=== PATIENT | male | born 1965 | race Caucasian/White ===

== ENCOUNTER 2023-02-19 08:11 | Outpatient (OUT) | payer BC, SELFPAY ==
[2023-02-19 08:30] LABS: Basophils Absolute Auto 0.1 10^3/uL (0.0-0.1); Basophils Percent Auto 0.9 % (0.2-2.0); Eosinophils Absolute Auto 0.5 10^3/uL (0.0-0.7); Eosinophils Percent Auto 7.3 % (0.9-7.0); Hematocrit 47.2 % (42.0-54.0); Hemoglobin 15.9 g/dL (14.0-18.0); Immature Granulocytes Abs Auto 0.02 10^3/uL (0.00-0.03); Immature Granulocytes Pct Auto 0.3 % (0.0-0.5); Lymphocytes Absolute Auto 2.1 10^3/uL (1.2-3.8); Lymphocytes Percent Auto 31.4 % (20.5-60.0); Mean Corpuscular HGB Conc 33.7 g/dL (29.9-35.2); Mean Corpuscular Hemoglobin 28.9 pg (25.9-34.0); Mean Corpuscular Volume 85.8 fL (80.0-94.0); Mean Platelet Volume 11.1 fL (9.5-13.5); Monocytes Absolute Auto 0.3 10^3/uL (0.3-0.8); Neutrophils Absolute Auto 3.6 10^3/uL (1.4-6.5); Neutrophils Percent Auto 55.1 % (43.0-75.0); Platelet Count 234 10^3/uL (150-450); Red Cell Distribution Width 13.1 % (11.0-15.0); White Blood Count 6.6 10^3/uL (4.0-11.0)
[2023-02-19 08:35] LABS: Microalbumin Urine Random <1.3 mg/dL (<=30.0)
[2023-02-19 09:05] LABS: Alanine Aminotransferase 49 U/L (16-63); Albumin Globulin Ratio 1.2; Albumin Level 3.9 g/dL (3.4-5.0); Alkaline Phosphatase 70 U/L (46-116); Anion Gap 9.1; Aspartate Amino Transferase 22 U/L (15-37); BUN Creatinine Ratio 15.1; Calcium 8.9 mg/dL (8.5-10.1); Carbon Dioxide 28.8 mmol/L (21.0-32.0); Chloride 102 mmol/L (98-107); Chol HDL Ratio 3.6; Cholesterol 132 mg/dL (<=200); Estimated GFR (African America >60 (>=60); Estimated GFR (Non-African Ame >60 (>=60); Globulin 3.2 g/dL; Glucose 158 mg/dL (74-106); HDL Cholesterol 37 mg/dL (40-60); Potassium 3.9 mmol/L (3.5-5.1); Sodium 136 mmol/L (136-145); Total Protein 7.1 g/dL (6.4-8.2); Triglycerides 140 mg/dL (<=150)
[2023-02-19 09:29] LABS: Prostate Specific Antigen Scrn 1.04 ng/mL (<=4.00)
== END 2023-02-19 08:12 | disposition home or self-care (01) ==
PROVIDERS: Family Provider Internal Medicine; PCP Internal Medicine; Visit Provider Internal Medicine
DX: Z00.00 Encounter for general adult medical examination without abnormal findings (principal); Z12.5 Encounter for screening for malignant neoplasm of prostate
CPT/HCPCS: 36415; 80053; 80061; 82043; 85025; G0103

== ENCOUNTER 2023-09-09 10:33 | Outpatient (OUT) | payer BC, SELFPAY ==
--- NOTE | 2023-09-09 10:40 | XR_ITS ---
The [address] [address] Patient Name: MYRNA SANTIAGO MRN: [id number] date: 1965 Sex: M Assigned Patient Location: [place] Current Patient Location: [place] Accession/Order Number: [id number] Exam Date: 09/09/2023 10:40 Report Date: 09/09/2023 10:55 At the request of: URSULA SHER Procedure: XR chest 2V EXAM: XR chest 2V HISTORY: Dyspnea on exertion. COMPARISON: Chest radiograph dated 04/09/2021. TECHNIQUE: PA and lateral views of the chest performed. FINDINGS: The trachea is unremarkable. The heart size is normal and stable. The mediastinal silhouette and hilar shadows are stable and unremarkable. There are low lung volumes, stable. There is no consolidation, infiltrate, pleural effusion or pulmonary vascular congestion. There is no pneumothorax. There is no acute osseous abnormality. Stable mild S-shaped scoliosis of the thoracolumbar spine. XR/XR chest 2V IMPRESSION: There is no acute cardiopulmonary process. Electronically authenticated by: DIONTE SCHULTZ Date: 09/09/2023 10:55
--- NOTE | 2023-09-09 10:45 | NM_ITS ---
Patient Name: MYRNA SANTIAGO MR#: [id number] : 1965 Exam Date: 09/09/2023 Ordering Doctor: DR Bhaskar Reddy D.O. RADIOLOGY REPORT PROCEDURE: NM EVAN PERF SPECT REST STR COMPARISON: None. INDICATIONS: CHEST PAIN, SHORTNESS OF BREATH TECHNIQUE: Exam Description: Stress/Rest one day protocol gated SPECT Rest Imagin.2 mCi Tc-99m Cardiolite IV on 09/09/2023 Stress Imaging 30.8 mCi Tc-99m Cardiolite IV on 09/09/2023 Exercise Protocol: Erwin Heart Rate (bpm): Rest: 61 Max: 139 PMHR: 85 Blood Pressure: Rest: 122/86 Max: 178/88 Exercise Time: Minutes: 8 Seconds: 30 Stage Reached: Stage: 3 Mets 10.1 Symptoms: Rest and peak stress ECG findings were abnormal and the exercise portion of the study was abnormal per attending physician Dr. Tay Reddy due to EKG changes. For more details please see separate cardiac stress test report. FINDINGS: QUALITY OF STUDY: Excellent. PERFUSION DEFECT: None. LOCATION: N/A SIZE: N/A. SEVERITY: N/A. TYPE: N/A. WALL MOTION: Normal. LV SIZE: Normal. 66 mL. TID / TCD: None; 0.6 LVEF: Normal. Calculated EF 71%. SUMMARY: Myocardial perfusion imaging study is NORMAL. CONCLUSION: 1. Normal nuclear medicine myocardial perfusion scan. Dictated by: Gaston Mckee M.D. on 09/09/2023 at 15:41 Approved by: Gaston Mckee M.D. on 09/09/2023 at 15:43
--- NOTE | 2023-09-09 13:09 | PM.STRESS ---
Stress Test Stress Test Allergies Allergy/AdvReac Type Severity Reaction Status Date / Time No Known Allergies AdvReac Unknown Unverified 09/09/23 13:20 Requesting physician: Bhaskar Reddy Procedure: Treadmill exercise test General Information: Reason for Stress Test: [. Evaluate a patient with dyspnea on exertion and known coronary artery disease.] Cardiac History and Risk Factors: [. Mr. Aguilar is a 58-year-old patient with known coronary artery disease, status post PCI/stent placement in the left anterior descending artery. Primary risk factors include essential hypertension and hyperlipidemia.] Resting 12 - Lead Electrocardiogram: . Normal sinus rhythm with a ventricular rate of 61 bpm. The RI interval, QRS interval and QT interval are all within normal limits. There are small, nondiagnostic Q waves in the inferior leads and nonspecific ST-T wave changes. Stress Test: Protocol: [. Erwin protocol] Exercise Capacity: [. Mr. Aguilar demonstrated above average exercise capacity. He exercised for 8 1/2 minutes, achieving a heart rate of 139 bpm, which is equivalent to eighty-five percent maximum predicted heart rate. He exercised into stage III of this protocol, which is equivalent to 3.4 miles per hour, fourteen percent grade and 10.1 METs units.] Blood Pressure Response: [Mr. Aguilar demonstrated normal blood pressure response to exercise. His resting blood pressure was 122/86, increasing to a peak of 178/88 and gradually returning baseline during the recovery phase.] Rhythm: [. During exercise he remained in sinus rhythm with rare PVCs.] ST - Response: [. At peak exercise, there was [address] depression noted in the inferior lateral leads.] Patient Response: [At peak exercise the patient did experience shortness of breath but denied chest pain.] Interpretation: . During exercise, there was objective evidence suspicious for myocardial ischemia. Mr. Aguilar demonstrated normal heart rate and blood pressure response to exercise with an above average exercise capacity. Mr. Aguilar's Clark treadmill score was 3.5, placing him in the moderate risk group. Cardiolite was injected with images and interpretation pending
[2023-09-09] MEDS: NITROGLYCERIN 0.4 MG BOTTLE SL (13:18)
== END 2023-09-09 10:34 | disposition home or self-care (01) ==
LOC: NM 10:35
PROVIDERS: Family Provider Internal Medicine; PCP Internal Medicine; Visit Provider Internal Medicine
DX: R07.2 Precordial pain (principal); R06.09 Other forms of dyspnea; I25.10 Atherosclerotic heart disease of native coronary artery without angina pectoris; Z95.5 Presence of coronary angioplasty implant and graft
CPT/HCPCS: 71046; 78452; 93017; A9500

== ENCOUNTER 2023-10-26 15:48 | Outpatient (OUT) | payer BC, SELFPAY ==
--- NOTE | 2023-10-26 16:08 | US_ITS ---
The [address] [address] Patient Name: MYRNA SANTIAGO MRN: [id number] date: 1965 Sex: M Assigned Patient Location: [place] Current Patient Location: [place] Accession/Order Number: [id number] Exam Date: 10/26/2023 16:15 Report Date: 10/26/2023 21:21 At the request of: URSULA SHER Procedure: US arterial duplex UE RT EXAM: US arterial duplex UE RT HISTORY: Pain of right upper extremity,M79.601 COMPARISON: None. TECHNIQUE: Grayscale, color and spectral Doppler images were performed of the right upper extremity. FINDINGS: Normal triphasic waveforms are seen in the right subclavian, axillary, brachial, radial and ulnar arteries. Peak systolic velocities appear within normal limits with no focal elevation to suggest hemodynamically significant stenosis. US/US arterial duplex UE RT IMPRESSION: Normal right upper extremity duplex ultrasound with no hemodynamically significant arterial stenosis or occlusion. Electronically authenticated by: SEDRICK KEE Date: 10/26/2023 21:21
== END 2023-10-26 15:49 | disposition home or self-care (01) ==
LOC: US 15:55
PROVIDERS: Family Provider Internal Medicine; PCP Internal Medicine; Visit Provider Internal Medicine
DX: M79.601 Pain in right arm (principal); Z98.890 Other specified postprocedural states
CPT/HCPCS: 93931

== ENCOUNTER 2023-11-24 15:26 | Outpatient (RCR) | payer BC, SELFPAY | END 2023-11-25 12:37 | disposition home or self-care (01) | LOC: OT 15:26 | PROVIDERS: Family Provider Internal Medicine; PCP Internal Medicine; Visit Provider Orthopaedic Surgery | DX: M79.642 Pain in left hand (principal); M79.641 Pain in right hand; M19.042 Primary osteoarthritis, left hand; M19.041 Primary osteoarthritis, right hand | CPT/HCPCS: 97018; 97165 ==

== ENCOUNTER 2023-12-10 15:20 | Outpatient (OUT) | payer BC, SELFPAY ==
--- NOTE | 2023-12-10 15:26 | XR_ITS ---
The [address] [address] Patient Name: MYRNA SANTIAGO MRN: [id number] date: 1965 Sex: M Assigned Patient Location: [facility] Current Patient Location: Accession/Order Number: [id number] Exam Date: 12/10/2023 15:28 Report Date: 12/14/2023 08:06 At the request of: URSULA SHER Procedure: XR shoulder RT min 2V PROCEDURE: XR shoulder RT min 2V HISTORY: Right shoulder pain M25.511 , right arm pain COMPARISON: None. FINDINGS: BONES:Narrowing of the acromioclavicular joints without significant periarticular osteophytes. Unremarkable humeral head and glenohumeral joint. SOFT TISSUES:No visible soft tissue swelling. EFFUSION:None visible. OTHER: Negative. XR/XR shoulder RT min 2V IMPRESSION: 1. Mild degenerative changes. 2. No acute bone abnormality. Electronically authenticated by: SEDRICK ZELAYA Date: 12/14/2023 08:06
--- OUTSIDE RECORDS SUMMARY | 2023-12-10 15:43 | XMS_ITS | CCD ---
Author Organization [facility] Care Team Providers Care Tobacco Buyer Name Role Phone CONCEPCIONSHILA GLASGOW Unavailable Unavailable BHASKAR REDDY Unavailable Unavailable Mini Marquez Unavailable BHASKAR REDDY Primary Care Physician Pocos, DO Joselyn Barajas Referring Unavailable Pocos, DO Joselyn Barajas Attending Unavailable Pocos, DO Joselyn Barajas Admitting Unavailable BALL, DR VERGARA Primary Care Unavailable BALL, DR VERGARA Admitting Unavailable BALL, DR VERGARA Attending Unavailable BALL, DR VERGARA Consulting Unavailable BALL, DR VERGARA Primary Care Unavailable POCOS, DR ALVES Admitting Unavailable POCOS, DR ALVES Attending Unavailable BALL, DR VERGARA Consulting Unavailable BALL, DR VERGARA Primary Care Unavailable REQUEST, DR MARIE LISTED Admitting Unavaila ble REQUEST, DR MARIE LISTED Attending Unavaila ble REQUEST, DR MARIE LISTED Consulting Unavaila ble BALL, DR VERGARA Primary Care Unavailable BALL, DR VERGARA Admitting Unavailable BALL, DR VERGARA Attending Unavailable BALL, DR VERGARA Consulting Unavailable BALL, DR VERGARA Primary Care Unavailable POCOS, DR ALVES Attending Unavailable POCOS, DR ALVES Consulting Unavailable POCOS, DR ALVES Admitting Unavailable Bhaskar Reddy Unavailable DO Bhaskar Reddy Primary Care Provider MD Angelina Arrieta Attending Provider Jennifer Mccarthy Unavailable JESSICA WEAVER Attending Unavailable NAPOLEON VAZQUEZ Admitting Unavailable HOLIDAY, NAPOLEON Sinclair Attending Unavailable NAPOLEON VAZQUEZ Referring Unavailable BHASKAR REDDY Primary Care Unavailable DO Bhaskar Reddy Primary Care Provider [phone] MD Judy Coleman Attending Provider Angelina Arrieta Admitting Unavailable Angelina Arrieta Attending Unavailable Bhaskar Reddy Primary Care Unavailable Judy Coleman Admitting Unavailable Judy Coleman Attending Unavailable Bhaskar Reddy Primary Care Unavailable Bhaskar Reddy Primary Care Unavailable Miguel Chen Admitting Unavailable Miguel Chen Attending Unavailable Medications Current Medications Medication Drug Class(es) Dates Sig (Normalized) Sig (Original) aspirin 81 mg delayed release oral tablet (15 sources) Platelet Aggregation Inhibitor, Nonsteroidal Anti-inflammatory Drug Start: 08-17-2017 take 81 mg by mouth once daily Aspirin Active 81 MG PO Daily August 17, 2017 1:00am Baby Aspirin Act ti atorvastatin 40 mg oral tablet (20 sources) HMG-CoA Reductase Inhibitor Start: 02-11-2019 take 40 mg by mouth once daily Atorvastatin Active 40 MG PO Daily February 11, 2019 12:00am Start: 08-18-2017 End: 08-13-2018 take 1 tablet by mouth once daily Atorvastatin (Lipitor) 40 mg tablet Discontinued 40 MG PO Daily August 18, 2017 1:00am August 13, 2018 1:02am take 2 tablets by [facility] once daily in the evening Atorvastatin Calcium 20 MG TAKE 2 TABLETS BY MOUTH EVERY DAY IN THE EVENING for 90 Active celecoxib 50 mg oral capsule (2 sources) Nonsteroidal Anti-inflammatory Drug Start: 11-09-2023 take 1 capsule by mouth twice daily Celecoxib (Celebrex) 50 mg capsule Active 50 MG PO Twice daily 60 November 09, 2023 12:00am dextromethorphan hydrobromide 1.5 mg/ml / pyrilamine maleate 1.5 mg/ml oral solution (3 sources) Uncompetitive U-dsqjjk-C-aspartate Receptor Antagonist, Sigma-1 Agonist Start: 04-27-2023 take 10 mL by mouth every eight hours [place] DM 7.5-7.5 MG/5ML 10 mL Orally every 8 hours for 5 days Apr, Active 0.5 ml dulaglutide 1.5 mg/ml auto-injector (11 sources) GLP-1 Receptor Agonist Start: 12-23-2021 Dulaglutide (Trulicity) 0.75 mg/0.5 mL Pen Injector Active 0.75 MG SUBCUT every week December 23, 2021 12:00am lisinopril 10 mg oral tablet (15 sources) Angiotensin Converting Enzyme Inhibitor Start: 04-19-2020 take 10 mg by mouth once daily Lisinopril Active 10 MG PO Daily April 19, 2020 12:00am Lisinopril Activ e metFORMIN hydrochloride 500 mg oral tablet (10 sources) Biguanide Start: 12-23-2021 take 500 mg by mouth once daily Metformin Active 500 MG PO Daily December 23, 2021 12:00am 24 hr metoprolol succinate 50 mg extended release oral tablet (20 sources) beta-Adrenergic Ghada Start: 12-17-2022 take 50 mg by mouth once daily Metoprolol Succinate Active 50 MG PO Daily December 17, 2022 12:00am Start: 08-17-2017 End: 12-17-2022 take 25 mg by mouth twice daily Metoprolol Tartrate Discontinued 25 MG PO Twice daily August 18, 2017 11:22am December 17, 2022 1:04pm nitroglycerin 0.4 mg sublingual tablet (4 sources) Nitrate Vasodilator Start: 08-17-2017 Nitroglycerin Active 0.4 MG SUBLINGUAL every 5 to 15 minutes August 17, 2017 1:00am predniSONE 20 mg oral tablet (14 sources) Start: 05-27-2022 take 1 tablet by mouth every twelve hours prednisone 20 MG 1 tablet Orally BID for 5 Apr, Active Completed/Discontinued Medications Medication Drug Class(es) Dates Sig (Normalized) Sig (Original) [id number] actuat albuterol 0.09 mg/actuat metered dose inhaler (20 sources) beta2-Adrenergic Agonist Start: 05-27-2022 take 2 puff(s) by inhalation four times daily as needed Albuterol Sulfate HFA 108 (90 Base) MCG/ACT 2 puffs Inhalation 4 times a day prn May, Not-Taking/PRN Start: 05-27-2022 take 2 puff(s) by in halation four times daily as needed Albuterol Sulfate HFA 108 (90 Base) MCG/ACT 2 puffs Inhalation 4 times a day prn May, Not-Taking Start: 05-27-2022 take 2 puff(s) by in halation four times daily as needed Albuterol Sulfate HFA 108 (90 Base) MCG/ACT 2 puffs Inhalation 4 times a day prn May, Not-Taking Start: 05-01-2020 take 2 puff(s) by in halation every four hours as needed Albuterol Sulfate HFA 108 (90 Base) MCG/ACT 2 puffs as needed Inhalation every 4 hrs for 30 days Apr, Not-Taking/PRN Start: 05-01-2020 take 2 puff(s) by in halation every four hours as needed Albuterol Sulfate HFA 108 (90 Base) MCG/ACT 2 puffs as needed Inhalation every 4 hrs for 30 days Apr, Not-Taking Start: 05-01-2020 take 2 puff(s) by in halation every four hours as needed Albuterol Sulfate HFA 108 (90 Base) MCG/ACT 2 puffs as needed Inhalation every 4 hrs for 30 days Apr, Not-Taking ALPRAZolam 0.25 mg oral tablet (4 sources) Benzodiazepine Start: 08-17-2017 End: 12-22-2017 Alprazolam Discontinued 0.25 MG PO 2-3 TIMES PER DAY August 17, 2017 1:00am December 22, 2017 9:38am azithromycin 250 mg oral tablet (20 sources) Macrolide Antimicrobial Start: 10-27-2022 Azithr omycin 250 MG as directed Orally daily for 5 days Oct, Not-Taking/PRN Start: 05-27-2022 Azithromycin 2 50 MG 2 tablet on the first day, then 1 tablet daily for 4 days Orally Once a day for 5 day(s) May, Not-Taking/PRN benzonatate 100 mg oral capsule (11 sources) Non-narcotic Antitussive Start: 05-27-2022 take 1 capsule by mouth three times daily as needed Tessalon Perles 100 MG 1 capsule as needed Orally Three times a day for 10 day(s) prn cough May, Not-Taking/PRN cetirizine hydrochloride 10 mg oral tablet (11 sources) Histamine-1 Receptor Antagonist Start: 05-01-2020 take 1 tablet by mouth every twenty-four hours Cetirizine HCl 10 MG 1 tablet Orally Once a day for 30 day(s) Apr, Not-Taking/PRN codeine phosphate 2 mg/ml / guaiFENesin 20 mg/ml oral solution (10 sources) Opioid Agonist Start: 10-27-2022 take 10 mL by mouth every four hours as needed guaiFENesin-Codein e 100-10 MG/5ML 10 mL as needed Orally every 4 hrs for 5 days Oct, Not-Taking/PRN dextromethorphan hydrobromide 15 mg / guaiFENesin 400 mg / pseudoephedrine hydrochloride 60 mg oral tablet (11 sources) alpha-Adrenergic Agonist, Uncompetitive U-fyyozz-S-aspartat e Receptor Antagonist, Sigma-1 Agonist Start: 05-01-2020 Capmist DM 60-15-400 MG 1/2 to 1 tablet Orally every 6-8 hours as needed for 8 days Apr, Not-Taking/PRN fluticasone propionate 0.05 mg/actuat metered dose nasal spray (11 sources) Corticosteroid Start: 05-01-2020 take 1 spray(s) nasal route once daily as needed Fluticasone Propionate 50 MCG/ACT 1 spray in each nostril Nasally Once a day for 30 day(s) Apr, Not-Taking/PRN Start: 05-01-2020 take 1 spray(s) nasa l route once daily Fluticasone Propionate 50 MCG/ACT 1 spray in each nostril Nasally Once a day for 30 day(s) Apr, Not-Taking hydroCHLOROthiazide 12.5 mg / lisinopril 20 mg oral tablet (5 sources) Thiazide Diuretic, Angiotensin Converting Enzyme Inhibitor Start: 03-30-2017 End: 04-19-2020 take 1 tablet by mouth once daily Lisinopril-Hydrochlorothiazide Discontinued 1 TAB PO Daily August 17, 2017 1:00am April 19, 2020 1:07pm methylPREDNISolone 4 mg oral tablet (11 sources) Corticosteroid Start: 05-01-2020 Medrol 4 MG as directed Oral ly for 6 days Apr, Not-Taking/PRN ticagrelor 90 mg oral tablet (4 sources) Start: 08-18-2017 End: 01-13-2019 take 1 tablet by mouth twice daily Ticagrelor (Brilinta) 90 mg Tablet Discontinued 90 MG PO Twice daily 180 90 August 18, 2017 1:00am January 13, 2019 10:16am Problems Active Problems Problem Classification Problem Date Documented Da te Episodic/Chronic Abdominal hernia (1 source) Umbilical hernia 03-30-2017 Episodic Acute bronchitis (1 source) Acute bronchitis due to other specified organisms Episodic Chronic obstructive pulmonary disease and bronchiectasis (1 source) Bronchitis, not specified as acute or chronic Episodic Conditions associated with dizziness or vertigo (2 sources) Benign paroxysmal positional vertigo; Translations: [Benign paroxysmal vertigo, left ear] Episodic Coronary atherosclerosis and other heart disease (20 sources) Coronary arteriosclerosis; Translations: [Atherosclerotic heart disease of [place] coronary artery without angina pectoris] Onset: 08-12-2017 08-17-2017 Chronic Coronary atherosclerosis and other heart disease (1 source) Presence of coronary angioplasty implant and graft Episodic Diabetes mellitus with complications (14 sources) Type 2 diabetes mellitus with hyperglycemia; Translations: [Type 2 diabetes mellitus] Onset: 2022 Chronic Disorders of lipid metabolism (12 sources) Hypercholesterolemia ; Translations: [Pure hypercholesterolemia , unspecified] Onset: 08-12-2017 Chronic Esophageal disorders (9 sources) Stricture of esophagus; Translations: [Benign esophageal stricture] 03-30-2017 Chronic Essential hypertension (12 sources) Hypertensive disorder; Translations: [Essential (primary) hypertension] Onset: 07-08-2022 03-30-2017 Chronic Miscellaneous mental health disorders (2 sources) Psychosexual dysfunction associated with inhibited sexual excitement; Translations: [Psychosexual dysfunction with inhibited sexual excitement] Onset: 11-20-2014 Chronic Nonspecific chest pain (8 sources) Chest pain, unspecified; Translations: [Chest pain] Onset: 02-16-2018 Resolved: 10-26-2021 Episodic Osteoarthritis (6 sources) Localized, primary osteoarthritis of the pelvic region and thigh; Translations: [Unilateral primary osteoarthritis, left hip] Onset: 08-13-2015 11-09-2023 Chronic Other connective tissue disease (4 sources) Trochanteric bursitis, right hip; Translations: [TROCHANTERIC BURSITIS RIGHT HIP] Onset: 07-27-2022 Episodic Other connective tissue disease (1 source) Other bursitis of hip, left hip; Translations: [OTHER BURSITIS OF HIP LEFT HIP] Onset: 07-08-2022 Episodic Other connective tissue disease (2 sources) Trochanteric bursitis of right hip; Translations: [Trochanteric bursitis, right hip] Episodic Other connective tissue disease (3 sources) Pain in right arm; Translations: [Pain in right arm] 10-26-2023 Episodic Other connective tissue disease (3 sources) Pain in right arm; Translations: [Pain in limb] 10-26-2023 Episodic Other connective tissue disease (2 sources) Hand pain; Translations: [Pain in right hand] 11-05-2023 Episodic Other connective tissue disease (3 sources) Pain in right hand; Translations: [Pain in limb] Onset: 11-09-2023 11-09-2023 Episodic Other connective tissue disease (1 source) Pain in left hand; Translations: [Pain in left hand] Onset: 11-09-2023 Episodic Other gastrointestinal disorders (15 sources) Dysphagia; Translations: [Dysphagia, unspecified] 12-26-2021 Episodic Other lower respiratory disease (1 source) Other forms of dyspnea Episodic Other male genital disorders (2 sources) Impotence of organic origin; 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] Chronic Other nutritional; endocrine; and metabolic disorders (2 sources) Obesity; Translations: [Obesity, unspecified] Chronic Other screening for suspected conditions (not mental disorders or infectious disease) (4 sources) Encounter for screening for malignant neoplasm of prostate; Translations: [Abnormal result of other cardiovascular function study] Onset: 11-05-2021 Episodic Other upper respiratory disease (2 sources) Allergic rhinitis; Translations: [Allergic rhinitis, unspecified] Chronic Pleurisy; pneumothorax; pulmonary collapse (2 sources) Pleurisy; Translations: [Pleurisy] Episodic Residual codes; unclassified (2 sources) Requires influenza virus vaccination; Translations: [Need for prophylactic vaccination and inoculation, Influenza] Episodic Residual codes; unclassified (3 sources) History of cardiac catheterization; Translations: [Other specified postprocedural states] 10-26-2023 Episodic Residual codes; unclassified (3 sources) Other specified postprocedural states; Translations: [Other postprocedural status] 10-26-2023 Episodic Sprains and strains (4 sources) Strain of muscle of left hip; Translations: [Strain of muscle, fascia and tendon of left hip, initial encounter] Onset: 08-13-2015 Episodic Unclassified (2 sources) Chest pain, unspecified / R07.9(ICD-9) Onset: 02-16-2018 Past or Other Problems Problem Classification Problem Date Documented Da te Episodic/Chronic Diseases of mouth; excluding dental (6 sources) Geographic tongue; Translations: [Geographic tongue] Onset: 11-20-2014 Resolved: 09-24-2020 Episodic Other aftercare (1 source) intermediate frame tender (current) use of insulin; Translations: [NURSING HOME CURRENT USE OF INSULIN] Onset: 02-22-2022 Episodic Other connective tissue disease (2 sources) Ganglion of hand; Translations: [Ganglion, right hand] Onset: 11-25-2018 Episodic Other gastrointestinal disorders (1 source) Dysphagia, unspecified; Translations: [Dysphagia, unspecified] Onset: 12-17-2022 Episodic Other non-traumatic joint disorders (2 sources) Arthralgia of the pelvic region and thigh; Translations: [Pain in left hip] Onset: 10-16-2013 Episodic Other nutritional; endocrine; and metabolic disorders (2 sources) Overweight; Translations: [Overweight] Onset: 11-05-2017 Episodic Other nutritional; endocrine; and metabolic disorders (4 sources) Body mass index 25-29 - overweight; Translations: [Body mass index 28.0-28.9, adult] Onset: 11-05-2017 Episodic Other upper respiratory infections (3 sources) Acute upper respiratory infection, unspecified; Translations: [Acute sinusitis] Onset: 05-17-2015 Episodic Spondylosis; intervertebral disc disorders; other back problems (2 sources) Low back pain; Translations: [Lumbago] Onset: 11-20-2014 Episodic Unclassified (1 source) Acute cough R05.1 Results Test Name Value Interpretation Reference Range Facility XR hand BI 3Von 11-09-2023 XR hand BI 3V [facility] [address] [place] [address] XRay Report Signed Patient: Misael Aguilar Jr MR#: [id number] : 1965 Acct:[id number] Age/Sex: 58 / M ADM Date: 11/09/23 Loc: SOXD Room: Type: [facility] Attending Dr: Judy Coleman MD Copies to: Judy Coleman MD Ordering Provider: Judy Coleman MD Date of Service: 11/09/23 XR/XR hand BI 3V: M79.641 - Pain in right hand 4 views both hand plain film COMPARISON: None HISTORY: Bilateral hand pain greater on the right. ACUTE FINDINGS: None DEGENERATIVE CHANGE: Mild bilateral degenerative changes. SOFT TISSUE FINDINGS: Unremarkable JOINT EFFUSION: None POSTOP CHANGES: None BONY MINERALIZATION: Adequate XR/XR hand BI 3V IMPRESSION: Mild bilateral degeneration Impression dictated by: Magnus Salcedo M.D.11/09/2023 5:24 PM Dictation Location: [place] [address] Transcribed By: [facility] 11/09/231723 Dictated By: Magnus Salcedo DO 11/09/231722 Signed By: 11/09/231723 Normal [facility] Basic Metabolic Panelon 09-16 Anion gap [Moles/Vol] 10 mmol/L Normal 9-15 [facility] Comment on above: Performed By: #### B MP #### [facility] [address] [place] [address] Calcium [Mass/Vol] 8.9 mg/dL Normal 8.5-9.9 [facility] Comment on above: Performed By: #### B MP #### [facility] [address] [place] [address] Chloride [Moles/Vol] 102 mmol/L Normal 95-107 [facility] Comment on above: Performed By: #### B MP #### [facility] [address] [place] [address] CO2 [Moles/Vol] 27 mmol/L Normal 20-31 [facility] Comment on above: Performed By: #### B MP #### [facility] [address] [place] [address] Creatinine [Mass/Vol] 0.97 mg/dL Normal 0.70-1.20 [facility] Comment on above: Performed By: #### B MP #### [facility] [address] [place] [address] GFR >60.0 Normal >60 [facility] Comment on above: Result Comment: Edwin atric calculator link https://www.kidney.org/professionals/kdoqi/gfr_calculatorped Effective Apr 20, 2022 These results are not intended for use in patients <18 years of age. eGFR results are calculated without a race factor using the 2020 CKD-EPI equation. Careful clinical correlation is recommended, particularly when comparing to results calculated using previous equations. The CKD-EPI equation is less accurate in patients with extremes of muscle mass, extra-renal metabolism of creatinine, excessive creatinine ingestion, or following therapy that affects renal tubular secretion. Performed By: #### B MP #### [facility] [address] [place] [address] Glucose [Mass/Vol] 149 mg/dL Critically high 70-99 [facility] Comment on above: Performed By: #### B MP #### [facility] [address] [place] [address] Potassium [Moles/Vol] 4.0 mmol/L Normal 3.4-4.9 [facility] Comment on above: Performed By: #### B MP #### [facility] [address] [place] [address] Sodium [Moles/Vol] 139 mmol/L Normal 135-144 [facility] Comment on above: Performed By: #### B MP #### [facility] [address] [place] [address] Urea nitrogen [Mass/Vol] 16 mg/dL Normal 6-20 [facility] Comment on above: Performed By: #### B MP #### [facility] [address] [place] [address] CBC With Platelet No Differe ntialon 10-01-2023 Erythrocyte distribution width (RBC) [Ratio] 12.8 % Normal 11.5-14.5 [facility] Comment on above: Performed By: #### C BCND #### [facility] [address] [place] [address] Hematocrit (Bld) [Volume fraction] 46.1 % Normal 42.0-52.0 [facility] Comment on above: Performed By: #### C BCND #### [facility] [address] [place] [address] Hemoglobin (Bld) [Mass/Vol] 15.3 g/dL Normal 14.0-18.0 [facility] Comment on above: Performed By: #### C BCND #### [facility] [address] [place] [address] MCH (RBC) [Entitic mass] 28.9 pg Normal 27.0-31.3 [facility] Comment on above: Performed By: #### C BCND #### [facility] [address] [place] [address] MCHC 33.2 % Normal 33.0-37.0 [facility] Comment on above: Performed By: #### C BCND #### [facility] [address] [place] [address] MCV (RBC) [Entitic vol] 87.1 fL Normal 79.0-92.2 [facility] Comment on above: Performed By: #### C BCND #### [facility] [address] [place] [address] Platelets (Bld) [#/Vol] 239 10*3/uL Normal 130-400 [facility] Comment on above: Performed By: #### C BCND #### [facility] [address] [place] [address] RBC (Bld) [#/Vol] 5.29 10*6/uL Normal 4.70-6.10 [facility] Comment on above: Performed By: #### C BCND #### [facility] [address] [place] [address] WBC (Bld) [#/Vol] 6.3 10*3/uL Normal 4.8-10.8 [facility] Comment on above: Performed By: #### C BCND #### [facility] [address] [place] [address] Prothrombin Timeon 4 INR Coag (PPP) [Relative time] 1.0 {INR} Normal [facility] Comment on above: Performed By: #### P T #### [facility] [address] [place] [address] PT Coag (PPP) [Time] 13.1 s Normal 12.3-14.9 [facility] Comment on above: Performed By: #### P T #### [facility] [address] [place] [address] Office Visiton 07-16-2023 Follow-up visit [id number] Misael Aguilar Jr. 1965 M Date Provider Department Center 07/16/2023 3848-JESSICA WEAVER CARD [facility] Family History Problem Relation Age of Onset No Known Problems Mother No Known Problems Father Family Status - Relation Status Age at Mother Alive Father Alive Level of Service:32447 MO OFFICE/OUTPATIENT ESTABLISHED MOD MDM 30 MIN Normal [facility] Glucose Glucometer (BldC) [M ass/Vol]Ordered By: Angelina Arrieta on 12-17-2022 Glucose [Mass/Vol] 101 mg/dL [facility] Comment on above: Random Glucose Refer ence Range is dependent on time and content of last meal. Glucose of more than 200 mg/dL in a nonstressed, ambulatory subject supports the diagnosis of Diabetes Mellitus. Glucose Poct Glucometerson 0 12-17-2022 Glucose [Mass/Vol] 101 mg/dL Normal [facility] Comment on above: Result Comment: [place] Glucose Reference Range is dependent on time and content of last meal. Glucose of more than 200 mg/dL in a nonstressed, ambulatory subject supports the diagnosis of Diabetes Mellitus. PERFORMED BY: [facility] [address] [place] [address] PATHOLOGIST COMBER OPERATOR LAMONT HORN M.D. Performed By: #### G TOBY #### Point of Care testing , Dwain 12-17-2022 L Specimen: [id number] Received: 12/17/22 Status: KENNEDY Conti Num: [id number] Spec Type: Surgical Subm Dr: Angelina Arrieta MD Tissues: A Gastric Biopsy (GASTRIC) Procedures: HE/2, Gross/Micro L4 Age/ Patient Sex Location Account Attending Physician Misael Aguilar Jr/[facility] [id number] Angelina Arrieta MD SPEC NUM: [id number] RECD: 12/17/22 STATUS: KENNEDY CONTI NUM: [id number] TOM: 12/17/22- [facility] DR: Angelina Arrieta MD ENTERED: 12/17/[address] [facility] [address]: SPEC TYPE: Surgical DEPT: S ORDERED: HE/2, Gross/Micro L4 ORDERED: HE/2, Gross/Micro L4 Pathological Diagnosis Stomach, gastric, biopsy: - Chronic gastritis, mild to moderate, nonspecific. - Negative for Helicobacter pylori on H E stain. Clinical Information Dysphagia, rule out H pylori Gross Description Received in formalin labeled with the patient's name, number and gastric are three fragments of soft [place] tissue ranging from 0.2 cm to 0.3 x 0.2 x 0.2 cm. Entirely submitted in one cassette labeled A1. Microscopic Description Two H E slides reviewed. The microscopic examination confirms the diagnosis. CPT Codes 38171 Specimen: [id number] Received: 12/17/22 Status: KENNEDY Conti Num: [id number] Spec Type: Surgical Subm Dr: Angelina Arrieta MD Tissues: A Gastric Biopsy (GASTRIC) Procedures: HE/Lazaro, Gross/Micro L4 Patient: Misael Aguilar Jr [id number] (Continued) Signed (signatur e on file) Julieta Escobar MD 12/18/22 1150 Normal [facility] CBC AUTO DIFFon 07-03-2022 BASO # 0.1 103/ul Normal 0.0-0.1 [facility] Comment on above: Performed By: #### C BC #### [facility] [address] [place] [address] Dr. Sergey Zamorano Basophils/100 WBC (Bld) 0.9 % Normal 0.2-2.0 [facility] Comment on above: Performed By: #### C BC #### [facility] [address] [place] [address] Dr. Sergey Zamorano EO # 0.5 103/ul Normal 0.0-0.7 [facility] Comment on above: Performed By: #### C BC #### [facility] [address] [place], [place] [address] Dr. Sergey Zamorano Eosinophils/100 WBC (Bld) 7.1 % Critically high 0.9-7.0 [facility] Comment on above: Performed By: #### C BC #### [facility] [address] [place] [address] Dr. Sergey Zamorano Erythrocyte distribution width (RBC) [Ratio] 13.4 % Normal 11.0-15.0 [facility] Comment on above: Performed By: #### C BC #### [facility] [address] [place] [address] Dr. Sergey Zamorano Hematocrit (Bld) [Volume fraction] 46.5 % Normal 42.0-54.0 [facility] Comment on above: Performed By: #### C BC #### [facility] [address] [place] [address] Dr. Sergey Zamorano Hemoglobin (Bld) [Mass/Vol] 15.3 g/dL Normal 14.0-18.0 [facility] Comment on above: Performed By: #### C BC #### [facility] [address] [place] [address] Dr. Sergey Zamorano IG # 0.03 10e3/ul Normal 0.00-0.03 [facility] Comment on above: Performed By: #### C BC #### [facility] [address] [place] [address] Dr. Sergey Zamorano IG % 0.4 % Normal 0.0-0.5 [facility] Comment on above: Performed By: #### C BC #### [facility] [address] [place] [address] Dr. Sergey Zamorano LYMPH # 2.6 103/ul Normal 1.2-3.8 [facility] Comment on above: Performed By: #### C BC #### [facility] [address] [place] [address] Dr. Sergey Zamorano Lymphocytes/100 WBC (Bld) 33.6 % Normal 20.5-60.0 [facility] Comment on above: Performed By: #### C BC #### [facility] [address] [place] [address] Dr. Sergey Zamorano MANUAL DIFF REQ NO Normal [facility] Comment on above: Performed By: #### C BC #### [facility] [address] [place] [address] Dr. Sergey Zamorano MCH (RBC) [Entitic mass] 28.3 pg Normal 25.9-34.0 [facility] Comment on above: Performed By: #### C BC #### [facility] [address] [place] [address] Dr. Sergey Zamorano MCHC (RBC) [Mass/Vol] 32.9 g/dL Normal 29.9-35.2 [facility] Comment on above: Performed By: #### C BC #### [facility] [address] [place] [address] Dr. Sergey Zamorano MCV (RBC) [Entitic vol] 86.0 fL Normal 80.0-94.0 [facility] Comment on above: Performed By: #### C BC #### [facility] [address] [place] [address] Dr. Sergey Zamorano MONO # 0.6 103/ul Normal 0.3-0.8 [facility] Comment on above: Performed By: #### C BC #### [facility] [address] [place] [address] Dr. Sergey Zamorano Monocytes/100 WBC (Bld) 7.5 % Normal 1.7-12.0 [facility] Comment on above: Performed By: #### C BC #### [facility] [address] [place] [address] Dr. Sergey Zamorano NEUT # 3.9 103/ul Normal 1.4-6.5 [facility] Comment on above: Performed By: #### C BC #### [facility] [address] [place] [address] Dr. Sergey Zamorano Neutrophils/100 WBC (Bld) 50.5 % Normal 43.0-75.0 [facility] Comment on above: Performed By: #### C BC #### [facility] [address] [place] [address] Dr. Sergey Zamorano Platelet mean volume (Bld) [Entitic vol] 10.8 fL Normal 9.5-13.5 [facility] Comment on above: Performed By: #### C BC #### [facility] [address] [place] [address] Dr. Sergey Zamorano PLT 278 103/ul Normal 150-450 [facility] Comment on above: Performed By: #### C BC #### [facility] [address] [place] [address] Dr. Sergey Zamorano RBC 5.41 106/ul Normal 4.70-6.10 [facility] Comment on above: Performed By: #### C BC #### [facility] [address] [place] [address] Dr. Sergey Zamorano WBC 7.6 103/ul Normal 4.0-11.0 [facility] Comment on above: Performed By: #### C BC #### [facility] [address] [place] [address] Dr. Sergey Zamorano GLYCOHEMOGLOBIN A1Con 2021 ADA RECOMMENDATION SEE BELOW Normal [facility] Comment on above: Result Comment: ADA RECOMMENDED LIMIT 4.0 - 6.0 ADA THERAPEUTIC TARGET < 7.0 ACTION SUGGESTED > 7.0 Performed By: #### D ATA1C #### [facility] [address] [place] [address] Dr. Sergey Zamorano Glucose [Mass/Vol] 137 mg/dL Normal [facility] Comment on above: Performed By: #### D ATA1C #### [facility] [address] [place] [address] Dr. Sergey Zamorano HbA1c (Bld) [Mass fraction] 6.4 % Critically high 4.5-6.2 [facility] Comment on above: Performed By: #### D ATA1C #### [facility] [address] [place] [address] Dr. Sergey Zamorano PROF CHEM 8 (BAS METB)on Anion gap [Moles/Vol] 10.6 mmol/L Normal [facility] Comment on above: Performed By: #### B MP #### [facility] [address] [place] [address] Dr. Sergey Zamorano Calcium [Mass/Vol] 8.6 mg/dL Normal 8.5-10.1 [facility] Comment on above: Performed By: #### B MP #### [facility] [address] [place] [address] Dr. Sergey Zamorano Chloride [Moles/Vol] 104 mmol/L Normal 98-107 [facility] Comment on above: Performed By: #### B MP #### [facility] [address] [place] [address] Dr. Sergey Zamorano CO2 [Moles/Vol] 30.5 mmol/L Normal 21.0-32.0 [facility] Comment on above: Performed By: #### B MP #### [facility] [address] [place] [address] Dr. Sergey Zamorano Creatinine [Mass/Vol] 0.94 mg/dL Normal 0.70-1.30 [facility] Comment on above: Performed By: #### B MP #### [facility] [address] [place] [address] Dr. Sergey Zamorano EGFR-AF NIGERIEN >60 Normal >=60 [facility] Comment on above: Performed By: #### B MP #### [facility] [address] [address] [address] Sergey Zamorano EGFR-NON AF NIGERIEN >60 Normal >=60 [facility] Comment on above: Performed By: #### B MP #### [facility] [address] [address] [address] Sergey Zamorano Glucose [Mass/Vol] 111 mg/dL Critically high 74-106 [facility] Comment on above: Performed By: #### B MP #### [facility] [address] [address] [address] Sergey Zamorano Potassium [Moles/Vol] 4.1 mmol/L Normal 3.5-5.1 [facility] Comment on above: Performed By: #### B MP #### [facility] [address] [address] [address] Sergey Zamorano Sodium [Moles/Vol] 141 mmol/L Normal 136-145 [facility] Comment on above: Performed By: #### B MP #### [facility] [address] [address] [address] Sergey Zamorano Urea nitrogen [Mass/Vol] 12.0 mg/dL Normal 7.0-18.0 [facility] Comment on above: Performed By: #### B MP #### [facility] [address] [address] [address] Sergey Zamorano Urea nitrogen/Creatinine [Mass ratio] 12.8 mg/mg Normal [facility] Comment on above: Performed By: #### B MP #### [facility] [address] [address] [address] Sergey Zamorano Coding Summary.on 06-08-2022 Coding Summary. CD:[id number] HMe1wSm+PGhlYWQ+PE1 BHOAiD98otIRpuD9KT3 gMBS7WRMVBLTWLXH3CQ E2lfSO0DFyaV5QekjGz ZgnndQDfJO49YMn9QAG 4xUnpOQnroN4pnVPiH3 c4RgAtHP71rG39ADgyN FLoKdD7KwVyzmnfcOZk R4qvVaRmqSGeBom+PHR hYmxlIHdpZHRoPScxMD DmOyTeuDicWD7lTx2xM GVyLWNvbGxhcHNlOiBj j1mxDPSmQOpkNM4rpRk tX0OytPF4OUCkx4u5Vi 48dHI+IMDmZUH3sKyiV Bqlx571UqSga1kzPXU9 gABbUSsrDYF3D43fb9W 7JBTdEVGxMSS9aRY3qM 3huLohpczcD6PoxZKoQ gT8DQV9sJCluK9rnUzg pskfgP2zYas+I62RFD2 NAXPLGY0JMen9D6IvHs wvdHI+XL69HCVsBN24c TTqbRTie2qztEc6EmDg SSMhOJU8hIpeEBnsd0S nVSHqF77wzELoi8L5ZW YzqCamoDPmRrRnxTO9u Y8sFIdgdtkbs0zvrtlm Syesg1akjt87pS30O03 xVOgpRRGmYFO4FPYqDF OcoTyjec7zqU1yJd1+I Xcrj9kaj4hxiMy3XhAf MKGncjMvdOclYQW5d3M pJu22H4ThjDvtp1NgIl w6hc08dCNjo3Q8dRR3F IjlXNEapB6hDYumYuW2 IYOsHtXamX73fMDqIJc yDh2lfEqezSsdAU6iOX TucgrsHINwuF4bBQDbf UXaxQzoEX8tKRTvmqkr e784PfGvBIW1EDIgyEX mD1UbeV4yUwSgTAXoFL PiB2XcgMIfRMljD083G MssRqB2BQZqlqNpQ9Ra EMGpcVahBdZ1j1R5Zo1 Nw3RnkwwsRLM8WOmoBH UnSoQjGrBfZvT5G1YjI at9YGSowBncKJ6yL2Wn GCRybeisazwbzWY4LWB iPHGyjZ17sTIwNZinEr 3xw4L0x283LFZiFKRql T42Jr8xnShuNMZuhWDH lL9mmlhno8fqkzdkOsU hSLOzODc5OYx0EXHuiL ycHlEzQVE5KuP7JSI7l RHteO3jkCxbpkfhcI1x Oyc+U02knV5nMMP7ZUQ 8wrptEZLxtpAbZK61LY 00J5ZaVfhgpOKyzZA+P QNgedGogXbvUC3pUeWk a5zqm9LsXAfsX5UwOCD zETwjDeu3EJMcQPW9bB Y4tC5iBTVkESdqh4N5l HU9J1PxcoIpaz0mf1de ADSzYMopS94umWWda1U 6MMWgiQV5VMVmgKsnZh FutA48Ebd+PGNvbGdyb 5GgWzitz7flm7ezjKm5 IjMwJSIgdmFsaWduPSJ 9r6JfSa42N06iPHudDK RoPSIxNSUiIHZhbGlnb w4kzY9uDw2+PGNvbCB3 jBD1iZ3tINIeGeV6FPq jM993WiGzvYGsSwpdp9 ctt0enxYp9AgUvPLXnt vPzaRndVEW4y0PvYt82 Q78qVWhtULYdDTLnNLL rRUXneHcjax4vqT5lVk 8+LE9ue7rpwb86nM86a HI+JSSfDGS6cDcqOLza SWHweX4kVQljTqX6UQQ qYzWbkS72aEBnXHbyMd 8qrPbgvHvmEF4oCHRap wuak269DdOda6ouRSEk yWEjLSiuODT0N52qf2R 1IJEmGPMyJTL8pTS8cU 1hbGlnbjogbGVmdDsgd xIlePjhVPmqPEtoB808 IHRvcDsnPlBhdGllbnQ wDeKkCOl3Q3KwHnc3EX WilQoeGR7tyFZqLXeoO w5bmLtozQtnHH4hEEDs bsbqr921UgFft9diPTZ xiADeVGciKKJ5V38qn7 J2GRTmGQJzLEH5rVJ0k T1xySjyiidevUEtjVay kbHdqKcdKCzyJAcdA96 6IHRvcDsnPkJpcnRoIE QruCF7ZC20MH20fDDoy 5T1cVZ4Z0YvAOPbwois awrofKD4WXToWEJwgV4 3He9rlVtfJo6aXUFrFD G1IZTmjHMiN2VkvA1fZ zOsDMYxDDNmU6NowSCn EMwbU605PLuyFsF5WEK rmfUxG6FyYBHupWytWv H2r7N3Xl5QP1M5FY20Z H22jJLnn2H6dCW7O8Dt FVUactvgidrkwUV7NIY vXBAwbU49Kk3ztXtiFw 2wQKOlBJI2DEZauOFoP 2HhoG9jRdRsTYLhWEEy O9DgqNIuTEpnY609AAz dVmJ2LKEjxfZfL9LdPO QuqBplJtK3h3R5Gb2GU Ny5RT62EO23sDXcr5A2 xQQ2O3MiEPMxekyafmb yqKH4FAFhKHKcnC64Ql 5ieNpoSn2fBKFiFOU8N MQxuXLbA8CewM7uZsVt FRVqXXZsY7KvuRWyIKx tV137XWzhFyL7DQFfan PdU3XrJDCluDkfVyH4q 5V5Ge7BDPLsZX98IEE6 jZB1PB67SG29W3BuUat vdGFibGU+PHRhYmxlIH dpZHRoPScxMDAlJyBzd EhgDO7qGo9wJHTkPYXo pMopjXUeEiEau1yjDQJ gGVngZO4uzKspA2MerD Q0NPAtx1o0Wu10S71eL 3JvdXA+MMQagOB5pAU4 rP6oErDvBrW9DQwpV78 2HmMeyWNbWshja1yky1 iozHt7AdZ9ZFXgcrEsk SbnFBA3z0NaQu31N85x IHdpZHRoPSIxNSUiIHZ rxEbuqw2evA2xUt5+PG YzgRR5pPJ0aH1mIfPyR aM2DLaqP549EiWziAHn Ookxp4xbv7xuaAd5YjM bPLBkfqZenSahRXE5v9 FhYh15H5BpsUghz2WpK ap1gp48vBRrd9H9qZY9 A4UkXOCqyoxncGJunDa kSH9eDRGdgveaHEOqkG 1zQINtA0c8JjXzEiI3H QslQ1OhxgM4BEFsnRRk AKgxRCD8P85ff0U0OGP hXJByACA2rGW4nZ9rdJ lnbjogbGVmdDsgdmVyd JiqTTieCZyuJ886BZXw wMicPTQvgA8yEKAfsOH ccJrnKH0gCUNgupzgYh MDN5ITHYZnTZTXHV25U 7MmIyp2FPCevXxkTB5h iWRfGDxrGd6kzAorfNm zSB0pSNDiptrpBTAwpJ 8lOYKaaFCfnYuwWD1rV RJejjvmv253DfXeMNK8 HDLnrHRtT5FaeQ9pNpB nDHLtPZWiX5HtcZNuLL mdE244UHgwFqV0OEErm xLzM0HhZYDrgEovGyD2 b8S3Yd9vSV8hJO2fYGT 3DF18KH58kSNzq4U0rB E3J4MeFKCjwycwhhdcf ZZ9HXElPQWcoP91rNSc QZpnEo4nv4W5o970OAP pKRJfzR33Og4spSxnQF GxmZEVuX7uvnfmb1ebg thqPkLpYPJzUPj0PNf3 ENVoeDooJbUoJAN2XgO 5LUP2wRWkvY5yuYtwzs wjyN4dUmg+NTUgWWVhc aW6C6ObJzm3ZOZwuCom HN6rvAOsJBvtUd4wcMy twSemFT4hVXVmoxxqZQ KikY6hQXEhrKJydQazI Y1xYGLygqgwb257IbMk WWK7PDSwqWJgJ0JgwR0 zHtZvQBNsXNQsJ6FovK RuPUhiE635NCtwRoU1F BWzgjPaW8WnAFUbxQuj XbI2w4B7Kq3RZGwoYV5 9NP75bAIfu2W1cFO6W9 BwLJAohgyrswubdZF1D HGgBGNfuV27vZBlXCzv Cv7ci0I9z704YRWkFHE abM24Aq9ukLirMGXjlW XIuQ1yaomxu0lcezngS pVfSKWsXUy2HEy2YSZz nSbdCyCvKVS7YuU9KJK 1qMLkcV0xpLigaqvhxU 9wOyc+M2J9jXX8jIRzi DwvdGQ+LL08xh77C2Uq MkncUwm0WBRfUTA7eFI 4iO8jPYArNLyxq9U7lK U0Y4PdccGzye6ls3uvB AEdPJdeZ87lyWQsg3F1 BEQaoVN5ACXzgKyvYqJ uuD84Xjo+PGNvbGdyb3 YyNmpah0gge3lgzHr5M jMwJSIgdmFsaWduPSJ0 z2TwAk48I53uHKohQHP oPSIzMCUiIHZhbGlnbj 9oiY8rVx3+LQLayPF7n SI3vY4dWrDcSrD3LSfk W337UeJytSKgGbuls8h tk2mrrBb2DcBtNIIowp QwpPzoZKO7u4UeRq40O 8NsyDapr0FnFbc4rn13 dMCjc6X4uEC2A8WdHWR nrlctbLWbvJdnCP7jIZ MszfynOUAaeD8nUKNbZ 7d7UsYeOfO4UQqoG4Sd iaW9UIQvyJHjMHOjqMW EgQ2vxlkyp9pxdhnqAt OmAAMkOHw3TUy2KDUzj UdqBpQjCYI4ZiY4RSK5 tBXwdI6szJldbitllK8 wOyc+WGr6s4jbdFIqKL 8nqCU7EU78LT82iGGnz 9E1pKY5P0RlOMXanjvi uxyudKR6PHCuKDSkeY9 2Gf8qtAvgUw6zPFAyPG C4JNIpjKWqW1CmgH4rH rRkZBWhRUVgP4PcbXVz AKxiU470AQmpNnO6ATQ ddkGnG5EfVSLgoJhrTn Y8m6B0Tq2DCZ34ZA31H J81iDEsb7Q2xMF1A4Qc JADifdycduiykSN3URO uKWLdzP88Nr4bcAtmQo 3eMFBeZJJ8IZAanLSyE 6YxoY3pNwAvSFBwUASv O0RzjUVaAMzmN328EUs tSmR9CIIbezDnX5VvWB GhtUyqEgZ1l4R5Iu1DN l67QB05KJ92sERlc4V2 aIR9B8OoUYIdgystrsf lyMR9GNVaGAIgsN60Eu 7nuBaiMs8xEGFkXRA2L GNpySKgN2KefG5uAmVh LAFjKSBxG0FowNPfYBl pM983WJmgMxS9ZCHmlr VnE0KoYDLsbScwUbD2m 0V7Vl5JZOxldut6P9Mk PjwvdHI+MW97ADOtSF5 9wEKudBXxu8qfuQl7Dg SrYZXtWJJ3nXtcZCwru 9VoTAEaP29eyJBra1T5 IGNv (more content not included)... Normal [facility] Operative Reporton Operative Report SURGERY DATE: 06/03/2022 PREOPERATIVE DIAGNOSIS: Right hip osteoarthritis; trochanteric bursitis POSTOPERATIVE DIAGNOSIS: Right hip osteoarthritis; trochanteric bursitis OPERATION: Right hip arthrography for corticosteroid injection ANESTHESIA: 1% lidocaine plain INJECTED SOLUTION: 1 cc, 40 mg, Kenalog with 2 cc 1% lidocaine plain SPECIMEN: None COMPLICATIONS: None DRAINS: None HISTORY/OPERATIVE INDICATIONS: The patient is a 57-year-old white male who presents complaining of pain, difficulty about the right hip and groin area. The patient is found to have osteoarthritis that is clinically significant. We did discuss all options conservative and surgical and the patient does opt for the above procedure. The procedure is undertaken this day. PROCEDURE: The patient is met in the [facility]. The patient is placed supine on the fluoroscopic table. Approximate site of injection is identified and localized with the fluoroscopic unit. This area is sterilely prepped and draped in the usual surgical fashion at which time the area is anesthetized with 1% lidocaine plain. At this point, the arthrography is performed. A 22 gauge spinal needle is then taken directly down onto the anterior femoral neck in a subcapital position. A palpable release of the capsule is realized. A small amount of Isovue-300 radiologic dye is then injected intracapsular to verify this position. At this point, the hip is injected with the above solution. The needle is withdrawn. No bleeding or hematoma formation. The patient will be discharged from the [facility] here today. Celia Potter Dictated: 06/03/2022 [id number] Transcribed: 06/03/2022 cc:Bhaskar Reddy D.O. [facility] Comment on above: Result Comment: Elec tronically Signed By: Joselyn Gilman DO\.br\Date and Time Signed: 06/05/22 13:01 EST RAD - Consent to Procedureon 06-03-2022 RAD - Consent to Procedure [id number]:127 [facility] Physician Orderon 05-25-2022 Physician Order [id number]#[id number]:127 Normal Fil[facility] MRI Hip w/o Righton 05-13-20 MRI Hip w/o Right History:??Hip pain. Trochanteric bursitis. Comparison: Hip radiographs 10/20/2021 Technique:??Multipl lianet multisequence MRI of the right hip??was performed without contrast. Findings: No acute or aggressive osseous abnormality of the pelvis or visualized portion of either femur.??No femoral head avascular necrosis. The left common??hamstring tendon is intact.??The left iliopsoas and left rectus femoris tendons are intact. Low-grade partial stripping of gluteus minimus tendon at the greater trochanter with minimal adjacent soft tissue edema. Mild left gluteus medius and left gluteus minimus tendinosis.??No trochanteric bursal fluid.??The left external rotators are intact. ??Adductor musculature appear intact.??The left sided sciatic??nerve appears within normal limits. No labral tear identified. Partial-thickness cartilage loss of the posterior superior acetabulum without well defined cartilage defect. Colonic diverticuli are identified. Impression: Mild degenerative changes of the right hip. Low-grade partial stripping of gluteus minimus tendon at the greater trochanter with minimal adjacent soft tissue edema. Mild left gluteus medius and left gluteus minimus tendinosis. Report reported and signed by Michael Martino on 05/14/2022 1017 Normal [facility] GLYCOHEMOGLOBIN A1Con 2021 ADA RECOMMENDATION SEE BELOW Normal [facility] Comment on above: Result Comment: ADA RECOMMENDED LIMIT 4.0 - 6.0 ADA THERAPEUTIC TARGET < 7.0 ACTION SUGGESTED > 7.0 Performed By: #### A 1C #### [facility] [address], [place] [address] Dr. Sergey Zamorano Glucose [Mass/Vol] 126 mg/dL Normal [facility] Comment on above: Performed By: #### A 1C #### [facility] [address], [place] [address] Dr. Sergey Zamorano HbA1c (Bld) [Mass fraction] 6.0 % Normal 4.5-6.2 [facility] Comment on above: Performed By: #### A 1C #### [facility] [address] [address] [address] Sergey Zamorano CBC AUTO DIFFon 10-31-2021 BASO # 0.1 103/ul Normal 0.0-0.1 [facility] Comment on above: Performed By: #### C BC #### [facility] [address] [place] [address] Dr. Sergey Zamorano Basophils/100 WBC (Bld) 0.9 % Normal 0.2-2.0 [facility] Comment on above: Performed By: #### C BC #### [facility] [address] [place] [address] Dr. Sergey Zamorano EO # 0.4 103/ul Normal 0.0-0.7 [facility] Comment on above: Performed By: #### C BC #### [facility] [address] [place] [address] Dr. Sergey Zamorano Eosinophils/100 WBC (Bld) 5.5 % Normal 0.9-7.0 [facility] Comment on above: Performed By: #### C BC #### [facility] [address] [place] [address] Dr. Sergey Zamorano Erythrocyte distribution width (RBC) [Ratio] 12.8 % Normal 11.0-15.0 [facility] Comment on above: Performed By: #### C BC #### [facility] [address] [place] [address] Dr. Sergey Zamorano Hematocrit (Bld) [Volume fraction] 47.9 % Normal 42.0-54.0 [facility] Comment on above: Performed By: #### C BC #### [facility] [address] [place] [address] Dr. Sergey Zamorano Hemoglobin (Bld) [Mass/Vol] 16.0 g/dL Normal 14.0-18.0 [facility] Comment on above: Performed By: #### C BC #### [facility] [address] [place] [address] Dr. Sergey Zamorano IG # 0.02 10e3/ul Normal 0.00-0.03 [facility] Comment on above: Performed By: #### C BC #### [facility] [address] [place] [address] Dr. Sergey Zamorano IG % 0.3 % Normal 0.0-0.5 [facility] Comment on above: Performed By: #### C BC #### [facility] [address] [place] [address] Dr. Sergey Zamorano LYMPH # 2.4 103/ul Normal 1.2-3.8 [facility] Comment on above: Performed By: #### C BC #### [facility] [address] [place] [address] Dr. Sergey Zamorano Lymphocytes/100 WBC (Bld) 36.5 % Normal 20.5-60.0 [facility] Comment on above: Performed By: #### C BC #### [facility] [address] [place] [address] Dr. Sergey Zamorano MANUAL DIFF REQ NO Normal [facility] Comment on above: Performed By: #### C BC #### [facility] [address] [place] [address] Dr. Sergey Zamorano MCH (RBC) [Entitic mass] 29.3 pg Normal 25.9-34.0 [facility] Comment on above: Performed By: #### C BC #### [facility] [address] [place] [address] Dr. Sergey Zamorano MCHC (RBC) [Mass/Vol] 33.4 g/dL Normal 29.9-35.2 [facility] Comment on above: Performed By: #### C BC #### [facility] [address] [place] [address] Dr. Sergey Zamorano MCV (RBC) [Entitic vol] 87.6 fL Normal 80.0-94.0 [facility] Comment on above: Performed By: #### C BC #### [facility] [address] [place] [address] Dr. Sergey Zamorano MONO # 0.5 103/ul Normal 0.3-0.8 [facility] Comment on above: Performed By: #### C BC #### [facility] [address] [address] [address] Sergey Zamorano Monocytes/100 WBC (Bld) 7.0 % Normal 1.7-12.0 [facility] Comment on above: Performed By: #### C BC #### [facility] [address] [place] [address] Dr. Sergey Zamorano NEUT # 3.3 103/ul Normal 1.4-6.5 [facility] Comment on above: Performed By: #### C BC #### [facility] [address] [place] [address] Dr. Sergey Zamorano Neutrophils/100 WBC (Bld) 49.8 % Normal 43.0-75.0 [facility] Comment on above: Performed By: #### C BC #### [facility] [address] [place] [address] Dr. Sergey Zamorano Platelet mean volume (Bld) [Entitic vol] 11.7 fL Normal 9.5-13.5 [facility] Comment on above: Performed By: #### C BC #### [facility] [address] [place] [address] Dr. Sergey Zamorano PLT 237 103/ul Normal 150-450 [facility] Comment on above: Performed By: #### C BC #### [facility] [address] [place] [address] Dr. Sergey Zamorano RBC 5.47 106/ul Normal 4.70-6.10 [facility] Comment on above: Performed By: #### C BC #### [facility] [address] [place] [address] Dr. Sergey Zamorano WBC 6.7 103/ul Normal 4.0-11.0 [facility] Comment on above: Performed By: #### C BC #### [facility] [address] [place] [address] Dr. Sergey Zamorano GLYCOHEMOGLOBIN A1Con 2021 ADA RECOMMENDATION ADA THERAPEUTIC TARGET 6.0 - 7.0 ACTION SUGGESTED > 7.0 Normal [facility] Comment on above: Performed By: #### A 1C #### [facility] [address] [address] [address] Sergey Zamorano Glucose [Mass/Vol] 255 mg/dL Normal [facility] Comment on above: Performed By: #### A 1C #### [facility] [address] [address] [address] Sergey Zamorano HbA1c (Bld) [Mass fraction] 10.5 % Critically high <=6.0 [facility] Comment on above: Performed By: #### A 1C #### [facility] [address] [address] [address] Sergey Zamorano LIPID PROFILEon 10-31-2021 CHOL-HDL RATIO NORM SEE BELOW Normal [facility] Comment on above: Result Comment: 3.3 - 4.4 LOW RISK 4.4 - 7.1 AVERAGE RISK 7.1 - 11.0 MODERATE RISK >11.0 HIGH RISK Performed By: #### L IPID, CMP #### [facility] [address] [place] [address] Dr. Sregey Zamorano Cholesterol [Mass/Vol] 107 mg/dL Normal <=200 [facility] Comment on above: Performed By: #### L IPID, CMP #### [facility] [address] [place] [address] Dr. Sergey Zamorano Cholesterol in HDL [Mass/Vol] 33 mg/dL Critically low 40-60 [facility] Comment on above: Performed By: #### L IPID, CMP #### [facility] [address] [address] [address] Sergey Zamorano Cholesterol in LDL [Mass/Vol] 51.2 mg/dL Normal [facility] Comment on above: Performed By: #### L IPID, CMP #### [facility] [address] [address] [address] Sergey Zamorano Cholesterol.total/Cho lesterol in HDL [Mass ratio] 3.2 {ratio} Normal [facility] Comment on above: Performed By: #### L IPID, CMP #### [facility] [address] [address] [address] Sergey Zamorano HDL NORMAL > or = 60 mg/dl - LOW CARDIOVASCULAR RISK <40 mg/dl - HIGH CARDIOVASCULAR RISK Normal [facility] Comment on above: Performed By: #### L IPID, CMP #### [facility] [address] [address] [address] Sergey Zamorano LDL CALC NORMAL SEE BELOW Normal [facility] Comment on above: Result Comment: <100 mg/dl OPTIMAL 100 - 129 mg/dl NEAR OR ABOVE OPTIMAL 130 - 159 mg/dl BORDERLINE HIGH 160 - 189 mg/dl HIGH >190 mg/dl VERY HIGH Performed By: #### L IPID, CMP #### [facility] [address] [address] [address] Sergey Zamorano Triglyceride [Mass/Vol] 114 mg/dL Normal <=150 [facility] Comment on above: Performed By: #### L IPID, CMP #### [facility] [address] [address] [address] Sergey Zamorano VLDL CALC 22.8 mg/dL Normal [facility] Comment on above: Performed By: #### L IPID, CMP #### [facility] [address] [address] [address] Sergey Zamorano PROF 14(COMP METB)on 022 Albumin [Mass/Vol] 3.7 g/dL Normal 3.4-5.0 [facility] Comment on above: Performed By: #### L IPID, CMP #### [facility] [address] [address] [address] Sergey Zamorano Albumin/Globulin [Mass ratio] 1.3 {ratio} Normal [facility] Comment on above: Performed By: #### L IPID, CMP #### [facility] [address] [address] [address] Sergey Zamorano ALP [Catalytic activity/Vol] 85 U/L Normal 46-116 [facility] Comment on above: Performed By: #### L IPID, CMP #### [facility] [address] [address] [address] Sergey Zamorano ALT [Catalytic activity/Vol] 84 U/L Critically high 16-63 [facility] Comment on above: Performed By: #### L IPID, CMP #### [facility] [address] [address] [address] Sergey Zamorano Anion gap [Moles/Vol] 10.3 mmol/L Normal [facility] Comment on above: Performed By: #### L IPID, CMP #### [facility] [address] [address] [address] Sergey Zamorano AST [Catalytic activity/Vol] 30 U/L Normal 15-37 [facility] Comment on above: Performed By: #### L IPID, CMP #### [facility] [address] [address] [address] Sergey Zamorano Bilirubin [Mass/Vol] 0.8 mg/dL Normal 0.2-1.3 [facility] Comment on above: Performed By: #### L IPID, CMP #### [facility] [address] [address] [address] Sergey Zamorano Calcium [Mass/Vol] 8.4 mg/dL Critically low 8.5-10.1 [facility] Comment on above: Performed By: #### L IPID, CMP #### [facility] [address] [address] [address] Sergey Zamorano Chloride [Moles/Vol] 103 mmol/L Normal 98-107 [facility] Comment on above: Performed By: #### L IPID, CMP #### [facility] [address] [address] [address] Sergey Zamorano CO2 [Moles/Vol] 29.7 mmol/L Normal 22.0-30.0 [facility] Comment on above: Performed By: #### L IPID, CMP #### [facility] [address] [address] [address] Sergey Zamorano Creatinine [Mass/Vol] 0.95 mg/dL Normal 0.66-1.25 [facility] Comment on above: Performed By: #### L IPID, CMP #### [facility] [address] [address] [address] Sergey Zamorano EGFR-AF NIGERIEN >60 Normal >=60 [facility] Comment on above: Performed By: #### L IPID, CMP #### [facility] [address] [address] [address] Sergey Zamorano EGFR-NON AF NIGERIEN >60 Normal >=60 [facility] Comment on above: Performed By: #### L IPID, CMP #### [facility] [address] [address] [address] Sergey Zamorano Globulin (S) [Mass/Vol] 2.9 g/dL Normal [facility] Comment on above: Performed By: #### L IPID, CMP #### [facility] [address] [address] [address] Sergey Zamorano Glucose [Mass/Vol] 178 mg/dL Critically high 74-106 [facility] Comment on above: Performed By: #### L IPID, CMP #### [facility] [address] [address] [address] Sergey Zamorano Potassium [Moles/Vol] 4.0 mmol/L Normal 3.4-5.0 [facility] Comment on above: Performed By: #### L IPID, CMP #### [facility] [address] [address] [address] Sergey Zamorano Protein [Mass/Vol] 6.6 g/dL Normal 6.1-8.2 [facility] Comment on above: Performed By: #### L IPID, CMP #### [facility] [address] [address] [address] Sergey Zamorano Sodium [Moles/Vol] 139 mmol/L Normal 137-145 [facility] Comment on above: Performed By: #### L IPID, CMP #### [facility] [address] [address] [address] Sergey Zamorano Urea nitrogen [Mass/Vol] 14.0 mg/dL Normal 7.0-18.0 [facility] Comment on above: Performed By: #### L IPID, CMP #### [facility] [address] [address] [address] Sergey Zamorano Urea nitrogen/Creatinine [Mass ratio] 14.7 mg/mg Normal [facility] Comment on above: Performed By: #### L IPID, CMP #### [facility] [address] [place] [address] Dr. Sergey Zamorano Vital Signs Date Time Vital Sign Value Performing Clinician Facility 10-26-2023 14:00-0400 Body height 172.72 cm [facility] 10-26-2023 14:00-0400 Body mass index (BMI) [Ratio] 32.2 kg/m2 [facility] 10-26-2023 14:00-0400 Body weight 96.16 kg [facility] 10-26-2023 14:00-0400 Diastolic blood pressure 90 mm[Hg] [facility] 10-26-2023 14:00-0400 Heart rate 77 /min [facility] 10-26-2023 14:00-0400 Respiratory rate 12 /min [facility] 10-26-2023 14:00-0400 Systolic blood pressure 152 mm[Hg] [facility] 08-30-2023 15:00-0500 Body height 172.72 cm Bhaskar Ball Other [facility] [employer] Other 08-30-2023 15:00-0500 Body mass index (BMI) [Ratio] 32.69 kg/m2 Bhaskar Ball Other [facility] [employer] Other 08-30-2023 15:00-0500 Body weight 97.52 kg Bhaskar Ball Other [facility] [employer] Other 08-30-2023 15:00-0500 Diastolic blood pressure 85 mm[Hg] Bhaskar Ball Other [facility] [employer] Other 08-30-2023 15:00-0500 Respiratory rate 16 /min Bhaskar Ball Other [facility] [employer] Other 08-30-2023 15:00-0500 Systolic blood pressure 135 mm[Hg] Bhaskar Ball Other [facility] Other 04-27-2023 18:20-0400 Body height 172.72 cm Jennifer Mccarthy Other [facility] Other 04-27-2023 18:20-0400 Body mass index (BMI) [Ratio] 31.14 kg/m2 Jennifer Mccarthy Other [facility] Other 04-27-2023 18:20-0400 Body temperature 98.2 [degF] Jennifer Mccarthy Other [facility] Other 04-27-2023 18:20-0400 Body weight 92.9 kg Jennifer Mccarthy Other [facility] Other 04-27-2023 18:20-0400 Diastolic blood pressure 86 mm[Hg] Jennifer Mccarthy Other [facility] Other 04-27-2023 18:20-0400 Respiratory rate 18 /min Jennifer Mccarthy Other [facility] Other 04-27-2023 18:20-0400 SaO2% (BldA) [Mass fraction] 99 % Jennifer Mccarthy Other [facility] Other 04-27-2023 18:20-0400 Systolic blood pressure 127 mm[Hg] Jennifer Mccarthy Other [facility] Other 01-22-2023 14:00-0400 Body height 172.72 cm Bhaskar Ball Other [facility] Other 01-22-2023 14:00-0400 Body mass index (BMI) [Ratio] 30.16 kg/m2 Bhaskar Ball Other [facility] Other 01-22-2023 14:00-0400 Body weight 89.99 kg Bhaskar Ball Other [employer] Other 01-22-2023 14:00-0400 Diastolic blood pressure 82 mm[Hg] Bhaskar Ball Other [facility] [employer] Other 01-22-2023 14:00-0400 Respiratory rate 12 /min Bhaskar Ball Other [facility] [employer] Other 01-22-2023 14:00-0400 Systolic blood pressure 133 mm[Hg] Bhaskar Ball Other [facility] [employer] Other 12-17-2022 14:36-0400 Diastolic blood pressure 68 mm[Hg] DO Bhaskar Ball Work Phone: [facility] 12-17-2022 14:36-0400 Heart rate 88 /min DO Bhaskar Ball Work Phone: [facility] 12-17-2022 14:36-0400 Respiratory rate 16 /min DO Bhaskar Ball Work Phone: [facility] 12-17-2022 14:36-0400 SaO2% (BldA) [Mass fraction] 95 % DO Bhaskar Ball Work Phone: [facility] 12-17-2022 14:36-0400 Systolic blood pressure 101 mm[Hg] DO Bhaskar Ball Work Phone: [facility] 12-17-2022 12:47-0400 Body height 172.72 cm DO Bhaskar Ball Work Phone: [facility] 12-17-2022 12:47-0400 Body temperature 98.8 [degF] DO Bhaskar Ball Work Phone: [facility] 12-17-2022 12:47-0400 Body weight 88.45 kg DO Bhaskar Ball Work Phone: [facility] 05-27-2022 17:25-0500 Body height 172.72 cm Mini Marquez Other [employer] Other 05-27-2022 17:25-0500 Body mass index (BMI) [Ratio] 29.65 kg/m2 Mini Marquez Other [facility] Other 05-27-2022 17:25-0500 Body temperature 97.7 [degF] Mini Marquez Other [facility] Other 05-27-2022 17:25-0500 Body weight 88.45 kg Mini Marquez Other [facility] Other 05-27-2022 17:25-0500 Diastolic blood pressure 84 mm[Hg] Mini Monroymond Other [facility] Other 05-27-2022 17:25-0500 Respiratory rate 18 /min Mini Marquez Other [facility] Other 05-27-2022 17:25-0500 SaO2% (BldA) [Mass fraction] 99 % Mini Marquez Other [facility] Other 05-27-2022 17:25-0500 Systolic blood pressure 118 mm[Hg] Mini Monroymond Other [facility] Other Encounters Encounter Date Encounter Type Care Provider Facility Start: 11-09-2023 End: 11-09-2023 ambulatory Judy Coleman Facility:[facility] Start: 11-09-2023 End: 11-09-2023 ambulatory DO Bhaskar Reddy Work Phone: [facility] Work Phone: Start: 11-09-2023 End: 11-09-2023 Patient encounter procedure DO Bhaskar Reddy Work Phone: [facility] Work Phone: Start: 10-26-2023 End: 10-26-2023 ambulatory [facility] Work Phone: Start: 10-26-2023 End: 10-26-2023 Patient encounter procedure [facility] Work Phone: Start: 10-11-2023 End: 10-11-2023 ambulatory NAPOLEON Yahir [facility] Start: 09-09-2023 Non-patient / Non-visit [facility] Work Phone: Start: 08-30-2023 End: 08-30-2023 ambulatory Bhaskar Reddy Other [facility] Other Start: 08-30-2023 Office outpatient vi sit 25 minutes Bhaskar Reddy [facility] Start: 08-30-2023 Telephone encounter Bhaskar MAYNARD [facility] Start: 07-16-2023 End: 07-16-2023 ambulatory [facility] Start: 07-07-2023 End: 07-07-2023 Emergency department patient visit Bhaskar [place] Facility:[facility] Start: 04-27-2023 End: 04-27-2023 ambulatory Jennifer Mccarthy Other [facility] Other Start: 04-27-2023 Office outpatient vi sit 25 minutes Jennifer Mccarthy [facility] Start: 03-31-2023 End: 03-31-2023 ambulatory Bhaskar Reddy Other [facility] Other Start: 03-31-2023 Telephone encounter Bhaskar [facility]NARD [facility] Start: 02-22-2023 End: 02-22-2023 ambulatory Bhaskar Reddy Other [facility] Other Start: 02-22-2023 Telephone encounter Bhaskar MAYNARD [facility] Start: 01-22-2023 End: 01-22-2023 ambulatory Bhaskar Reddy Other [facility] Other Start: 01-22-2023 Encounter for genera l adult medical examination without abnormal findings Bhaskar Reddy [facility] Start: 01-22-2023 Periodic preventive med est patient 40-64yrs Bhaskar Reddy [facility] Start: 01-05-2023 End: 01-05-2023 ambulatory Bhaskar Reddy Other [facility] Other Start: 01-05-2023 Telephone encounter Bhaskar Reddy [facility] Start: 12-17-2022 End: 12-17-2022 ambulatory Imad Asaad Facility:[facility] Start: 12-17-2022 Telephone encounter Mini Alma MAYNARD [facility] Start: 12-17-2022 End: 12-17-2022 Admission to same day surgery center DO Bhaskar Reddy Work Phone: [facility] Work Phone: Start: 12-17-2022 End: 12-17-2022 ambulatory DO Bhaskar Rdedy Work Phone: [facility] Work Phone: Start: 10-27-2022 End: 10-27-2022 ambulatory Bhaskar Barry Other [facility] Other Start: 10-27-2022 Office outpatient vi sit 15 minutes Bhaskar Reddy [facility] Start: 10-27-2022 Telephone encounter Bhaskar MAYNARD [facility] Start: 07-27-2022 End: 08-22-[address] BHASKAR REDDY Facility:[facility] Start: 07-08-2022 Encounter for other preprocedural examination DR JOSELYN GILMAN [facility] Start: 07-03-2022 End: 07-04-[address] BHASKAR REDDY Facility:[facility] Start: 07-03-2022 End: 07-04-2022 Encounter for other preprocedural examination DR BHASKAR REDDY Facility:[facility] Start: 06-03-2022 End: 06-04-2022 ambulatory DO Joselyn Gilman [facility] Start: 06-03-2022 End: 06-03-2022 Patient encounter procedure Joselyn Gilman [facility] Start: 05-27-2022 End: 05-27-2022 ambulatory Mini Marquez Other [facility] Other Start: 05-27-2022 Office outpatient vi sit 15 minutes Mini Marquez [facility] Start: 2022 End: 02-20-[address] BHASKAR REDDY Facility:[facility] Start: 11-05-2021 Encounter for genera l adult medical examination without abnormal findings DR BHASKAR REDDY [facility] Start: 10-31-2021 End: 11-01-[address] BHASKAR REDDY Facility:[facility] Start: 10-31-2021 End: 11-01-2021 Encounter for general adult medical examination without abnormal findings DR BHASKAR REDDY Facility:[facility] Start: 10-27-2021 Adult health examination Kalyan Reddy Other [facility] Other Start: 02-16-2018 Patient encounter SHILA PAULYARPITLitzy Facility:[id number] Start: 02-16-2018 Patient encounter Facil [id number] Procedures Date Procedure Procedure Detail Performing Clinician Start: 11-09-2023 Plain X-ray of bilateral hands DO [employer] [facility] Work Phone: Start: 12-17-2022 Esophagogastroduodenoscopy DO Bhaskar little Work Phone: Start: 10-31-[address] BHASKAR REDDY Comment on above: Performed By: #### PSASC #### [facility] [address] [place] [address] Dr. Sergey Zamorano Start: 09-26-2018 General examination of patient Bhaskar Reddy Other Start: 09-26-2018 Screening for malignant neoplasm of prostate Bhaskar Reddy Other Start: 04-05-2017 Umbilical hernia (disorder) Joselyn Gilman Appendectomy Joselyn Gilman Depression screening Grady Reddy Other Dilation of esophagus Joselyn Gilman Esophagogastroduodenoscopy D ming Gilman History of placement of stent in anterior descending branch of left coronary artery Bhaskar Reddy Other Screening for malign ant neoplasm of prostate Bhaskar Reddy Other Plan of Treatment Date Care Activity Detail Author Start: 11-09-2023 Plain X-ray of bilateral hands XR hand BI 3V [facility] Start: 11-09-2023 XR Hand - bilateral 3 Views [facility] Start: 12-17-2022 [facility] Patient Education Esophageal str icture Esophageal Dilation Hiatal Hernia (DC) [facility] Work Phone: [place] Upper extremity artery - right [facility] Immunizations Immunization Date Immunization Notes Care Provider Jan puga 04-13-2014 tetanus and diphther ia toxoids, adsorbed, preservative free, for adult use (5 Lf of tetanus toxoid and 2 Lf of diphtheria toxoid) Bhaskar Reddy Other [facility] 04-13-2013 tetanus and diphther ia toxoids, adsorbed, preservative free, for adult use (5 Lf of tetanus toxoid and 2 Lf of diphtheria toxoid) Bhaskar Reddy Other [facility] Payers Date Payer Category Payer Unknown [id number] 2.16.8 [id number] 1965 Unknown [id number] 2.16.84 [id number] 1965 Unknown [id number] 2.16.84 [id number] 1967 Unknown [id number] 2.16.84 [id number] 1967 Unknown [id number] 2.16.84 [id number] 1967 Unknown [id number] 2.16.8 [id number] [facility] [id number] 1957 Self-pay Private Health Insurance [id number] Unknown [id number] 2.16.84 [id number] Unknown [id number] 2.16.8 [id number] Unknown [id number] 2.16.8 [id number] Unknown [id number] 2.16.8 [id number] Social History Date Type Detail Facility Unknown if ever smoked [facility] Other Sex Assigned At [facility] Tobacco smoking status No Smokin g Status Entered [facility] Start: 12-26-2021 [facility] Start: 1965 Sex Assigned At Male F [facility] Medical Equipment Procedure Code Equipment Code Equipment Origin al Text Equipment Identifier Dates CL CLOSURE DEVIC E EXOSEAL 6F FDA Start: 08-17-2017 CL STENT XIENCE ALP 2.75 X 33 FDA Start: 08-17-2017 CL STENT XIENCE ALP 3.5 X 18 FDA Start: 08-17-2017 CL CLOSURE DEVIC E EXOSEAL 6F FDA Start: 08-17-2017 CL STENT XIENCE ALP 2.75 X 33 FDA Start: 08-17-2017 CL STENT XIENCE ALP 3.5 X 18 FDA Start: 08-17-2017 CL CLOSURE DEVIC E EXOSEAL 6F FDA Start: 08-17-2017 CL STENT XIENCE ALP 2.75 X 33 FDA Start: 08-17-2017 CL STENT XIENCE ALP 3.5 X 18 FDA Start: 08-17-2017 CL CLOSURE DEVIC E EXOSEAL 6F FDA Start: 08-17-2017 CL STENT XIENCE ALP 2.75 X 33 FDA Start: 08-17-2017 CL STENT XIENCE ALP 3.5 X 18 FDA Start: 08-17-2017 Goals Date Patient Goal Desired Activity /State Clinical Notes 05-27-2022 to 08-30-2023 Note Date & Type Note Facility 08-30-2023 Evaluation note Encounter Date Diagnosis Assessment Notes Aug, Precordial pain (ICD-10 - R07.2) Consider atypical symptoms for coronary ischemia. He has a hx of CAD w/ risk factors but w/o classic symptoms of angina prior to his PCI/stent placement. I recommend to continue secondary prevention measures and schedule stress testing w/ nuclear imaging. He is instructed to go to ER for sustained symptoms Aug, Dyspnea on exertion (ICD-10 - R06.09) May be angina equivalent or dyspnea secondary to myocardial ischemia. Atypical symptoms due to diabetes? Recommend CXR and stress testing. Aug, ASHD (arteriosclerot ic heart disease) (ICD-10 - I25.10) This patient is having suspicious symptoms of CP and dyspnea. They are instructed to continue AHA diet plan. Continue secondary prevention measures. Aug, Type 2 diabetes mellitus with hyperglycemia, without long-term current use of insulin (ICD-10 - E11.65) This patient is following a comprehensive diabetic treatment plan. They are checking their feet daily for calluses and nonhealing ulcers. They are being seen for yearly dilated eye examinations. Goals: SBP less than 130, LDL less than 100, FBS less than 140, A1C less than 7%. They are checking their BS daily, will which are reviewed at the office visit. Continue regular routine monitoring of A1C, Microalbumin, Dilated eye exam and Foot exam Aug, Primary hypertension (ICD-10 - I10) This patient is instructed to consume a healthy, low-fat, low-salt diet. They are also encouraged to continue exercise to achieve/maintain a normal BMI. Aug, Elevated cholesterol (ICD-10 - E78.00) Instructed on diet and exercise with continued statin therapy.Discussed the beneficial effects of lowering cholesterol in reducing the risk for cerebrovascular and cardiovascular disease. Aug, History of placement of stent in LAD coronary artery (ICD-10 - Z95.5) s/p PCI/stent LAD Continue secondary prevention measures [facility] Other 12-29-2023 NoteUTP CARDIOLOGY PROGRESS NOTE [facility] HPI: Misael Aguilar Jr. is a 58 y.o. male here for follow up. HPI 58 yo male with a past medical history including single-vessel disease on heart cath and stent to LAD, hypertension, hyperlipidemia. He presents today for follow up. Patient adamantly denies any cardiac complaints or concerns. Patient denies any chest pain or shortness of breath. Patient denies any lower extremity edema, orthopnea, or proximal nocturnal dyspnea. No near-syncope or syncope. No dizziness or lightheadedness. REVIEW OF SYSTEMS: Neuro: No dizziness or lightheadedness with position change or standing. No focal neuro deficits. No recent falls, syncope or pre-syncope. Cardio: No palpitations. No chest pressure or pain with any activities. Pulm: No significant GALICIA. No PND or orthopnea. Abd: No increased abdominal girth. No significant epigastric distress or dyspepsia. No significant weight gain or loss. No hematochezia nor melena. Extr: No claudication symptoms. No lower extremity edema. Visit Vitals BP 144/88 (BP Location: Left arm, Patient Position: Sitting) Pulse 71 Ht 1.727 m (5' 8 ) Wt 95.3 kg (210 lb) SpO2 96% BMI 31.93 kg/m??? Smoking Status Never BSA 2.14 m??? No Known Allergies Medications: Current Outpatient Medications on File Prior to Visit Medication Sig Dispense Refill aspirin 81 mg EC tablet Take 81 mg by mouth in the morning. lisinopril 10 mg tablet Take 10 mg by mouth in the morning. metFORMIN (Glucophage) 500 mg tablet TAKE 1 TABLET BY MOUTH EVERYDAY WITH FOOD metoprolol succinate XL (Toprol-XL) 50 mg 24 hr tablet Take 1 tablet (50 mg) by mouth in the morning. If this makes you tired, can take in evening. Do not crush or chew. 90 tablet 3 sildenafil (Viagra) 100 mg tablet Take 100 mg by mouth if needed each day for erectile dysfunction. Unsure of dose. Has not used yet. Trulicity 0.75 mg/0.5 mL pen injector INJECT ONE PEN UNDER THE SKIN EVERY WEEK No current facility-administered medications on file prior to visit. No results found for: PTWEIGHT Physical Exam: BP 144/88 (BP Location: Left arm, Patient Position: Sitting) Pulse 71 Ht 1.727 m (5' 8 ) Wt 95.3 kg (210 lb) SpO2 96% BMI 31.93 kg/m??? Physical exam: General: Awake, alert, good spirits. NAD Eyes: anicteric sclera. Non-injected conjunctiva. No xanthelasmas Neck: No elevated JVP. No carotid bruit Pulm: Breath sounds clear to ascultation bilaterally with no wheeze, crackles or rhonchi Cards: HRRR , NL S1, S2. No S3 or S4 gallop. Murmur: none Abd: Soft, Nontender, physiologic bowel sounds are present Extr: Lower extremity edema: none. DP pulses present bilaterally Skin: warm, dry, well perfused Neuro: A&Ox3, No gross deficits Labs: Chemistry No results found for: NA , K , CL , CO2 , BUN , CREATININE , GLU No results found for: CALCIUM , ALKPHOS , AST , ALT , BILITOT Labs in October: LDL 51 Labs earlier today: Nl renal function and electrolytes. Unremarkable CBC Last lab values have been reviewed- CV Testin08/17/2017 angiogram and PCI ([facility]) Drug-eluting stent to proximal LAD ( xience 3.5 x 18 mm) Drug-eluting stent to mid LAD (Xience 2.75x 35 mm) Left Main normal caliber vessel without evidence of disease LAD proximal LAD with 95% stenosis prior to diagonal vessel. Remainder of the mid LAD has mild disease 20-30%. First diagonal: Mild ostial stenosis in the first diagonal noted RCA: Anatomically dominant without evidence of significant obstructive disease. Posterior descending artery without significant disease. Circumflex: Normal caliber with large circumflex marginal branch without significant disease in circumflex or its branches. Ventriculogram with normal wall motion and normal EF 60%. No mitral valve disease. 02/16/2019 nuclear MPS: Normal nuclear medicine myocardial perfusion scan Abnormal EKG and exercise portion of the study due to the EKG changes (no further notes) Assessment/Plan: Misael Aguilar Jr. is a 58 y.o. male 1. CAD No angina or anginal equivalents Medical treatment: ASA, High intensity statin, Metoprolol succinate, and Lisinopril. Continue at current doses Re-ordered his SL NTG with instructions not to use within 24 hours of Sildenafil. In that case chew up 324mg ASA and call 911 Aggressive risk factor modification 3. HTN Patient states that blood pressure better controlled at home He will maintain daily blood pressure log and will contact cardiology if Bps are above discussed target range Cotinue Toprol and Lisinopril 4. HLD Continue Atorvastatin 40mg nightly -Optimize medical management -Aggressive risk factor modification -Plan of care discussed with patient. All questions were answered. Patient voices understanding and is agreeable with current plan. -Patient was educated on red flag symptoms. Strict return precautions were provided. Patien (more content not included)...[facility]12-29-2023 NotePatient here for 1 year follow up CAD, hypertension, and hyperlipidemia. Had routine labs in Feb 2023. Denies chest pain, SOB, and palpitations. Review of Systems Musculoskeletal: Positive for arthritis, back pain and joint pain. All other systems reviewed and are negative.[facility] 04-27-2023 Evaluation note* Encounter Date Diagnosis Assessment Notes Treatment Notes Treatment Clinical Notes Apr, Viral URI with cough (ICD-10 - J06.9) Patient declines/refuses COVID/influenza testing today in office. Advised patient that will treat as viral URI. Supportive care as directed, increase fluids and rest, Tylenol as directed, Rx of [place] and prednisone as directed, cool mist humidifier, throat lozenges. Discussed infection control practices such as good hand washing and mask wearing. Patient to follow up with PCP if symptoms persist or worsen despite treatment. Immediate eval for SOB, difficulty breathing, chest pain, fevers that do not break with antipyretic or any other concerning symptoms as reviewed on patient education handout. Patient verbalizes understanding and is agreeable to treatment plan. Patient left in stable condition [facility] Other 07-07-2023 Evaluation note* Encounter Date Diagnosis Assessment Notes Treatment Notes Treatment Clinical Notes Jan, Wellness examination (ICD-10 - Z00.00) Healthy diet and exercise. Reviewed age-appropriate preventive testing recommended. Jan, ASHD (arteriosclerotic heart disease) (ICD-10 - I25.10) This patient is stable without activity related CP, dyspnea or lightheadedness. They are instructed to continue exercise and AHA diet plan. Jan, Primary hypertension (ICD-10 - I10) This patient is instructed to consume a healthy, low-fat, low-salt diet. They are also encouraged to continue exercise to achieve/maintain a normal BMI. Jan, Elevated cholesterol (ICD-10 - E78.00) Instructed on diet and exercise with continued statin therapy.Discussed the beneficial effects of lowering cholesterol in reducing the risk for cerebrovascular and cardiovascular disease. Jan, Type 2 diabetes mellitus with hyperglycemia, without long-term current use of insulin (ICD-10 - E11.65) This patient is following a comprehensive diabetic treatment plan. They are checking their feet daily for calluses and nonhealing ulcers. They are being seen for yearly dilated eye examinations. Goals: SBP less than 130, LDL less than 100, FBS less than 140, AC and A1C less than 7%. They are checking their BS daily, will which are reviewed at the office visit. Continue regular routine monitoring of A1C,] Microalbumin, Dilated eye exam and Foot exam Jan, Screening PSA (prostate specific antigen) (ICD-10 - Z12.5) Yearly DELL and PSA [facility] general Narrative - Reported* Type Description Date Medical History hypertension Medical History scoliosis Medical History 2 stents Surgical History appendectomy 2008 Surgical History cardiac stent Surgical History EGD w/ dilatation 12/2022 Hospitalization History see above surgical histo [facility] Other 06-01-2023 History general Narrative - Reported* Type Description Date Medical History hypertension Medical History scoliosis Medical History 2 stents Surgical History appendectomy 2008 Surgical History PCI/stent LAD 2017 Surgical History EGD w/ dilatation 12/2022 Hospitalization History see above surgical histo [facility] Other 04-11-2023 Evaluation note* Encounter Date Diagnosis Assessment Notes Treatment Notes Treatment Clinical Notes Oct, Acute bronchitis due to other specified organisms (ICD-10 - J20.8) Instructed to use Robitussin or Mucinex for cough, saline or Flonase NS for congestion, Tylenol for pain and fever. Oct, Acute cough (ICD-10 - R05.1) [facility] Other 11-09-2022 Evaluation note* Encounter Date Diagnosis Assessment Notes Treatment Notes Treatment Clinical Notes May, Bronchitis (ICD-10 - J40) Acute bronchitis material was printed Drink plenty fluids, get plenty of rest. Take Tylenol or Motrin as needed for aches pains or fevers. Take the azithromycin and prednisone as prescribed until gone. Use the albuterol inhaler as prescribed as needed for cough or shortness of breath. Use the Tessalon Perles as prescribed as needed for cough. Follow-up with your family physician if no improvement in 2 to 3 days [facility] Other Evaluation + Plan note No data available for this section [facility] noteNo InformationN[facility] Other Evaluation noteNo assessment information available [facility] Work Phone: Evaluation note* Diagnosis Onset Date Resolution Status H/O cardiac catheterization acute Right arm pain acute [facility] Work Phone: Evaluation note* Diagnosis Onset Date Resolution Status H/O cardiac catheterization acute Right arm pain acute Arthritis of both hands acut e Bilateral hand pain acute [facility] Work Phone: History and physical note Author Angelina Arrieta [facility] December 17, 2022 1:41pm Note Date/Time December 17, 2022 1:41p m [facility] [address] [place] [address] Gastroenterology H&P Signed Patient: Misael Aguilar Jr MR#: [id number] : 1965 Acct:[id number] Age/Sex: 57 / M Adm Date: 3 Loc: Room: Type: [facility] Attending Dr: Angelina Arrieta MD Copies to: DO Angelina Mueller MD~ Date of Service: 12/17/2022 HISTORY & PHYSICAL: Patient's history with special attention to the cardiovascular, pulmonary systems and the current problem was reviewed with the patient immediately prior to the procedure. Present medications and doses reviewed in the EMR. Allergies and pertinent laboratory tests were also reviewedat this time in the EMR. The physical examination, as below, was then performed. Indication, assessment and HPI: 57-year-old man here for EGD for evaluation of dysphagia Family history of GI malignancy? No PHYSICAL EXAMINATION Mouth and Pharynx : Moist mucus membranes, normal dentition Cardiac: Regular rate, regular rhythm Pulmonary: Clear to auscultation bilaterally, no wheezing Neurological: Alert and oriented x3, no focal deficits noted Abdomen: Abdomen soft, non-tender REVIEW OF SYSTEMS Constitutional: Denies malaise, fevers Cardiovascular: Denies chest pain, palpitations Respiratory: Denies shortness of breath, wheezing Gastrointestinal: Per HPI Genitourinary: Denies dysuria, polyuria Musculoskeletal: Denies joint swelling, joint stiffness Neurological: Denies numbness, tingling Integumentary: Denies rashes, skin lesions Endocrine: Denies fatigue, weight loss Written informed consent obtained from the patient. Risks (including but not limited to perforation, infection, bloating, bleeding, need for emergent surgeryand loss of life), benefits and alternatives explained and questions answered. The patient verbalized understanding. Based on history patient is an appropriate candidate for the procedure. Angelina Arrieta M.D. Documented By: Angelina Arrieta MD 12/17/22 1340 Signed By: <Electronically signed by Angelina Arrieta MD> 12/17/22 1341 [facility] Work Phone: History general Narrative - Reported* Type Description Date Medical History hypertension Medical History scoliosis Medical History 2 stents Surgical History appendectomy 2009 Surgical History cardiac stent Hospitalization History see above surgical histo ry [facility] Other Hospital Discharge instructions No data available for this section [facility] Additional Instructions DISCHARGE INSTRUCTIONS FOR UPPER ENDOSCOPY WHAT TO EXPECT: - You may feel full, gassy or cramping after your procedure. In some cases, this may be from a few hours to a day. Walking may help relieve the discomfort. - Your throat may feel sore today from the scope that the doctor passed through your throat to visualize your stomach. Take a throat lozenge or suck on ice to ease the discomfort. - You may notice some streaks of blood in your sputum if the doctor has taken a biopsy. - You should begin to recover from anesthesia within 1 hour of the procedure, however may feel groggy for the next 24 hours. DO's AND DON'Ts: - Call your doctor right away if you have a hard abdomen, severe pain, vomiting or if you cough up large amounts of blood. - Call your doctor if you develop any rashes, hives or difficulty breathing. - If you take 81 mg aspirin for your heart it is safe to resume this medication. - If you take other blood thinner medications your doctor will instruct you when these can safely be resumed. - Do NOT drive for 24 hours. - Do NOT operate machinery such as power tools, [employer] mowers, snow blowers, sewing machines, etc. for 24 hours. - Avoid alcoholic beverages and drugs for allergies, nerves, or sleep. - Do NOT stay alone. Do NOT leave your child unattended. - Do NOT make important personal or business decisions or sign any legal documents. - Eat solid foods and drink liquids in smaller amounts than usual until normal appetite returns. If you should experience an upset stomach, liquids high in sugar content (soda, Adalberto-Aid, non-acid juices) are recommended. - Do NOT smoke. - Do take it easy today. You need not stay in bed, but avoid strenuous activities such as jogging or working out. FOLLOW UP & RECOMMENDATIONS: -Follow up pathology -Soft diet for next 48 hours -Notify the doctor if you have any problems. -Follow up with PCP. -Office number [phone]. [facility] Work Phone: Progress note No data available for this section [facility] Summary Purpose Family History No Family History Records Found Relationship Condition Age at Onset Recorded Date/T kajal Not Specified No pertinent family history Unknown Advance Directives No Advanced Directives Records Found Advance Directive Response Recorded Date/ Time Advance Directives No August 13, 2017 1:49pm Chief Complaint and Reason for Visit Chief Complaint Dysphagia Chief Complaint right arm pain Reason for Visit H/O cardiac catheter ization Right arm pain Chief Complaint right arm pain New Bilat Hand Pain NX M79.641 - Pain in right hand Reason for Visit H/O cardiac catheter ization Right arm pain Arthritis of both hands Bilateral hand pain Additional Source Comments (unrecognized sect ion and content) No Status Records FoundNo Status Records FoundNo Status Records FoundNo Status Records FoundNo Status Records FoundNo Status Records FoundNo Status Records FoundNo Status Records FoundNo Status Records Found INFORMATION SOURCE (unrecogn ized section and content) DATE CREATED AUTHOR 02/17/2018 [facility] DATE CREATED AUTHOR AUTHOR'S ORGANIZ ATION 02/17/2018 [facility] ical Center DATE CREATED AUTHOR AUTHOR'S ORGANIZ ATION 05/15/2022 [facility] Special[facility] DATE CREATED AUTHOR AUTHOR'S ORGANIZ ATION 06/08/2022 [place] Reinaldo [facility] DATE CREATED AUTHOR AUTHOR'S ORGANIZ ATION 09/18/2022 [facility] DATE CREATED AUTHOR AUTHOR'S ORGANIZ ATION 08/23/2023 [facility] DATE CREATED AUTHOR AUTHOR'S ORGANIZ ATION 10/03/2023 [facility] edical Center DATE CREATED AUTHOR AUTHOR'S ORGANIZ ATION 10/11/2023 [facility] edical Center DATE CREATED AUTHOR AUTHOR'S ORGANIZ ATION 11/14/2023 [facility] ys[facility] REASON FOR VISIT (unrecogniz ed section and content) COUCH CONGESTIONDRY COUGH, C OLD FOR 3 WEEKS, FEVERFeverNo InformationRefillwellnessLab ResultsReferralCOLD, SORE THROAT, DRAINAGE, ITCHY EYESSOBConcerns Patient Care team informatio n (unrecognized section and content) Team Status: Active Member Role Status Dates Bhaskar Reddy DO Primary Care Provider Active Team Status: Active Member Role Status Dates Bhaskar Reddy DO Primary Care Provide r, Attending Provider Active Start: September 09, 2023 Team Status: Inactive Member Role Status Dates Bhaskar Reddy DO Primary Care Provide r, Attending Provider Active Start: October 26, 2023 End: October 26, 2023 Team Status: Inactive Member Role Status Dates Bhaskar Reddy DO Primary Care Provider Active Angelina Arrieta MD Attending Provider Active Team Status: Inactive Member Role Status Dates Bhaskar Reddy DO Primary Care Provider Active Start: November 09, 2023 End: November 09, 2023 Judy Coleman MD Attending Provider Active Start: November 09, 2023 End: November 09, 2023 Team Status: Active Member Role Status Dates Bhaskar Reddy DO Primary Care Provider Active Start: November 09, 2023 Judy Coleman MD Attending Provider Active Start: November 09, 2023 Goals (unrecognized section and content) Goals may be documented in a n alternate section FOR RECORDS PERTAINING TO PATIENTS WHO ARE OR HAVE BEEN ENROLLED IN A CHEMICAL DEPENDENCY/SUBSTANCEABUSE PROGRAM, SOME INFORMATION MAY BE OMITTED. This clinical summary was aggregated from multiple sources. Caution should be exercised in using it in the provision of clinical care. This summary normalizes information from multiple sources, and as a consequence, information in this document may materially change the coding, format and clinical context of patient data. In addition, data may be omitted in some cases. CLINICAL DECISIONS SHOULD BE BASED ON THE PRIMARY CLINICAL RECORDS. [facility]. provides no warranty or guarantee of the accuracy or completeness of information in this document.
== END 2023-12-10 15:21 | disposition home or self-care (01) ==
LOC: RAD 15:21
PROVIDERS: Family Provider Internal Medicine; PCP Internal Medicine; Visit Provider Internal Medicine
DX: M25.511 Pain in right shoulder (principal)
CPT/HCPCS: 73030

== ENCOUNTER 2023-12-21 06:28 | Outpatient (OUT) | payer BC, SELFPAY ==
--- NOTE | 2023-12-21 06:31 | MR_ITS ---
[address] [address] Patient Name: MYRNA SANTIAGO MRN: [id number] date: 1965 Sex: M Assigned Patient Location: MRI Current Patient Location: MRI Accession/Order Number: [id number] Exam Date: 12/21/2023 06:45 Report Date: 12/21/2023 13:44 At the request of: URSULA SHER Procedure: MR shoulder RT wo con EXAMINATION: MR shoulder RT wo con HISTORY: internal derangement of right shoulder, right shoulder pain COMPARISON: XR shoulder right 12/10/2023 TECHNIQUE: A variety of imaging planes and parameters were utilized for visualization of suspected pathology. Imaging was performed without or with contrast as indicated by examination type. FINDINGS: ROTATOR CUFF REGION CUFF TENDONS: Minimal increased signal intensity in the supraspinatus tendon indicates tendon degeneration and/or tendinitis. No avtar tear is seen. CUFF MUSCLES: Normal appearing muscles. DELTOID: Normal. No significant atrophy or tear. LONG BICEPS TENDON: Normal. No abnormal signal, attrition, or tear. LABRUM/BICEPS ANCHOR SUPERIOR: Normal. No visible labral tear or biceps anchor pathology. ANTERIOR/INFERIOR: Normal. No visible tear or attrition. POSTERIOR: Normal. No posterior labrum abnormality. CAPSULE Normal. No visible capsular laxity or thickening. AC JOINT REGION AC JOINT: Mild osteoarthropathy with no significant narrowing of the underlying coracoacromial arch. AC LIGAMENTS: Normal acromioclavicular ligament. CC LIGAMENTS: Normal coracoclavicular ligaments. ACROMION: Mild lateral downsloping. SUBACROMIAL BURSA: Normal. No significant effusion. HYALINE CARTILAGE: Normal. No visible cartilage narrowing or focal defect. OTHER BONES: Normal proximal humerus, glenoid, and coracoid. OTHER OBSERVATIONS: Negative. No other significant findings or glenohumeral effusion. MR/MR shoulder RT wo con IMPRESSION: 1. Mild strain of the supraspinous tendon. 2. Lateral downsloping of the acromion process slightly narrowing the acromial humeral interval which would predispose to rotator cuff injury. 3. Mild degenerative changes of the acromioclavicular joint. Electronically authenticated by: SEDRICK ZELAYA Date: 12/21/2023 13:44
--- OUTSIDE RECORDS SUMMARY | 2023-12-21 06:31 | XMS_ITS ---
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 Name Role Phone CONCEPCIONPRAVEEN GLASGOWNathanael Unavailable Unavailable BHASKAR REDDY Unavailable Unavailable AlmaMini rockwell Unavailable BHASKAR REDDY Primary Care Physician [place], [...] Unavailable DO Bhaskar Reddy Primary Care Provider [phone] MD Judy Coleman Attending Provider Angelina Arrieta Admitting Unavailable Angelina Arrieta Attending Unavailable Bhaskar Reddy Primary Care Unavailable Judy Coleman Admitting Unavailable Judy Coleman Attending Unavailable Bhaskar Reddy Primary Care Unavailable Bhaskar Reddy Primary Care Unavailable Miguel Chen Admitting Unavailable Miguel Chen Attending Unavailable Encounters Encounter Date Encounter Type Care Provider Facility Start: 12-10-2023 End: 12-10-2023 ambulatory DO Bhaskar Reddy Work Phone: [facility] Work Phone: Start: 12-10-2023 End: 12-10-2023 Patient encounter procedure DO Bhaskar Reddy Work Phone: [facility] Work Phone: Start: 12-08-2023 End: 12-08-2023 ambulatory DO Bhaskar Reddy Work Phone: [facility] Work Phone: Start: 12-08-2023 End: 12-08-2023 Patient encounter procedure DO Bhaskar Reddy Work Phone: [facility] Work Phone: Start: 11-09-2023 End: 11-09-2023 ambulatory Judy Coleman Facility:[facility] Start: 11-09-2023 End: 11-09-2023 ambulatory DO Bhaskar Reddy Work Phone: [facility] Work Phone: Start: 11-09-2023 End: 11-09-2023 Patient encounter procedure DO Bhaskar Reddy Work Phone: [facility] Work Phone: Start: 10-26-2023 End: 10-26-2023 ambulatory [facility] Work Phone: Start: 10-26-2023 End: 10-26-2023 Patient encounter procedure [facility] Work Phone: Start: 10-11-2023 End: 10-11-2023 ambulatory [facility] Start: 09-09-2023 Non-patient / Non-visit [facility] Work Phone: Start: 08-30-2023 End: 08-30-2023 ambulatory Bhaskar Reddy Other [place] Other Start: 08-30-2023 Office outpatient vi sit 25 minutes Bhaskar Reddy [facility] Start: 08-30-2023 Telephone encounter Bhaskar Reddy [facility] Start: 07-16-2023 End: 07-16-2023 ambulatory [facility] Start: 07-07-2023 End: 07-07-2023 Emergency department patient visit Bhaskar Reddy Facility:[facility] Start: 04-27-2023 End: 04-27-2023 ambulatory Jennifer Mccarthy Other [place] Other Start: 04-27-2023 Office outpatient vi sit 25 minutes Jennifer Mccarthy [facility] Start: 03-31-2023 End: 03-31-2023 ambulatory Bhaskar Reddy Other [place] Other Start: 03-31-2023 Telephone encounter Bhaskar Reddy [facility] Start: 02-22-2023 End: 02-22-2023 ambulatory Bhaskar Reddy Other [place] Other Start: 02-22-2023 Telephone encounter Bhaskar Reddy [facility] Start: 01-22-2023 End: 01-22-2023 ambulatory Bhaskar Reddy Other [place] Other Start: 01-22-2023 Encounter for genera l adult medical examination without abnormal findings Bhaskar Reddy [facility] Start: 01-22-2023 Periodic preventive med est patient 40-64yrs Bhaskar Reddy [facility] Start: 01-05-2023 End: 01-05-2023 ambulatory Bhaskar Reddy Other [place] Other Start: 01-05-2023 Telephone encounter Bhaskar Reddy [facility] Start: 12-17-2022 End: 12-17-2022 ambulatory Imad Asaad Facility:[facility] Start: 12-17-2022 Telephone encounter Mini MAYNARD [facility] Start: 12-17-2022 End: 12-17-2022 Admission to same day surgery center DO Bhaskar Reddy Work Phone: [facility] Work Phone: Start: 12-17-2022 End: 12-17-2022 ambulatory DO Bhaskar Barry Work Phone: [facility] Work Phone: Start: 10-27-2022 End: 10-27-2022 ambulatory Bhaskar Reddy Other [place] Other Start: 10-27-2022 Office outpatient vi sit 15 minutes Bhaskar Reddy [facility] Start: 10-27-2022 Telephone encounter Bhaskar MAYNARD Barry [facility] Start: 07-27-2022 End: 08-22-[address] BHASKAR REDDY Facility:[facility] Start: 07-08-2022 Encounter for other preprocedural examination DR JOSELYN GILMAN [facility] Start: 07-03-2022 End: 07-04-[address] BHASKAR REDDY Facility:[facility] Start: 07-03-2022 End: 07-04-2022 Encounter for other preprocedural examination DR BHASKAR REDDY Facility:[facility] Start: 06-03-2022 End: 06-04-2022 ambulatory DO Joselyn Gilman Facility:[facility] Start: 06-03-2022 End: 06-03-2022 Patient encounter procedure Joselyn Gilman [facility] Start: 05-27-2022 End: 05-27-2022 ambulatory Mini Marquez Other [place] Other Start: 05-27-2022 Office outpatient vi sit 15 minutes Mini Marquez [facility] Start: 2022 End: 02-20-[address] BHASKAR REDDY Facility:[facility] Start: 11-05-2021 Encounter for genera l adult medical examination without abnormal findings DR BHASKAR REDDY [facility] Start: 10-31-2021 End: 11-01-[address] BHASKAR REDDY Facility:[facility] Start: 10-31-2021 End: 11-01-2021 Encounter for general adult medical examination without abnormal findings DR BHASKAR REDDY Facility:[facility] Start: 10-27-2021 Adult health examination Kalyan Reddy Other [place] Other Start: 02-16-2018 Patient encounter SHILA CARRANZA Facility:[id number] Start: 02-16-2018 Patient encounter Facil [id number] Medical Equipment Procedure Code Equipment Code Equipment [...] Goals Date Patient Goal Desired Activity /State Immunizations Immunization Date Immunization Notes Care Provider Fa vivien 04-13-2014 tetanus and diphther ia toxoids, adsorbed, preservative free, for adult use (5 Lf of tetanus toxoid and 2 Lf of diphtheria toxoid) Bhaskar Reddy Other [facility] 04-13-2013 tetanus and diphther ia toxoids, adsorbed, preservative free, for adult use (5 Lf of tetanus toxoid and 2 Lf of diphtheria toxoid) Bhaskar Reddy Other [facility] Medications Current Medications Medication Drug Class(es) Dates Sig (Normalized) Sig (Original) aspirin 81 mg delayed release oral tablet (17 sources) Platelet Aggregation Inhibitor, Nonsteroidal Anti-inflammatory Drug [...] 13, 2018 1:02am take 2 tablets by [facility] once daily in the evening Atorvastatin Calcium 20 MG TAKE 2 TABLETS BY MOUTH EVERY DAY IN THE EVENING for 90 Active celecoxib 50 mg oral capsule (6 sources) Nonsteroidal Anti-inflammatory Drug Start: 11-09-2023 End: 12-08-2023 take 1 capsule by mouth twice daily Celecoxib (Celebrex) 50 mg capsule Active 50 MG PO Twice daily December 08, 2023 3:39pm dextromethorphan hydrobromide 1.5 mg/ml / pyrilamine maleate 1.5 mg/ml oral solution (3 sources) Uncompetitive H-jtwbhy-W-aspartate Receptor Antagonist, Sigma-1 Agonist Start: 04-27-2023 take 10 mL by mouth every eight hours Bowlegs DM 7.5-7.5 MG/5ML 10 mL Orally every 8 hours for 5 days Apr, Active 0.5 ml dulaglutide 1.5 mg/ml auto-injector (13 sources) GLP-1 Receptor Agonist Start: 12-23-2021 Dulaglutide (Trulicity) 0.75 mg/0.5 mL Pen Injector Active 0.75 MG SUBCUT every week December 23, 2021 12:00am lisinopril 10 mg oral tablet (17 sources) Angiotensin Converting Enzyme Inhibitor Start: 04-19-2020 take 10 mg by mouth once daily Lisinopril Active 10 MG PO Daily April 19, 2020 12:00am Lisinopril Activ e metFORMIN hydrochloride 500 mg oral tablet (14 sources) Biguanide Start: 12-07-2023 take 1 tablet by mouth once daily at mealtime Metformin Active 0 .ROUTE .COMPLEX December 07, 2023 12:59pm TAKE 1 TABLET BY MOUTH EVERY DAY WITH A MEAL FOR 90 DAYS Start: 12-23-2021 End: 12-07-2023 take 500 mg by mouth once daily Metformin Discontinued 500 MG PO Daily December 23, 2021 12:00am December 07, 2023 1:01pm 24 hr metoprolol succinate 50 mg extended [...] 2022 1:04pm nitroglycerin 0.4 mg sublingual tablet (6 sources) Nitrate Vasodilator Start: 08-17-2017 Nitroglycerin Active 0.4 MG SUBLINGUAL every 5 to 15 minutes August 17, 2017 1:00am predniSONE 20 mg oral tablet (14 sources) Start: 05-27-2022 take 1 tablet by mouth every twelve hours prednisone 20 MG 1 tablet Orally BID for 5 Apr, Active Completed/Discontinued Medications Medication Drug Class(es) Dates Sig (Normalized) Sig (Original) [id number] actuat albuterol 0.09 mg/actuat metered dose [...] Apr, Not-Taking ALPRAZolam 0.25 mg oral tablet (6 sources) Benzodiazepine Start: 08-17-2017 End: 12-22-2017 Alprazolam [...] oral tablet (11 sources) alpha-Adrenergic Agonist, Uncompetitive P-myrhmm-B-aspartat e Receptor Antagonist, Sigma-1 Agonist Start: 05-01-2020 [...] mg / lisinopril 20 mg oral tablet (7 sources) Thiazide Diuretic, Angiotensin Converting Enzyme Inhibitor Start: 03-30-2017 End: 04-19-2020 take 1 tablet by mouth once daily Lisinopril-Hydrochlorothiazide Discontinued 1 TAB PO Daily August 17, 2017 1:00am April 19, 2020 1:07pm methylPREDNISolone 4 mg oral tablet (11 sources) Corticosteroid Start: 05-01-2020 Medrol 4 MG as directed Oral ly for 6 days Apr, Not-Taking/PRN ticagrelor 90 mg oral tablet (6 sources) Start: 08-18-2017 End: 01-13-2019 take 1 tablet by mouth twice daily Ticagrelor (Brilinta) 90 mg Tablet Discontinued 90 MG PO Twice daily 180 90 August 18, 2017 1:00am January 13, 2019 10:16am Payers Date Payer Category Payer Unknown [id number] 2.16.8 [id number] 1965 Unknown [id number] 2.16.84 [id number] 1965 Unknown [id number] 2.16.84 [id number] 1965 Unknown [id number] 2.16.84 [id number] 1965 Unknown [id number] 2.16.84 [id number] 1965 Unknown [id number] 2.16.8 [id number] 1957 [facility] [id number] 1957 Self-pay Private Health Insurance [id number] Unknown [id number] 2.16.84 [id number] Unknown [id number] 2.16.8 [id number] Unknown [id number] 2.16.8 [id number] Unknown [id number] 2.16.8 [id number] Plan of Treatment Date Care Activity Detail Author Start: 11-09-2023 Plain X-ray of bilat eral hands XR hand BI 3V [facility] Start: 11-09-2023 XR Hand - bilateral 3 Views [facility] Start: 12-17-2022 [facility] Comprehensive metabo lic 2000 panel - Serum or Plasma [facility] Patient Education Esophageal str icture Esophageal Dilation Hiatal Hernia (DC) [facility] Work Phone: [place] Upper extremity a rtery - right [facility] XR Shoulder - right [facility] Problems Active Problems Problem Classification Problem Date [...] Coronary arteriosclerosis; Translations: [Atherosclerotic heart disease of [place] coronary artery without angina pectoris] Onset: 08-12-2017 08-17-2017 Chronic Coronary atherosclerosis and other heart disease (1 source) Presence of coronary angioplasty implant and graft Episodic Diabetes mellitus with complications (14 sources) Type 2 diabetes mellitus with hyperglycemia; Translations: [Type 2 diabetes mellitus] Onset: 2022 Chronic Disorders of lipid metabolism (12 sources) Hypercholesterolemia ; Translations: [Pure hypercholesterolemia , unspecified] Onset: 08-12-2017 Chronic Esophageal disorders (11 sources) Stricture of esophagus; Translations: [Benign esophageal [...] pain] Onset: 02-16-2018 Resolved: 10-26-2021 Episodic Osteoarthritis (12 sources) Localized, primary osteoarthritis of the pelvic [...] right hip] Episodic Other connective tissue disease (5 sources) Pain in right arm; Translations: [Pain in right arm] 10-26-2023 Episodic Other connective tissue disease (5 sources) Pain in right arm; Translations: [Pain in limb] 10-26-2023 Episodic Other connective tissue disease (4 sources) Hand pain; Translations: [Pain in right hand] 11-05-2023 Episodic Other connective tissue disease (7 sources) Pain in right hand; Translations: [Pain in limb] Onset: 11-09-2023 11-09-2023 Episodic Other connective tissue disease (1 source) Pain in left hand; Translations: [Pain in left hand] Onset: 11-09-2023 Episodic Other gastrointestinal disorders (17 sources) Dysphagia; Translations: [Dysphagia, unspecified] 12-26-2021 Episodic Other lower respiratory disease (1 source) Other forms of dyspnea Episodic Other male genital disorders (2 sources) Impotence of organic origin; 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] Chronic Other non-traumatic joint disorders (1 source) Derangement of right shoulder joint; Translations: [Other specific joint derangements of right shoulder, not elsewhere classified] 12-10-2023 Chronic Other non-traumatic joint disorders (1 source) Other specific joint derangements of right shoulder, not elsewhere classified; Translations: [Other specified disorders of joint, shoulder region] 12-10-2023 Chronic Other non-traumatic joint disorders (2 sources) Pain in right shoulder; Translations: [Right shoulder pain] 12-10-2023 Episodic Other nutritional; endocrine; and metabolic disorders [...] and inoculation, Influenza] Episodic Residual codes; unclassified (5 sources) History of cardiac catheterization; Translations: [Other specified postprocedural states] 10-26-2023 Episodic Residual codes; unclassified (6 sources) Other specified postprocedural states; Translations: [Other [...] Resolved: 09-24-2020 Episodic Other aftercare (1 source) residential (current) use of insulin; 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 Sergey Zamorano Start: 09-26-2018 General examination of patient Bhaskar Reddy Other Start: 09-26-2018 Screening for malignant neoplasm of prostate Bhaskar Reddy Other Start: 04-05-2017 Umbilical hernia (disorder) Joselyn Pocos Appendectomy Joselyn Pocos Depression screening Grady Reddy Other Dilation of esophagus Joselyn Pocos Esophagogastroduodenoscopy D avid Pocos History of placement of stent in anterior descending branch of left coronary artery Bhaskar Reddy Other Screening for malign ant neoplasm of prostate Bhaskar Reddy Other Results Test Name Value Interpretation Reference Range Facility XR hand BI 3Von 11-09-2023 XR hand BI 3V [facility] [address] [place] [address] XRay Report Signed Patient: iMsael Aguilar Jr MR#: [id number] : 1965 Acct:[id number] Age/Sex: 58 / M ADM Date: 11/09/23 [facility]: [facility] Room: Type: [facility] Attending Dr: Judy Coleman MD Copies to: [...] Magnus Salcedo M.D.11/09/2023 5:24 PM Dictation Location: [place] [address] Transcribed By: [facility] 11/09/23 172 Dictated By: Magnus Salcedo DO 11/09/23 172 Signed By: 11/09/23 172 Normal [facility] Basic Metabolic Panelon 09-16 Anion gap [Moles/Vol] 10 mmol/L Normal 9-15 [facility] Comment on above: Performed By: #### B MP #### [facility] [address] [place] [address] Calcium [Mass/Vol] 8.9 mg/dL Normal 8.5-9.9 [facility] Comment on above: Performed By: #### B MP #### [facility] [address] [place] [address] Chloride [Moles/Vol] 102 mmol/L Normal 95-107 [facility] Comment on above: Performed By: #### B MP #### [facility] [address] [place] [address] CO2 [Moles/Vol] 27 mmol/L Normal 20-31 [facility] Comment on above: Performed By: #### B MP #### [facility] [address] [place] [address] Creatinine [Mass/Vol] 0.97 mg/dL Normal 0.70-1.20 [facility] Comment on above: Performed By: #### B MP #### [facility] [address] [place] [address] GFR >60.0 Normal >60 [facility] Comment on above: Result Comment: Pedi atric calculator link https://www.kidney.org/professionals/kdoqi/gfr_calculatorped Effective Apr 20, [...] secretion. Performed By: #### B MP #### [facility] [address] [place] [address] Glucose [Mass/Vol] 149 mg/dL Critically high 70-[address] [facility] Comment on above: Performed By: #### B MP #### [facility] [address] [place] [address] Potassium [Moles/Vol] 4.0 mmol/L Normal 3.4-4.9 [facility] Comment on above: Performed By: #### B MP #### [facility] [address] [place] [address] Sodium [Moles/Vol] 139 mmol/L Normal 135-144 [facility] Comment on above: Performed By: #### B MP #### [facility] [address] [place] [address] Urea nitrogen [Mass/Vol] 16 mg/dL Normal 6-20 [facility] Comment on above: Performed By: #### B MP #### [facility] [address] [place] [address] CBC With Platelet No Differe ntialon 10-01-2023 Erythrocyte distribution width (RBC) [Ratio] 12.8 % Normal 11.5-14.5 [facility] Comment on above: Performed By: #### C BCND #### [facility] [address] [place] [address] Hematocrit (Bld) [Volume fraction] 46.1 % Normal 42.0-52.0 [facility] Comment on above: Performed By: #### C BCND #### [facility] [address] [place] [address] Hemoglobin (Bld) [Mass/Vol] 15.3 g/dL Normal 14.0-18.0 [facility] Comment on above: Performed By: #### C BCND #### [facility] [address] [place] [address] MCH (RBC) [Entitic mass] 28.9 pg Normal 27.0-31.3 [facility] Comment on above: Performed By: #### C BCND #### [facility] [address] [place] [address] MCHC 33.2 % Normal 33.0-37.0 [facility] Comment on above: Performed By: #### C BCND #### [facility] [address] [place] [address] MCV (RBC) [Entitic vol] 87.1 fL Normal 79.0-92.2 [facility] Comment on above: Performed By: #### C BCND #### [facility] [address] [place] [address] Platelets (Bld) [#/Vol] 239 10*3/uL Normal 130-400 [facility] Comment on above: Performed By: #### C BCND #### [facility] [address] [place] [address] RBC (Bld) [#/Vol] 5.29 10*6/uL Normal 4.70-6.10 [facility] Comment on above: Performed By: #### C BCND #### [facility] [address] [place] [address] WBC (Bld) [#/Vol] 6.3 10*3/uL Normal 4.8-10.8 [facility] Comment on above: Performed By: #### C BCND #### [facility] [address] [place] [address] Prothrombin Timeon 4 INR Coag (PPP) [Relative time] 1.0 {INR} Normal [facility] Comment on above: Performed By: #### P T #### [facility] [address] [place] [address] PT Coag (PPP) [Time] 13.1 s Normal 12.3-14.9 [facility] Comment on above: Performed By: #### P T #### [facility] [address] [place] [address] Office Visiton 07-16-2023 Follow-up visit [id number] Misael Aguilar Jr. 1965 M Date Provider Department Center 07/16/2023 3848-JESSICA WEAVER [facility] Family History Problem Relation Age of Onset No Known Problems Mother No Known Problems Father Family Status - Relation Status Age at Mother Alive Father Alive Level of Service:46937 [place] OFFICE/OUTPATIENT ESTABLISHED MOD MDM 30 MIN Normal [facility] Glucose Glucometer (BldC) [M ass/Vol]Ordered By: Angelina Arrieta on 12-17-2022 Glucose [Mass/Vol] 101 mg/dL [facility] Comment on above: Random Glucose Refer ence Range is dependent on time and content of last meal. Glucose of more than 200 mg/dL in a nonstressed, ambulatory subject supports the diagnosis of Diabetes Mellitus. Glucose Poct Glucometerson 0 12-17-2022 Glucose [Mass/Vol] 101 mg/dL Normal [facility] Comment on above: Result Comment: [facility] Glucose Reference Range is dependent on time and content of last meal. Glucose of more than 200 mg/dL in a nonstressed, ambulatory subject supports the diagnosis of Diabetes Mellitus. PERFORMED BY: [facility] [address] [place] [address] PATHOLOGIST PHLEBOTOMY DIRECTOR LAMONT HORN M.D. Performed By: #### G TOBY #### Point of Care testing , Dwain 12-17-2022 L Specimen: [id number] Received: 12/17/22 Status: MANUELMihir Conti Num: [id number] Spec Type: Surgical Subm Dr: Angelina Arrieta MD Tissues: A Gastric Biopsy (GASTRIC) Procedures: HE/2, Gross/Micro L4 Age/ Patient Sex Location Account Attending Physician Misael Aguilar Jr/Maritza [id number] Angelina Arrieta MD SPEC NUM: [id number] RECD: 12/17/22 STATUS: KENNEDY CONTI NUM: [id number] TOM: 12/17/22- SUBM DR: Angelina Arrieta MD ENTERED: 12/17/[address]: MARGOT TYPE: Surgical DEPT: S ORDERED: HE/2, Gross/Micro [...] microscopic examination confirms the diagnosis. CPT Codes 83794 Specimen: [id number] Received: 12/17/22 Status: KENNEDY Frankelsteven Num: [id number] Spec Type: Surgical Subm Dr: Angelina Arrieta MD Tissues: A Gastric Biopsy (GASTRIC) Procedures: KAITLYNN Gross/Micro L4 Patient: Misael Aguilar Jr [id number] (Continued) Signed (signatur e on file) Julieta Escobar MD 12/18/22 1150 Normal [facility] CBC AUTO DIFFon 07-03-2022 BASO # 0.1 103/ul Normal 0.0-0.1 [facility] Comment on above: Performed By: #### C BC #### [facility] [address] [place] [address] Dr. Sergey Zamorano Basophils/100 WBC (Bld) 0.9 % Normal 0.2-2.0 [facility] Comment on above: Performed By: #### C BC #### [facility] [address] [place] [address] Dr. Sergey Zamorano EO # 0.5 103/ul Normal 0.0-0.7 [facility] Comment on above: Performed By: #### C BC #### [facility] [address] [place] [address] Dr. Sergey Zamorano Eosinophils/100 WBC (Bld) 7.1 % Critically high 0.9-7.0 [facility] Comment on above: Performed By: #### C BC #### [facility] [address] [place] [address] Dr. Sergey Zamorano Erythrocyte distribution width (RBC) [Ratio] 13.4 % Normal 11.0-15.0 [facility] Comment on above: Performed By: #### C BC #### [facility] [address] [place] [address] Dr. Sergey Zamorano Hematocrit (Bld) [Volume fraction] 46.5 % Normal 42.0-54.0 [facility] Comment on above: Performed By: #### C BC #### [facility] [address] [place] [address] Dr. Sergey Zamorano Hemoglobin (Bld) [Mass/Vol] 15.3 g/dL Normal 14.0-18.0 [facility] Comment on above: Performed By: #### C BC #### [facility] [address] [place] [address] Dr. Sergey Zamorano IG # 0.03 10e3/ul Normal 0.00-0.03 [facility] Comment on above: Performed By: #### C BC #### [facility] [address] [place] [address] Dr. Sergey Zamorano IG % 0.4 % Normal 0.0-0.5 [facility] [facility] Comment on above: Performed By: #### C BC #### [facility] [address] [place] [address] Dr. Sergey Zamorano LYMPH # 2.6 103/ul Normal 1.2-3.8 [facility] Comment on above: Performed By: #### C BC #### [facility] [address] [place] [address] Dr. Sergey Zamorano Lymphocytes/100 WBC (Bld) 33.6 % Normal 20.5-60.0 [facility] Comment on above: Performed By: #### C BC #### [facility] [address] [place] [address] Dr. Sergey Zamorano MANUAL DIFF REQ NO Normal [facility] Comment on above: Performed By: #### C BC #### [facility] [address] [place] [address] Dr. Sergey Zamorano MCH (RBC) [Entitic mass] 28.3 pg Normal 25.9-34.0 [facility] Comment on above: Performed By: #### C BC #### [facility] [address] [place] [address] Dr. Sergey Zamorano MCHC (RBC) [Mass/Vol] 32.9 g/dL Normal 29.9-35.2 [facility] Comment on above: Performed By: #### C BC #### [facility] [address] [place] [address] Dr. Sergey Zamorano MCV (RBC) [Entitic vol] 86.0 fL Normal 80.0-94.0 [facility] Comment on above: Performed By: #### C BC #### [facility] [address] [place] [address] Dr. Sergey Zamorano MONO # 0.6 103/ul Normal 0.3-0.8 [facility] Comment on above: Performed By: #### C BC #### [facility] [address] [place] [address] Dr. Sergey Zamorano Monocytes/100 WBC (Bld) 7.5 % Normal 1.7-12.0 [facility] Comment on above: Performed By: #### C BC #### [facility] [address] [place] [address] Dr. Sergey Zamorano NEUT # 3.9 103/ul Normal 1.4-6.5 [facility] Comment on above: Performed By: #### C BC #### [facility] [address] [place] [address] Dr. Sergey Zamorano Neutrophils/100 WBC (Bld) 50.5 % Normal 43.0-75.0 [facility] Comment on above: Performed By: #### C BC #### [facility] [address] [place] [address] Dr. Sergey Zamorano Platelet mean volume (Bld) [Entitic vol] 10.8 fL Normal 9.5-13.5 [facility] Comment on above: Performed By: #### C BC #### [facility] [address] [place] [address] Dr. Sergey Zamorano PLT 278 103/ul Normal 150-450 [facility] Comment on above: Performed By: #### C BC #### [facility] [address] [place] [address] Dr. Sergey Zamorano RBC 5.41 106/ul Normal 4.70-6.10 [facility] Comment on above: Performed By: #### C BC #### [facility] [address] [place] [address] Dr. Sergey Zamorano WBC 7.6 103/ul Normal 4.0-11.0 [facility] Comment on above: Performed By: #### C BC #### [facility] [address] [address] [address] Sergey Zamorano GLYCOHEMOGLOBIN A1Con 2021 ADA RECOMMENDATION SEE BELOW Normal [facility] Comment on above: Result Comment: ADA RECOMMENDED LIMIT 4.0 - 6.0 ADA THERAPEUTIC TARGET < 7.0 ACTION SUGGESTED > 7.0 Performed By: #### D ATA1C #### [facility] [address] [address] [address] Sergey Zamorano Glucose [Mass/Vol] 137 mg/dL Normal [facility] Comment on above: Performed By: #### D ATA1C #### [facility] [address] [address] [address] Sergey Zamorano HbA1c (Bld) [Mass fraction] 6.4 % Critically high 4.5-6.2 [facility] Comment on above: Performed By: #### D ATA1C #### [facility] [address] [place] [address] Dr. Sergey Zamorano PROF CHEM 8 (BAS METB)on Anion gap [Moles/Vol] 10.6 mmol/L [facility] Comment on above: Performed By: #### B MP #### [facility] [address] [address] [address] Sergey Zamorano Calcium [Mass/Vol] 8.6 mg/dL Normal 8.5-10.1 [facility] Comment on above: Performed By: #### B MP #### [facility] [address] [address] [address] Sergey Zamorano Chloride [Moles/Vol] 104 mmol/L Normal 98-107 [facility] Comment on above: Performed By: #### B MP #### [facility] [address] [place] [address] Dr. Sergey Zamorano CO2 [Moles/Vol] 30.5 mmol/L Normal 21.0-32.0 [facility] Comment on above: Performed By: #### B MP #### [facility] [address] [address] [address] Sergey Zamorano Creatinine [Mass/Vol] 0.94 mg/dL Normal 0.70-1.30 [facility] Comment on above: Performed By: #### B MP #### [facility] [address] [address] [address] Sergey Zamorano EGFR-AF RWANDAN >60 Normal >=60 [facility] Comment on above: Performed By: #### B MP #### [facility] [id number] Sergey Zamorano EGFR-NON AF RWANDAN >60 Normal >=60 [facility] Comment on above: Performed By: #### B MP #### [facility] [address] [address] [address] Sergey Zamorano Glucose [Mass/Vol] 111 mg/dL Critically high 74-106 T [facility] Comment on above: Performed By: #### B MP #### [facility] [address] [address] [address] Sergey Zamorano Potassium [Moles/Vol] 4.1 mmol/L Normal 3.5-5.1 [facility] Comment on above: Performed By: #### B MP #### [facility] [address] [address] [address] Sergey Zamorano Sodium [Moles/Vol] 141 mmol/L Normal 136-145 [facility] Comment on above: Performed By: #### B MP #### [facility] [address] [address] [address] Sergey Zamornao Urea nitrogen [Mass/Vol] 12.0 mg/dL Normal 7.0-18.0 [facility] Comment on above: Performed By: #### B MP #### [facility] [address] [address] [address] Sergey Zamorano Urea nitrogen/Creatinine [Mass ratio] 12.8 mg/mg Normal [facility] Comment on above: Performed By: #### B MP #### [facility] [address] [address] [address] Sergey Zamorano Coding Summary.on 06-08-2022 Coding Summary. CD:[id number] JGd0xXy+PGhlYWQ+PE1 TYXUvE18laXYvpN4II5 bBFA8ISYMIUSBRXL0UC O9trNU5BSpbU1OjnbBr LpknkHNdSI80ZSb9WOF 1yCcaFKzzgT0fqAMhW3 c6MeNyGK94rZ88OQlvM FQmAsT3LfDzsevqqQPu C9jfRfDogAAdDnn+PHR hYmxlIHdpZHRoPScxMD FwLjJnnRzxOB4zIw9hY GVyLWNvbGxhcHNlOiBj o8fmPHFvJOedIF0hpVz yL5GnsLX7DVArk2w4Kc 48dHI+RVSxTCS8wJnbG Oivj652LkMzh3muXOP9 fGTeUGiyNDA8R86zb4Q 5MFNqEIAnRBM3vMQ0yC 3lqSqkhjneK4IwlCJkK hN6MOC4wSDwtT4rlOfq ojaiyI7nJjw+Q97LRL0 JJWPEXT3LQxq5I6YuZq wvdHI+SH68XZKbPA27i RVboISfz0fmjWh0LfDs OGNkFQN0tElgPZhbg3R xJCLzU49peXAof0C7OB TicEvmtIUsNrPvdHV3g N3xQJmnowqtq4pvtxsz Rkbyp2mfax47sE32U29 uMWonEWMlNJS2VYSfJX ZjdAfgur3lkK0tFg1+I Lebv5ngw5utdGk1XhIr KLOqkrKvkIrcAWR0p0L lXl74S5QhlTebq8XaZz e6se40nIUrb0K8mQS5I QltXDQytQ9qITkeNsW4 OEFrWoWglM08rVVwCNw gSh9rwRuyhFuxPK1wNF NfphjtBBQrkN1mGYMel WAzwHobNV4pMVZgrdzc i623KiPoYZZ0FQUtnEX dO9UmoE8iKdIkFOIvPJ TuY1HsqHRvZHbkG156V KmiAwV5IHVqcgAkH9Hr PJXufTivNyI3c1L6Bt8 Go4HbkselOSQ5BCvzNJ TuBuErZuVoSyE9O8MoU gj3ZQOfjZcnFH1rA4Vx OWBtfbuygzdgkAQ6UFI lPNHujY13zLSiAPhbNz 9ed9I9g449KWDhLPEqg T69Yi6ozOteUEKgjKJJ qK2rrfzus7zwhrhhPjJ fRTWtPGf3PPa2YZAnpU dzEzYpKMA6MhA9YXY3p VWsjJ0eiIiozmsvcW1a Oyc+D71wkD3oNQS6WHD 7cxwlUKSqesNkLK42QW 55Z7FcCnmguBLegOF+P RApjgJbiIqnYG8dPdFs c2ald5MnMPzhR9EaMKK vVReiCvk1YRDcBNL0cE Z5zI9aCHYrRZrfq7M9k OB7M6EnyePwkc4yo4qm TILtKOxmB40glCByr6N 7WGGykYD7ZTMeqAmyGb UysO11Zlh+PGNvbGdyb 5CtDpksb6lcy1dmxBw5 IjMwJSIgdmFsaWduPSJ 7s1FdIp31F37mQOiqZD RoPSIxNSUiIHZhbGlnb n7goO2nKq8+PGNvbCB3 wLV2mY5rOTMfDgK5OAc fB485YpEbhEDcGkody5 pfg3qirQl3HyArORKzm uVtrAtjUTR9t4GmKa74 P11pYMpvXRJcLKAuUPV gXIMvyLbudq4xqP3hCt 8+CE0lo0twht48wR60o HI+ABZqSEI8dNjtLQlq AMPugG5aXYoxUwL2ZYS qEiXyfG95yZBeMCxjZk 5utBapcGstKG6sIDEtr cjcb134XdTrg2qsAJTm jIZpYManWEB8R04rx3N 1JGGlJZEaAMJ1lDQ8gR 1hbGlnbjogbGVmdDsgd qGoqSzrWHjlXDiyJ945 IHRvcDsnPlBhdGllbnQ nWkMtIAt1W0WwXzv6MD YffUdnTY7geAPbBSbfA l3kxTkeaOsjZS6aDRAg xpdtr849DqQow5pwOQH hwYBqCIueTGF3G75ys0 H2SRJsGFEfTMR0eEL0l F3nnSrhoqgxzLVnaQnc yqUvpHdlHFjyAPwdM01 6IHRvcDsnPkJpcnRoIE JeqBV1RA71MG76aRQtd 2N9lLT7T5VlMKNvitwi bmuoqWF8NQSlCNMgrR8 8Lq6xfPfnLx6wJVVhFK G5TNNimFBxE2NjxT5mL yIeZZZsEPByQ9EcyHMt YNryP327JAwkIeU8EZL ufqRkO2RoMPXtoOjuGo E8d7C4Jo8VP0V0QP12G F07sRNvr8W8rZP5F7Ej YSYgfpgiuacrpEC0DSL tVBJnaC46Qz1vpUaiAd 4wDDJuKUU2OLTfnVFeD 9UsrT5zMwJwQPMrOGBg W2XkdUKbVNwoP968JVu mVuH6EJJxzpWiD0PrQY NweWgkBiI8v5A5Lv5FS Hn2CZ55VG53lLXbb1X0 iUJ1O4TcDGKdpzigzik ygCK5VOPgKIJzkZ91Ok 1flKjmHm6uKYYfMGJ1K GOduJLdX1AkcQ7hWxVb ZJYsXMDwZ3BxeIFqCGa sP108VBwxSlB0NCRyai NtC9JgEPXzyBvdBnM2b 1P6Je4DWDEuBP15SQQ9 wQS6AY74LE65W1KgHaf vdGFibGU+PHRhYmxlIH dpZHRoPScxMDAlJyBzd AbtTE1jPx9nOIAuTWIe zSbvqIKvGlLas7zjJYP mIGgkWT3bnCvnG4LcwK C6QBLnm6j4Te92U61oE 3JvdXA+FXUnwNT3tUH9 eZ0iSxBaSyZ3CTvlT87 1NsOljLJhXlyel8djt8 cxxNc6UeO5BSOgebQht IxqXZW5g9JgCm47Q29f IHdpZHRoPSIxNSUiIHZ mgWblxf6vnE2xSw4+PG CsnBA5bEA5bD2iQkYrE vW8RNkcV005SmFtaEMn Lzfkc6fnn9xjsBe7JwM sYLEpyaVwvEhyJKP4z8 NqQm60M6FlkQahy2AmV cq0yi41yJOwm8U7kGM2 I0RyUAWvhdfyuGDquJn qED0mUXRidntuAHUvuS 9mTSNtZ8g0FjUwPxJ6X XufY8ZexsM9XJCslJTr JJivHVB7R34qr4A9RNT qDOWoYAG4fLI0aZ0wdS lnbjogbGVmdDsgdmVyd DtwZTmyAKteJ565FFJe pKstEBVtxC2tUUGfyJF azCxvCJ5vRJYkfgfeCj ICS4RZWIKaMQNJPZ56Q 6PwNtw5VHXucHebEK2s rGYrPVwfWj5xrRuqxOu aRZ1gDJTtdpsjTAKrjZ 0cWBLfhOEytSitNF1wR NFvxbkqa541JsIuVXE2 YQIlmZAxP1VlmD3pOnI oOQKvGONcR0TzzCEmTD xtM487LBhxTkU8HNFel pRyW8KcRHXxqRjiLzB0 p5G3Yh4vMZ8jSN9vPIX 4QG33PU91xVBjj0P5iB Q4U3NxHRNjsxlkfuswn SD5NGKoRTZwuB52oMVd BSkbOq8vv5M7v371ACD eWVRgcA13Xr7kjHpuPC GksHMWaF0hjjjwd8wyz fbqNqWpWKLkJGv5JGq3 XPUzbYrcWoLwAXF7JcU 8CSI2hFRgmT1lrCebfu gdxQ4uMrj+NTUgWWVhc cY0P8YyAgd3LLDrzKww BN8boULsFOmcKw5pmQs rpOfkIS9jJHUunqtvST YtfA6bCLEqiMJuiGtqA M0dBHHwqqspd451QsJo GHO9CELsnPHbF0RotC1 fPwWePULpNVTrA6XoaR EqWHaiF153BCyhIxM8S PRcjaEyS4IeTKQosMux JoZ4s3Q5En4RBCesVR7 4BI86gZVxa0Z4fKC4R2 YmSVVgapakvxussFU0D EQwVJCyyW59cRJvMFgb Yo6qf7M1s734UZWrMTC xmY13Qn4fuXjmOFFbnN DScV3laeivo9hqsavsL hCnSLOsEEe7KWy6QAJo nQqfIdHiYDM8DeJ8EUW 2qRYdbH1bsGrtcfouxI 9wOyc+K2J5fAP8uQFmt DwvdGQ+GB49wg37W9Vx SedaBlg5NZNkPVF8uNP 4bU9eUAKjKYjhg3D4tR Y4A5PoxmLhkp9pr2usB NXfGHzhY30caHVkw4T8 ZJKmvFY6TKBvrErxJdH hmO79Xsa+PGNvbGdyb3 SxXffpl6myh9bqcTy6H jMwJSIgdmFsaWduPSJ0 g2JeZg45X44fZVyfJYW oPSIzMCUiIHZhbGlnbj 1ubA2tEh1+KHCooZQ6p NO8nX7tCtJbXfV4CWci F536AfDjqNEbBdpxk4w bw9qcoKa1HtMgNOJqjz UcdMaeWGY9c1NjWu41S 3JuhHvnm4VgVqn7pz49 kCVzy7Q3gCR9F7JpYIK hassqsBTxdVzkCD3rTE KatznjHTMvfS9cBJAmI 1m2PsVqHmF8HRlrW2Zg vlO4RLZnbVAeBQGlvCD KmF9wxrciy9hfunpeYa QwSUHxNIj9LYq6MFHjl NclNbOtOLP7GrK7BVJ1 hXVcoC9ijRmuhwcibU7 wOyc+XPi6f8zknCTrRG 3ufWP1VN09AB42yORsr 1W2wRF9J2VnKPZasvsa knisdBG3ZCLgJDCirF4 8Ne1zsZsmPv9hRXUhJA D8IKGosZUaS4UudS3zJ dKaFODjFYAcM4GljGUl OPuuX321PVucDtB2FEF hvcKiR4IxAIEwrWunSe R2f7H3Bc0SJT47RB57R N10gKFdq3E0vCW2N8Tc PVDmmiizotvguJE4SLZ xJFMuuU98Id8jvDfsZl 2gTYYvZSB8YHDieLPxI 2LljG1mTdFlEQEaZMMm M5FvgFAdOFnmX397YXi uViE9RUVeyeNtP3EdLZ JtqSbnVeF7d6T1Re4YN k70UP16RO94yTWtb6I0 bWO8M8MiVFVhryurlaw zsDV2JWLaZBQmiM50Qo 9ifWlfYg5mIPOsZTE9C BQlkXTdO9JeqB6yCeIz YGLqRRCtT3UwbIAwGTo xF065MGhrXuF4IWXkvs IpP9VaGHJpmTgzDzQ8t 2Y5Iq1MZUalloq2C1Qb PjwvdHI+FL36MRFeJM2 0rQGyiOTdg7kqhDi1Oc TfQYPxVMQ4pDzbOKoxd 2EaTBZyF94kzNJvc3X3 IGNv (more content not included)... Normal [facility] Operative Reporton Operative Report SURGERY DATE: 06/03/2022 [...] patient is met in the [facility] Radiology. The patient is placed supine [...] Suite here today. Celia Potter Dictated: 06/03/2022 [id number] Transcribed: 06/03/2022 cc:Bhaskar Reddy D.O. [facility] Comment on above: Result Comment: Elec tronically Signed By: Joselyn Gilman DO\jackie\Date and Time Signed: 06/05/22 13:01 EST RAD - Consent to Procedureon 06-03-2022 RAD - Consent to Procedure [id number]:127 Normal [facility] Physician Orderon 05-25-2022 Physician Order [id number]:127 Normal [facility] MRI Hip w/o Righton 05-13-20 MRI Hip [...] by Michael Martino on 05/14/2022 1017 Normal [facility] GLYCOHEMOGLOBIN A1Con 2021 ADA RECOMMENDATION SEE BELOW Normal [facility] Comment on above: Result Comment: ADA RECOMMENDED LIMIT 4.0 - 6.0 ADA THERAPEUTIC TARGET < 7.0 ACTION SUGGESTED > 7.0 Performed By: #### A 1C #### [facility] [address] [place] [address] Dr. Sergey Zamorano Glucose [Mass/Vol] 126 mg/dL Normal [facility] Comment on above: Performed By: #### A 1C #### [facility] [address] [place] [address] Dr. Sergey Zamorano HbA1c (Bld) [Mass fraction] 6.0 % Normal 4.5-6.2 [facility] Comment on above: Performed By: #### A 1C #### [facility] [address] [place] [address] Dr. Sergey Zamorano CBC AUTO DIFFon 10-31-2021 BASO # 0.1 103/ul Normal 0.0-0.1 [facility] Comment on above: Performed By: #### C BC #### [facility] [address] [place] [address] Dr. Sergey Zamorano Basophils/100 WBC (Bld) 0.9 % Normal 0.2-2.0 [facility] Comment on above: Performed By: #### C BC #### [facility] [address] [place] [address] Dr. Sergey Zamorano EO # 0.4 103/ul Normal 0.0-0.7 [facility] Comment on above: Performed By: #### C BC #### [facility] [address] [place] [address] Dr. Sergey Zamorano Eosinophils/100 WBC (Bld) 5.5 % Normal 0.9-7.0 [facility] Comment on above: Performed By: #### C BC #### [facility] [address] [place] [address] Dr. Sergey Zamorano Erythrocyte distribution width (RBC) [Ratio] 12.8 % Normal 11.0-15.0 [facility] Comment on above: Performed By: #### C BC #### [facility] [address] [place] [address] Dr. Sergey Zamorano Hematocrit (Bld) [Volume fraction] 47.9 % Normal 42.0-54.0 [facility] Comment on above: Performed By: #### C BC #### [facility] [address] [place] [address] Dr. Sergey Zamorano Hemoglobin (Bld) [Mass/Vol] 16.0 g/dL Normal 14.0-18.0 [facility] Comment on above: Performed By: #### C BC #### [facility] [address] [place] [address] Dr. Sergey Zamorano IG # 0.02 10e3/ul Normal 0.00-0.03 [facility] Comment on above: Performed By: #### C BC #### [facility] [address] [place] [address] Dr. Sergey Zamorano IG % 0.3 % Normal 0.0-0.5 [facility] Comment on above: Performed By: #### C BC #### [facility] [address] [place] [address] Dr. Sergey Zamorano LYMPH # 2.4 103/ul Normal 1.2-3.8 [facility] Comment on above: Performed By: #### C BC #### [facility] [address] [place] [address] Dr. Sergey Zamorano Lymphocytes/100 WBC (Bld) 36.5 % Normal 20.5-60.0 [facility] Comment on above: Performed By: #### C BC #### [facility] [address] [place] [address] Dr. Sergey Zamorano MANUAL DIFF REQ NO Normal [facility] Comment on above: Performed By: #### C BC #### [facility] [address] [place] [address] Dr. Sergey Zamorano MCH (RBC) [Entitic mass] 29.3 pg Normal 25.9-34.0 [facility] Comment on above: Performed By: #### C BC #### [facility] [address] [place] [address] Dr. Sergey Zamorano MCHC (RBC) [Mass/Vol] 33.4 g/dL Normal 29.9-35.2 [facility] Comment on above: Performed By: #### C BC #### [facility] [address] [place] [address] Dr. Sergey Zamorano MCV (RBC) [Entitic vol] 87.6 fL Normal 80.0-94.0 [facility] Comment on above: Performed By: #### C BC #### [facility] [address] [place] [address] Dr. Sergey Zamorano MONO # 0.5 103/ul Normal 0.3-0.8 [facility] Comment on above: Performed By: #### C BC #### [facility] [address] [place] [address] Dr. Sergey Zamorano Monocytes/100 WBC (Bld) 7.0 % Normal 1.7-12.0 [facility] Comment on above: Performed By: #### C BC #### [facility] [address] [place] [address] Dr. Sergey Zamorano NEUT # 3.3 103/ul Normal 1.4-6.5 [facility] Comment on above: Performed By: #### C BC #### [facility] [address] [place] [address] Dr. Sergey Zamorano Neutrophils/100 WBC (Bld) 49.8 % Normal 43.0-75.0 [facility] Comment on above: Performed By: #### C BC #### [facility] [address] [place] [address] Dr. Sergey Zamorano Platelet mean volume (Bld) [Entitic vol] 11.7 fL Normal 9.5-13.5 [facility] Comment on above: Performed By: #### C BC #### [facility] [address] [place] [address] Dr. Sergey Zamorano PLT 237 103/ul Normal 150-450 [facility] Comment on above: Performed By: #### C BC #### [facility] [address] [place] [address] Dr. Sergey Zamorano RBC 5.47 106/ul Normal 4.70-6.10 [facility] Comment on above: Performed By: #### C BC #### [facility] [address] [place] [address] Dr. Sergey Zamorano WBC 6.7 103/ul Normal 4.0-11.0 [facility] Comment on above: Performed By: #### C BC #### [facility] [address] [place] [address] Dr. Sergey Zamorano GLYCOHEMOGLOBIN A1Con 2021 ADA RECOMMENDATION ADA THERAPEUTIC TARGET 6.0 - 7.0 ACTION SUGGESTED > 7.0 Normal [facility] Comment on above: Performed By: #### A 1C #### [facility] [address] [address] [address] Sergey Zamorano Glucose [Mass/Vol] 255 mg/dL Normal [facility] Comment on above: Performed By: #### A 1C #### [facility] [address] [address] [address] Sergey Zamorano HbA1c (Bld) [Mass fraction] 10.5 % Critically high <=6.0 [facility] Comment on above: Performed By: #### A 1C #### [facility] [address] [address] [address] Sergey Zamorano LIPID PROFILEon 10-31-2021 CHOL-HDL RATIO NORM SEE BELOW Normal [facility] Comment on above: Result Comment: 3.3 - 4.4 LOW RISK 4.4 - 7.1 AVERAGE RISK 7.1 - 11.0 MODERATE RISK >11.0 HIGH RISK Performed By: #### L IPID, CMP #### [facility] [address] [address] [address] Sergey Zamorano Cholesterol [Mass/Vol] 107 mg/dL Normal <=200 [facility] Comment on above: Performed By: #### L IPID, CMP #### [facility] [address] [address] [address] Sergey Zamorano Cholesterol in HDL [Mass/Vol] 33 mg/dL Critically low 40-60 [facility] Comment on above: Performed By: #### L IPID, CMP #### [facility] [address] [address] [address] Sergey Zamorano Cholesterol in LDL [Mass/Vol] 51.2 mg/dL Normal [facility] Comment on above: Performed By: #### L IPID, CMP #### [facility] [address] [address] [address] Sergey Zamorano Cholesterol.total/Cho lesterol in HDL [Mass ratio] 3.2 {ratio} Normal [facility] Comment on above: Performed By: #### L IPID, CMP #### [facility] [address] [address] [address] Sergey Zamorano HDL NORMAL > or = 60 mg/dl - LOW CARDIOVASCULAR RISK <40 mg/dl - HIGH CARDIOVASCULAR RISK Normal [facility] Comment on above: Performed By: #### L IPID, CMP #### [facility] [address] [address] [address] Sergey Zamorano LDL CALC NORMAL SEE BELOW Normal [facility] Comment on above: Result Comment: <100 mg/dl OPTIMAL 100 - 129 mg/dl NEAR OR ABOVE OPTIMAL 130 - 159 mg/dl BORDERLINE HIGH 160 - 189 mg/dl HIGH >190 mg/dl VERY HIGH Performed By: #### L IPID, CMP #### [facility] [address] [place] [address] Dr. Sergey Zamorano Triglyceride [Mass/Vol] 114 mg/dL Normal <=150 [facility] Comment on above: Performed By: #### L IPID, CMP #### [facility] [address] [address] [address] Sergey Zamorano VLDL CALC 22.8 mg/dL Normal [facility] Comment on above: Performed By: #### L IPID, CMP #### [facility] [address] [place] [address] Dr. Sergey Zamorano PROF 14(COMP METB)on 022 Albumin [Mass/Vol] 3.7 g/dL Normal 3.4-5.0 [facility] Comment on above: Performed By: #### L IPID, CMP #### [facility] [address] [place] [address] Dr. Sergey Zamorano Albumin/Globulin [Mass ratio] 1.3 {ratio} Normal [facility] Comment on above: Performed By: #### L IPID, CMP #### [facility] [address] [place] [address] Dr. Sergey Zamorano ALP [Catalytic activity/Vol] 85 U/L Normal 46-116 [facility] Comment on above: Performed By: #### L IPID, CMP #### [facility] [address] [address] [address] Sergey Zamorano ALT [Catalytic activity/Vol] 84 U/L Critically high 16-63 [facility] Comment on above: Performed By: #### L IPID, CMP #### [facility] [address] [address] [address] Sergey Zamorano Anion gap [Moles/Vol] 10.3 mmol/L Normal [facility] Comment on above: Performed By: #### L IPID, CMP #### [facility] [address] [address] [address] Sergey Zamorano AST [Catalytic activity/Vol] 30 U/L Normal 15-37 [facility] Comment on above: Performed By: #### L IPID, CMP #### [facility] [address] [place] [address] Dr. Sergey Zamorano Bilirubin [Mass/Vol] 0.8 mg/dL Normal 0.2-1.3 [facility] Comment on above: Performed By: #### L IPID, CMP #### [facility] [address] [address] [address] Sergey Zamorano Calcium [Mass/Vol] 8.4 mg/dL Critically low 8.5-10.1 [facility] Comment on above: Performed By: #### L IPID, CMP #### [facility] [address] [address] [address] Sergey Zamorano Chloride [Moles/Vol] 103 mmol/L Normal 98-107 [facility] Comment on above: Performed By: #### L IPID, CMP #### [facility] [address] [address] [address] Sergey Zamorano CO2 [Moles/Vol] 29.7 mmol/L Normal 22.0-30.0 [facility] Comment on above: Performed By: #### L IPID, CMP #### [facility] [address] [address] [address] Sergey Zamorano Creatinine [Mass/Vol] 0.95 mg/dL Normal 0.66-1.25 [facility] Comment on above: Performed By: #### L IPID, CMP #### [facility] [address] [address] [address] Sergey Zamorano EGFR-AF RWANDAN >60 Normal >=60 [facility] Comment on above: Performed By: #### L IPID, CMP #### [facility] [address] [address] [address] Sergey Zamorano EGFR-NON AF RWANDAN >60 Normal >=60 [facility] Comment on above: Performed By: #### L IPID, CMP #### [facility] [address] [address] [address] Sergey Zamorano Globulin (S) [Mass/Vol] 2.9 g/dL Normal [facility] Comment on above: Performed By: #### L IPID, CMP #### [facility] [address] [address] [address] Sergey Zamorano Glucose [Mass/Vol] 178 mg/dL Critically high 74-106 [facility] Comment on above: Performed By: #### L IPID, CMP #### [facility] [address] [address] [address] Sergey Zamorano Potassium [Moles/Vol] 4.0 mmol/L Normal 3.4-5.0 [facility] Comment on above: Performed By: #### L IPID, CMP #### [facility] [address] [address] [address] Sergey Zamorano Protein [Mass/Vol] 6.6 g/dL Normal 6.1-8.2 [facility] Comment on above: Performed By: #### L IPID, CMP #### [facility] [address] [address] [address] Sergey Zamorano Sodium [Moles/Vol] 139 mmol/L Normal 137-145 [facility] Comment on above: Performed By: #### L IPID, CMP #### [facility] [address] [address] [address] Sergey Zamorano Urea nitrogen [Mass/Vol] 14.0 mg/dL Normal 7.0-18.0 [facility] Comment on above: Performed By: #### L IPID, CMP #### [facility] [address] [place], [place] [address] Dr. Sergey Zamorano Urea nitrogen/Creatinine [Mass ratio] 14.7 mg/mg Normal [facility] Comment on above: Performed By: #### L IPID, CMP #### [facility] [address] [place], [place] [address] Dr. Sergey Zamorano Social History Date Type Detail Facility Start: 12-26-2021 Tobacco smoking stat us [facility] Never smoked tobacco (finding) [facility] Start: 1965 Sex Assigned At Male F [facility] Unknown if ever smoked [place] Other Sex Assigned At [facility] Tobacco smoking status No Smokin g Status Entered [facility] Vital Signs Date Time Vital Sign Value Performing Clinician Facility 12-10-2023 09:02-0400 Body height 172.72 cm DO Bhaskar Ball Work Phone: [facility] 12-10-2023 09:02-0400 Body mass index (BMI) [Ratio] 30.7 kg/m2 DO Bhaskar Ball Work Phone: [facility] 12-10-2023 09:02-0400 Body weight 91.62 kg DO Bhaskar Ball Work Phone: [facility] 12-10-2023 09:02-0400 Diastolic blood pressure 89 mm[Hg] DO Bhaskar Ball Work Phone: [facility] 12-10-2023 09:02-0400 Heart rate 63 /min DO Bhaskar Ball Work Phone: [facility] 12-10-2023 09:02-0400 Respiratory rate 12 /min DO Bhaskar Ball Work Phone: [facility] 12-10-2023 09:02-0400 Systolic blood pressure 144 mm[Hg] DO Bhaskar Ball Work Phone: [facility] 10-26-2023 14:00-0400 Body height 172.72 cm [facility] 10-26-2023 14:00-0400 Body mass index (BMI) [Ratio] 32.2 kg/m2 [facility] 10-26-2023 14:00-0400 Body weight 96.16 kg [facility] 10-26-2023 14:00-0400 Diastolic blood pressure 90 mm[Hg] [facility] 10-26-2023 14:00-0400 Heart rate 77 /min [facility] 10-26-2023 14:00-0400 Respiratory rate 12 /min [facility] 10-26-2023 14:00-0400 Systolic blood pressure 152 mm[Hg] [facility] 08-30-2023 15:00-0500 Body height 172.72 cm Bhaskar Ball Other [facility] [employer] Other 08-30-2023 15:00-0500 Body mass index (BMI) [Ratio] 32.69 kg/m2 Bhaskar Ball Other [facility] [employer] Other 08-30-2023 15:00-0500 Body weight 97.52 kg Bhaskar Ball Other [facility] [employer] Other 08-30-2023 15:00-0500 Diastolic blood pressure 85 mm[Hg] Bhaskar Ball Other [facility] [employer] Other 08-30-2023 15:00-0500 Respiratory rate 16 /min Bhaskar Ball Other [facility] [employer] Other 08-30-2023 15:00-0500 Systolic blood pressure 135 mm[Hg] Bhaskar Ball Other [facility] [employer] Other 04-27-2023 18:20-0400 Body height 172.72 cm Jennifer Mccarthy Other [facility] [employer] Other 04-27-2023 18:20-0400 Body mass index (BMI) [Ratio] 31.14 kg/m2 Jennifer Fabio Other [place] Other 04-27-2023 18:20-0400 Body temperature 98.2 [degF] Jennifer Fabio Other [place] Other 04-27-2023 18:20-0400 Body weight 92.9 kg Jennifer Fabio Other [place] Other 04-27-2023 18:20-0400 Diastolic blood pressure 86 mm[Hg] Jennifer Fabio Other [place] Other 04-27-2023 18:20-0400 Respiratory rate 18 /min Jennifer Mccarthy Other [place] Other 04-27-2023 18:20-0400 SaO2% (BldA) [Mass fraction] 99 % Jennifer Mccarthy Other [place] Other 04-27-2023 18:20-0400 Systolic blood pressure 127 mm[Hg] Jennifer Mccarthy Other [place] Other 01-22-2023 14:00-0400 Body height 172.72 cm Bhaskar Ball Other [place] Other 01-22-2023 14:00-0400 Body mass index (BMI) [Ratio] 30.16 kg/m2 Bhaskar Ball Other [place] Other 01-22-2023 14:00-0400 Body weight 89.99 kg Bhaskar Ball Other [place] Other 01-22-2023 14:00-0400 Diastolic blood pressure 82 mm[Hg] Bhaskar Ball Other [employer] Other 01-22-2023 14:00-0400 Respiratory rate 12 /min Bhaskar Ball Other [facility] [employer] Other 01-22-2023 14:00-0400 Systolic blood pressure 133 mm[Hg] Bhaskar Ball Other [facility] [employer] Other 12-17-2022 14:36-0400 Diastolic blood pressure 68 mm[Hg] DO Bhaskar Ball Work Phone: [facility] 12-17-2022 14:36-0400 Heart rate 88 /min DO Bhaskar Ball Work Phone: [facility] 12-17-2022 14:36-0400 Respiratory rate 16 /min DO Bhaskar Ball Work Phone: [facility] 12-17-2022 14:36-0400 SaO2% (BldA) [Mass fraction] 95 % DO Bhaskar Ball Work Phone: [facility] 12-17-2022 14:36-0400 Systolic blood pressure 101 mm[Hg] DO Bhaskar Ball Work Phone: [facility] 12-17-2022 12:47-0400 Body height 172.72 cm DO Bhaskar Ball Work Phone: [facility] 12-17-2022 12:47-0400 Body temperature 98.8 [degF] DO Bhaskar Ball Work Phone: [facility] 12-17-2022 12:47-0400 Body weight 88.45 kg DO Bhaskar Ball Work Phone: [facility] 05-27-2022 17:25-0500 Body height 172.72 cm Mini Marquez Other [facility] [employer] Other 05-27-2022 17:25-0500 Body mass index (BMI) [Ratio] 29.65 kg/m2 Mini Marquez Other [place] Other 05-27-2022 17:25-0500 Body temperature 97.7 [degF] Mini Marquez Other [place] Other 05-27-2022 17:25-0500 Body weight 88.45 kg Mini Marquez Other [place] Other 05-27-2022 17:25-0500 Diastolic blood pressure 84 mm[Hg] Mini Marquez Other [place] Other 05-27-2022 17:25-0500 Respiratory rate 18 /min Mini Marquez Other [place] Other 05-27-2022 17:25-0500 SaO2% (BldA) [Mass fraction] 99 % Mini Marquez Other [place] Other 05-27-2022 17:25-0500 Systolic blood pressure 118 mm[Hg] Mini Marquez Other [place] Other Clinical Notes 05-27-2022 to 08-30-2023 Note Date [...] s/p PCI/stent LAD Continue secondary prevention measures [place] Other [id number] NoteUTP CARDIOLOGY PROGRESS NOTE [facility] HPI: Misael Aguilar Jr. is a [...] been reviewed- CV Testin08/17/2017 angiogram and PCI ([facility]) Drug-eluting stent to proximal LAD ( xience [...] changes (no further notes) Assessment/Plan: Misael Aguilar is a 58 y.o. male 1. CAD [...] and rest, Tylenol as directed, Rx of Bowlegs and prednisone as directed, cool mist humidifier, [...] treatment plan. Patient left in stable condition [place] Other 07-07-2023 Evaluation note* Encounter Date Diagnosis [...] (ICD-10 - Z12.5) Yearly DELL and PSA [facility] [employer] Other 06-01-2023 [facility] History general Narrative - Reported* Type Description Date Medical History hypertension Medical History scoliosis Medical History 2 stents Surgical History appendectomy 2008 Surgical History cardiac stent Surgical History EGD w/ dilatation 12/2022 Hospitalization History see above surgical histo ry [place] Other 06-01-2023 History general Narrative - Reported* Type Description Date Medical History hypertension Medical History scoliosis Medical History 2 stents Surgical History appendectomy 2008 Surgical History PCI/stent LAD 2018 Surgical History EGD w/ dilatation 12/2022 Hospitalization History see above surgical rusto ry [place] Other 04-11-2023 Evaluation note* Encounter Date Diagnosis Assessment Notes Treatment Notes Treatment Clinical Notes Oct, Acute bronchitis due to other specified organisms (ICD-10 - J20.8) Instructed to use Robitussin or Mucinex for cough, saline or Flonase NS for congestion, Tylenol for pain and fever. Oct, Acute cough (ICD-10 - R05.1) [place] Other [id number] Evaluation note* Encounter Date Diagnosis Assessment Notes [...] no improvement in 2 to 3 days [place] Other Evaluation + Plan note No data available for this section [facility] Other Evaluation noteNo assessment information available [facility] Work Phone: Evaluation note* Diagnosis Onset Date Resolution Status H/O cardiac catheterization acute Right arm pain acute [facility] Work Phone: Evaluation note* Diagnosis Onset Date Resolution Status H/O cardiac catheterization acute Right arm pain acute Arthritis of both hands acut e Bilateral hand pain acute [facility] Work Phone: Evaluation note* Diagnosis Onset Date Resolution Status H/O cardiac catheterization acute Right arm pain acute Arthritis of both hands acut e Bilateral hand pain acute Arthritis of both hands acut e Bilateral hand pain acute [facility] Work Phone: Evaluation note* Diagnosis Onset Date Resolution Status H/O cardiac catheterization acute Right arm pain acute Arthritis of both hands acut e Bilateral hand pain acute Arthritis of both hands acut e Bilateral hand pain acute H/O cardiac catheterization acute Internal derangement of right shoulder acute Right shoulder pain acute [facility] Work Phone: History and physical note Author Angelina Arrieta [facility] December 17, 2022 1:41pm Note Date/Time December 17, 2022 1:41p m [facility] [address] [place] [address] Gastroenterology H&P Signed Patient: Misael Aguilar Jr MR#: [id number] : 1965 Acct:[id number] Age/Sex: 57 / M Adm Date: 3 Loc: Room: Type: [facility] Attending Dr: Angelina Arrieta MD Copies to: [...] signed by Angelina Arrieta MD> 12/17/22 1341 [facility] Work Phone: History general Narrative - Reported* Type Description Date Medical History hypertension Medical History scoliosis Medical History 2 stents Surgical History appendectomy 2009 Surgical History cardiac stent Hospitalization History see above surgical histo ry [facility] Other Hospital Discharge instructions No data available for this section [facility] Additional Instructions DISCHARGE INSTRUCTIONS FOR [...] NOT operate machinery such as power tools, lawn mowers, snow blowers, sewing machines, etc. for [...] problems. -Follow up with PCP. -Office number [phone]. [facility] Work Phone: Progress note No data available for this section [facility] Summary Purpose Family History Relationship Condition Age at Onset Recorded Date/T kajal Not Specified No pertinent family history Unknown Advance Directives Advance Directive Response Recorded Date/ Time Advance [...] Arthritis of both hands Bilateral hand pain Chief Complaint right arm pain New Bilat Hand Pain NX M79.641 - Pain in right hand 4 WEEK RECHECK Reason for Visit H/O cardiac catheter ization Right arm pain Arthritis of both hands Bilateral hand pain Arthritis of both hands Bilateral hand pain Chief Complaint right arm pain New Bilat Hand Pain NX M79.641 - Pain in right hand 4 WEEK RECHECK arm pain Reason for Visit H/O cardiac catheter ization Right arm pain Arthritis of both hands Bilateral hand pain Arthritis of both hands Bilateral hand pain H/O cardiac catheterization Internal derangement of right shoulder Right shoulder pain Additional Source Comments (unrecognized sect ion and content) No Status Records FoundNo Status Records FoundNo Status Records FoundNo Status Records FoundNo Status Records FoundNo Status Records FoundNo Status Records FoundNo Status Records FoundNo Status Records Found INFORMATION SOURCE (unrecogn ized section and content) DATE CREATED AUTHOR 02/17/2018 [facility] DATE CREATED AUTHOR AUTHOR'S ORGANIZ ATION 02/17/2018 [facility] DATE CREATED AUTHOR AUTHOR'S ORGANIZ ATION 05/15/2022 [facility] dical Specialist DATE CREATED AUTHOR AUTHOR'S ORGANIZ ATION 06/08/2022 [facility] DATE CREATED AUTHOR AUTHOR'S ORGANIZ ATION 09/18/2022 [facility] DATE CREATED AUTHOR AUTHOR'S ORGANIZ ATION 08/23/2023 [facility] DATE CREATED AUTHOR AUTHOR'S ORGANIZ ATION 10/03/2023 [facility] DATE CREATED AUTHOR AUTHOR'S ORGANIZ ATION 10/11/2023 [facility] DATE CREATED AUTHOR AUTHOR'S ORGANIZ ATION 11/14/2023 [facility] ysician Group REASON FOR VISIT (unrecogniz ed section and content) COUCH CONGESTIONDRY COUGH, C OLD FOR 3 WEEKS, FEVERFeverNo InformationRefillwellnessLab ResultsReferralCOLD, SORE THROAT, DRAINAGE, ITCHY EYESSOBConcerns Patient Care team informatio n (unrecognized section and content) Team Status: Active Member Role Status Dates Bhaskar Reddy DO Primary Care Provider Active Team Status: Inactive Member Role [...] 2023 End: November 09, 2023 Team Status: Inactive Member Role Status Dates Bhaskar Reddy DO Primary Care Provider Active Start: December 08, 2023 End: December 08, 2023 Judy Coleman MD Attending Provider Active Start: December 08, 2023 End: December 08, 2023 Team Status: Active Member Role Status Dates Bhaskar Reddy , Primary Care Provide r, Attending Provider Active Start: September 09, 2023 Team Status: Inactive Member Role Status Dates Bhaskar Reddy , Primary Care Provider Active Angelina Arrieta MD Attending Provider Active Team Status: Active Member Role Status Dates Bhaskar Reddy , DO Primary Care Provider Active Start: November 09, 2023 Judy Coleman MD Attending Provider Active Start: November 09, 2023 Team Status: Inactive Member Role Status Dates Bhaskar Reddy , Primary Care Provide r, Attending Provider Active Start: December 10, 2023 End: December 10, 2023 Goals (unrecognized section and content) Goals [...] BE BASED ON THE PRIMARY CLINICAL RECORDS. [facility] [email or web address] [facility]. provides no warranty or guarantee of the accuracy or completeness of information in this document.
== END 2023-12-21 06:29 | disposition home or self-care (01) ==
LOC: MRI 06:28
PROVIDERS: Family Provider Internal Medicine; PCP Internal Medicine; Visit Provider Internal Medicine
DX: M24.811 Other specific joint derangements of right shoulder, not elsewhere classified (principal); M25.511 Pain in right shoulder
CPT/HCPCS: 73221

== ENCOUNTER 2024-02-05 08:17 | Outpatient (OUT) | payer BC, SELFPAY ==
--- OUTSIDE RECORDS SUMMARY | 2024-02-05 08:21 | XMS_ITS | CCD ---
Author Organization [facility] Care Team Providers Care Tube Trailer Filler Name Role Phone CONCEPCIONSHILA GLASGOW Unavailable Unavailable [...] Unavailable DO Bhaskar Reddy Primary Care Provider [phone] MD Judy Coleman Attending Provider [phone] Angelina Arrieta Admitting Unavailable Angelina Arrieta Attending Unavailable Bhaskar Reddy Primary Care Unavailable Judy Coleman Admitting Unavailable Judy Coleman Attending Unavailable Bhaskar Reddy Primary Care Unavailable Bhaskar Reddy Primary Care Unavailable Tupa, Miguel M Admitting Unavailable Miguel Chen Attending Unavailable Medications [...] 13, 2018 1:02am take 2 tablets by mo ut once daily in the evening Atorvastatin Calcium 20 MG TAKE 2 TABLETS BY MOUTH EVERY DAY IN THE EVENING for 90 Active celecoxib 50 mg oral capsule (6 sources) Nonsteroidal Anti-inflammatory Drug Start: 11-09-2023 End: 12-08-2023 take 1 capsule by mouth twice daily Celecoxib (Celebrex) 50 mg capsule Active 50 MG PO Twice daily 90 December 08, 2023 3:39pm dextromethorphan hydrobromide 1.5 mg/ml / pyrilamine maleate 1.5 mg/ml oral solution (3 sources) Uncompetitive V-qiikuu-R-aspartate Receptor Antagonist, Sigma-1 Agonist Start: 04-27-2023 take 10 mL by mouth every eight hours Candor DM 7.5-7.5 MG/5ML 10 mL Orally every [...] Tartrate Discontinued 25 MG PO Twice daily 60 30 August 18, 2017 11:22am December 17, 2022 [...] Drug Class(es) Dates Sig (Normalized) Sig (Original) [id number] actuat albuterol 0.09 mg/actuat metered dose [...] oral tablet (11 sources) alpha-Adrenergic Agonist, Uncompetitive R-euemco-J-aspartat e Receptor Antagonist, Sigma-1 Agonist Start: 05-01-2020 [...] Coronary arteriosclerosis; Translations: [Atherosclerotic heart disease of [place] coronary artery without angina pectoris] Onset: 08-12-2017 [...] Resolved: 09-24-2020 Episodic Other aftercare (1 source) retirement (current) use of insulin; 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] Onset: 02-22-2022 Episodic [...] BI 3Von 11-09-2023 XR hand BI 3V [facility] [address] [place] [address] XRay Report Signed Patient: JeffMisaeldanuta Major Jr MR#: [id number] : 1965 Acct:[id number] Age/Sex: 58 / M ADM Date: 11/09/23 Loc: SOXD Room: Type: [facility] Attending Dr: Judy Coleman MD Copies to: [...] Magnus Salcedo M.D.11/09/2023 5:24 PM Dictation Location: [place] [address] Transcribed By: [facility] 11/09/231723 Dictated By: Magnus Salcedo DO 11/09/231722 Signed By: 11/09/23 172 Normal [facility] Basic Metabolic Panelon 03 Anion gap [Moles/Vol] 10 mmol/L Normal 9-15 [facility] Comment on above: Performed By: #### B MP #### [facility] [address] [place] [address] Calcium [Mass/Vol] 8.9 mg/dL Normal 8.5-9.9 [facility] Comment on above: Performed By: #### B MP #### [facility] [address] [place] [address] Chloride [Moles/Vol] 102 mmol/L Normal 95-107 [facility] Comment on above: Performed By: #### B MP #### [facility] [address] [place] [address] CO2 [Moles/Vol] 27 mmol/L Normal 20-31 [facility] Comment on above: Performed By: #### B MP #### [facility] [address] [place] [address] Creatinine [Mass/Vol] 0.97 mg/dL Normal 0.70-1.20 [facility] Comment on above: Performed By: #### B MP #### [facility] [address] [place] [address] GFR >60.0 Normal >60 [facility] Comment on above: Result Comment: Edwin atric [...] secretion. Performed By: #### B MP #### [facility] [address] [place] [address] Glucose [Mass/Vol] 149 mg/dL Critically high 70-99 [facility] Comment on above: Performed By: #### B MP #### [facility] [address] [place] [address] Potassium [Moles/Vol] 4.0 mmol/L Normal 3.4-4.9 [facility] Comment on above: Performed By: #### B MP #### [facility] [address] [place] [address] Sodium [Moles/Vol] 139 mmol/L Normal 135-144 [facility] Comment on above: Performed By: #### B MP #### [facility] [address] [place] [address] Urea nitrogen [Mass/Vol] 16 mg/dL Normal 6-20 [facility] Comment on above: Performed By: #### B MP #### [facility] [address] [place] [address] CBC With Platelet No Differe ntialon 10-01-2023 Erythrocyte distribution width (RBC) [Ratio] 12.8 % Normal 11.5-14.5 [facility] Comment on above: Performed By: #### C BCND #### [facility] [address] [place] [address] Hematocrit (Bld) [Volume fraction] 46.1 % Normal 42.0-52.0 [facility] Comment on above: Performed By: #### C BCND #### [facility] [address] [place] [address] Hemoglobin (Bld) [Mass/Vol] 15.3 g/dL Normal 14.0-18.0 [facility] Comment on above: Performed By: #### C BCND #### [facility] [address] [place] [address] MCH (RBC) [Entitic mass] 28.9 pg Normal 27.0-31.3 [facility] Comment on above: Performed By: #### C BCND #### [facility] [address] [place] [address] MCHC 33.2 % Normal 33.0-37.0 [facility] Comment on above: Performed By: #### C BCND #### [facility] [address] [place] [address] MCV (RBC) [Entitic vol] 87.1 fL Normal 79.0-92.2 [facility] Comment on above: Performed By: #### C BCND #### [facility] [address] [place] [address] Platelets (Bld) [#/Vol] 239 10*3/uL Normal 130-400 [facility] Comment on above: Performed By: #### C BCND #### [facility] [address] [place] [address] RBC (Bld) [#/Vol] 5.29 10*6/uL Normal 4.70-6.10 [facility] Comment on above: Performed By: #### C BCND #### [facility] [address] [place] [address] WBC (Bld) [#/Vol] 6.3 10*3/uL Normal 4.8-10.8 [facility] Comment on above: Performed By: #### C BCND #### [facility] [address] [place] [address] Prothrombin Timeon 4 INR Coag (PPP) [Relative time] 1.0 {INR} Normal [facility] Comment on above: Performed By: #### P T #### [facility] [address] [place] [address] PT Coag (PPP) [Time] 13.1 s Normal 12.3-14.9 [facility] Comment on above: Performed By: #### P T #### [facility] [address] [place] [address] Office Visiton 07-16-2023 Follow-up visit [id number] Misael Aguilar Jr. 1965 Date Provider Department Center 07/16/2023 Tisha8-JESSICA WEAVER [facility] Family History Problem Relation Age of Onset No Known Problems Mother No Known Problems Father Family Status - Relation Status Age at Mother Alive Father Alive Level of Service:39142 [place] OFFICE/OUTPATIENT ESTABLISHED MOD MDM 30 MIN Normal [facility] Glucose Glucometer (BldC) [M ass/Vol]Ordered By: Angelina Arrieta on 12-17-2022 Glucose [Mass/Vol] 101 mg/dL [facility] Comment on above: Random Glucose Refer ence Range is dependent on time and content of last meal. Glucose of more than 200 mg/dL in a nonstressed, ambulatory subject supports the diagnosis of Diabetes Mellitus. Glucose Poct Glucometerson 0 12-17-2022 Glucose [Mass/Vol] 101 mg/dL Normal [facility] Comment on above: Result Comment: [place] Glucose Reference Range is dependent on time and content of last meal. Glucose of more than 200 mg/dL in a nonstressed, ambulatory subject supports the diagnosis of Diabetes Mellitus. PERFORMED BY: [facility] [address] [place] [address] PATHOLOGIST DIRECTOR CHEMISTRY LAMONT HORN M.D. Performed By: #### G TOBY #### Point of Care testing , Dwain 12-17-2022 L Specimen: [id number] Received: 12/17/22 Status: KENNEDY Conti Num: [id number] Spec Type: Surgical Subm Dr: Angelina Arrieta MD Tissues: A Gastric Biopsy (GASTRIC) Procedures: Emely CALDERÓN/Carmen L4 Age/ Patient Sex Location Account Attending Physician Misael Aguilar Jr/Maritza [id number] Angelina Arrieta MD SPEC NUM: [id number] RECD: 12/17/22 STATUS: KENNEDY CONTI NUM: [id number] TOM: 12/17/22- [facility] DR: Angelina Arrieta MD ENTERED: 12/17/[address] [facility] [address]: SPEC TYPE: Surgical DEPT: S ORDERED: [...] microscopic examination confirms the diagnosis. CPT Codes 96452 Specimen: [id number] Received: 12/17/22 Status: KENNEDY Frankelsteven Num: [id number] Spec Type: Surgical Subm Dr: Angelina Arrieta MD Tissues: A Gastric Biopsy (GASTRIC) Procedures: HE/2, Gross/Micro L4 Patient: Misael Aguilar Jr [id number] (Continued) Signed (signatur e on file) Julieta Escobar MD 12/18/22 1150 Normal [facility] CBC AUTO DIFFon 07-03-2022 BASO # 0.1 103/ul Normal 0.0-0.1 [facility] Comment on above: Performed By: #### C BC #### [facility] [address] [place] [address] Dr. Sergey Zamorano Basophils/100 WBC (Bld) 0.9 % Normal 0.2-2.0 [facility] Comment on above: Performed By: #### C BC #### [facility] [address] [place] [address] Dr. Sergey Zamorano EO # 0.5 103/ul Normal 0.0-0.7 [facility] Comment on above: Performed By: #### C BC #### [facility] [address] [place] [address] [address] Sergey Zamorano Eosinophils/100 WBC (Bld) 7.1 % Critically high 0.9-7.0 [facility] Comment on above: Performed By: #### C BC #### [facility] [address] [place] [address] Dr. Sergey Zamorano Erythrocyte distribution width (RBC) [Ratio] 13.4 % Normal 11.0-15.0 [facility] Comment on above: Performed By: #### C BC #### [facility] [address] [place] [address] [address] Sergey Zamorano Hematocrit (Bld) [Volume fraction] 46.5 % Normal 42.0-54.0 [facility] Comment on above: Performed By: #### C BC #### [facility] [address] [place] [address] Dr. Sergey Zamorano Hemoglobin (Bld) [Mass/Vol] 15.3 g/dL Normal 14.0-18.0 [facility] Comment on above: Performed By: #### C BC #### [facility] [address] [place] [address] Dr. Sergey Zamorano IG # 0.03 10e3/ul Normal 0.00-0.03 [facility] Comment on above: Performed By: #### C BC #### [facility] [address] [place] [address] Dr. Sergey Zamorano IG % 0.4 % Normal 0.0-0.5 [facility] Comment on above: Performed By: #### C BC #### [facility] [address] [place] [address] Dr. Sergey Zamorano LYMPH # 2.6 103/ul Normal 1.2-3.8 [facility] Comment on above: Performed By: #### C BC #### [facility] [address] [place] [address] Dr. Sergey Zamorano Lymphocytes/100 WBC (Bld) 33.6 % Normal 20.5-60.0 [facility] Comment on above: Performed By: #### C BC #### [facility] [address] [place] [address] Dr. Sergey Zamorano MANUAL DIFF REQ NO Normal [facility] Comment on above: Performed By: #### C BC #### [facility] [address] [place] [address] Dr. Sergey Zamorano MCH (RBC) [Entitic mass] 28.3 pg Normal 25.9-34.0 [facility] Comment on above: Performed By: #### C BC #### [facility] [address] [id number] Sergey Zamorano MCHC (RBC) [Mass/Vol] 32.9 g/dL Normal 29.9-35.2 [facility] Comment on above: Performed By: #### C BC #### [facility] [address] [id number] Sergey Zamorano MCV (RBC) [Entitic vol] 86.0 fL Normal 80.0-94.0 [facility] Comment on above: Performed By: #### C BC #### [facility] [address] [place] [address] Dr. Sergey Zamorano MONO # 0.6 103/ul Normal 0.3-0.8 [facility] Comment on above: Performed By: #### C BC #### [facility] [address] [place] [address] Dr. Sergey Zamorano Monocytes/100 WBC (Bld) 7.5 % Normal 1.7-12.0 [facility] Comment on above: Performed By: #### C BC #### [facility] [address] [place] [address] Dr. Sergey Zamorano NEUT # 3.9 103/ul Normal 1.4-6.5 [facility] Comment on above: Performed By: #### C BC #### [facility] [address] [place] [address] Dr. Sergey Zamorano Neutrophils/100 WBC (Bld) 50.5 % Normal 43.0-75.0 [facility] Comment on above: Performed By: #### C BC #### [facility] [address] [place], [place] [id number] Dr. Sergey Zamorano Platelet mean volume (Bld) [Entitic vol] 10.8 fL Normal 9.5-13.5 [facility] Comment on above: Performed By: #### C BC #### [facility] [address] [place] [address] Dr. Sergey Zamorano PLT 278 103/ul Normal 150-450 [facility] Comment on above: Performed By: #### C BC #### [facility] [address] [place] [address] [address] Sergey Zamorano RBC 5.41 106/ul Normal 4.70-6.10 [facility] Comment on above: Performed By: #### C BC #### [facility] [address] [place] [address] Dr. Sergey Zamorano WBC 7.6 103/ul Normal 4.0-11.0 [facility] Comment on above: Performed By: #### C BC #### [facility] [address] [place] [address] Dr. Sergey Zamorano GLYCOHEMOGLOBIN A1Con 2021 ADA RECOMMENDATION SEE BELOW Normal [facility] Comment on above: Result Comment: ADA RECOMMENDED LIMIT 4.0 - 6.0 ADA THERAPEUTIC TARGET < 7.0 ACTION SUGGESTED > 7.0 Performed By: #### D ATA1C #### [facility] [address] [place] [address] Dr. Sergey Zamorano Glucose [Mass/Vol] 137 mg/dL Normal [facility] Comment on above: Performed By: #### D ATA1C #### [facility] [address] [place] [address] Dr. Sergey Zamorano HbA1c (Bld) [Mass fraction] 6.4 % Critically high 4.5-6.2 [facility] Comment on above: Performed By: #### D ATA1C #### [facility] [address] [place] [address] Dr. Sergey Zamorano PROF CHEM 8 (BAS METB)on Anion gap [Moles/Vol] 10.6 mmol/L Normal [facility] Comment on above: Performed By: #### B MP #### [facility] [address] [place] [address] Dr. Sergey Zamorano Calcium [Mass/Vol] 8.6 mg/dL Normal 8.5-10.1 [facility] Comment on above: Performed By: #### B MP #### [facility] [address] [place] [address] Dr. Sergey Zamorano Chloride [Moles/Vol] 104 mmol/L Normal 98-107 [facility] Comment on above: Performed By: #### B MP #### [facility] [address] [place] [address] [address] Sergey Zamorano CO2 [Moles/Vol] 30.5 mmol/L Normal 21.0-32.0 [facility] Comment on above: Performed By: #### B MP #### [facility] [address] [place] [address] [address] Sergey Zamorano Creatinine [Mass/Vol] 0.94 mg/dL Normal 0.70-1.30 [facility] Comment on above: Performed By: #### B MP #### [facility] [address] [place] [address] [address] Sergey Zamorano EGFR-AF KAZAKH >60 Normal >=60 [facility] Comment on above: Performed By: #### B MP #### [facility] [address] [place] [address] [address] Sergey Zamorano EGFR-NON AF KAZAKH >60 Normal >=60 [facility] Comment on above: Performed By: #### B MP #### [facility] [address] [place] [address] [address] Sergey Zamorano Glucose [Mass/Vol] 111 mg/dL Critically high 74-106 [facility] Comment on above: Performed By: #### B MP #### [facility] [address] [address] [address] Sergey Zamorano Potassium [Moles/Vol] 4.1 mmol/L Normal 3.5-5.1 [facility] Comment on above: Performed By: #### B MP #### [facility] [address] [address] [address] Sergey Zamorano Sodium [Moles/Vol] 141 mmol/L Normal 136-145 [facility] Comment on above: Performed By: #### B MP #### [facility] [address] [address] [address] Sergey Zamorano Urea nitrogen [Mass/Vol] 12.0 mg/dL Normal 7.0-18.0 [facility] Comment on above: Performed By: #### B MP #### [facility] [address] [place] [address] Dr. Sergey Zamorano Urea nitrogen/Creatinine [Mass ratio] 12.8 mg/mg Normal [facility] Comment on above: Performed By: #### B #### [facility] [address] [place] [address] Dr. Sergey Zamorano Coding Summary.on 06-08-2022 Coding Summary. CD:[id number] QLa1zXb+PGhlYWQ+PE1 KEWTvF65mwVAchA7YZ4 aVSY1WPFMRDTXQPX6IX Z3kqDN8NDftZ3JtldIn LevfsPNaTD07RAd5TXH 2kPimJTpvvS2qpCCxE4 a7JzAzDH62oX04ESczE YWuNlS0PtDougqwlSGn P8pgKvDdvICxTcp+PHR hYmxlIHdpZHRoPScxMD FoBuNddFkgBB6rFs0zG GVyLWNvbGxhcHNlOiBj a7yaXZOjEWbeSK9xkYh qA2YpkHW7CWEdo9r5Ph 48dHI+PZNzOIU8aKokR Dlgo388GpXty3kfIKM4 wRGjXSxhKSY3D11nq1S 3BQYsYOGoCFC2gOC6gI 7prCkdxmukA0EtmYOlP rC8YZM2hOVpjU7fuJgy fxtgaS9zRpu+Y08PXF5 SCBOIZR4LJwi4E0GbRv wvdHI+PA73MXBfOB63m BNemMMdb2qacQb1CwVy YJCgEZG1gJvlSNuex6H nFLJrM20acGUrq2N9EX XlrHhuwFZnDsJxtAB1u S4tIUxpmxbec4ebefmb Zbhtq1tlnu76hL90C42 kBGwnRIZxJVM7ZUNjDS KlcNjgft2yxN8hZb8+I Qwts0oyh5nyzMg5GlWx BPCoxsRpwHjoEJL1w6C aTj86B3KmnMbnw0ZxNq g7zk37fSFco0M2tJJ3V FotDNZvsD4yGKonPeC6 CQCrAaHfpI01mXEkKEt aNq9idAylrXozUE7aEN UfleqrQDUsbJ3yIGVbm PNhbEexCJ0zPZVdthdy d964EfXyLEW5NKUjqES yU6BupT8sZqEpKGMyRY HsE9NrfMUjVBbhB430M UmvQlK5XWLjfzGeI1Eq MLKdmUrjGnY6h5L6Tv1 Qy6UvdjysRGB1VVxiYK ZyCsAiBqOoRtH5A0XeZ ts8SGUieEruCI2nE5Fb WLIvlsqsqxhpjQC4MCT sIVVscP44jAGtQAhhYf 6kr3K4d097EYCrUSGsd N16Cy4suMgmOLQpwVZM yQ5bppzwr2myeverNvM sCBMpLDg8ZJp9TDRcoK wqRcYkVEO0RyG2TXS8b RAbfK9giZiwlbwghH3c Oyc+S58rsR2jFHA1YBZ 6gykoOXUtblMqBK15BY 34X4UpPggmuXFezKU+P IGktzMiaMapMK6vQiId w3gxs1PhUTukV5XuJYS cDKycUrs1CZXzYIT5bO I7tN3qNPBfZJhbx4E6n QQ0R2GtryDfsd0qa5uz MOHuCQzoE55dqQCpl9P 8TOJyoZU8QFZrnKlwMu JfbD52Wih+PGNvbGdyb 5PkSmumc2sha2zyxJc1 IjMwJSIgdmFsaWduPSJ 9e8KfEs23L68nBTtuOL RoPSIxNSUiIHZhbGlnb y7joW6hWg3+PGNvbCB3 zMD9yX2mNOTlJhG1GHu kQ185VrXdeZKpJgost6 jbp8eegMk7HfPzHXUnd pWkhNieJKU7u0JxYx47 T22nOCxkXKJqDEIgHJG cWLCvtOxdeq6ceN1pDv 8+YV1kq5shfy15dV73f HI+GHYiYVG7jSjlGAgu MROunU3xWPurGfS4HSB jNeGfaP55nCAfCVbxVv 0loTaneArxEW8nNJEkb qdmw660AcQhq0cfYAIf xVDqOIrwQEG1T93ph7N 2HCLpTUThOHS5nKJ1dI 1hbGlnbjogbGVmdDsgd lZduUztTOjuNFpmZ766 IHRvcDsnPlBhdGllbnQ dKdPgXHx8N9OzEzo8IK HneLdbHR0dgGLdDAjgC h7zaDihyQhkLZ1wUOMr jcpdq344MdMos3txYBX ncKWsBSmyYAP4O67xk0 A3ACMeOEGcHHR9fEA2r S2ivSuzhshakOJvdBkf jcFohFfjAPieFGnbQ93 6IHRvcDsnPkJpcnRoIE JccCB8XZ83VH83hDGjn 3X8sOS0H6AlNSXkmhin czmpgQO5AJHqJDScfQ3 3Br6sdBmiOt3uVHUsDC G5TSPdpYGhF1TvjY2xZ nNsWUYuYSDaY6BowBHm OXxgV358OYldUlH5TPA ayoAlK6DfPMAqcIecRk L7f1A2Fb5UA7F5JZ59H L73iMXhu2G9nWO1P8Bu UHImupwveelznCX5FMR yOWOqqI03Vv8cvCnmNn 7xCURfBOB9EQTggCAdP 5ZnoP6gWbQmNOXrSXRm U6RoyELjLIzeV869FXv uIsO1IBAuyoSjP9NyDK JvlHsaCpR2l0V8Rs9XO Yx8WU21MG33pZBwa4A4 xVA7X3UeIVFytaqussr ucZS6YVFmSRGevV50Vn 0etYxwAy7sMBLuGZB8A IKmuWQrM1OerJ2rMlNf RQJsVVVuR0QpnNXgLWr wD777IWalToF3PYJegg JgN1JbWJAwgCrqAxS4c 1V2Tu9TWIYaWC84MIK4 rFE2XH21TM24G8OnNpf vdGFibGU+PHRhYmxlIH dpZHRoPScxMDAlJyBzd VygBO3yHl1mSCUkLTKd zDkjrMLaWpGcp6hcBTB oNYnpDD4kcUtjY3ZaaT Q3YGSuq8o9Fu71J69wL 3JvdXA+ZJKiiGQ9kDJ3 fU0hAfBaAaC6ZLxlX28 6ZrZncRTsGvvrj3pvc3 gmoDy7SvZ3CCXatlVgf AhcZTP1p3EcIr56W24v IHdpZHRoPSIxNSUiIHZ odQczrj4ycF1yUj5+PG GfrLD9iCA4mR4aBqToL sD6ATasH410MpZbfQXe Uqvta0ihr6hrzBc4DqX wBXCfhmVgzAghGZR5e1 TgIu87R7KmpYtrq0KhK fe9hi05lRKhc3M6gUW2 I8NjCWRojylseWDzcZf mYO9tMDInayxwPJUlbG 9jGFJsM3d1QmDeOlN5G HksT4IdawK4ZEOjyXQo BZepAFV0I04tz3J4TUE zBGMaMLX5vHX1iL1owU lnbjogbGVmdDsgdmVyd MatCZrvINrvC492QJNm zPzyQEOwlW1jUTFxzCI arIqeXE7eSFCstkfhSl KUR0WBAPDfCHXCSC47J 6UePmo3DIGawRfiTA7q wOSqBVqhHu6vuUdqaLg uUL0eMMPnysobUCEwxR 3eEAOxdLJgxAdaDT0oJ QMdzsxjq169ExCpZIQ4 CLNyzHNcN6KuoA4hDgL wEHLiPXPaQ4KhoURwCU yeQ879JXtsVhA2KXEpa hRaP8TcLJPhqXgaUgG3 o7H8Wh3aZJ7jMO7iHIX 7XT37IN83jKWwb5R2sV J2Z3NtJPYvjagznammi CH3IBBgUEYgxF58jVEq PFzmZi6gw6Y8m375VDT rHHNsoM13Zx5qcWjgCB KtkBHBdQ5jntkfc5fzt jjuXkGwTVIhYXl3WWo9 NXHrpTczUkQoBEW5QaS 7BVB5bSMakQ3obGyuvj gglC7jShw+NTUgWWVhc nT5U7NzKul0OJWvyGlg GU4nyZMtWVmsPi4yqWk psHnrNM6rLTPidcrxHL UtnP2cXRTjoHFklAakA V4dGVBazxfeu500KlTj TSJ9VIZkdTUtN6LclT5 eYlTdFCDsBNShY1EkyF FfIHexO901IAfeEoS1Z IMcibVyW3UoYGHbsFzp KtU5m5B6Rp6TFZmqXV2 9QC63lEKaj4S9aFW3M3 KpFOKihmgvwmymaPJ8H HTlYWCrhS72nHJjUNxz Tz7qq6J1v125YXTuLZC anN92Mv0vgMtqOVOojZ KMvA6utsaqq6kqlnfrS iIzFNRlAEs1VVm3REEv dSjwWmYvUYZ7QxF9ESM 1eBQzwP7klQrfejweoT 9wOyc+U8K8vUD5pJXix DwvdGQ+WT67gh24U4Ly DylwOvx9YQTwFSE0uMO 4aA8mVYCmAIchb4T9rM S8C1MqeiYnqj1sa9ykI CHvHPwtE35ugRDqb5O3 AAObhQS6COHyyIukSiG uaJ60Dyh+PGNvbGdyb3 BvEsdwc5vqm9jfaTw7A jMwJSIgdmFsaWduPSJ0 y6UkXc17G27zBKxrBYG oPSIzMCUiIHZhbGlnbj 3ogU3zXp6+MBKdsTS8u DR2pT3qQiXfRyQ5AKtm G490ZdAbaWKnBgatp9z cb0ktbGr0ZkEjWJLbak PobQtaDWP0k2RbOv54P 4KxiHrul4TxIcv7xy46 eAMpd9F4fFY8O4YdIBN nxsedqJIlyXsrNQ8uIW SjwbvuGIRdhA1nDPWkR 4e8FtOjLhU9GZyvD2Dk ixD7FGQwbMNoAGAjpMO JxK5jclykh0hdcqdtJx FyKZJmTFc4FNe1GLApl UefNjXsCYS2JhR1SUO4 kQRfhL1amYakkvigsD6 wOyc+TSs6s1ximHNzUU 6heWB3YC76UH21kKUga 6P4wNM9F6IxYZIpfzpi dwnetXO9RSKvJMPysY4 7Bc0lcPjuQs1sQHRjCY Z0CJSlvQPxN1AtpH3tC oNaKBKgAARhG3DwsQFb HZbyR071UIhiCeD6POZ susNfI5NdZWSpqGmnUb G2a8Q9Jx4ETT94YH56R C47pFDej5Z3pIJ7L7Nn GQVvdnfuxvqabLF6RCX bYTMbwO06Ze7ljRlkRf 9hYDXaXKH2URXflPAkD 7GakJ6kDeOkXUUwVIEa H0CxtGBpWEfwU302YHw kVgP1ZIDwuzWvO5GgKJ JrsToyUjR6e1D3Kb7TU y69OO71PI13wWKpx4I0 aXS9W5DcVHNsqijmqve tpYB1XLApFQAajL33Yg 1kaPyxXd4eBEDyROR8G TLawAOvC7AdiP2fSvIe HZWhVGPuV1UesQHhSMo dV768YCzcZkR8IADsbr UaO8GnDGVnkTnqVbI5d 7P3Ln2TWQpxmoo7Y7Yp PjwvdHI+TT83TXXmLM3 1hWPumEDut9efvSx7Is AiBNOcFVQ6qSqvYKstf 8BkTLIyG71jeXJxk0A4 IGNv (more content not included)... Normal [facility] Operative Reporton Operative Report SURGERY DATE: 06/03/2022 [...] patient is met in the [facility]. The patient is placed supine [...] discharged from the [facility] here today. Joselyn Gilman D.O. lr Dictated: 06/03/2022 [id number] Transcribed: 06/03/2022 cc:Bhaskar Reddy D.O. Normal [facility] Comment on above: Result Comment: Elec tronically Signed By: Joselyn Gilman DO\.br\Date and Time Signed: 06/05/22 13:01 EST RAD - Consent to Procedureon 06-03-2022 RAD - Consent to Procedure [id number]:127 Normal [facility] Physician Orderon 05-25-2022 Physician Order [id number]:127 Normal [facility] MRI Hip w/o Righton 05-13-20 MRI Hip [...] by Michael Martino on 05/14/2022 1017 Normal [facility] GLYCOHEMOGLOBIN A1Con 2021 ADA RECOMMENDATION SEE BELOW Normal [facility] Comment on above: Result Comment: ADA RECOMMENDED LIMIT 4.0 - 6.0 ADA THERAPEUTIC TARGET < 7.0 ACTION SUGGESTED > 7.0 Performed By: #### A 1C #### [facility] [address] [place] [address] Dr. Sergey Zamorano Glucose [Mass/Vol] 126 mg/dL Normal [facility] Comment on above: Performed By: #### A 1C #### [facility] [address] [place] [address] Dr. Sergey Zamorano HbA1c (Bld) [Mass fraction] 6.0 % Normal 4.5-6.2 [facility] Comment on above: Performed By: #### A 1C #### [facility] [address] [place] [address] Dr. Sergey Zamorano CBC AUTO DIFFon 10-31-2021 BASO # 0.1 103/ul Normal 0.0-0.1 [facility] Comment on above: Performed By: #### C BC #### [facility] [address] [place] [address] Dr. Sergey Zamorano Basophils/100 WBC (Bld) 0.9 % Normal 0.2-2.0 [facility] Comment on above: Performed By: #### C BC #### [facility] [address] [place] [address] Dr. Sergey Zamorano EO # 0.4 103/ul Normal 0.0-0.7 [facility] Comment on above: Performed By: #### C BC #### [facility] [address] [place] [address] Dr. Sergey Zamorano Eosinophils/100 WBC (Bld) 5.5 % Normal 0.9-7.0 [facility] Comment on above: Performed By: #### C BC #### [facility] [address] [place] [address] Dr. Sergey Zamorano Erythrocyte distribution width (RBC) [Ratio] 12.8 % Normal 11.0-15.0 [facility] Comment on above: Performed By: #### C BC #### [facility] [address] [place] [address] Dr. Sergey Zamorano Hematocrit (Bld) [Volume fraction] 47.9 % Normal 42.0-54.0 [facility] Comment on above: Performed By: #### C BC #### [facility] [address] [place] [address] Dr. Sergey Zamorano Hemoglobin (Bld) [Mass/Vol] 16.0 g/dL Normal 14.0-18.0 [facility] Comment on above: Performed By: #### C BC #### [facility] [address] [place] [address] Dr. Sergey Zamorano IG # 0.02 10e3/ul Normal 0.00-0.03 [facility] Comment on above: Performed By: #### C BC #### [facility] [address] [place] [address] Dr. Sergey Zamorano IG % 0.3 % Normal 0.0-0.5 [facility] Comment on above: Performed By: #### C BC #### [facility] [address] [place] [address] Dr. Sergey Zamorano LYMPH # 2.4 103/ul Normal 1.2-3.8 [facility] Comment on above: Performed By: #### C BC #### [facility] [address] [place] [address] Dr. Sergey Zamorano Lymphocytes/100 WBC (Bld) 36.5 % Normal 20.5-60.0 [facility] Comment on above: Performed By: #### C BC #### [facility] [address] [place] [address] Dr. Sergey Zamorano MANUAL DIFF REQ NO Normal [facility] Comment on above: Performed By: #### C BC #### [facility] [address] [place] [address] Dr. Sergey Zamorano MCH (RBC) [Entitic mass] 29.3 pg Normal 25.9-34.0 [facility] Comment on above: Performed By: #### C BC #### [facility] [address] [place] [address] Dr. Sergey Zamorano MCHC (RBC) [Mass/Vol] 33.4 g/dL Normal 29.9-35.2 [facility] Comment on above: Performed By: #### C BC #### [facility] [address] [place] [address] Dr. Sergey Zamorano MCV (RBC) [Entitic vol] 87.6 fL Normal 80.0-94.0 [facility] Comment on above: Performed By: #### C BC #### [facility] [address] [place] [address] Dr. Sergey Zamorano MONO # 0.5 103/ul Normal 0.3-0.8 [facility] Comment on above: Performed By: #### C BC #### [facility] [address] [place] [address] Dr. Sergey Zamorano Monocytes/100 WBC (Bld) 7.0 % Normal 1.7-12.0 [facility] Comment on above: Performed By: #### C BC #### [facility] [address] [place] [address] Dr. Sergey Zamorano NEUT # 3.3 103/ul Normal 1.4-6.5 [facility] Comment on above: Performed By: #### C BC #### [facility] [address] [place] [address] Dr. Sergey Zamorano Neutrophils/100 WBC (Bld) 49.8 % Normal 43.0-75.0 [facility] Comment on above: Performed By: #### C BC #### [facility] [address] [place] [address] Dr. Sergey Zamorano Platelet mean volume (Bld) [Entitic vol] 11.7 fL Normal 9.5-13.5 [facility] Comment on above: Performed By: #### C BC #### [facility] [address] [place] [address] Dr. Sergey Zamorano PLT 237 103/ul Normal 150-450 [facility] Comment on above: Performed By: #### C BC #### [facility] [address] [place] [address] Dr. Sergey Zamorano RBC 5.47 106/ul Normal 4.70-6.10 [facility] Comment on above: Performed By: #### C BC #### [facility] [address] [place] [address] Dr. Sergey Zamorano WBC 6.7 103/ul Normal 4.0-11.0 [facility] Comment on above: Performed By: #### C BC #### [facility] [address] [place] [address] Dr. Sergey Zamorano GLYCOHEMOGLOBIN A1Con 2021 ADA RECOMMENDATION ADA THERAPEUTIC TARGET 6.0 - 7.0 ACTION SUGGESTED > 7.0 Normal [facility] Comment on above: Performed By: #### A 1C #### [facility] [address] [place] [address] Dr. Sergey Zamorano Glucose [Mass/Vol] 255 mg/dL Normal [facility] Comment on above: Performed By: #### A 1C #### [facility] [address] [place] [address] Dr. Sergey Zamorano HbA1c (Bld) [Mass fraction] 10.5 % Critically high <=6.0 [facility] Comment on above: Performed By: #### A 1C #### [facility] [address] [place] [address] Dr. Sergey Zamorano LIPID PROFILEon 10-31-2021 CHOL-HDL RATIO NORM SEE BELOW Normal [facility] Comment on above: Result Comment: 3.3 - 4.4 LOW RISK 4.4 - 7.1 AVERAGE RISK 7.1 - 11.0 MODERATE RISK >11.0 HIGH RISK Performed By: #### L IPID, CMP #### [facility] [address] [place] [address] Dr. Sergey Zamorano Cholesterol [Mass/Vol] 107 mg/dL Normal <=200 [facility] Comment on above: Performed By: #### L IPID, CMP #### [facility] [address] [place] [address] Dr. Sergey Zamorano Cholesterol in HDL [Mass/Vol] 33 mg/dL Critically low 40-60 [facility] Comment on above: Performed By: #### L IPID, CMP #### [facility] [address] [address] [address] Sergey Zamorano Cholesterol in LDL [Mass/Vol] 51.2 mg/dL Normal [facility] Comment on above: Performed By: #### L IPID, CMP #### [facility] [address] [address] [address] Sergey Zamorano Cholesterol.total/Cho lesterol in HDL [Mass ratio] 3.2 {ratio} Normal [facility] Comment on above: Performed By: #### L IPID, CMP #### [facility] [address] [address] [address] Sergey Zamorano HDL NORMAL > or = 60 mg/dl - LOW CARDIOVASCULAR RISK <40 mg/dl - HIGH CARDIOVASCULAR RISK Normal [facility] Comment on above: Performed By: #### L IPID, CMP #### [facility] [address] [place] [address] Dr. Sergey Zamorano LDL CALC NORMAL SEE BELOW Normal [facility] Comment on above: Result Comment: <100 mg/dl OPTIMAL 100 - 129 mg/dl NEAR OR ABOVE OPTIMAL 130 - 159 mg/dl BORDERLINE HIGH 160 - 189 mg/dl HIGH >190 mg/dl VERY HIGH Performed By: #### L IPID, CMP #### [facility] [address] [place] [address] Dr. Sergey Zamorano Triglyceride [Mass/Vol] 114 mg/dL Normal <=150 [facility] Comment on above: Performed By: #### L IPID, CMP #### [facility] [address] [address] [address] Sergey Zamorano VLDL CALC 22.8 mg/dL Normal [facility] Comment on above: Performed By: #### L IPID, CMP #### [facility] [address] [place] [address] Dr. Sergey Zamorano PROF 14(COMP METB)on 022 Albumin [Mass/Vol] 3.7 g/dL Normal 3.4-5.0 [facility] Comment on above: Performed By: #### L IPID, CMP #### [facility] [address] [address] [address] Sergey Zamorano Albumin/Globulin [Mass ratio] 1.3 {ratio} Normal [facility] Comment on above: Performed By: #### L IPID, CMP #### [facility] [address] [address] [address] Sergey Zamorano ALP [Catalytic activity/Vol] 85 U/L Normal 46-116 [facility] Comment on above: Performed By: #### L IPID, CMP #### [facility] [address] [address] [address] Sergey Zamorano ALT [Catalytic activity/Vol] 84 U/L Critically high 16-63 [facility] Comment on above: Performed By: #### L IPID, CMP #### [facility] [address] [place] [address] Dr. Sergey Zamorano Anion gap [Moles/Vol] 10.3 mmol/L Normal [facility] Comment on above: Performed By: #### L IPID, CMP #### [facility] [address] [place] [address] Dr. Sergey Zamorano AST [Catalytic activity/Vol] 30 U/L Normal 15-37 [facility] Comment on above: Performed By: #### L IPID, CMP #### [facility] [address] [place] [address] Dr. Sergey Zamorano Bilirubin [Mass/Vol] 0.8 mg/dL Normal 0.2-1.3 [facility] Comment on above: Performed By: #### L IPID, CMP #### [facility] [address] [place] [address] Dr. Sergey Zamorano Calcium [Mass/Vol] 8.4 mg/dL Critically low 8.5-10.1 [facility] Comment on above: Performed By: #### L IPID, CMP #### [facility] [address] [place] [address] Dr. Sergey Zamorano Chloride [Moles/Vol] 103 mmol/L Normal 98-107 [facility] Comment on above: Performed By: #### L IPID, CMP #### [facility] [address] [address] [address] Sergey Zamorano CO2 [Moles/Vol] 29.7 mmol/L Normal 22.0-30.0 [facility] Comment on above: Performed By: #### L IPID, CMP #### [facility] [address] [address] [address] Sergey Zamorano Creatinine [Mass/Vol] 0.95 mg/dL Normal 0.66-1.25 [facility] Comment on above: Performed By: #### L IPID, CMP #### [facility] [address] [address] [address] Sergey Zamorano EGFR-AF KAZAKH >60 Normal >=60 [facility] Comment on above: Performed By: #### L IPID, CMP #### [facility] [address] [address] [address] Sergey Zamorano EGFR-NON AF KAZAKH >60 Normal >=60 [facility] Comment on above: Performed By: #### L IPID, CMP #### [facility] [address] [address] [address] Sergey Zamorano Globulin (S) [Mass/Vol] 2.9 g/dL Normal [facility] Comment on above: Performed By: #### L IPID, CMP #### [facility] [address] [address] [address] Sergey Zamorano Glucose [Mass/Vol] 178 mg/dL Critically high 74-106 [facility] Comment on above: Performed By: #### L IPID, CMP #### [facility] [address] [address] [address] Sergey Zamorano Potassium [Moles/Vol] 4.0 mmol/L Normal 3.4-5.0 [facility] Comment on above: Performed By: #### L IPID, CMP #### [facility] [address] [address] [address] Sergey Zamorano Protein [Mass/Vol] 6.6 g/dL Normal 6.1-8.2 [facility] Comment on above: Performed By: #### L IPID, CMP #### [facility] [address] [address] [address] Sergey Zamorano Sodium [Moles/Vol] 139 mmol/L Normal 137-145 [facility] Comment on above: Performed By: #### L IPID, CMP #### [facility] [address] [address] [address] Sergey Zamorano Urea nitrogen [Mass/Vol] 14.0 mg/dL Normal 7.0-18.0 [facility] Comment on above: Performed By: #### L IPID, CMP #### [facility] [address] [address] [address] Sergey Zamorano Urea nitrogen/Creatinine [Mass ratio] 14.7 mg/mg Normal [facility] Comment on above: Performed By: #### L IPID, CMP #### [facility] [address] [address] [address] Sergey Zamorano Vital Signs Date Time Vital Sign Value Performing Clinician Facility 12-10-2023 09:02-0400 Body height 172.72 cm DO Bhaskar Ball Work Phone: [facility] 12-10-2023 09:02-0400 Body mass index (BMI) [Ratio] 30.7 kg/m2 DO Bhaskar Ball Work Phone: [facility] 12-10-2023 09:02-0400 Body weight 91.62 kg DO Bhaskar Ball Work Phone: [facility] 12-10-2023 09:02-0400 Diastolic blood pressure 89 mm[Hg] DO Bhaskar Ball Work Phone: [facility] 12-10-2023 09:02-0400 Heart rate 63 /min DO Bhaskar Ball Work Phone: [facility] 12-10-2023 09:02-0400 Respiratory rate 12 /min DO Bhaskar Ball Work Phone: [facility] 12-10-2023 09:02-0400 Systolic blood pressure 144 mm[Hg] DO Bhaskar Ball Work Phone: [facility] 10-26-2023 14:00-0400 Body height 172.72 cm [facility] 10-26-2023 14:00-0400 Body mass index (BMI) [Ratio] 32.2 kg/m2 [facility] 10-26-2023 14:00-0400 Body weight 96.16 kg [facility] 10-26-2023 14:00-0400 Diastolic blood pressure 90 mm[Hg] [facility] 10-26-2023 14:00-0400 Heart rate 77 /min [facility] 10-26-2023 14:00-0400 Respiratory rate 12 /min [facility] 10-26-2023 14:00-0400 Systolic blood pressure 152 mm[Hg] [facility] 08-30-2023 15:00-0500 Body height 172.72 cm Bhaskar Ball Other [facility] [employer] Other 08-30-2023 15:00-0500 Body mass index (BMI) [Ratio] 32.69 kg/m2 Bhaskar Ball Other [facility] [employer] Other 08-30-2023 15:00-0500 Body weight 97.52 kg Bhaskar Ball Other [facility] [employer] Other 08-30-2023 15:00-0500 Diastolic blood pressure 85 mm[Hg] Bhaskar Ball Other [facility] [employer] Other 08-30-2023 15:00-0500 Respiratory rate 16 /min Bhaskar Ball Other [facility] [employer] Other 08-30-2023 15:00-0500 Systolic blood pressure 135 mm[Hg] Bhaskar Ball Other [facility] [employer] Other 04-27-2023 18:20-0400 Body height 172.72 cm Jennifer Mccarthy Other [facility] [employer] Other 04-27-2023 18:20-0400 Body mass index (BMI) [Ratio] 31.14 kg/m2 Jennifer Fabio Other [facility] Other 04-27-2023 18:20-0400 Body temperature 98.2 [degF] Jennifer Fabio Other [facility] Other 04-27-2023 18:20-0400 Body weight 92.9 kg Jennifer Fabio Other [facility] Other 04-27-2023 18:20-0400 Diastolic blood pressure 86 mm[Hg] Jennifer Fabio Other [facility] Other 04-27-2023 18:20-0400 Respiratory rate 18 /min Jennifer Mccarthy Other [facility] Other 04-27-2023 18:20-0400 SaO2% (BldA) [Mass fraction] 99 % Jennifer Mccarthy Other [facility] Other 04-27-2023 18:20-0400 Systolic blood pressure 127 mm[Hg] Jennifer Fabio Other [facility] Other 01-22-2023 14:00-0400 Body height 172.72 cm Bhaskar Ball Other [facility] Other 01-22-2023 14:00-0400 Body mass index (BMI) [Ratio] 30.16 kg/m2 Bhaskar Ball Other [facility] Other 01-22-2023 14:00-0400 Body weight 89.99 kg Bhaskar Ball Other [facility] Other 01-22-2023 14:00-0400 Diastolic blood pressure 82 mm[Hg] Bhaskar Ball Other [facility] [employer] Other 01-22-2023 14:00-0400 Respiratory rate 12 /min Bhaskar Ball Other [facility] [employer] Other 01-22-2023 14:00-0400 Systolic blood pressure 133 mm[Hg] Bhaskar Ball Other [facility] [employer] Other 12-17-2022 14:36-0400 Diastolic blood pressure 68 mm[Hg] DO Bhaskar Ball Work Phone: [facility] 12-17-2022 14:36-0400 Heart rate 88 /min DO Bhaskar Ball Work Phone: [facility] 12-17-2022 14:36-0400 Respiratory rate 16 /min DO Bhaskar Ball Work Phone: [facility] 12-17-2022 14:36-0400 SaO2% (BldA) [Mass fraction] 95 % DO Bhaskar Ball Work Phone: [facility] 12-17-2022 14:36-0400 Systolic blood pressure 101 mm[Hg] DO Bhaskar Ball Work Phone: [facility] 12-17-2022 12:47-0400 Body height 172.72 cm DO Bhaskar Ball Work Phone: [facility] 12-17-2022 12:47-0400 Body temperature 98.8 [degF] DO Bhaskar Ball Work Phone: [facility] 12-17-2022 12:47-0400 Body weight 88.45 kg DO Bhaskar Ball Work Phone: [facility] 05-27-2022 17:25-0500 Body height 172.72 cm Mini Marquez Other [facility] [employer] Other 05-27-2022 17:25-0500 Body mass index (BMI) [Ratio] 29.65 kg/m2 Mini Marquez Other [facility] Other 05-27-2022 17:25-0500 Body temperature 97.7 [degF] Mini Marquez Other [facility] Other 05-27-2022 17:25-0500 Body weight 88.45 kg Mini Marquez Other [facility] Other 05-27-2022 17:25-0500 Diastolic blood pressure 84 mm[Hg] Mini Marquez Other [facility] Other 05-27-2022 17:25-0500 Respiratory rate 18 /min Mini Marquez Other [facility] Other 05-27-2022 17:25-0500 SaO2% (BldA) [Mass fraction] 99 % Mini Marquez Other [facility] Other 05-27-2022 17:25-0500 Systolic blood pressure 118 mm[Hg] Mini Marquez Other [facility] Other Encounters Encounter Date Encounter Type Care Provider Facility Start: 12-10-2023 End: 12-10-2023 ambulatory DO Bhaskar Barry Work Phone: [facility] Work Phone: Start: 12-10-2023 End: 12-10-2023 Patient encounter procedure DO Bhaskar Barry Work Phone: [facility] Work Phone: Start: 12-08-2023 End: 12-08-2023 ambulatory DO Bhaskar Barry Work Phone: [facility] Work Phone: Start: 12-08-2023 End: 12-08-2023 Patient encounter procedure DO Bhaskar Ball Work Phone: [facility] Work Phone: Start: 11-09-2023 End: 11-09-2023 ambulatory Judy Barkermagdalena Facility:[facility] Start: 11-09-2023 End: 11-09-2023 ambulatory DO Bhaskar Reddy Work Phone: [facility] Work Phone: Start: 11-09-2023 End: 11-09-2023 Patient encounter procedure DO Bhaskar Ball Work Phone: [facility] Work Phone: Start: 10-26-2023 End: 10-26-2023 ambulatory [facility] Work Phone: Start: 10-26-2023 End: 10-26-2023 Patient encounter procedure [facility] Work Phone: Start: 10-11-2023 End: 10-11-[address] [facility] Start: 09-09-2023 Non-patient / Non-visit [facility] Work Phone: Start: 08-30-2023 End: 08-30-2023 ambulatory Bhaskar Reddy Other [facility] Other Start: 08-30-2023 Office outpatient vi sit 25 minutes Bhaskar Reddy [facility] Start: 08-30-2023 Telephone encounter Bhaskar Reddy [facility] Start: 07-16-2023 End: 07-16-2023 ambulatory [facility] Start: 07-07-2023 End: 07-07-2023 Emergency department patient visit Bhaskar Reddy Facility:[facility] Start: 04-27-2023 End: 04-27-2023 ambulatory Jennifer Mccarthy Other [facility] [employer] Other Start: 04-27-2023 Office outpatient vi sit 25 minutes Jennifer Mccarthy [facility] Start: 03-31-2023 End: 03-31-2023 ambulatory Bhaskar Reddy Other [facility] Other Start: 03-31-2023 Telephone encounter Bhaskar Reddy [facility] Start: 02-22-2023 End: 02-22-2023 ambulatory Bhaskar Reddy Other [facility] Other Start: 02-22-2023 Telephone encounter Bhaskar Reddy [facility] Start: 01-22-2023 End: 01-22-2023 ambulatory Bhaskar Reddy Other [facility] Other Start: 01-22-2023 Encounter for genera l adult medical examination without abnormal findings Bhaskar Reddy [facility] Start: 01-22-2023 Periodic preventive med est patient 40-64yrs Bhaskar Reddy [facility] Start: 01-05-2023 End: 01-05-2023 ambulatory Bhaskar Reddy Other [facility] Other Start: 01-05-2023 Telephone encounter Bhaskar Reddy [facility] Start: 12-17-2022 End: 12-17-2022 ambulatory Imad Asaad Facility:[facility] Start: 12-17-2022 Telephone encounter Mini Alma [facility] Start: 12-17-2022 End: 12-17-2022 Admission to same day surgery center DO Bhaskar Reddy Work Phone: [facility] Work Phone: Start: 12-17-2022 End: 12-17-2022 ambulatory DO Bhaskar Reddy Work Phone: [facility] Work Phone: Start: 10-27-2022 End: 10-27-2022 ambulatory Bhaskar Reddy Other [facility] Other Start: 10-27-2022 Office outpatient vi sit 15 minutes Bhaskar Reddy [facility] Start: 10-27-2022 Telephone encounter Bhaskar Reddy [facility] Start: 07-27-2022 End: 08-22-[address] BHASKAR REDDY Facility:[facility] Start: 07-08-2022 Encounter for other preprocedural examination DR JOSELYN GIMLAN [facility] Start: 07-03-2022 End: 07-04-[address] BHASKAR REDDY Facility:[facility] Start: 07-03-2022 End: 07-04-2022 Encounter for other preprocedural examination DR BHASKAR REDDY Facility:[facility] Start: 06-03-2022 End: 06-04-2022 ambulatory DO Joselyn Gilman Facility:[facility] Start: 06-03-2022 End: 06-03-2022 Patient encounter procedure Joselyn Gilman [facility] Start: 05-27-2022 End: 05-27-2022 ambulatory Mini Marquez Other [facility] Other Start: 05-27-2022 Office outpatient vi sit [address] [facility] Start: 2022 End: 02-20-[address] BHASKAR REDDY Facility:[facility] Start: 11-05-2021 Encounter for genera l adult medical examination without abnormal findings DR BHASKAR REDDY [facility] Start: 10-31-2021 End: 11-01-[address] BHASKAR REDDY Facility:[facility] Start: 10-31-2021 End: 11-01-2021 Encounter for general adult medical examination without abnormal findings DR BHASKAR REDDY Facility:[facility] Start: 10-27-2021 Adult health examination Kalyan Reddy Other [facility] Other Start: 02-16-2018 Patient encounter SHILA CARRANZA Facility:[id number] Start: 02-16-2018 Patient encounter Facil [id number] Procedures Date Procedure Procedure Detail Performing Clinician Start: 11-09-2023 Plain X-ray of bilateral hands DO Power Reddy Work Phone: Start: 12-17-2022 Esophagogastroduodenoscopy DO Bhaskar Sharp all Work Phone: Start: 10-31-[address] BHASKAR REDDY Comment on above: Performed By: #### PSASC #### [facility] [address] [address] [address] Sergey Zamorano Start: 09-26-2018 General examination [...] bilat eral hands XR hand BI 3V [facility] Start: 11-09-2023 XR Hand - bilateral 3 Views [facility] Start: 12-17-2022 [facility] Comprehensive metabo lic 2000 panel - Serum or Plasma [facility] Patient Education Esophageal str icture Esophageal Dilation Hiatal Hernia (DC) [facility] Work Phone: US Upper extremity a rtery - right [facility] XR Shoulder - right Views [facility] Immunizations Immunization Date Immunization Notes Care Provider Fa vivien 04-13-2014 tetanus and diphther ia toxoids, adsorbed, preservative free, for adult use (5 Lf of tetanus toxoid and 2 Lf of diphtheria toxoid) Bhaskar Reddy Other [facility] 04-13-2013 tetanus and diphther ia toxoids, adsorbed, preservative free, for adult use (5 Lf of tetanus toxoid and 2 Lf of diphtheria toxoid) Bhaskar Reddy Other [facility] Payers Date Payer Category Payer Unknown [id number] [id number] 1967 Unknown [id number] 2.16.84 [id number] 1967 Unknown [id number] 2.16.84 [id number] 1967 Unknown [id number] 2.16.84 [id number] 1967 Unknown [id number] 2.16.84 [id number] 1967 Unknown [id number] 2.16.8 [id number] 1957 [facility] [id number] 1957 Self-pay Private Health Insurance [id number] Unknown [id number] 2.16.84 [id number] Unknown [id number] 2.16.8 [id number] Unknown [id number] 2.16.8 [id number] Unknown [id number] 2.16.8 [id number] Social History Date Type Detail Facility Unknown if ever smoked [facility] Other Sex Assigned At [facility] Tobacco smoking status No Smokin g Status Entered [facility] Start: 12-26-2021 Tobacco smoking stat us PAIS Never smoked tobacco (finding) [facility] Start: 1965 Sex Assigned At Male [facility] Medical Equipment Procedure Code Equipment Code [...] s/p PCI/stent LAD Continue secondary prevention measures [employer] Other [id number] NoteUTP CARDIOLOGY PROGRESS NOTE [facility] HPI: Misael Aguilar Jr. is a [...] been reviewed- CV Testin08/17/2017 angiogram and PCI ([facility]) Drug-eluting stent to proximal LAD ( [...] precautions were provided. Patien (more content not included)...[facility]12-29-2023 NotePatient here for 1 year follow up CAD, hypertension, and hyperlipidemia. Had routine labs in Feb 2023. Denies chest pain, SOB, and palpitations. Review of Systems Musculoskeletal: Positive for arthritis, back pain and joint pain. All other systems reviewed and are negative.[facility] 04-27-2023 Evaluation note* Encounter Date Diagnosis Assessment Notes Treatment Notes Treatment Clinical Notes Apr, Viral URI with cough (ICD-10 - J06.9) Patient declines/refuses COVID/influenza testing today in office. Advised patient that will treat as viral URI. Supportive care as directed, increase fluids and rest, Tylenol as directed, Rx of Candor and prednisone as directed, cool mist humidifier, [...] treatment plan. Patient left in stable condition [facility] Other 07-07-2023 Evaluation note* Encounter Date Diagnosis [...] (ICD-10 - Z12.5) Yearly DELL and PSA [facility] Other 06-01[facility]2023 [facility] History general Narrative - Reported* Type Description Date Medical History hypertension Medical History scoliosis Medical History 2 stents Surgical History appendectomy 2008 Surgical History cardiac stent Surgical History EGD w/ dilatation 12/2022 Hospitalization History see above surgical histo ry [employer] Other 06-01-2023 History general Narrative - Reported* Type Description Date Medical History hypertension Medical History scoliosis Medical History 2 stents Surgical History appendectomy 2008 Surgical History PCI/stent LAD 2018 Surgical History EGD w/ dilatation 12/2022 Hospitalization History see above surgical histo ry [facility] Other 04-11-2023 Evaluation note* Encounter Date Diagnosis Assessment Notes Treatment Notes Treatment Clinical Notes Oct, Acute bronchitis due to other specified organisms (ICD-10 - J20.8) Instructed to use Robitussin or Mucinex for cough, saline or Flonase NS for congestion, Tylenol for pain and fever. Oct, Acute cough (ICD-10 - R05.1) [facility] Other 11-09-2022 Evaluation note* Encounter Date Diagnosis [...] no improvement in 2 to 3 days [facility] Other Evaluation + Plan note No data available for this section [facility] note[facility] InformationNort [employer] Other Evaluation noteNo assessment information available [facility] Work Phone: Evaluation note* Diagnosis Onset Date Resolution Status H/O cardiac catheterization acute Right arm pain acute [facility] Work Phone: Evaluation note* Diagnosis Onset Date Resolution Status H/O cardiac catheterization acute Right arm pain acute Arthritis of both hands acut e Bilateral hand pain acute [facility] Work Phone: Evaluation note* Diagnosis Onset Date Resolution Status H/O cardiac catheterization acute Right arm pain acute Arthritis of both hands acut e Bilateral hand pain acute Arthritis of both hands acut e Bilateral hand pain acute [facility] Work Phone: Evaluation note* Diagnosis Onset Date Resolution Status H/O cardiac catheterization acute Right arm pain acute Arthritis of both hands acut e Bilateral hand pain acute Arthritis of both hands acut e Bilateral hand pain acute H/O cardiac catheterization acute Internal derangement of right shoulder acute Right shoulder pain acute [facility] Work Phone: History and physical note Author Angelina Arrieta [facility] December 17, 2022 1:41pm Note Date/Time December 17, 2022 1:41p m [facility] [address] [place] [address] Gastroenterology H&P Signed Patient: Misael Aguilar Jr MR#: [id number] : 1965 Acct:[id number] Age/Sex: 57 / M Adm Date: 3 Loc: Room: Type: [facility] Attending Dr: Angelina Arrieta MD Copies to: [...] signed by Angelina Arrieta MD> 12/17/22 1341 [facility] Work Phone: History general Narrative - Reported* Type Description Date Medical History hypertension Medical History scoliosis Medical History 2 stents Surgical History appendectomy 2009 Surgical History cardiac stent Hospitalization History see above surgical histo ry [facility] [employer] Other Hospital Discharge instructions No data available for this section [facility] Additional Instructions DISCHARGE INSTRUCTIONS [...] problems. -Follow up with PCP. -Office number [phone]. [facility] Work Phone: Progress note No data available for this section [facility] Summary Purpose Family History Relationship Condition [...] section and content) DATE CREATED AUTHOR 02/17/2018 [facility] DATE CREATED AUTHOR AUTHOR'S ORGANIZ ATION 02/17/2018 [facility] DATE CREATED AUTHOR AUTHOR'S ORGANIZ ATION 05/15/2022 [facility] dical Specialist DATE CREATED AUTHOR AUTHOR'S ORGANIZ ATION 06/08/2022 [facility] DATE CREATED AUTHOR AUTHOR'S ORGANIZ ATION 09/18/2022 [facility] DATE CREATED AUTHOR AUTHOR'S ORGANIZ ATION 08/23/2023 [facility] DATE CREATED AUTHOR AUTHOR'S ORGANIZ ATION 10/03/2023 [facility] DATE CREATED AUTHOR AUTHOR'S ORGANIZ ATION 10/11/2023 [facility] DATE CREATED AUTHOR AUTHOR'S ORGANIZ ATION 11/14/2023 [facility] REASON FOR VISIT (unrecogniz ed [...] Status: Active Member Role Status Dates Bhaskar Ball , DO Primary Care Provide r, Attending Provider Active Start: September 09, 2023 Team Status: Inactive Member Role Status Dates Bhaskar Reddy , DO Primary Care Provider Active Angelina Arrieta MD Attending Provider Active Team Status: Active Member Role Status Dates Bhaskar Reddy Primary Care Provider Active Start: November 09, [...] BE BASED ON THE PRIMARY CLINICAL RECORDS. [employer] [facility]. provides no warranty or guarantee of the accuracy or completeness of information in this document.
[2024-02-05 08:58] LABS: Basophils Absolute Auto 0.1 10^3/uL (0.0-0.1); Eosinophils Absolute Auto 0.8 10^3/uL (0.0-0.7); Eosinophils Percent Auto 13.7 % (0.9-7.0); Hematocrit 46.8 % (42.0-54.0); Hemoglobin 15.2 g/dL (14.0-18.0); Immature Granulocytes Abs Auto 0.01 10^3/uL (0.00-0.03); Immature Granulocytes Pct Auto 0.2 % (0.0-0.5); Lymphocytes Percent Auto 34.6 % (20.5-60.0); Mean Corpuscular HGB Conc 32.5 g/dL (29.9-35.2); Mean Corpuscular Hemoglobin 29.3 pg (25.9-34.0); Mean Corpuscular Volume 90.2 fL (80.0-94.0); Mean Platelet Volume 11.9 fL (9.5-13.5); Monocytes Absolute Auto 0.4 10^3/uL (0.3-0.8); Monocytes Percent Auto 6.8 % (1.7-12.0); Neutrophils Absolute Auto 2.6 10^3/uL (1.4-6.5); Neutrophils Percent Auto 43.7 % (43.0-75.0); Platelet Count 201 10^3/uL (150-450); Red Blood Count 5.19 10^6/uL (4.70-6.10); Red Cell Distribution Width 13.2 % (11.0-15.0); White Blood Count 5.9 10^3/uL (4.0-11.0)
[2024-02-05 09:28] LABS: Alanine Aminotransferase 65 U/L (16-63); Albumin Globulin Ratio 1.2; Albumin Level 3.6 g/dL (3.4-5.0); Alkaline Phosphatase 80 U/L (46-116); Anion Gap 8.2; Aspartate Amino Transferase 32 U/L (15-37); BUN Creatinine Ratio 16.3; Calcium 8.5 mg/dL (8.5-10.1); Carbon Dioxide 30.7 mmol/L (21.0-32.0); Chloride 106 mmol/L (98-107); Chol HDL Ratio 4.1; Cholesterol 145 mg/dL (<=200); Estimated GFR (African America >60 (>=60); Estimated GFR (Non-African Ame >60 (>=60); Glucose 115 mg/dL (74-106); HDL Cholesterol 35 mg/dL (40-60); Potassium 3.9 mmol/L (3.5-5.1); Sodium 141 mmol/L (136-145); Total Protein 6.6 g/dL (6.4-8.2); Triglycerides 145 mg/dL (<=150)
[2024-02-05 09:42] LABS: Prostate Specific Antigen Scrn 0.69 ng/mL (<=4.00)
== END 2024-02-05 08:18 | disposition home or self-care (01) ==
LOC: LAB 08:18
PROVIDERS: Family Provider Internal Medicine; PCP Internal Medicine; Visit Provider Internal Medicine
DX: Z00.00 Encounter for general adult medical examination without abnormal findings (principal)
CPT/HCPCS: 36415; 80053; 80061; 85025; G0103

== ENCOUNTER 2024-09-02 09:11 | Outpatient (OUT) | payer BC, SELFPAY ==
--- OUTSIDE RECORDS SUMMARY | 2024-09-02 09:16 | XMS_ITS | CCD ---
Author Organization [facility]iniSymo Care Team Providers Care Vice President Sales And Marketing Name Role Phone PAULYPRAVEEN SULLIVANNathanael Unavailable Unavailable BHASKAR REDDY Unavailable Unavailable Mini [...] Unavailable DO Bhaskar Reddy Primary Care Provider [phone] MD Angelina Arrieta Attending Provider Jennifer Mccarthy Unavailable JESSICA WEAVER Attending Unavailable NAPOLEON VAZQUEZ Admitting Unavailable HOLIDAY, NAPOLEON Sinclair Attending Unavailable NAPOLEON VAZQUEZ Referring Unavailable BHASKAR REDDY Primary Care Unavailable DO Bhaskar Reddy Primary Care Provider [phone] MD Judy Coleman Attending Provider DO Bhaskar Reddy Primary Care Provider MD Angelina Arrieta Attending Provider Angelina Arrieta Admitting Unavailable SkylerAngelina fair Attending Unavailable Bhaskar Reddy Primary Care Unavailable Bhaskar Reddy Primary Care Unavailable Judy Coleman Admitting Unavailable Judy Coleman Attending Unavailable Miguel Chen Attending Unavailable Bhaskar Reddy Primary Care Unavailable Miguel Chen Admitting Unavailable Bhaskar Reddy MD Primary Care Provider Bhaskar Reddy DO Primary Care Provider [phone] Angelina Arrieta MD Attending Provider BABATUNDE MALCOLM Attending Unavailable BABATUNDE MALCOLM Attending Unavailable BABATUNDE MALCOLM Attending Unavailable SILVANA FULTON Attending Unavailable SILVANA FULTON Referring Unavailable BABATUNDE MALCOLM Attending Unavailable BABATUNDE MALCOLM Attending Unavailable BABATUNDE MALCOLM Attending Unavailable Medications Current Medications Medication Drug Class(es) Dates Sig (Normalized) Sig (Original) aspirin 81 mg delayed release oral tablet (20 sources) Platelet Aggregation Inhibitor, Nonsteroidal Anti-inflammatory Drug Start: 08-17-2017 take 1 tablet by mouth once daily Aspirin 81 mg Tablet,Delayed Release (Dr/Ec) Active 81 MG PO Daily August 17, 2017 12:00am Baby Aspirin Act ti atorvastatin 20 mg oral tablet (20 sources) HMG-CoA Reductase Inhibitor Start: 08-16-2024 take 2 tablets by mouth once daily Atorvastatin 20 mg tablet Active 40 MG PO Daily 180 90 August 16, 2024 3:52pm Start: 02-11-2019 End: 08-16-2024 take 1 tablet by mouth once daily Atorvastatin 40 mg tablet Discontinued 40 MG PO Daily February 10, 2019 11:00pm August 16, 2024 3:53pm Start: 08-18-2017 End: 08-13-2018 take 1 tablet by mouth once daily Atorvastatin (Lipitor) 40 mg tablet Discontinued 40 MG PO Daily 30 August 18, 2017 12:00am August 12, 2018 12:00am August 13, 2018 12:02am take 2 tablets [address] [facility] once daily in the evening Atorvastatin Calcium 20 MG TAKE 2 TABLETS BY MOUTH EVERY DAY IN THE EVENING for 90 Active azithromycin 250 mg oral tablet (20 sources) Macrolide Antimicrobial Start: 05-18-2024 End: 05-22-2024 take 2 tablets by mouth once daily, then take 1 tablet by mouth once daily azithromycin (Zithromax) 250 MG tablet Indications: Acute bronchitis, unspecified organism Take 2 tablets (500 mg) by mouth Daily for 1 day, THEN 1 tablet (250 mg) Daily for 4 days. 6 tablet 05/18/2024 05/22/2024 Active Start: 10-27-2022 Azithromycin 2 50 MG as directed Orally daily for 5 days Oct, Not-Taking/PRN Start: 05-27-2022 Azithromycin 2 50 MG 2 tablet on the first day, then 1 tablet daily for 4 days Orally Once a day for 5 day(s) May, Not-Taking/PRN celecoxib 50 mg oral capsule (20 sources) Nonsteroidal Anti-inflammatory Drug Start: 05-26-2024 take 1 capsule by mouth twice daily Celecoxib 50 mg capsule Active 0 .ROUTE .COMPLEX 60 May 26, 2024 9:33am TAKE 1 CAPSULE BY MOUTH TWICE A DAY Start: 11-09-2023 End: 05-26-2024 take 1 capsule by mouth twice daily Celecoxib (Celebrex) 50 mg capsule Discontinued 50 MG PO Twice daily December 08, 2023 2:39pm May 26, 2024 9:34am dextromethorphan hydrobromide 1.5 mg/ml / pyrilamine maleate 1.5 mg/ml oral solution (3 sources) Uncompetitive W-txlvyg-X-aspartate Receptor Antagonist, Sigma-1 Agonist Start: 04-27-2023 take 10 mL by mouth every eight hours Maurepas DM 7.5-7.5 MG/5ML 10 mL Orally every 8 hours for 5 days Apr, Active doxycycline hyclate 100 mg oral capsule (2 sources) Tetracycline-class Drug Start: 08-11-2024 take 1 capsule by mouth twice daily Doxycycline Hyclate 100 mg capsule Active 100 MG PO Twice daily 20 August 11, 2024 12:00am 0.5 ml dulaglutide 3 mg/ml auto-injector (20 sources) GLP-1 Receptor Agonist Start: 08-16-2024 Dulaglutide 1.5 mg/0.5 mL pen injector Active 1.5 MG SUBCUT every week 2 August 16, 2024 3:55pm Start: 12-23-2021 End: 08-16-2024 Dulaglutide (Trulicity) 0.75 mg/0.5 mL pen injector Discontinued 0.75 MG SUBCUT every week 6.5 February 14, 2024 8:57am August 16, 2024 3:56pm lisinopril 10 mg oral tablet (20 sources) Angiotensin Converting Enzyme Inhibitor Start: 04-19-2020 End: 01-18-2024 take 1 tablet by mouth once daily Lisinopril 10 mg tablet Active 10 MG PO Daily 90 January 18, 2024 7:40am Lisinopril Activ e metFORMIN hydrochloride 500 mg oral tablet (20 sources) Biguanide Start: 12-07-2023 take 1 tablet by mouth once daily at mealtime Metformin 500 mg tablet Active 0 .ROUTE .COMPLEX December 07, 2023 11:59am TAKE 1 TABLET BY MOUTH EVERY DAY WITH A MEAL FOR 90 DAYS Start: 12-23-2021 End: 12-07-2023 take 1 tablet by mouth once daily Metformin 500 mg Tablet Discontinued 500 MG PO Daily December 22, 2021 11:00pm December 07, 2023 12:01pm 24 hr metoprolol succinate 50 mg extended release oral tablet (20 sources) beta-Adrenergic Ghada Start: 03-03-2024 take 1 tablet by mouth once daily Metoprolol Succinate 50 mg tablet extended release 24 hr Active 0 .ROUTE .COMPLEX March 03, 2024 1:15pm TAKE 1 TABLET BY MOUTH EVERY DAY FOR 90 DAYS Start: 03-03-2024 End: 03-03-2024 take 1 tablet by mouth once daily Metoprolol Succinate 50 mg tablet extended release 24 hr Discontinued 0 .ROUTE .COMPLEX March 03, 2024 1:15pm March 03, 2024 1:15pm TAKE 1 TABLET BY MOUTH EVERY DAY FOR 90 DAYS Start: 03-03-2024 End: 03-03-2024 take 1 tablet by mouth once daily Metoprolol Succinate Discontinued 0 .ROUTE .COMPLEX March 03, 2024 2:15pm March 03, 2024 2:15pm TAKE 1 TABLET BY MOUTH EVERY DAY FOR 90 DAYS Start: 12-17-2022 End: 03-03-2024 take 1 tablet by mouth once daily Metoprolol Succinate 50 mg Tablet Extended Release 24 Hr Discontinued 50 MG PO Daily December 16, 2022 11:00pm March 03, 2024 1:15pm Start: 08-17-2017 End: 12-17-2022 take 1 tablet by mouth twice daily Metoprolol Tartrate 25 mg Tablet Discontinued 25 MG PO Twice daily 60 August 18, 2017 10:22am December 17, 2022 12:04pm nitroglycerin 0.4 mg sublingual tablet (11 sources) Nitrate Vasodilator Start: 08-17-2017 Nitroglycerin 0.4 mg Tablet, Sublingual Active 0.4 MG SUBLINGUAL every 5 to 15 minutes as needed for Chest Pain August 17, 2017 12:00am pantoprazole 40 mg delayed release oral tablet (4 sources) Proton Pump Inhibitor Start: 04-14-2024 take 1 tablet by mouth once daily Pantoprazole 40 mg tablet,delayed release (DR/EC) Active 40 MG PO Daily April 13, 2024 11:00pm predniSONE 10 mg oral tablet (17 sources) Start: 05-18-2024 End: 05-23-2024 take 1 tablet by mouth in the morning predniSONE (Deltasone) 10 MG tablet Indications: Acute bronchitis, unspecified organism Take 1 tablet (10 mg) by mouth in the morning and 1 tablet (10 mg) at noon. Do all this for 5 days. Take with breakfast and with lunch. 10 tablet 05/18/2024 05/23/2024 Active Start: 05-27-2022 take 1 tablet by augusto th every twelve hours prednisone 20 MG 1 tablet Orally BID for 5 Apr, Active sildenafil 100 mg oral tablet (15 sources) Phosphodiesterase 5 Inhibitor take 1 tablet by mouth every twenty-four hours as needed sildenafil (Viagra) 100 MG tablet Take 100 mg by mouth Daily as needed Active Completed/Discontinued Medications Medication Drug Class(es) Dates Sig (Normalized) Sig (Original) [id number] actuat albuterol 0.09 mg/actuat metered dose [...] Apr, Not-Taking ALPRAZolam 0.25 mg oral tablet (11 sources) Benzodiazepine Start: 08-17-2017 End: 12-22-2017 Alprazolam 0.25 mg Tablet Discontinued 0.25 MG PO 2-3 TIMES PER DAY as needed for Anxiety August 17, 2017 12:00am December 22, 2017 8:38am benzonatate 100 mg oral capsule (11 sources) Non-narcotic Antitussive Start: 05-27-2022 take 1 capsule by mouth three times daily as needed Tessalon Perles 100 MG 1 capsule as needed Orally Three times a day for 10 day(s) prn cough May, Not-Taking/PRN cefdinir 50 mg/ml oral suspension (2 sources) Cephalosporin Antibacterial Start: 06-02-2024 End: 08-11-2024 take 300 mg by mouth every twelve hours Cefdinir 250 mg/5 mL suspension for reconstitution Discontinued 300 MG PO Every 12 hours 60 5 June 02, 2024 12:00am August 11, 2024 3:41pm cetirizine hydrochloride 10 mg oral tablet (11 [...] oral tablet (11 sources) alpha-Adrenergic Agonist, Uncompetitive Q-hhofqh-V-aspartat e Receptor Antagonist, Sigma-1 Agonist Start: 05-01-2020 [...] mg / lisinopril 20 mg oral tablet (12 sources) Thiazide Diuretic, Angiotensin Converting Enzyme Inhibitor Start: 03-30-2017 End: 04-19-2020 take 1 tablet by mouth once daily Lisinopril-Hydrochlorothiazide 20-12.5 mg Tablet Discontinued 1 TAB PO Daily August 17, 2017 12:00am April 19, 2020 12:07pm methylPREDNISolone 4 mg oral tablet (11 sources) Corticosteroid Start: 05-01-2020 Medrol 4 MG as directed Oral ly for 6 days Apr, Not-Taking/PRN ticagrelor 90 mg oral tablet (11 sources) Start: 08-18-2017 End: 01-13-2019 take 1 tablet by mouth twice daily Ticagrelor (Brilinta) 90 mg Tablet Discontinued 90 MG PO Twice daily 180 90 August 18, 2017 12:00am January 13, 2019 9:16am Problems Active Problems Problem Classification Problem Date Documented Da te Episodic/Chronic Abdominal hernia (1 source) Umbilical hernia 03-30-2017 Episodic Acute bronchitis (7 sources) Acute bronchitis due to other specified organisms; Translations: [Acute bronchitis] Episodic Chronic obstructive pulmonary disease and bronchiectasis (1 source) Bronchitis, not specified as acute or chronic Episodic Conditions associated with dizziness or vertigo (2 sources) Benign paroxysmal positional vertigo; Translations: [Benign paroxysmal vertigo, left ear] Episodic Coronary atherosclerosis and other heart disease (20 sources) Coronary arteriosclerosis; Translations: [Atherosclerotic heart disease of tejon coronary artery without angina pectoris] Onset: 08-12-2017 08-17-2017 Chronic Coronary atherosclerosis and other heart disease (1 source) Presence of coronary angioplasty implant and graft Episodic Diabetes mellitus with complications (20 sources) Type 2 diabetes mellitus with hyperglycemia; Translations: [Type 2 diabetes mellitus] Onset: 2022 Chronic Diabetes mellitus without complication (6 sources) Type 2 diabetes mellitus without complication; Translations: [Type 2 diabetes mellitus without complications] 06-07-2024 Chronic Disorders of lipid metabolism (20 sources) Hypercholesterolemia ; Translations: [Pure hypercholesterolemia , unspecified] Onset: 08-12-2017 Chronic Esophageal disorders (20 sources) Stricture of esophagus; Translations: [Benign esophageal stricture] Onset: 04-14-2024 03-30-2017 Chronic Comment on above: EGD: 03/2024, Essential hypertension (20 sources) Hypertensive disorder; Translations: [Essential (primary) hypertension] Onset: 04-25-2013 03-30-2017 Chronic Miscellaneous mental health disorders (2 sources) Psychosexual dysfunction associated with inhibited sexual excitement; Translations: [Psychosexual dysfunction with inhibited sexual excitement] Onset: 11-20-2014 Chronic Nonspecific chest pain (8 sources) Chest pain, unspecified; Translations: [Chest pain] Onset: 02-16-2018 Resolved: 10-26-2021 Episodic Osteoarthritis (20 sources) Localized, primary osteoarthritis of the pelvic region and thigh; Translations: [Unilateral primary osteoarthritis, left hip] Onset: 08-13-2015 11-09-2023 Chronic Other acquired deformities (4 sources) Deformity of metatarsal; Translations: [Unspecified acquired deformity of right lower leg] 06-07-2024 Episodic Other connective tissue disease (4 sources) Trochanteric bursitis, right hip; Translations: [TROCHANTERIC BURSITIS RIGHT HIP] Onset: 07-27-2022 Episodic Other connective tissue disease (1 source) Other bursitis of hip, left hip; Translations: [OTHER BURSITIS OF HIP LEFT HIP] Onset: 07-08-2022 Episodic Other connective tissue disease (2 sources) Trochanteric bursitis of right hip; Translations: [Trochanteric bursitis, right hip] Episodic Other connective tissue disease (10 sources) Pain in right arm; Translations: [Pain in right arm] 10-26-2023 Episodic Other connective tissue disease (5 sources) Pain in right arm; Translations: [Pain in limb] 10-26-2023 Episodic Other connective tissue disease (4 sources) Hand pain; Translations: [Pain in right hand] 11-05-2023 Episodic Other connective tissue disease (8 sources) Pain in right foot; Translations: [Pain in right foot] 06-07-2024 Episodic Other connective tissue disease (6 sources) Pain in left foot; Translations: [Pain in left foot] 06-08-2024 Episodic Other gastrointestinal disorders (17 sources) Dysphagia; Translations: [Dysphagia, unspecified] 12-26-2021 Episodic Other lower respiratory disease (1 source) Other forms of dyspnea Episodic Other lower respiratory disease (2 sources) Cough; Translations: [Acute cough] 05-18-2024 Episodic Other male genital disorders (2 sources) [...] conditions (not mental disorders or infectious disease) (6 sources) Encounter for screening for malignant neoplasm of prostate; Translations: [Abnormal result of other cardiovascular function study] Onset: 11-05-2021 Episodic Other upper respiratory disease (2 sources) Allergic rhinitis; Translations: [Allergic rhinitis, unspecified] Chronic Other upper respiratory infections (7 sources) Acute upper respiratory infection, unspecified; Translations: [Acute sinusitis] Onset: 05-17-2015 Episodic Pleurisy; pneumothorax; pulmonary collapse (2 sources) Pleurisy; Translations: [Pleurisy] Episodic Residual codes; unclassified (2 sources) Requires influenza virus vaccination; Translations: [Need for prophylactic vaccination and inoculation, Influenza] Episodic Residual codes; unclassified (5 sources) History of cardiac catheterization; Translations: [Other specified postprocedural states] 10-26-2023 Episodic Residual codes; unclassified (6 sources) Other specified postprocedural states; Translations: [Other postprocedural status] 10-26-2023 Episodic Spondylosis; intervertebral disc disorders; other back problems (20 sources) Degeneration of lumbar intervertebral disc; Translations: [Degeneration of lumbar intervertebral disc] Onset: 05-18-2024 05-18-2024 Chronic Sprains and strains (4 sources) Strain of muscle of left hip; Translations: [Strain of muscle, fascia and tendon of left hip, initial encounter] Onset: 08-13-2015 Episodic Unclassified (2 sources) Chest pain, unspecified / R07.9(ICD-9) Onset: 02-16-2018 Viral infection (8 sources) Verruca plantaris; Translations: [Plantar wart] 06-07-2024 Episodic Past or Other Problems Problem Classification Problem Date Documented Da te Episodic/Chronic Diseases of mouth; excluding dental (6 sources) Geographic tongue; Translations: [Geographic tongue] Onset: 11-20-2014 Resolved: 09-24-2020 Episodic Other aftercare (1 source) 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; Translations: [LONG-TERM CURRENT USE OF INSULIN] Onset: 02-22-2022 Episodic Other connective tissue disease (2 sources) Ganglion of hand; Translations: [Ganglion, right hand] Onset: 11-25-2018 Episodic Other connective tissue disease (7 sources) Pain in right hand; Translations: [Pain in limb] Onset: 11-09-2023 11-09-2023 Episodic Other connective tissue disease (1 source) Pain in left hand; Translations: [Pain in left hand] Onset: 11-09-2023 Episodic Other non-traumatic joint disorders (2 sources) Arthralgia of the pelvic region and thigh; Translations: [Pain in left hip] Onset: 10-16-2013 Episodic Other nutritional; endocrine; and metabolic disorders (2 sources) Overweight; Translations: [Overweight] Onset: 11-05-2017 Episodic Other nutritional; endocrine; and metabolic disorders (4 sources) Body mass index 25-29 - overweight; Translations: [Body mass index 28.0-28.9, adult] Onset: 11-05-2017 Episodic Spondylosis; intervertebral disc disorders; other back problems (2 sources) Low back pain; Translations: [Lumbago] Onset: 11-20-2014 Episodic Unclassified (1 source) Acute cough R05.1 Results Test Name Value Interpretation Reference Range Facility No Panel InformationOrdered By: Uyen Anderson on 08-11-2024 Quick Strep (POC) [facility] XR CHEST 2 VIEWSon XR CHEST 2 VIEWS Exam: XR - CHEST 2 VIEWS Reason for study: Cough, congeestion, sore throat Comparison: None FINDINGS: The heart size is normal. Coarse perihilar bronchial markings are visible. No pleural effusion.. Subtly increased opacities in the right upper lobe are noted. Dextroconvex curvature of the thoracic spine is noted. IMPRESSION: Patchy right upper lobe opacities, possibly developing interstitial pneumonia. Dictated on: 05/18/2024 3:10 PM This report has been electronically signed and approved by the interpreting Radiologist. Electronically Signed Nikolay Aguiar D.O. 2024-05-18 15:12:06 Normal Not Available Capillary blood glucose brenda urement by glucometer (mass/volume)Ordered By: Angelina Arrieta on 04-14-2024 Glucose [Mass/Vol] 120 mg/dL Normal [facility] Comment on above: Random Glucose Refer ence Range is dependent on time and content of last meal. Glucose of more than 200 mg/dL in a nonstressed, ambulatory subject supports the diagnosis of Diabetes Mellitus. Result Comment: [place] om Glucose Reference Range is dependent on time and content of last meal. Glucose of more than 200 mg/dL in a nonstressed, ambulatory subject supports the diagnosis of Diabetes Mellitus. Performed By: #### G LULS #### Point of Care testing , Glucose Glucometer (BldC) [M ass/Vol]Ordered By: Angelina Arrieta on 04-14-2024 Glucose [Mass/Vol] Capillary blood glucose measurement by glucometer (mass/volume) [facility] Comment on above: Random Glucose Refer ence Range is dependent on time and content of last meal. Glucose of more than 200 mg/dL in a nonstressed, ambulatory subject supports the diagnosis of Diabetes Mellitus. Glucose Poct Glucometerson 0 04-14-2024 Commemt1 Glu2: Cleaned Meter Normal [facility] Comment on above: Result Comment: PERF ORMED BY: [place] [address] PATHOLOGIST MILIEU COORDINATOR LAMONT HORN M.D. Performed By: #### G LULS #### Point of Care testing , No Panel InformationOrdered By: Angelina Arrieta on 04-14-2024 Miscellaneous Pathology Test See comment [facility] Comment on above: See report. Scanned copy available in EMR. Bedside Glucose Comment Glu2: cleaned meter [facility] Pathology Request for Lab Co rpon 04-14-2024 Pathology Request for Lab Yana Normal [facility] Comment on above: Order Comment: PATHO LOGY GI SPECIMEN Result Comment: See report. Scanned copy available in EMR. PERFORMED BY: [place] [address] PATHOLOGIST MILIEU COORDINATOR LAMONT HORN M.D. Performed By: #### P ATH TO [facility] #### [address] Basophils Auto (Bld) [#/Vol] on 02-05-2024 Basophils (Bld) [#/Vol] 0.1 10 3/uL 0.0-0.1 [facility] Basophils/100 WBC Auto (Bld) on 02-05-2024 Basophils/100 WBC (Bld) 1.0 % 0.2-2.0 [facility] Cholesterol in LDL Calc [Mas s/Vol]on 02-05-2024 Cholesterol in LDL [Mass/Vol] 81.0 mg/dL [facility] Comment on above: <100 mg/dl [id number] 0-129 mg/dl NEAR OR ABOVE [id number] mg/dl BORDERLINE [id number] mg/dl HIGH>190 mg/dl VERY HIGH Cholesterol in VLDL Calc [Ma ss/Vol]on 02-05-2024 Cholesterol in VLDL [Mass/Vol] 29.0 mg/dL [facility] Eosinophils/100 WBC Auto (Bl d)on 02-05-2024 Eosinophils/100 WBC (Bld) 13.7 % High 0.9-7.0 [facility] Erythrocyte distribution wid th Auto (RBC) [Ratio]on 02-05-2024 Erythrocyte distribution width (RBC) [Ratio] 13.2 % 11.0-15.0 [facility] Estimated glomerular filtrat ion rate (GFR) non- Americanon 02-05-2024 GFR/1.73 sq M.predicted among non-blacks MDRD (S/P/Bld) [Vol rate/Area] mL/min/{1.73_m2} >=60 [facility] Globulin Calc (S) [Mass/Vol] on 02-05-2024 Globulin (S) [Mass/Vol] 3.0 g/dL [facility] Hematocrit Auto (Bld) [Volum e fraction]on 02-05-2024 Hematocrit (Bld) [Volume fraction] 46.8 % 42.0-54.0 [facility] Hemoglobin [Mass/volume] in Bloodon 02-05-2024 Hemoglobin (Bld) [Mass/Vol] 15.2 g/dL 14.0-18.0 [facility] Laboratory - Chemistry and C hemistry - challengeon 02-05-2024 Albumin [Mass/Vol] 3.6 g/dL 3.4-5.0 [facility] ALP [Catalytic activity/Vol] 80 U/L 46-116 [facility] ALT [Catalytic activity/Vol] 65 U/L High 16-63 [facility] AST [Catalytic activity/Vol] 32 U/L 15-37 [facility] Bilirubin [Mass/Vol] 1.0 mg/dL 0.2-1.0 [facility] Calcium [Mass/Vol] 8.5 mg/dL 8.5-10.1 [facility] Chloride [Moles/Vol] 106 mmol/L 98-107 [facility] Cholesterol [Mass/Vol] 145 mg/dL <=200 Fi [facility] Cholesterol in HDL [Mass/Vol] 35 mg/dL Low 40-60 [facility] Comment on above: > or =60 mg/dl - LOW CARDIOVASCULAR RISK<40 mg/dl - HIGH CARDIOVASCULAR RISK CO2 [Moles/Vol] 30.7 mmol/L 21.0-32.0 [facility] Creatinine [Mass/Vol] 0.98 mg/dL 0.70-1.30 [facility] GFR/1.73 sq M.predicted MDRD (S/P/Bld) [Vol rate/Area] mL/min/{1.73_m2} >=60 [facility] Glucose [Mass/Vol] 115 mg/dL High 74-106 [facility] Potassium [Moles/Vol] 3.9 mmol/L 3.5-5.1 [facility] Protein [Mass/Vol] 6.6 g/dL 6.4-8.2 [facility] Sodium [Moles/Vol] 141 mmol/L 136-145 [facility] Triglyceride [Mass/Vol] 145 mg/dL <=150 [facility] Urea nitrogen [Mass/Vol] 16.0 mg/dL 7.0-18.0 [facility] Urea nitrogen/Creatinine [Mass ratio] 16.3 mg/mg [facility] Laboratory - Hematology and Cell countson 02-05-2024 Immature granulocytes/100 WBC (Bld) 0.2 % 0.0-0.5 [facility] Leukocytes [#/volume] correc kitty for nucleated erythrocytes in Blood by Automated counon 02-05-2024 WBC corrected for nucl RBC Auto (Bld) [#/Vol] 5.9 10 3/uL 4.0-11.0 [facility] Lymphocytes Auto (Bld) [#/Vo l]on 02-05-2024 Lymphocytes (Bld) [#/Vol] 2.0 10 3/uL 1.2-3.8 [facility] Lymphocytes/100 WBC Auto (Bl d)on 02-05-2024 Lymphocytes/100 WBC (Bld) 34.6 % 20.5-60.0 [facility] MCH Auto (RBC) [Entitic mass ]on 02-05-2024 MCH (RBC) [Entitic mass] 29.3 pg 25.9-34.0 [facility] MCHC Auto (RBC) [Mass/Vol]on 02-05-2024 MCHC (RBC) [Mass/Vol] 32.5 g/dL 29.9-35.2 [facility] MCV Auto (RBC) [Entitic vol] on 02-05-2024 MCV (RBC) [Entitic vol] 90.2 fL 80.0-94.0 [facility] Monocytes Auto (Bld) [#/Vol] on 02-05-2024 Monocytes (Bld) [#/Vol] 0.4 10 3/uL 0.3-0.8 [facility] Monocytes/100 WBC Auto (Bld) on 02-05-2024 Monocytes/100 WBC (Bld) 6.8 % 1.7-12.0 [facility] Neutrophils Auto (Bld) [#/Vo l]on 02-05-2024 Neutrophils (Bld) [#/Vol] 2.6 10 3/uL 1.4-6.5 [facility] Neutrophils/100 WBC Auto (Bl d)on 02-05-2024 Neutrophils/100 WBC (Bld) 43.7 % 43.0-75.0 [facility] No Panel Informationon 02-04 Eosinophils # (Auto) 0.8 10 3/uL High 0.0-0.7 [facility] Immature Granulocyte # (Auto) 0.01 10 3/uL 0.00-0.03 [facility] Prostate Specific Antigen Screen 0.69 ng/mL <=4.00 [facility] Platelet mean volume Auto (B ld) [Entitic vol]on 02-05-2024 Platelet mean volume (Bld) [Entitic vol] 11.9 fL 9.5-13.5 [facility] Platelets Auto (Bld) [#/Vol] on 02-05-2024 Platelets (Bld) [#/Vol] 201 10 3/uL 150-450 [facility] RBC Auto (Bld) [#/Vol]on RBC (Bld) [#/Vol] 5.19 10 6/uL 4.70-6.10 [facility] Serum or plasma albumin/glob ulin mass ratioon 02-05-2024 Albumin/Globulin [Mass ratio] 1.2 {ratio} [facility] Serum or plasma anion gap de terminationon 02-05-2024 Anion gap [Moles/Vol] 8.2 mmol/L [facility] Serum or plasma total choles terol/high density lipoprotein (HDL) cholesterol mass amita 02-05-2024 Cholesterol.total/Iona sterol in HDL [Mass ratio] 4.1 {ratio} [facility] Comment on above: 3.3 - 4.4 LOW RISK4. 4 - 7.1 AVERAGE RISK7.1 - 11.0 MODERATE RISK>11.0 HIGH RISK XR hand BI 3Von 11-09-2023 XR hand BI 3V [facility] [address] [place] [address] XRay Report Signed Patient: Misael Aguilar Jr MR#: [id number] : 1965 Acct:[id number] Age/Sex: 58 / M ADM Date: 11/09/23 Loc: [facility] Room: Type: [facility] Attending Dr: Judy Coleman MD Copies [...] Magnus Salcedo M.D.11/09/2023 5:24 PM Dictation Location: [facility] Transcribed By: [facility] 11/09/23 4553 Dictated By: Magnus Salcedo DO 11/09/23 1723 Signed By: 11/09/23 1724 Normal [facility] Basic Metabolic Panelon 03- Anion gap [Moles/Vol] 10 mmol/L Normal 9-15 [facility] Comment on above: Performed By: #### B MP #### [facility] [address] [place] [address] Calcium [Mass/Vol] 8.9 mg/dL Normal 8.5-9.9 [facility] Comment on above: Performed By: #### B MP #### [facility] [address] [place] [address] Chloride [Moles/Vol] 102 mmol/L Normal 95-107 [facility] Comment on above: Performed By: #### B MP #### [facility] [address] [place] [address] CO2 [Moles/Vol] 27 mmol/L Normal 20-31 [facility] Comment on above: Performed By: #### B MP #### [facility] [address] [place] [address] Creatinine [Mass/Vol] 0.97 mg/dL Normal 0.70-1.20 [facility] Comment on above: Performed By: #### B MP #### [facility] [address] [place] [address] GFR >60.0 Normal >60 [facility] Comment on above: Result Comment: Edwin atric [...] secretion. Performed By: #### B MP #### [facility] [address] [place] [address] Glucose [Mass/Vol] 149 mg/dL Critically high 70-99 [facility] Comment on above: Performed By: #### B MP #### [facility] [address] [place] [address] Potassium [Moles/Vol] 4.0 mmol/L Normal 3.4-4.9 [facility] Comment on above: Performed By: #### B MP #### [facility] [address] [place] [address] Sodium [Moles/Vol] 139 mmol/L Normal 135-144 [facility] Comment on above: Performed By: #### B MP #### [facility] [address] [place] [address] Urea nitrogen [Mass/Vol] 16 mg/dL Normal 6-20 [facility] Comment on above: Performed By: #### B MP #### [facility] [address] [place] [address] CBC With Platelet No Differe ntialon 10-01-2023 Erythrocyte distribution width (RBC) [Ratio] 12.8 % Normal 11.5-14.5 [facility] Comment on above: Performed By: #### C BCND #### [facility] [address] [place] [address] Hematocrit (Bld) [Volume fraction] 46.1 % Normal 42.0-52.0 [facility] Comment on above: Performed By: #### C BCND #### [facility] [address] [place] [address] Hemoglobin (Bld) [Mass/Vol] 15.3 g/dL Normal 14.0-18.0 [facility] Comment on above: Performed By: #### C BCND #### [facility] [address] [place] [address] MCH (RBC) [Entitic mass] 28.9 pg Normal 27.0-31.3 [facility] Comment on above: Performed By: #### C BCND #### [facility] [address] [place] [address] MCHC 33.2 % Normal 33.0-37.0 [facility] Comment on above: Performed By: #### C BCND #### [facility] [address] [place] [address] MCV (RBC) [Entitic vol] 87.1 fL Normal 79.0-92.2 [facility] Comment on above: Performed By: #### C BCND #### [facility] [address] [place] [address] Platelets (Bld) [#/Vol] 239 10*3/uL Normal 130-400 [facility] Comment on above: Performed By: #### C BCND #### [facility] [address] [place] [address] RBC (Bld) [#/Vol] 5.29 10*6/uL Normal 4.70-6.10 [facility] Comment on above: Performed By: #### C BCND #### [facility] [address] [place] [address] WBC (Bld) [#/Vol] 6.3 10*3/uL Normal 4.8-10.8 [facility] Comment on above: Performed By: #### C BCND #### [facility] [address] [place] [address] Prothrombin Timeon 4 INR Coag (PPP) [Relative time] 1.0 {INR} Normal [facility] Comment on above: Performed By: #### P T #### [facility] [address] [place] [address] PT Coag (PPP) [Time] 13.1 s Normal 12.3-14.9 [facility] Comment on above: Performed By: #### P T #### [facility] [address] [place] [address] Office Visiton 07-16-2023 Follow-up visit [id number] [place],Misaeldanuta Major Jr. 1965 M Date Provider Department Center 07/16/2023 3848-JESSICA WEAVER [facility] Family History Problem Relation Age of Onset No Known Problems Mother No Known Problems Father Family Status - Relation Status Age at Mother Alive Father Alive Level of Service:[address] CT OFFICE/OUTPATIENT ESTABLISHED MOD MDM 30 MIN Normal [facility] Glucose Glucometer (BldC) [M ass/Vol]Ordered By: Angelina Arrieta on 12-17-2022 Glucose [Mass/Vol] 101 mg/dL [facility] Comment on above: Random Glucose Refer ence Range is dependent on time and content of last meal. Glucose of more than 200 mg/dL in a nonstressed, ambulatory subject supports the diagnosis of Diabetes Mellitus. CBC AUTO DIFFon 07-03-2022 BASO # 0.1 103/ul Normal 0.0-0.1 [facility] Comment on above: Performed By: #### C BC #### [facility] [address] [place] [address] Dr. Sergey Zamorano Basophils/100 WBC (Bld) 0.9 % Normal 0.2-2.0 [facility] Comment on above: Performed By: #### C BC #### [facility] [address] [place] [address] Dr. Sergey Zamorano EO # 0.5 103/ul Normal 0.0-0.7 [facility] Comment on above: Performed By: #### C BC #### [facility] [address] [place] [address] Dr. Sergey Zamorano Eosinophils/100 WBC (Bld) 7.1 % Critically high 0.9-7.0 [facility] Comment on above: Performed By: #### C BC #### [facility] [address] [place] [address] Dr. Sergey Zamorano Erythrocyte distribution width (RBC) [Ratio] 13.4 % Normal 11.0-15.0 [facility] Comment on above: Performed By: #### C BC #### [facility] [address] [place] [address] Dr. Sergey Zamorano Hematocrit (Bld) [Volume fraction] 46.5 % Normal 42.0-54.0 [facility] Comment on above: Performed By: #### C BC #### [facility] [address] [place] [address] Dr. Sergey Zamorano Hemoglobin (Bld) [Mass/Vol] 15.3 g/dL Normal 14.0-18.0 [facility] Comment on above: Performed By: #### C BC #### [facility] [address] [place] [address] Dr. Sergey Zamorano IG # 0.03 10e3/ul Normal 0.00-0.03 [facility] Comment on above: Performed By: #### C BC #### [facility] [address] [place] [address] Dr. Sergey Zamorano IG % 0.4 % Normal 0.0-0.5 [facility] Comment on above: Performed By: #### C BC #### [facility] [address] [place] [address] Dr. Sergey Zamorano LYMPH # 2.6 103/ul Normal 1.2-3.8 [facility] Comment on above: Performed By: #### C BC #### [facility] [address] [place] [address] Dr. Sergey Zamorano Lymphocytes/100 WBC (Bld) 33.6 % Normal 20.5-60.0 [facility] Comment on above: Performed By: #### C BC #### [facility] [address] [place] [address] Dr. Sergey Zamorano MANUAL DIFF REQ NO Normal [facility] Comment on above: Performed By: #### C BC #### [facility] [address] [place] [address] Dr. Sergey Zamorano MCH (RBC) [Entitic mass] 28.3 pg Normal 25.9-34.0 [facility] Comment on above: Performed By: #### C BC #### [facility] [address] [place] [address] Dr. Sergey Zamorano MCHC (RBC) [Mass/Vol] 32.9 g/dL Normal 29.9-35.2 [facility] Comment on above: Performed By: #### C BC #### [facility] [address] [place] [address] Dr. Sergey Zamorano MCV (RBC) [Entitic vol] 86.0 fL Normal 80.0-94.0 [facility] Comment on above: Performed By: #### C BC #### [facility] [address] [place] [address] Dr. Sergey Zamorano MONO # 0.6 103/ul Normal 0.3-0.8 [facility] Comment on above: Performed By: #### C BC #### [facility] [address] [place] [address] Dr. Sergey Zamorano Monocytes/100 WBC (Bld) 7.5 % Normal 1.7-12.0 [facility] Comment on above: Performed By: #### C BC #### [facility] [address] [place] [address] Dr. Sergey Zamorano NEUT # 3.9 103/ul Normal 1.4-6.5 [facility] Comment on above: Performed By: #### C BC #### [facility] [address] [place] [address] Dr. Sergey Zamorano Neutrophils/100 WBC (Bld) 50.5 % Normal 43.0-75.0 [facility] Comment on above: Performed By: #### C BC #### [facility] [address] [place] [address] Dr. Sergey Zamorano Platelet mean volume (Bld) [Entitic vol] 10.8 fL Normal 9.5-13.5 [facility] Comment on above: Performed By: #### C BC #### [facility] [address] [place] [address] Dr. Sergey Zamorano PLT 278 103/ul Normal 150-450 [facility] Comment on above: Performed By: #### C BC #### [facility] [address] [place] [address] Dr. Sergey Zamorano RBC 5.41 106/ul Normal 4.70-6.10 [facility] Comment on above: Performed By: #### C BC #### [facility] [address] [address] [address] Sergey Zamorano WBC 7.6 103/ul Normal 4.0-11.0 [facility] Comment on above: Performed By: #### C BC #### [facility] [address] [address] [address] Sergey Zamorano GLYCOHEMOGLOBIN A1Con 2021 ADA RECOMMENDATION SEE BELOW Normal [facility] Comment on above: Result Comment: ADA RECOMMENDED LIMIT 4.0 - 6.0 ADA THERAPEUTIC TARGET < 7.0 ACTION SUGGESTED > 7.0 Performed By: #### D ATA1C #### [facility] [address] [place] [address] Dr. Sergey Zamorano Glucose [Mass/Vol] 137 mg/dL Normal [facility] Comment on above: Performed By: #### D ATA1C #### [facility] [address] [place] [address] Dr. Sergey Zamorano HbA1c (Bld) [Mass fraction] 6.4 % Critically high 4.5-6.2 [facility] Comment on above: Performed By: #### D ATA1C #### [facility] [address] [place] [address] Dr. Sergey Zamorano PROF CHEM 8 (BAS METB)on Anion gap [Moles/Vol] 10.6 mmol/L Normal [facility] Comment on above: Performed By: #### B MP #### [facility] [address] [place] [address] Dr. Sergey Zamorano Calcium [Mass/Vol] 8.6 mg/dL Normal 8.5-10.1 [facility] Comment on above: Performed By: #### B MP #### [facility] [address] [place] [address] Dr. Sergey Zamorano Chloride [Moles/Vol] 104 mmol/L Normal 98-107 [facility] Comment on above: Performed By: #### B MP #### [facility] [address] [place] [address] Dr. Sergey Zamorano CO2 [Moles/Vol] 30.5 mmol/L Normal 21.0-32.0 [facility] Comment on above: Performed By: #### B MP #### [facility] [address] [address] [address] Sergey Zamorano Creatinine [Mass/Vol] 0.94 mg/dL Normal 0.70-1.30 [facility] Comment on above: Performed By: #### B MP #### [facility] [address] [address] [address] Sergey Zamorano EGFR-AF JORDANIAN >60 Normal >=60 [facility] Comment on above: Performed By: #### B MP #### [facility] [address] [address] [address] Sergey Zamorano EGFR-NON AF JORDANIAN >60 Normal >=60 [facility] Comment on above: Performed By: #### B MP #### [facility] [address] [address] [address] Sergey Zamorano Glucose [Mass/Vol] 111 mg/dL Critically high 74-106 [facility] Comment on above: Performed By: #### B MP #### [facility] [address] [address] [address] Sergey Zamorano Potassium [Moles/Vol] 4.1 mmol/L Normal 3.5-5.1 [facility] Comment on above: Performed By: #### B MP #### [facility] [address] [address] [address] Sergey Zamorano Sodium [Moles/Vol] 141 mmol/L Normal 136-145 [facility] Comment on above: Performed By: #### B MP #### [facility] [address] [address] [address] Sergey Zamorano Urea nitrogen [Mass/Vol] 12.0 mg/dL Normal 7.0-18.0 [facility] Comment on above: Performed By: #### B MP #### [facility] [address] [address] [address] Sergey Zamorano Urea nitrogen/Creatinine [Mass ratio] 12.8 mg/mg Normal [facility] Comment on above: Performed By: #### B #### [facility] [address] [place] [address] Dr. Sergey Zamorano Coding Summary.on 06-08-2022 Coding Summary. CD:[id number] QVm1yDc+PGhlYWQ+PE1 GYSApC91dvSIeyE9EF1 nTAO3VGJPOQLAQJQ9LU L1oaAL8QOsrZ0AljeQj PgqzkJVvIG03QZi2EDL 9eVpsXZdlbY1mfEUmM8 l2AfDvPX92vR36NZwqE EDrMqQ0UeKudskchOGq T7xeAuPqyZDgVrz+PHR hYmxlIHdpZHRoPScxMD CiEkNubIwgVD2zRu2dC GVyLWNvbGxhcHNlOiBj m1onNAEzCLfyFI8okQa uA1KoiJQ7WDKxx8o9Ts 48dHI+YYCwMJS6pCntG Zprh802YwUzh4buDGZ8 vXDgKJrvDHD6Z64vt1A 4IGWkAAEzVEA7rNK0rR 6qgHrrcftpA4HmmGNhM fL9XQW4cNEueZ3kwYyy nqccfX3wLnx+I36INV4 YMWMXRX3UXok6Z2AjJo wvdHI+EH58UUJjIS65r FGcmOQux0wkqBr2MfHb KTAxGLJ2aLxhYEote2F mGGEyV07plUOua1S4GI TutFkccLHsYkGuwQN5u H6uEOgpgqdrn5epanwa Mwtuk5rixl59mH82J51 rSSsoGOSiCLW9HFUoEN VbqSdtiw2pcL4qFr0+I Twwp4pqg0eiyPn2SePg MVDgomSumDwaXTA4q1X tCp68D0BwgYzyh5KgOz n1km41iMJpm6E9gUR7N WolSCFsfA4aNSgiStH0 OQLhCsJklT11wROzRVm tSf6kmUdjhCmhAT3hZK RlpbbgAFIdoS3gLILov DJwvAmgYZ0gBJFjvnsj i123BoGbKSR3UOSuyQK mA4GblS9tHdJyXDAtLM WqH7NmjOQkKTcwB395C KwqUpZ5XLMnykLcN9Ah DGFysEquFbM9t5T4Ha9 Gn4KkpstmANJ9LRsfZR GgQbUiDpRqGjW1A3FoO hq6VYLgqIkgZY6tD9Ws UVWetszljrhpqEX2FVW eZFNyiX73bOEeOFvtIy 5fs4B5u319BSHzVNOar G80Vi3xbJldHIBohCJI lT4dvulsu5dbzgqiKhW rJDGsNTs8FJe1FVWomC esRgAeVUT7ZbA6EIG4y NMjnO7yiIilempdkF0t Oyc+K58foZ3eIHI7PRV 7japrEFIjmfCjBP23EL 89F7EvScjhjAWohDW+P GUmxiUfpUrgIE5kRjKz i0oql6PyVGexR3UgNBU nCRghNxt2ZPItVHQ5oX E4dQ1xHFBtVYmgr1E0a HQ5Q4RatkVxei5ww6nw KPQqVImjM56jaSTys3E 6SWNzfYT9AUApqXaxWh VcrO73Xyw+PGNvbGdyb 7BdVpvms5tqt5mjzIi9 IjMwJSIgdmFsaWduPSJ 3e2EdGm12N49rNQdeAV RoPSIxNSUiIHZhbGlnb c7auK7eNm2+PGNvbCB3 cOZ0eY4yTLRmAyZ4UKt nE259LhQmkMQiDvuml4 eml7zfnKw2KaDjMSYsu vTqeUlbCUU4q2PhSl32 I60rMHkqICPxFEKqEYT sJASvjWzpge8koR4qYw 8+XQ2nb5jiyj79vX35x HI+DKYrCAW8tWcnQJei JIZdgT1qDGjvJhX1ZAH zDbUoiH18vQWnZNtcZf 7qkSkokRjrVF8lUMZof sqbf578PsBky3cxGLDe iJYkQEofDHZ5V97xx2G 0AOBrGUIuPDY5oCJ4mP 1hbGlnbjogbGVmdDsgd cXydZffEFwdTRygB578 IHRvcDsnPlBhdGllbnQ zLdMcBBj0I5RyLqi7KA YqsRfbFU7maRWuHVuzK m3ipAfkuGtpPS6iAXXs awyzy582KnTdk1grKQI cdBNqWWkzMNH8H29ei7 M1DLTtSJXaDEO7xAM3l L9ssDmfogemmCRhePha gcSsfMusMPkqYLjlG74 6IHRvcDsnPkJpcnRoIE MwtGT9GG14SG13kWGmt 7H7wCB4T6PwQFOtlnab totkePL6VDInZZDbxV7 6Gb1ndCumKq3hDNHmCA J1QZVqdWMcL3MqdZ0qL bJuDORjVKDnJ5FfiCAv PDnuH138IKvfIfL0QMF ujqNgU1RwNGQlmMyoAx Q0z0D4Wp5YV7S4LI60G O88pVWoe2K5bXI8X3Gt KGEauwdvicudmAD9WRJ pMPOzmJ09Sa1xxUoxSp 9fHHRkKSL7ZUIajRLdF 7YtmY6lVgGxGNKdCCXz Z2WwfVLnYVhsF702DQu zJkM4MQDwhvBcI9ZrZI XzoYbxIcU8u6V5Up3ZY Xf6TG08IM56qQUtc0N6 dCC0H3YeNOKyszrnhag ssQO3WGSqOBWluA22Lw 9woTizPz8bTYMwDTB7I QJrgYDhA1JteU6aKwOy BWRwDQEkY8RuuJPjZWj nP153VMqiRnL5VIMrsc PhH1FrIZQcgHbxKsT8t 3Q0Da9FGLIyIE03TFY4 wEY8ZK38DU16D0NcVhq vdGFibGU+PHRhYmxlIH dpZHRoPScxMDAlJyBzd TckCV5jSu2lXXKvSRMa eXboqLGuXrQec8fzUBL vJYceYR1taUolR3WtwV F2FJQhb8r6Un22N99iP 3JvdXA+RUXbzZC4hSQ4 mA8hNfRkVhM1LHjwL14 3GoSpxPBoZdipd3zuy8 ceeAj4ZmL0KIQcgaWmi FqaIHW9a7FoMu45Z01l IHdpZHRoPSIxNSUiIHZ jxAdksv4ofU6qXj1+PG NstTF6qCE5hG9kQiDqL yJ4BRqfJ673MhRwpKPd Typcc6pqz1shfQz3JrX fMWBjpeCmuRybAIE3g7 NjJh63W8LssJggx6XfN hg3yn68iBRta9C8fPI7 K1WpEBLtmuqxiGWvqMr zKM1iOVHuuwjgUPZpbN 4kUQHsN8f8KyIjDmQ1T CvzY9SbjrF8UYLaqRZz DCtoCFU1D18ma7A8PPP xSVVqPYS3tBH9hO5rpJ lnbjogbGVmdDsgdmVyd QrfKCjxTIyjM026EKQc pGtqCZRpjY9oTZOmdOZ tpZpxIP1fVNOfrezrHy KUK1RKYSLoGGFNNY01J 4UqIze1IMTcbOwpII4l jNWoBYefOb5zaCpyzHc rHM0vTSHvphjeNBCssZ 6wNXOlbHHowXuoCH9mP QBcthilw533AdKkMSK4 ELYimUNrM6ZduP7jRdT gVUYvTBZtP9EdnHTrZH veI263UNhsHiO3ZEZvm eAaY0FkHXPwoEyhIfF2 b4A1Hy4gBI9wKC3wHFL 1RN66LT92sVQwb1P3qH F7P9FvJEMedydbhxugs JZ4JUAiZNImzI15wNEy IMylZw7nx1B8k567FTA bXPJzzD84Mr2uaTenUS WymSCQmM2umyyls8yxv lcoItDuOVTpBOv7RWh0 QWRrbFgcPqJsPAT5WsW 9KLZ3fUOccB9esPhctu udkF4nHdy+NTUgWWVhc qQ7T1TiNzy4YAAbyFhk QG8jfCNqYJdeSl6erVf nxWnrQN0oGLDxlyqnDP NvbC3vQHNqiZLcbNpnS F4kMLKqdxgqh518AdXh OSO9BZGweFRlH0DglT5 yNcQvXQGmLVTbP9ChzT PgMNqnH534QVtvAcY1N GAxoqPwQ0DtRPGqwVks RbK1r6G7Px9ONVgqAD4 2DD82kNBwo1M6kLB4F2 MuKXRpwjbcjlohkLK5I PTgRPNkwG21xJSlBLck Wx5sl9D8t236AYLbRHZ vnI53Jn4tyVdhAKBskO SVfA3suedde6gpobppE gPyWRDaUEj6CMc7GFLd mJguPwNoZGN0FcJ1JJS 2aEDvgY6gsLkpbojkmN 9wOyc+I5L1oVG0vPSpq DwvdGQ+WV33yc39S7Dx GmxhOuy3QFAmPTX6pOO 1nV8rZOBaFEtig6T8mV H8K0MgstKlgv8jv6ijT BFvDUkeY99lyAOkp0P6 TULehWA3MPBziXjtOnF sfH44Spt+PGNvbGdyb3 QaLtdug7hng5pmkDd9O jMwJSIgdmFsaWduPSJ0 q4DsKv14Q19vGDslBRE oPSIzMCUiIHZhbGlnbj 6mvX7aCb7+CSBhjVA2w ZJ4nX4pQqEdWhL8VCrv X586PsMyhUMrKvsot3y sj4zulUn8JzFkVTBjtm LxtEzaVSB0r6LaOc05N 9DcjZwxv4DnXns3nc37 uTVua3A8bLS3P6ItHYL lvltyuMZekPmiHC9jDM DnuapnAVHevE0rBOSsL 2n3KtKwBxZ3MOzeR3Iv caO2HAIdvSAnYATiwSZ JaB1ruykhp2rwjfglUl GcKMHfLQk9BKd7JIPlb JhoRcXwHRN1VmF2SVV8 cMIimF5nyCzfkhnarZ2 wOyc+KIs0w5tfmALvXQ 5rnGG1CC60XN37bZGfw 6H4kQO9E0GcBSMnnbar wutrwKX8DFEpCCNleC5 7Zb1eeWcmNz0iXKLjJM R2OUOhjLHcR7RjkD7mW jErDFXaDQKcL7GspNBz AOpjT098VPzxHoX6DZK zhiJkF8VhRZFdeGwdTs D6t3O6Nj7JHN38MK36B H59oIZfi9U2rMP5L6Vu OVElyzxxesphhNH2SPK jEUWagJ89Xp8bzPkmCy 2mXMHfYBM7JMNzmFPdH 2KhgO1dTlVqFIAbDPRl V8UzgDCcJArbE236YMw uFbJ1HTMbkmIzS6IdJY HuyPdaSpV6g0A6Rz7SF i46CS83FR86hIUmx6E3 jMZ4V0LiOAHgdlzbjok ypRR8SGTpIPVwfV99Xo 9jcKoyVd5cJPXkGIC3I ZCmrNWeR9NhiY6oGrLd ECTlPZNcO8DiuCFcXLr oP455OFjqBtP7DVLamw VsE5RfHUEcvGxrNkL2w 3G6Lp9OGYbzyvw9S4Ad PjwvdHI+FY14KJNwSN2 4wLBmeTWbk0lwyFz9Fg OzTAQuSTG7xEbhJDean 9DuFTTyE88dpVDre9E6 IGNv (more content not included)... Normal [facility] Operative Reporton Operative Report SURGERY DATE: [...] patient is met in the [facility]. The patient is placed supine on the [...] Suite here today. Celia Potter Dictated: 06/03/2022 [id number] Transcribed: 06/03/2022 cc:Bhaskar Reddy D.O. Normal [facility] Comment on above: Result Comment: Elec tronically Signed By: Joselyn Gilman DO\Date and Time Signed: 06/05/22 13:01 EST RAD - Consent to Procedureon 06-03-2022 RAD - Consent to Procedure [id number] [id number]:127 Normal [facility] Physician Orderon 05-25-2022 Physician Order [id number]#[id number]:127 Normal [facility] MRI Hip w/o Righton 05-13-20 [...] by Michael Martino on 05/14/2022 1017 Normal [facility] Specialist GLYCOHEMOGLOBIN A1Con 2021 ADA RECOMMENDATION SEE BELOW Normal [facility] Comment on above: Result Comment: ADA RECOMMENDED LIMIT 4.0 - 6.0 ADA THERAPEUTIC TARGET < 7.0 ACTION SUGGESTED > 7.0 Performed By: #### A 1C #### [facility] [address] [place] [address] Dr. Sergey Zamorano Glucose [Mass/Vol] 126 mg/dL Normal [facility] Comment on above: Performed By: #### A 1C #### [facility] [address] [place] [address] Dr. Sergey Zamorano HbA1c (Bld) [Mass fraction] 6.0 % Normal 4.5-6.2 [facility] Comment on above: Performed By: #### A 1C #### [facility] [address] [place] [address] Dr. Sergey Zamorano CBC AUTO DIFFon 10-31-2021 BASO # 0.1 103/ul Normal 0.0-0.1 [facility] Comment on above: Performed By: #### C BC #### [facility] [address] [place] [address] Dr. Sergey Zamorano Basophils/100 WBC (Bld) 0.9 % Normal 0.2-2.0 [facility] Comment on above: Performed By: #### C BC #### [facility] [address] [place] [address] Dr. Sergey Zamorano EO # 0.4 103/ul Normal 0.0-0.7 [facility] Comment on above: Performed By: #### C BC #### [facility] [address] [place] [address] Dr. Sergey Zamorano Eosinophils/100 WBC (Bld) 5.5 % Normal 0.9-7.0 [facility] Comment on above: Performed By: #### C BC #### [facility] [address] [place] [address] Dr. Sergey Zamorano Erythrocyte distribution width (RBC) [Ratio] 12.8 % Normal 11.0-15.0 [facility] Comment on above: Performed By: #### C BC #### [facility] [address] [place] [address] Dr. Sergey Zamorano Hematocrit (Bld) [Volume fraction] 47.9 % Normal 42.0-54.0 [facility] Comment on above: Performed By: #### C BC #### [facility] [address] [place] [address] Dr. Sergey Zamorano Hemoglobin (Bld) [Mass/Vol] 16.0 g/dL Normal 14.0-18.0 [facility] Comment on above: Performed By: #### C BC #### [facility] [address] [place] [address] Dr. Sergey Zamorano IG # 0.02 10e3/ul Normal 0.00-0.03 [facility] Comment on above: Performed By: #### C BC #### [facility] [address] [place] [address] Dr. Sergey Zamorano IG % 0.3 % Normal 0.0-0.5 [facility] Comment on above: Performed By: #### C BC #### [facility] [address] [place] [address] Dr. Sergey Zamorano LYMPH # 2.4 103/ul Normal 1.2-3.8 [facility] Comment on above: Performed By: #### C BC #### [facility] [address] [place] [address] Dr. Sergey Zamorano Lymphocytes/100 WBC (Bld) 36.5 % Normal 20.5-60.0 [facility] Comment on above: Performed By: #### C BC #### [facility] [address] [place] [address] Dr. Sergey Zamorano MANUAL DIFF REQ NO Normal [facility] Comment on above: Performed By: #### C BC #### [facility] [address] [place] [address] Dr. Sergey Zamorano MCH (RBC) [Entitic mass] 29.3 pg Normal 25.9-34.0 [facility] Comment on above: Performed By: #### C BC #### [facility] [address] [place] [address] Dr. Sergey Zamorano MCHC (RBC) [Mass/Vol] 33.4 g/dL Normal 29.9-35.2 [facility] Comment on above: Performed By: #### C BC #### [facility] [address] [address] [address] Sergey Zamorano MCV (RBC) [Entitic vol] 87.6 fL Normal 80.0-94.0 [facility] Comment on above: Performed By: #### C BC #### [facility] [address] [address] [address] Sergey Zamorano MONO # 0.5 103/ul Normal 0.3-0.8 [facility] Comment on above: Performed By: #### C BC #### [facility] [address] [place] [address] Dr. Sergey Zamorano Monocytes/100 WBC (Bld) 7.0 % Normal 1.7-12.0 [facility] Comment on above: Performed By: #### C BC #### [facility] [address] [place] [address] Dr. Sergey Zamorano NEUT # 3.3 103/ul Normal 1.4-6.5 [facility] Comment on above: Performed By: #### C BC #### [facility] [address] [place] [address] Dr. Sergey Zamorano Neutrophils/100 WBC (Bld) 49.8 % Normal 43.0-75.0 [facility] Comment on above: Performed By: #### C BC #### [facility] [address] [place] [address] Dr. Sergey Zamorano Platelet mean volume (Bld) [Entitic vol] 11.7 fL Normal 9.5-13.5 [facility] Comment on above: Performed By: #### C BC #### [facility] [address] [place] [address] Dr. Sergey Zamorano PLT 237 103/ul Normal 150-450 [facility] Comment on above: Performed By: #### C BC #### [facility] [address] [place] [address] Dr. Sergey Zamorano RBC 5.47 106/ul Normal 4.70-6.10 [facility] Comment on above: Performed By: #### C BC #### [facility] [address] [address] [address] Sergey Zamorano WBC 6.7 103/ul Normal 4.0-11.0 [facility] Comment on above: Performed By: #### C BC #### [facility] [address] [address] [address] Sergey Zamorano GLYCOHEMOGLOBIN A1Con 2021 ADA RECOMMENDATION ADA THERAPEUTIC TARGET 6.0 - 7.0 ACTION SUGGESTED > 7.0 Normal [facility] Comment on above: Performed By: #### A 1C #### [facility] [address] [place] [address] Dr. Sergey Zamorano Glucose [Mass/Vol] 255 mg/dL Normal [facility] Comment on above: Performed By: #### A 1C #### [facility] [address] [place] [address] Dr. Sergey Zamorano HbA1c (Bld) [Mass fraction] 10.5 % Critically high <=6.0 [facility] Comment on above: Performed By: #### A 1C #### [facility] [address] [place] [address] Dr. Sergey Zamorano LIPID PROFILEon 10-31-2021 CHOL-HDL RATIO NORM SEE BELOW Normal [facility] Comment on above: Result Comment: 3.3 - 4.4 LOW RISK 4.4 - 7.1 AVERAGE RISK 7.1 - 11.0 MODERATE RISK >11.0 HIGH RISK Performed By: #### L IPID, CMP #### [facility] [address] [place] [address] Dr. Sergey Zamorano Cholesterol [Mass/Vol] 107 mg/dL Normal <=200 [facility] Comment on above: Performed By: #### L IPID, CMP #### [facility] [address] [place] [address] Dr. Sergey Zamorano Cholesterol in HDL [Mass/Vol] 33 mg/dL Critically low 40-60 [facility] Comment on above: Performed By: #### L IPID, CMP #### [facility] [address] [place] [address] Dr. Sergey Zamorano Cholesterol in LDL [Mass/Vol] 51.2 mg/dL Normal [facility] Comment on above: Performed By: #### L IPID, CMP #### [facility] [address] [address] [address] Sergey Zamorano Cholesterol.total/Iona sterol in HDL [Mass ratio] 3.2 {ratio} Normal [facility] Comment on above: Performed By: #### L IPID, CMP #### [facility] [address] [address] [address] Sergey Zamorano HDL NORMAL > or = 60 mg/dl - LOW CARDIOVASCULAR RISK <40 mg/dl - HIGH CARDIOVASCULAR RISK Normal [facility] Comment on above: Performed By: #### L IPID, CMP #### [facility] [address] [place] [address] Dr. Sergey Zamorano LDL CALC NORMAL SEE BELOW Normal [facility] Comment on above: Result Comment: <100 mg/dl OPTIMAL 100 - 129 mg/dl NEAR OR ABOVE OPTIMAL 130 - 159 mg/dl BORDERLINE HIGH 160 - 189 mg/dl HIGH >190 mg/dl VERY HIGH Performed By: #### L IPID, CMP #### [facility] [address] [address] [address] Sergey Zamoarno Triglyceride [Mass/Vol] 114 mg/dL Normal <=150 [facility] Comment on above: Performed By: #### L IPID, CMP #### [facility] [address] [address] [address] Sergey Zamorano VLDL CALC 22.8 mg/dL Normal [facility] Comment on above: Performed By: #### L IPID, CMP #### [facility] [address] [address] [address] Sergey Zamorano PROF 14(COMP METB)on 022 Albumin [Mass/Vol] 3.7 g/dL Normal 3.4-5.0 [facility] Comment on above: Performed By: #### L IPID, CMP #### [facility] [address] [address] [address] Sergey Zamorano Albumin/Globulin [Mass ratio] 1.3 {ratio} Normal [facility] Comment on above: Performed By: #### L IPID, CMP #### [facility] [address] [place] [address] Dr. Sergey Zamorano ALP [Catalytic activity/Vol] 85 U/L Normal 46-116 [facility] Comment on above: Performed By: #### L IPID, CMP #### [facility] [address] [place] [address] Dr. Sergey Zamorano ALT [Catalytic activity/Vol] 84 U/L Critically high 16-63 [facility] Comment on above: Performed By: #### L IPID, CMP #### [facility] [address] [place] [address] Dr. Sergey Zamorano Anion gap [Moles/Vol] 10.3 mmol/L Normal [facility] Comment on above: Performed By: #### L IPID, CMP #### [facility] [address] [place] [address] Dr. Sergey Zamorano AST [Catalytic activity/Vol] 30 U/L Normal 15-37 [facility] Comment on above: Performed By: #### L IPID, CMP #### [facility] [address] [place] [address] Dr. Sergey Zamorano Bilirubin [Mass/Vol] 0.8 mg/dL Normal 0.2-1.3 [facility] Comment on above: Performed By: #### L IPID, CMP #### [facility] [address] [place] [address] Dr. Sergey Zamorano Calcium [Mass/Vol] 8.4 mg/dL Critically low 8.5-10.1 [facility] Comment on above: Performed By: #### L IPID, CMP #### [facility] [address] [place] [address] Dr. Sergey Zamorano Chloride [Moles/Vol] 103 mmol/L Normal 98-107 [facility] Comment on above: Performed By: #### L IPID, CMP #### [facility] [address] [place] [address] Dr. Sergey Zamorano CO2 [Moles/Vol] 29.7 mmol/L Normal 22.0-30.0 [facility] Comment on above: Performed By: #### L IPID, CMP #### [facility] [address] [place] [address] Dr. Sergey Zamorano Creatinine [Mass/Vol] 0.95 mg/dL Normal 0.66-1.25 [facility] Comment on above: Performed By: #### L IPID, CMP #### [facility] [address] [address] [address] Sergey Zamorano EGFR-AF JORDANIAN >60 Normal >=60 [facility] Comment on above: Performed By: #### L IPID, CMP #### [facility] [address] [place] [address] Dr. Sergey Zamorano EGFR-NON AF JORDANIAN >60 Normal >=60 [facility] Comment on above: Performed By: #### L IPID, CMP #### [facility] [address] [place] [address] Dr. Sergey Zamorano Globulin (S) [Mass/Vol] 2.9 g/dL Normal [facility] Comment on above: Performed By: #### L IPID, CMP #### [facility] [address] [place] [address] Dr. Sergey Zamorano Glucose [Mass/Vol] 178 mg/dL Critically high 74-106 [facility] Comment on above: Performed By: #### L IPID, CMP #### [facility] [address] [place] [address] Dr. Sergey Zamorano Potassium [Moles/Vol] 4.0 mmol/L Normal 3.4-5.0 [facility] Comment on above: Performed By: #### L IPID, CMP #### [facility] [address] [place] [address] Dr. Sergey Zamorano Protein [Mass/Vol] 6.6 g/dL Normal 6.1-8.2 [facility] Comment on above: Performed By: #### L IPID, CMP #### [facility] [address] [place] [address] Dr. Sergey Zamorano Sodium [Moles/Vol] 139 mmol/L Normal 137-145 [facility] Comment on above: Performed By: #### L IPID, CMP #### [facility] [address] [address] [address] Sergey Zamorano Urea nitrogen [Mass/Vol] 14.0 mg/dL Normal 7.0-18.0 [facility] Comment on above: Performed By: #### L IPID, CMP #### [facility] [address] [address] [address] Sergey Zamorano Urea nitrogen/Creatinine [Mass ratio] 14.7 mg/mg Normal [facility] Comment on above: Performed By: #### L IPID, CMP #### [facility] [address] [place] [address] Dr. Sergey Zamorano Vital Signs Date Time Vital Sign Value Performing Clinician Facility 08-16-2024 15:32-0500 Body height 172.72 cm [facility] 08-16-2024 15:32-0500 Body mass index (BMI) [Ratio] 39.1 kg/m2 [facility] 08-16-2024 15:32-0500 Body weight 116.68 kg [facility] 08-16-2024 15:32-0500 Diastolic blood pressure 82 mm[Hg] [facility] 08-16-2024 15:32-0500 Heart rate 71 /min [facility] 08-16-2024 15:32-0500 Respiratory rate 12 /min [facility] 08-16-2024 15:32-0500 Systolic blood pressure 144 mm[Hg] [facility] 08-11-2024 15:36-0500 Body height 172.72 cm [facility] 08-11-2024 15:36-0500 Body mass index (BMI) [Ratio] 30.4 kg/m2 [facility] 08-11-2024 15:36-0500 Body temperature 98.2 [degF] [facility] 08-11-2024 15:36-0500 Body weight 90.71 kg [facility] 08-11-2024 15:36-0500 Diastolic blood pressure 76 mm[Hg] [facility] 08-11-2024 15:36-0500 Heart rate 63 /min [facility] 08-11-2024 15:36-0500 Respiratory rate 18 /min [facility] 08-11-2024 15:36-0500 SaO2% (BldA) [Mass fraction] 97 % [facility] 08-11-2024 15:36-0500 Systolic blood pressure 145 mm[Hg] [facility] 07-13-2024 09:54-0500 Body height 172.7 cm Babatunde Brown DPM Work Phone: [facility] 07-13-2024 09:54-0500 Body mass index (BMI) [Ratio] 28.89 kg/m2 Babatunde Brown DPM Work Phone: [facility] 07-13-2024 09:54-0500 Body weight 86.18 kg Babatunde Brown DPM Work Phone: [facility] 07-13-2024 09:54-0500 Respiratory rate 18 /min Babatunde Brown DPM Work Phone: [facility] 06-29-2024 15:05-0500 Body height 172.7 cm Babatunde Brown DPM Work Phone: [facility] 06-29-2024 15:05-0500 Body mass index (BMI) [Ratio] 28.89 kg/m2 Babatunde Brown DPM Work Phone: [facility] 06-29-2024 15:05-0500 Body weight 86.18 kg Babatunde Brown DPM Work Phone: [facility] 06-29-2024 15:05-0500 Respiratory rate 18 /min Babatunde Brown DPM Work Phone: [facility] 06-08-2024 10:38-0500 Body height 172.7 cm Babatunde Brown DPM Work Phone: [facility] 06-08-2024 10:38-0500 Body mass index (BMI) [Ratio] 28.89 kg/m2 Babatunde Malcolm DPM Work Phone: [facility] 06-08-2024 10:38-0500 Body weight 86.18 kg Babatunde Malcolm DPM Work Phone: [facility] 06-08-2024 10:38-0500 Respiratory rate 18 /min Babatunde Malcolm DPM Work Phone: [facility] 06-02-2024 08:42-0500 Body height 172.72 cm Bhaskar Ball DO Work Phone: [facility] 06-02-2024 08:42-0500 Body mass index (BMI) [Ratio] 30.7 kg/m2 Bhaskar Ball DO Work Phone: [facility] 06-02-2024 08:42-0500 Body weight 91.62 kg Bhaskar Ball DO Work Phone: [facility] 06-02-2024 08:42-0500 Diastolic blood pressure 80 mm[Hg] Bhaskar Ball DO Work Phone: [facility] 06-02-2024 08:42-0500 Heart rate 68 /min Bhaskar Ball DO Work Phone: [facility] 06-02-2024 08:42-0500 Respiratory rate 12 /min Bhaskar Ball DO Work Phone: [facility] 06-02-2024 08:42-0500 Systolic blood pressure 140 mm[Hg] Bhaskar Ball DO Work Phone: [facility] 05-18-2024 15:32-0400 Body mass index (BMI) [Ratio] 28.89 kg/m2 Silvana Hemmer PA Work Phone: [facility] 05-18-2024 15:32-0400 Body temperature 97.81 [degF] Silvana Hemmer PA Work Phone: [facility] 05-18-2024 15:32-0400 Body weight 86.18 kg Silvana Hemmer PA Work Phone: [facility] 05-18-2024 15:32-0400 Diastolic blood pressure 92 mm[Hg] Silvana Hemmer PA Work Phone: [facility] 05-18-2024 15:32-0400 Heart rate 69 /min Silvana Hemmer PA Work Phone: [facility] 05-18-2024 15:32-0400 SaO2% (BldA) [Mass fraction] 98 % Silvana Hemmer PA Work Phone: [facility] 05-18-2024 15:32-0400 Systolic blood pressure 138 mm[Hg] Silvana Hemmer PA Work Phone: [facility] 04-14-2024 08:43-0400 Diastolic blood pressure 78 mm[Hg] DO Bhaskar Ball Work Phone: [facility] 04-14-2024 08:43-0400 Heart rate 57 /min DO Bhaskar Ball Work Phone: [facility] 04-14-2024 08:43-0400 Respiratory rate 16 /min DO Bhaskar Ball Work Phone: [facility] 04-14-2024 08:43-0400 SaO2% (BldA) [Mass fraction] 97 % DO Bhaskar Ball Work Phone: [facility] 04-14-2024 08:43-0400 Systolic blood pressure 130 mm[Hg] DO Bhaskar Ball Work Phone: [facility] 04-14-2024 07:07-0400 Body height 172.72 cm DO Bhaskar Ball Work Phone: [facility] 04-14-2024 07:07-0400 Body weight 86.18 kg DO Bhaskar Ball Work Phone: [facility] 03-09-2024 15:33-0400 Body height 172.7 cm Babatunde Malcolm DPM Work Phone: [facility] 03-09-2024 15:33-0400 Body mass index (BMI) [Ratio] 28.89 kg/m2 Babatunde Malcolm DPM Work Phone: [facility] 03-09-2024 15:33-0400 Body weight 86.18 kg Babatunde Malcolm DPM Work Phone: [facility] 03-09-2024 15:33-0400 Diastolic blood pressure 80 mm[Hg] Babatunde Malcolm DPM Work Phone: [facility] 03-09-2024 15:33-0400 Heart rate 89 /min Babatunde Malcolm DPM Work Phone: [facility] 03-09-2024 15:33-0400 Systolic blood pressure 130 mm[Hg] Babatunde Malcolm DPM Work Phone: [facility] 02-14-2024 15:40-0400 Body height 172.72 cm [facility] 02-14-2024 15:40-0400 Body mass index (BMI) [Ratio] 28.9 kg/m2 [facility] 02-14-2024 15:40-0400 Body weight 86.29 kg [facility] 02-14-2024 15:40-0400 Diastolic blood pressure 74 mm[Hg] [facility] 02-14-2024 15:40-0400 Heart rate 57 /min [facility] 02-14-2024 15:40-0400 Respiratory rate 12 /min [facility] 02-14-2024 15:40-0400 Systolic blood pressure 120 mm[Hg] [facility] 12-10-2023 09:02-0400 Body height 172.72 cm DO Bhaskar Ball Work Phone: [facility] 12-10-2023 09:02-0400 Body mass index (BMI) [Ratio] 30.7 kg/m2 DO Bhaskar Ball Work Phone: [facility] 12-10-2023 09:02-0400 Body weight 91.62 kg DO Bhaskar Ball Work Phone: [facility] 12-10-2023 09:02-0400 Diastolic blood pressure 89 mm[Hg] DO Bhaskar Ball Work Phone: [facility] 12-10-2023 09:02-0400 Heart rate 63 /min DO Bhaskar Ball Work Phone: [facility] 12-10-2023 09:02-0400 Respiratory rate 12 /min DO Bhaskar Ball Work Phone: [facility] 12-10-2023 09:02-0400 Systolic blood pressure 144 mm[Hg] DO Bhaskar Ball Work Phone: [facility] 10-26-2023 14:00-0400 Body height 172.72 cm [facility] 10-26-2023 14:00-0400 Body mass index (BMI) [Ratio] 32.2 kg/m2 [facility] 10-26-2023 14:00-0400 Body weight 96.16 kg [facility] 10-26-2023 14:00-0400 Diastolic blood pressure 90 mm[Hg] [facility] 10-26-2023 14:00-0400 Heart rate 77 /min [facility] 10-26-2023 14:00-0400 Respiratory rate 12 /min [facility] 10-26-2023 14:00-0400 Systolic blood pressure 152 mm[Hg] [facility] 08-30-2023 15:00-0500 Body height 172.72 cm Bhaskar Ball Other [facility] Other 08-30-2023 15:00-0500 Body mass index (BMI) [Ratio] 32.69 kg/m2 Bhaskar Ball Other [facility] Other 08-30-2023 15:00-0500 Body weight 97.52 kg Bhaskar Ball Other [facility] Other 08-30-2023 15:00-0500 Diastolic blood pressure 85 mm[Hg] Bhaskar Ball Other [facility] Other 08-30-2023 15:00-0500 Respiratory rate 16 /min Bhaskar Ball Other [facility] Other 08-30-2023 15:00-0500 Systolic blood pressure 135 mm[Hg] Bhaskar Ball Other [facility] Other 04-27-2023 18:20-0400 Body height 172.72 cm Jennifer Mccarthy Other [facility] Other 04-27-2023 18:20-0400 Body mass index (BMI) [Ratio] 31.14 kg/m2 Jennifer Mccarthy Other [facility] Other 04-27-2023 18:20-0400 Body temperature 98.2 [degF] Jennifer Mccarthy Other [facility] Other 04-27-2023 18:20-0400 Body weight 92.9 kg Jennfier Mccarthy Other [facility] Other 04-27-2023 18:20-0400 Diastolic blood pressure 86 mm[Hg] Jennifer Mccarthy Other [facility] Other 04-27-2023 18:20-0400 Respiratory rate 18 /min Jennifer Mccarthy Other [facility] Other 04-27-2023 18:20-0400 SaO2% (BldA) [Mass fraction] 99 % Jennifer Mccarthy Other [facility] Other 04-27-2023 18:20-0400 Systolic blood pressure 127 mm[Hg] Jennifer Mccarthy Other [facility] Other 01-22-2023 14:00-0400 Body height 172.72 cm Bhaskar Ball Other [facility] Other 01-22-2023 14:00-0400 Body mass index (BMI) [Ratio] 30.16 kg/m2 Bhaskar Ball Other [facility] Other 01-22-2023 14:00-0400 Body weight 89.99 kg Bhaskar Ball Other [facility] Other 01-22-2023 14:00-0400 Diastolic blood pressure 82 mm[Hg] Bhaskar Ball Other [facility] Other 01-22-2023 14:00-0400 Respiratory rate 12 /min Bhaskar Ball Other [facility] Other 01-22-2023 14:00-0400 Systolic blood pressure 133 mm[Hg] Bhaskar Ball Other [facility] Other 12-17-2022 14:36-0400 Diastolic blood pressure 68 mm[Hg] DO Bhaskar Ball Work Phone: [facility] 12-17-2022 14:36-0400 Heart rate 88 /min DO Bhaskar Ball Work Phone: [facility] 12-17-2022 14:36-0400 Respiratory rate 16 /min DO Bhaskar Ball Work Phone: [facility] 12-17-2022 14:36-0400 SaO2% (BldA) [Mass fraction] 95 % DO Bhaskar Ball Work Phone: [facility] 12-17-2022 14:36-0400 Systolic blood pressure 101 mm[Hg] DO Bhaskar Ball Work Phone: [facility] 12-17-2022 12:47-0400 Body height 172.72 cm DO Bhaskar Ball Work Phone: [facility] 12-17-2022 12:47-0400 Body temperature 98.8 [degF] DO Bhaskar Ball Work Phone: [facility] 12-17-2022 12:47-0400 Body weight 88.45 kg DO Bhaskar Reddy Work Phone: [facility] 05-27-2022 17:25-0500 Body height 172.72 cm Mini Alma Other [facility] Other 05-27-2022 17:25-0500 Body mass index (BMI) [Ratio] 29.65 kg/m2 Mini Alma Other [facility] Other 05-27-2022 17:25-0500 Body temperature 97.7 [degF] Mini Alma Other [facility] Other 05-27-2022 17:25-0500 Body weight 88.45 kg Mini Alma Other [facility] Other 05-27-2022 17:25-0500 Diastolic blood pressure 84 mm[Hg] Mini Alma Other [facility] Other 05-27-2022 17:25-0500 Respiratory rate 18 /min Mini Alma Other [facility] Other 05-27-2022 17:25-0500 SaO2% (BldA) [Mass fraction] 99 % Mini Alma Other [facility] Other 05-27-2022 17:25-0500 Systolic blood pressure 118 mm[Hg] Mini Alma Other [facility] Other Encounters Encounter Date Encounter Type Care Provider Facility Start: 08-16-2024 End: 08-16-2024 ambulatory [facility] Work Phone: Start: 08-16-2024 End: 08-16-2024 Patient encounter procedure [facility] Work Phone: Start: 08-11-2024 End: 08-11-2024 ambulatory [facility] Work Phone: Start: 08-11-2024 End: 08-11-2024 Patient encounter procedure [facility] Work Phone: Start: 07-13-2024 End: 07-13-2024 Bamboo flowsheet Babatunde Malcolm DPM Work Phone: [facility] Start: 07-13-2024 End: 07-13-2024 Bamboo flowsheet Babatunde Malcolm DPM Work Phone: [facility] Start: 07-13-2024 End: 07-13-2024 Patient encounter procedure Babatunde Malcolm DPM Work Phone: [facility] Comment on above: Verruca plantaris (P rimary Dx); Foot pain, right; Foot pain, left Start: 07-13-2024 End: 07-13-2024 ambulatory BABATUNDE MALCOLM Not Available Start: 06-29-2024 End: 06-29-2024 Patient encounter procedure Babatunde Malcolm DPM Work Phone: [facility] Comment on above: Verruca plantaris (P rimary Dx); Foot pain, right; Foot pain, left; Type 2 diabetes mellitus without complication, unspecified whether half-way insulin use ([facility] Start: 06-29-2024 End: 06-29-2024 ambulatory BABATUNDE MALCOLM Not Available Start: 06-29-2024 End: 06-29-2024 Bamboo flowsheet Babatunde Malcolm DPM Work Phone: [facility] Start: 06-29-2024 End: 06-29-2024 Bamboo flowsheet Babatunde Malcolm DPM Work Phone: [facility] Start: 06-08-2024 End: 06-08-2024 Bamboo flowsheet Babatunde Malcolm DPM Work Phone: [facility] Start: 06-08-2024 End: 06-08-2024 Bamboo flowsheet Babatunde Malcolm DPM Work Phone: [facility] Start: 06-08-2024 End: 06-08-2024 ambulatory BABATUNDE MALCOLM Not Available Start: 06-08-2024 End: 06-08-2024 Patient encounter procedure Babatunde Karl Gold DPM Work Phone: [facility] Comment on above: Verruca plantaris (P rimary Dx); Foot pain, right; Type 2 diabetes mellitus without complication, unspecified whether half-way insulin use ([facility]); Metatarsal deformity, right; Foot pain, left Start: 06-02-2024 End: 06-02-2024 ambulatory Bhaskar Reddy DO Work Phone: [facility] Work Phone: Start: 06-02-2024 End: 06-02-2024 Patient encounter procedure Bhaskar Reddy DO Work Phone: [facility] Work Phone: Start: 05-18-2024 End: 05-18-2024 Office outpatient visit 25 minutes Silvana SANCHEZ Work Phone: [facility] Comment on above: Acute cough (Primary Dx); Acute bronchitis, unspecified organism Start: 05-18-2024 End: 05-18-2024 ambulatory SILVANA FULTON Not Available Start: 05-18-2024 End: 05-18-2024 Telephone encounter Silvana SANCHEZ Work Phone: [facility] Start: 04-14-2024 Non-patient / Non-visit DO Tay Reddy Work Phone: [facility] Gastroenterology Work Phone: Start: 04-14-2024 End: 04-14-2024 Admission to same day surgery center DO Bhaskar Reddy Work Phone: [facility] Work Phone: Start: 04-14-2024 End: 04-14-2024 ambulatory DO Bhaskar Reddy Work Phone: [facility] Work Phone: Start: 03-09-2024 End: 03-09-2024 Patient encounter procedure Babatunde Malcolm DPM Work Phone: [facility] Comment on above: Verruca plantaris (P rimary Dx); Foot pain, right; Type 2 diabetes mellitus without complication, unspecified whether technician terminal and repeater insulin use ([facility]); Metatarsal deformity, right Start: 03-09-2024 End: 03-09-2024 ambulatory BABATUNDE MALCOLM Not Available Start: 03-09-2024 End: 03-09-2024 Bamboo flowsheet Babatunde Malcolm DPM Work Phone: [facility] Start: 03-09-2024 End: 03-09-2024 Bamboo flowsheet Babatunde Malcolm DPM Work Phone: [facility] Start: 02-24-2024 End: 02-24-2024 ambulatory BABATUNDE MALCOLM Not Available Start: 02-14-2024 End: 02-14-2024 ambulatory [facility] Work Phone: Start: 02-14-2024 End: 02-14-2024 Encounter for general adult medical examination without abnormal findings [facility] Start: 02-14-2024 End: 02-14-2024 Patient encounter procedure [facility] Work Phone: Start: 02-08-2024 End: 02-08-2024 ambulatory BABATUNDE MALCOLM Not Available Start: 02-05-2024 Non-patient / Non-visit [facility] Work Phone: Start: 12-10-2023 End: 12-10-2023 ambulatory DO Bhaskar Ball Work Phone: [facility] Work Phone: Start: 12-10-2023 End: 12-10-2023 Patient encounter procedure DO Bhaskar Ball Work Phone: [facility] Work Phone: Start: 12-08-2023 End: 12-08-2023 ambulatory DO Bhaskar Ball Work Phone: [facility] Work Phone: Start: 12-08-2023 End: 12-08-2023 Patient encounter procedure DO Bhaskar Ball Work Phone: [facility] Work Phone: Start: 11-09-2023 End: 11-09-2023 ambulatory DO Bhaskar Ball Work Phone: [facility] Work Phone: Start: 11-09-2023 End: 11-09-2023 Patient encounter procedure DO Bhaskar Ball Work Phone: [facility] Work Phone: Start: 10-26-2023 End: 10-26-2023 ambulatory [facility] Work Phone: Start: 10-26-2023 End: 10-26-2023 Patient encounter procedure [facility] Work Phone: Start: 10-11-2023 End: 10-11-2023 ambulatory [facility] Start: 09-09-2023 Non-patient / Non-visit [facility] Work Phone: Start: 08-30-2023 End: 08-30-2023 ambulatory Bhaskar Ball Other [facility] Other Start: 08-30-2023 Office outpatient vi sit 25 minutes Bhaskar Ball [facility] Start: 08-30-2023 Telephone encounter Bhaskar MAYNARD [facility] Start: 07-16-2023 End: 07-16-2023 [facility] Start: 07-07-2023 End: 07-07-2023 Emergency department patient visit Miguel Chen Facility:[facility] Start: 04-27-2023 End: 04-27-2023 ambulatory Jennifer Mccarthy Other [facility] Other Start: 04-27-2023 Office outpatient vi sit 25 minutes Jennifer Fabio [facility] Start: 03-31-2023 End: 03-31-2023 ambulatory Bhaskar Reddy Other [facility] Other Start: 03-31-2023 Telephone encounter Bhaskar MAYNARD [facility] Start: 02-22-2023 End: 02-22-2023 ambulatory Bhaskar Reddy Other [facility] Other Start: 02-22-2023 Telephone encounter Bhaskar MAYNARD [facility] Start: 01-22-2023 End: 01-22-2023 ambulatory Bhaskar Reddy Other [facility] Other Start: 01-22-2023 Encounter for genera l adult medical examination without abnormal findings Bhaskar Reddy [facility] Start: 01-22-2023 Periodic preventive med est patient 40-64yrs Bhaskar Reddy [facility] Start: 01-05-2023 End: 01-05-2023 ambulatory Bhaskar Reddy Other [facility] Other Start: 01-05-2023 Telephone encounter Bhaskar Reddy [facility] Start: 12-17-2022 Telephone encounter Mini MAYNARD [facility] Start: 12-17-2022 End: 12-17-2022 Admission to same day surgery center DO Bhaskar Reddy Work Phone: [facility] Work Phone: Start: 12-17-2022 End: 12-17-2022 ambulatory DO Bhaskar Reddy Work Phone: [facility] Work Phone: Start: 10-27-2022 End: 10-27-2022 ambulatory Bhaskar Reddy Other [facility] Other Start: 10-27-2022 Office outpatient vi sit 15 minutes Bhaskar Reddy [facility] Start: 10-27-2022 Telephone encounter Bhaskar Reddy G [facility] Start: 07-27-2022 End: 08-22-[address] BHASKAR REDDY Facility:[facility] Start: 07-08-2022 Encounter for other preprocedural examination DR JOSELYN GILMAN [facility] Start: 07-03-2022 End: 07-04-[address] BHASKAR REDDY Facility:[facility] Start: 07-03-2022 End: 07-04-2022 Encounter for other preprocedural examination DR BHASKAR REDDY Facility:[facility] Start: 06-03-2022 End: 06-04-2022 ambulatory DO Joselyn Gilman Facility:[facility] Start: 06-03-2022 End: 06-03-2022 Patient encounter procedure Joselyn Gilman [facility] Start: 05-27-2022 End: 05-27-2022 ambulatory Mini Marquez Other [facility] Other Start: 05-27-2022 Office outpatient vi sit 15 minutes Mini Marquez [facility] Start: 2022 End: 02-20-[address] BHASKAR REDDY Facility:[facility] Start: 11-05-2021 Encounter for genera l adult medical examination without abnormal findings DR BHASKAR REDDY [facility] Start: 10-31-2021 End: 11-01-[address] BHASKAR REDDY Facility:[facility] Start: 10-31-2021 End: 11-01-2021 Encounter for general adult medical examination without abnormal findings DR BHASKAR REDDY Facility:[facility] Start: 10-27-2021 Adult health examination Bhaskar Reddy Other [facility] Other Start: 02-16-2018 Patient encounter SHILA CARRANZA Facility:[id number] Start: 02-16-2018 Patient encounter Facil [id number] Procedures Date Procedure Procedure Detail Performing Clinician Start: 08-11-2024 Quick Strep (POC) Start: 04-14-2024 Esophagogastroduodenoscopy DO Bhaskar Sharp all Work Phone: Start: 11-09-2023 Plain X-ray of bilateral hands DO Power Reddy Work Phone: Start: 12-17-2022 Esophagogastroduodenoscopy DO Bhaskar Sharp all Work Phone: Start: 10-31-[address] BHASKAR REDDY Comment on above: Performed By: #### [facility] #### [facility] [address] [place] [address] Dr. Sergey Zamorano Start: 09-26-2018 General examination [...] Treatment Date Care Activity Detail Author Start: 07-13-2024 End: 07-13-2024 Patient encounter procedure [facility] Comment on above: Verruca plantaris (P rimary Dx); Foot pain, right; Foot pain, left Start: 06-29-2024 End: 06-29-2024 Patient encounter procedure 06/29/2024 3:10 PM EST Office Visit [facility] [address] [facility] [address] [place] [address] Babatunde Malcolm DPM [address] [address] Verruca plantaris (Primary Dx); Foot pain, right; Foot pain, left; Type 2 diabetes mellitus without complication, unspecified whether half-way insulin use (CMS/HCC) [facility] Comment on above: Verruca plantaris (P rimary Dx); Foot pain, right; Foot pain, left; Type 2 diabetes mellitus without complication, unspecified whether technician terminal and repeater insulin use (CMS/HCC) Start: 05-18-2024 End: 05-18-2025 XR Chest 2 Views [facility] Work Phone: Comment on above: Expected: 05/18/2024 , Expires: 05/18/2025 Start: 04-14-2024 [facility] Start: 03-19-2024 Influenza vaccination Influenza Vacc ine (#1) [facility] Start: 03-09-2024 End: 03-09-2024 Patient encounter procedure 03/09/2024 3:30 PM EDT Office Visit [facility] [address] [facility] [address] [place] [id number] Babatunde Malcolm DPM [address] [address] Verruca plantaris (Primary Dx); Foot pain, right; Type 2 diabetes mellitus without complication, unspecified whether half-way insulin use ([facility]/HCC); Metatarsal deformity, right [facility] Comment on above: Verruca plantaris (P rimary Dx); Foot pain, right; Type 2 diabetes mellitus without complication, unspecified whether technician terminal and repeater insulin use (CMS/HCC); Metatarsal deformity, right Start: 11-09-2023 Plain X-ray of bilat eral hands XR hand BI 3V [facility] Start: 11-09-2023 XR Hand - bilateral 3 Views [facility] Start: 12-17-2022 [facility] Start: 1965 Screening for malign ant neoplasm of colon [facility] Comprehensive metabo lic 1999 panel - Serum or Plasma [facility] Patient Education [facility] Work Phone: [place] Upper extremity artery - right [facility] XR Shoulder - right Views [facility] Immunizations Immunization Date Immunization Notes Care Provider Fa cility 05-07-2023 Influenza, injectabl e, Madin Francesca Canine Kidney, preservative free, quadrivalent Babatunde Malcolm DPM Work Phone: [facility] 05-07-2023 influenza virus vaccine, unspecified formulation Babatunde Malcolm DPM Work Phone: [facility] 04-13-2014 tetanus and diphther ia toxoids, adsorbed, preservative free, for adult use (5 Lf of tetanus toxoid and 2 Lf of diphtheria toxoid) Bhaskar Reddy Other [facility] 04-13-2013 tetanus and diphther ia toxoids, adsorbed, preservative free, for adult use (5 Lf of tetanus toxoid and 2 Lf of diphtheria toxoid) Bhaskar Reddy Other [facility] Payers Date Payer Category Payer [facility] er [id number] 2022 Unknown [facility] BCBS [id number] 2022-Present [phone] [address] [place] [address] [id number] 1967 Unknown [id number] 2.16.840.1.176771.3.579 .2.727 1967 Unknown [id number] 2.16.840.1.320247.3.579 .2.593 1967 Unknown [id number] 2.16.840.1.394897.3.579 .2.593 1967 Unknown [id number] 2.16.840.1.297064.3.579 .2.593 1967 Unknown [id number] 2.16.840.1.567683.3.579 .2.593 1967 Unknown [id number] 2.16840.1.716806.3.579 .2.182 1967 Unknown [id number] 2.840.1.849012.3.579 .2.1259 1967 Unknown [id number] 2.840.1.915571.3.579 .2.1259 1967 Unknown [id number] 2.840.1.581605.3.579 .2.1259 1967 Unknown [id number] 2.16840.1.192665.3.579 .2.1259 1967 Unknown [id number] 2.840.1.205982.3.579 .2.1259 1967 Unknown [id number] 2.840.1.103131.3.579 .2.1259 1967 Unknown [id number] 2.840.1.858873.3.579 .2.1259 1967 Unknown [id number] 2.16840.1.312149.3.579 .2.1259 1959 [employer] [facility] [id number] [id number] 1957 Self-pay Private Health Insurance [id number] Unknown [id number] 2.16.840.1.588853.3.579 .2.593 Unknown [id number] 2.16.840.1.044308.3.579 .2.531 Unknown [id number] 2.16.840.1.307961.3.579 .2.531 Unknown [id number] 2.16.840.1.692404.3.579 .2.531 Unknown Ozzie GONSALVES/ANGELITA [id number] Social History Date Type Detail Facility Unknown if ever smoked [facility] Other Start: 03-09-2024 End: 06-29-2024 Sex Assigned At [facility] Tobacco smoking status No Smoking Status Entered [facility] Start: 12-26-2021 End: 08-11-2024 Tobacco smoking status NHIS Never smoked tobacco (finding) [facility] Start: 1965 Sex Assigned At Male [facility] Start: 02-08-2024 Tobacco use and exposure Smokeless tobacco non-user [facility] Start: 05-18-2024 End: 07-13-2024 Alcoholic beverage intake Current drinker of alcohol (finding) [facility] Start: 05-18-2024 End: 06-29-2024 Alcoholic beverage intake [facility] Start: 02-08-2024 Alcohol Comment 2 cups of coff ee daily [facility] Start: 1965 Sex assigned at Not on file [facility] Start: 06-02-2024 End: 08-16-2024 Sex Male (finding) [facility] NEGATED: Highlighted rowStart: NINF History of tobacco use Passive smoker [facility] Medical Equipment Procedure Code Equipment Code Equipment [...] Desired Activity /State Clinical Notes 05-27-2022 to 07-13-2024 Babatunde Barajas Gold, DP - 07/13/2024 10:00 AM Jesús Malcolm, DPM - 06/29/2024 3:10 PM Nealamadeo Malcolm, DPM - 06/08/2024 10:30 AM EST Note Date & Type Note Facility 07-13-2024 History of Presen t illness Narrative Patient: Misael Aguilar : 1965 PCP: Bhaskar Reddy MD SUBJECTIVE Misael Aguilar 59 y.o. presents today for follow up of skin lesion/neoplasm of unknown origin to the right and left foot Pt states that previous treatment of acid tx with improvement Pt rates pain the pain on a 1-10 scale an intensity of 3 Pt presents today for followup. He is also type 2 diabetic with currently controlled sugars denies numbness to feet Patient also has history of right 5th metatarsal deformity Allergies: No Known Allergies Past Medical History: Past Medical History: Diagnosis Date Diabetes (CMS/[facility]) Hypertension ([facility]) Medications: Current Outpatient Medications: aspirin 81 MG EC tablet, Take 1 tablet by mouth Daily, Disp: , Rfl: atorvastatin (Lipitor) 40 MG tablet, Take 40 mg by mouth at bedtime, Disp: , Rfl: celecoxib (CeleBREX) 50 MG capsule, Take 50 mg by mouth in the morning and 50 mg before bedtime., Disp: , Rfl: lisinopril 10 MG tablet, Take 10 mg by mouth Daily, Disp: , Rfl: metoprolol succinate XL (Toprol-XL) 50 MG 24 hr tablet, TAKE 1 TABLET BY MOUTH EVERY DAY FOR 90 DAYS, Disp: , Rfl: sildenafil (Viagra) 100 MG tablet, Take 100 mg by mouth Daily as needed, Disp: , Rfl: Trulicity 0.75 MG/0.5ML solution pen-injector, INJECT 1 PEN SUBCUTANEOUSLY ONCE A WEEK, Disp: , Rfl: Social History: Social History Socioeconomic History Marital status: Spouse name: Not on file Number of children: Not on file Years of education: Not on file Highest education level: Not on file Occupational History Not on file Tobacco Use Smoking status: Never Passive exposure: Never Smokeless tobacco: Never Vaping Use Vaping status: Unknown Substance and Sexual Activity Alcohol use: Yes Alcohol/week: 1.0 standard drink of alcohol Types: 1 Cans of beer per week Comment: 2 cups of coffee daily Drug use: Defer Sexual activity: Defer Other Topics Concern Not on file Social History Narrative Not on file Social Drivers of Health Financial Resource Strain: Not on file Food Insecurity: Not on file Transportation Needs: Not on file Physical Activity: Not on file Stress: Not on file Social Connections: Not on file Intimate Partner Violence: Unknown (09/09/2023) Received from [facility] Fear of Current or Ex-Partner: Not on file Emotionally Abused: Not on file Physically Abused: Not on file Sexually Abused: Not on file Physically or Sexually Abused: Not on file Housing Stability: Not on file ROS: General: denies fever, chills, fatigue, malaise OBJECTIVE LE EXAM: DERM: Positive hair growth to b/l feet with good skin turgor noted. Negative openings in skin. Nummular lesion measuring at the right sub 5th metatarsal measuring 0.2 cm x 0.3 cm and left sub 5th metatarsal region measuring 0.05 cm x 0.05 cm VASC: Palpable pedal pulsed b/l with warm to cool tibia to toes b/l NEURO: 5.07 [place] James monofilament test positive to digits and forefoot bilaterally 125Hz tuning fork positive to 1st MPJ bilaterally ORTHO: +5/5 DF/PF/IN/EV right, +5/5 DF/PF/IN/EV left. 20 degrees inversion and 10 degrees eversion STJ b/l. Ankle ROM less than 10 degrees b/l. Minimal pain on palpation to right and left foot lesion Plantar flexed right 5th metatarsal XRAY: US: ASSESSMENT 1. Verruca plantaris 2. Foot pain, right 3. Foot pain, left PLAN Application of salinocaine acid medication to lesion/lesions located at right foot Informed pt of risks and benefits of procedure including high reoccurence rate, infection, pain and consent given. Application of DSD post procedure. Application of salinocaine acid medication to lesion/lesions located at left foot Informed pt of risks and benefits of procedure including high reoccurence rate, infection, pain and consent given. Application of DSD post procedure. Babatunde Malcolm DPM documented in this encounter [facility] 06-29-2024 History of Presen t illness Narrative Patient: Misael Aguilar : 1965 PCP: Bhaskar Reddy MD SUBJECTIVE Misael Aguilar 59 y.o. presents today for follow up of skin lesion/neoplasm of unknown origin to the right and left foot Pt states that previous treatment of acid tx with improvement Pt rates pain the pain on a 1-10 scale an intensity of 2 Pt presents today for followup. He is also type 2 diabetic with currently controlled sugars denies numbness to feet Patient also has history of right 5th metatarsal deformity Allergies: No Known Allergies Past Medical History: Past Medical History: Diagnosis Date Diabetes ([facility]) Hypertension ([facility]) Medications: Current Outpatient Medications: aspirin 81 MG EC tablet, Take 1 tablet by mouth Daily, Disp: , Rfl: atorvastatin (Lipitor) 40 MG tablet, Take 40 mg by mouth at bedtime, Disp: , Rfl: celecoxib (CeleBREX) 50 MG capsule, Take 50 mg by mouth in the morning and 50 mg before bedtime., Disp: , Rfl: lisinopril 10 MG tablet, Take 10 mg by mouth Daily, Disp: , Rfl: metoprolol succinate XL (Toprol-XL) 50 MG 24 hr tablet, TAKE 1 TABLET BY MOUTH EVERY DAY FOR 90 DAYS, Disp: , Rfl: sildenafil (Viagra) 100 MG tablet, Take 100 mg by mouth Daily as needed, Disp: , Rfl: Trulicity 0.75 MG/0.5ML solution pen-injector, INJECT 1 PEN SUBCUTANEOUSLY ONCE A WEEK, Disp: , Rfl: Social History: Social History Socioeconomic History Marital status: Spouse name: Not on file Number of children: Not on file Years of education: Not on file Highest education level: Not on file Occupational History Not on file Tobacco Use Smoking status: Never Passive exposure: Never Smokeless tobacco: Never Vaping Use Vaping status: Unknown Substance and Sexual Activity Alcohol use: Yes Alcohol/week: 1.0 standard drink of alcohol Types: 1 Cans of beer per week Comment: 2 cups of coffee daily Drug use: Defer Sexual activity: Defer Other Topics Concern Not on file Social History Narrative Not on file Social Drivers of Health Financial Resource Strain: Not on file Food Insecurity: Not on file Transportation Needs: Not on file Physical Activity: Not on file Stress: Not on file Social Connections: Not on file Intimate Partner Violence: Unknown (09/09/2023) Received from [facility] Fear of Current or Ex-Partner: Not on file Emotionally Abused: Not on file Physically Abused: Not on file Sexually Abused: Not on file Physically or Sexually Abused: Not on file Housing Stability: Not on file ROS: General: denies fever, chills, fatigue, malaise OBJECTIVE LE EXAM: DERM: Positive hair growth to b/l feet with good skin turgor noted. Negative openings in skin. Nummular lesion measuring at the right sub 5th metatarsal measuring 0.2 cm x 0.3 cm and left sub 5th metatarsal region measuring 0.2 cm x 0.1 cm VASC: Palpable pedal pulsed b/l with warm to cool tibia to toes b/l NEURO: 5.07 [place] James monofilament test positive to digits and forefoot bilaterally 125Hz tuning fork positive to 1st MPJ bilaterally ORTHO: +5/5 DF/PF/IN/EV right, +5/5 DF/PF/IN/EV left. 20 degrees inversion and 10 degrees eversion STJ b/l. Ankle ROM less than 10 degrees b/l. Minimal pain on palpation to right and left foot lesion Plantar flexed right 5th metatarsal XRAY: US: ASSESSMENT 1. Verruca plantaris 2. Foot pain, right 3. Foot pain, left 4. Type 2 diabetes mellitus without complication, unspecified whether technician terminal and repeater insulin use ([facility]) PLAN Application of salinocaine acid medication to lesion/lesions located at right foot Informed pt of risks and benefits of procedure including high reoccurence rate, infection, pain and consent given. Application of DSD post procedure. Babatunde Malcolm DPM documented in this encounter [facility] 06-08-2024 History of Presen t illness Narrative Patient: Misael Aguilar : 1965 PCP: Bhaskar Reddy MD SUBJECTIVE Misael Aguilar 59 y.o. presents today for follow up of skin lesion/neoplasm of unknown origin to the right foot Pt states that previous treatment of acid tx with improvement Pt rates pain the pain on a 1-10 scale an intensity of 7 Pt presents today for followup. He is also type 2 diabetic with currently controlled sugars denies numbness to feet Patient also has history of right 5th metatarsal deformity Allergies: No Known Allergies Past Medical History: Past Medical History: Diagnosis Date Diabetes ([facility]/HCC) Hypertension (CMS/HCC) Medications: Current Outpatient Medications: aspirin 81 MG EC tablet, Take 1 tablet by mouth Daily, Disp: , Rfl: atorvastatin (Lipitor) 40 MG tablet, Take 40 mg by mouth at bedtime, Disp: , Rfl: celecoxib (CeleBREX) 50 MG capsule, Take 50 mg by mouth in the morning and 50 mg before bedtime., Disp: , Rfl: lisinopril 10 MG tablet, Take 10 mg by mouth Daily, Disp: , Rfl: metoprolol succinate XL (Toprol-XL) 50 MG 24 hr tablet, TAKE 1 TABLET BY MOUTH EVERY DAY FOR 90 DAYS, Disp: , Rfl: sildenafil (Viagra) 100 MG tablet, Take 100 mg by mouth Daily as needed, Disp: , Rfl: Trulicity 0.75 MG/0.5ML solution pen-injector, INJECT 1 PEN SUBCUTANEOUSLY ONCE A WEEK, Disp: , Rfl: Social History: Social History Socioeconomic History Marital status: Spouse name: Not on file Number of children: Not on file Years of education: Not on file Highest education level: Not on file Occupational History Not on file Tobacco Use Smoking status: Never Passive exposure: Never Smokeless tobacco: Never Vaping Use Vaping status: Unknown Substance and Sexual Activity Alcohol use: Yes Alcohol/week: 1.0 standard drink of alcohol Types: 1 Cans of beer per week Comment: 2 cups of coffee daily Drug use: Defer Sexual activity: Defer Other Topics Concern Not on file Social History Narrative Not on file Social Drivers of Health Financial Resource Strain: Not on file Food Insecurity: Not on file Transportation Needs: Not on file Physical Activity: Not on file Stress: Not on file Social Connections: Not on file Intimate Partner Violence: Unknown (09/09/2023) Received from [facility] Fear of Current or Ex-Partner: Not on file Emotionally Abused: Not on file Physically Abused: Not on file Sexually Abused: Not on file Physically or Sexually Abused: Not on file Housing Stability: Not on file ROS: General: denies fever, chills, fatigue, malaise OBJECTIVE LE EXAM: DERM: Positive hair growth to b/l feet with good skin turgor noted. Negative openings in skin. Nummular lesion measuring at the right sub 5th metatarsal measuring 0.3 cm x 0.3 cm and left sub 5th metatarsal region measuring 0.2 cm x 0.1 cm VASC: Palpable pedal pulsed b/l with warm to cool tibia to toes b/l NEURO: 5.07 [place] James monofilament test positive to digits and forefoot bilaterally 125Hz tuning fork positive to 1st MPJ bilaterally ORTHO: +5/5 DF/PF/IN/EV right, +5/5 DF/PF/IN/EV left. 20 degrees inversion and 10 degrees eversion STJ b/l. Ankle ROM less than 10 degrees b/l. Minimal pain on palpation to right foot lesion Plantar flexed right 5th metatarsal XRAY: US: ASSESSMENT 1. Verruca plantaris 2. Foot pain, right 3. Type 2 diabetes mellitus without complication, unspecified whether technician terminal and repeater insulin use ([facility]) 4. Metatarsal deformity, right PLAN Application of salinocaine acid medication to lesion/lesions located at right foot Informed pt of risks and benefits of procedure including high reoccurence rate, infection, pain and consent given. Application of DSD post procedure. Babatunde Malcolm DPM documented in this encounter [facility] 06-02-2024 Evaluation note Diagnosis Onset Date Resolution Acute bronchitis due to other specified organisms acute June 02, 2 024 8:40am Type 2 diabetes mellitus with hyperglycemia acute May 8:40am Sore throat noneactive August 11, 2024 3:25pm [facility] Work Phone: 1(199) 354-295511-15-2024 Evaluation note* Diagnosis Onset Date Resolution Status Admit Date Acute bronchitis due to othe r specified organisms acute May 8:40am Type 2 diabetes mellitus wit h hyperglycemia acute June 02, 2 024 8:40am Acute maxillary sinusitis acute August 11, 2024 3:25pm ASHD (arteriosclerotic heart disease) acute August 16 3:19pm GERD (gastroesophageal reflu x disease) acute August 16 3:19pm Hypercholesterolemia acute German rafy 2024 3:19pm Hypertension acute July 3:19pm Type 2 diabetes mellitus wit h hyperglycemia acute August 16 3:19pm Sore throat (viral) noneactive Janua ry 2024 3:19pm [facility] Work Phone: [phone]) 357-945110-31-2024 Telephone encounter Note* Telephone Encounter - DANIEL Hdez - 05/18/2024 5:26 PM EDT Called and left detailed message with XR results. Advised proceed with treatment as planned. Needs to follow up with Dr. Reddy for recheck in 1-2 weeks, consider repeat CXR in 4 weeks or so to assess for resolution. [id number] Miscellaneous Notes* Telephone Encounter - DANIEL Hdez - 05/18/2024 5:26 PM EDT Called and left detailed message with XR results. Advised proceed with treatment as planned. Needs to follow up with Dr. Reddy for recheck in 1-2 weeks, consider repeat CXR in 4 weeks or so to assess for resolution. documented in this encounterSaint John's Health [id number] History of Present illness Narrative* DANIEL Hdez - 05/18/2024 3:30 PM EDT Images from the original note were not included. HPI: Historian of HPI: patient Darrius Aguilar is a 59 y.o. male who presents today to the Urgent Care with the following complaints and denials which have been present for 1 day(s) C/O Denies Symptom Comments [] [x] Runny Nose [] [x] Difficulty Swallowing [x] [] Sore Throat [x] [] Cough [] [x] Ear Pain [x] [] Fever [x] [] Chills [x] [] Chest Congestion [] [x] Myalgia [] [x] Sinus Pain [] [x] Sinus Pressure Additional Comments: pt has taken musinex, tylenol, capron OTC medication with relief Pt was advised to possibly get a chest x-ray Current Outpatient Medications on File Prior to Visit Medication Sig Dispense Refill aspirin 81 MG EC tablet Take 1 tablet by mouth Daily atorvastatin (Lipitor) 40 MG tablet Take 40 mg by mouth at bedtime celecoxib (CeleBREX) 50 MG capsule Take 50 mg by mouth in the morning and 50 mg before bedtime. lisinopril 10 MG tablet Take 10 mg by mouth Daily metoprolol succinate XL (Toprol-XL) 50 MG 24 hr tablet TAKE 1 TABLET BY MOUTH EVERY DAY FOR 90 DAYS sildenafil (Viagra) 100 MG tablet Take 100 mg by mouth Daily as needed Trulicity 0.75 MG/0.5ML solution pen-injector INJECT 1 PEN SUBCUTANEOUSLY ONCE A WEEK No current facility-administered medications on file prior to visit. No Known Allergies Social History Tobacco Use Smoking status: Never Passive exposure: Never Smokeless tobacco: Never Vaping Use Vaping status: Unknown Substance Use Topics Alcohol use: Yes Alcohol/week: 1.0 standard drink of alcohol Types: 1 Cans of beer per week Comment: 2 cups of coffee daily Drug use: Defer No family history on file. Past Medical History: Diagnosis Date Diabetes (CMS/HCC) Hypertension (CMS/HCC) Past Surgical History: Procedure Laterality Date APPENDECTOMY HEART CATH with stents HERNIA REPAIR HIP SURGERY Visit Vitals BP (!) 138/92 Pulse 69 Temp 97.8 F Wt 190 lb SpO2 98% BMI 28.89 kg/m Smoking Status Never BSA 2.03 m ROS: A complete system ROS was performed and negative aside from the pertinent positives noted in the HPI and PE. Physical Exam Constitutional: General: He is not in acute distress. Appearance: Normal appearance. HENT: Head: Normocephalic and atraumatic. Right Ear: Tympanic membrane and ear canal normal. Left Ear: There is impacted cerumen. Nose: Right Turbinates: Not swollen. Left Turbinates: Not swollen. Comments: Turbinates erythematous Mouth/Throat: Mouth: Mucous membranes are moist. Pharynx: Posterior oropharyngeal erythema (Minimal) present. Eyes: General: No scleral icterus. Cardiovascular: Rate and Rhythm: Normal rate and regular rhythm. Heart sounds: No murmur heard. Pulmonary: Effort: Pulmonary effort is normal. No respiratory distress. Breath sounds: Decreased air movement (In lower lungs) present. No wheezing, rhonchi or rales. Comments: Pt had hard time taking a deep breath without coughing. Dry paroxysmal cough Musculoskeletal: General: No swelling. Lymphadenopathy: Cervical: Cervical adenopathy (Tender right submandibular lymphadenopathy) present. Skin: General: Skin is warm and dry. Neurological: General: No focal deficit present. Mental Status: He is alert and oriented to person, place, and time. Psychiatric: Mood and Affect: Mood normal. Behavior: Behavior normal. Assessment/Plan Diagnoses and all orders for this visit: Acute cough - XR chest 2 views; Future Three x-ray views of the chest, preliminary read, showed increased vascular markings on right. No obvious pneumonia. Acute bronchitis, unspecified organism - azithromycin (Zithromax) 250 MG tablet; Take 2 tablets (500 mg) by mouth Daily for 1 day, THEN 1 tablet (250 mg) Daily for 4 days. - predniSONE (Deltasone) 10 MG tablet; Take 1 tablet (10 mg) by mouth in the morning and 1 tablet (10 mg) at noon. Do all this for 5 days. Take with breakfast and with lunch. Start the above medications as directed. Advised of potential side effects of the steroid. Patient is to take the steroid with food. Can continue the Maurepas he has at home prn for cough. Increase water intake, get plenty of rest. Can take Tylenol prn for any discomfort or fever. No other anti-inflammatories while on steroid. Cough into elbow. Wash hands often. Advised patient that cough can linger with bronchitis. Follow up with PCP if no improvement in one week. MORRIS ChapmanC documented in this encounterSaint John's Health [id number] [facility] History of Present illness Narrative* Babatunde Malcolm DPM - 03/09/2024 3:30 PM EDT Patient: Misael Aguilar : 1965 PCP: Bhaskar Reddy MD SUBJECTIVE Misael Aguilar 59 y.o. presents today for follow up of skin lesion/neoplasm of unknown origin to the right foot Pt states that previous treatment of acid tx with improvement Pt rates pain the pain on a 1-10 scale an intensity of 0-1 Pt presents today for followup. He is also type 2 diabetic with currently controlled sugars denies numbness to feet Allergies: No Known Allergies Past Medical History: Past Medical History: Diagnosis Date Diabetes ([facility]) Hypertension ([facility]) Medications: Current Outpatient Medications: aspirin 81 MG EC tablet, Take 1 tablet by mouth Daily, Disp: , Rfl: atorvastatin (Lipitor) 40 MG tablet, Take 40 mg by mouth at bedtime, Disp: , Rfl: celecoxib (CeleBREX) 50 MG capsule, Take 50 mg by mouth in the morning and 50 mg before bedtime., Disp: , Rfl: lisinopril 10 MG tablet, Take 10 mg by mouth Daily, Disp: , Rfl: metoprolol succinate XL (Toprol-XL) 50 MG 24 hr tablet, TAKE 1 TABLET BY MOUTH EVERY DAY FOR 90 DAYS, Disp: , Rfl: sildenafil (Viagra) 100 MG tablet, Take 100 mg by mouth Daily as needed, Disp: , Rfl: Trulicity 0.75 MG/0.5ML solution pen-injector, INJECT 1 PEN SUBCUTANEOUSLY ONCE A WEEK, Disp: , Rfl: Social History: Social History Socioeconomic History Marital status: Spouse name: Not on file Number of children: Not on file Years of education: Not on file Highest education level: Not on file Occupational History Not on file Tobacco Use Smoking status: Never Passive exposure: Never Smokeless tobacco: Never Vaping Use Vaping status: Unknown Substance and Sexual Activity Alcohol use: Yes Alcohol/week: 1.0 standard drink of alcohol Types: 1 Cans of beer per week Comment: 2 cups of coffee daily Drug use: Defer Sexual activity: Defer Other Topics Concern Not on file Social History Narrative Not on file Social Determinants of Health Financial Resource Strain: Not on file Food Insecurity: Not on file Transportation Needs: Not on file Physical Activity: Not on file Stress: Not on file Social Connections: Not on file Intimate Partner Violence: Unknown (09/09/2023) Received from [facility] Safety [facility] Environment Fear of Current or Ex-Partner: Not on file Emotionally Abused: Not on file Physically Abused: Not on file Sexually Abused: Not on file Physically or Sexually Abused: Not on file Housing Stability: Not on file ROS: General: denies fever, chills, fatigue, malaise OBJECTIVE LE EXAM: DERM: Positive hair growth to b/l feet with good skin turgor noted. Negative openings in skin. Nummular lesion measuring at the right sub 5th metatarsal measuring 0.05 cm x 0.05 cm. VASC: Palpable pedal pulsed b/l with warm to cool tibia to toes b/l NEURO: 5.07 [place] [employer] monofilament test positive to digits and forefoot bilaterally 125Hz tuning fork positive to 1st MPJ bilaterally ORTHO: +5/5 DF/PF/IN/EV right, +5/5 DF/PF/IN/EV left. 20 degrees inversion and 10 degrees eversion STJ b/l. Ankle ROM less than 10 degrees b/l. Minimal pain on palpation to right foot lesion Plantar flexed right 5th metatarsal XRAY: US: ASSESSMENT 1. Verruca plantaris 2. Foot pain, right 3. Type 2 diabetes mellitus without complication, unspecified whether technician terminal and repeater insulin use ([facility]) 4. Metatarsal deformity, right PLAN Application of salinocaine acid medication to lesion/lesions located at right foot Informed pt of risks and benefits of procedure including high reoccurence rate, infection, pain andconsent given. Application of DSD post procedure. Babatunde Malcolm DPM documented in this encounterSaint John's Health [id number] Evaluation note* Encounter Date Diagnosis Assessment Notes Treatment Notes Treatment Clinical Notes Aug, Precordial pain (ICD-10 - R07.2) [...] Recommend CXR and stress testing. Aug, ASHD (arteriosclerotic heart disease) (ICD-10 - I25.10) [...] s/p PCI/stent LAD Continue secondary prevention measures [facility] Other 12-29-2023 NoteUTP CARDIOLOGY PROGRESS NOTE [facility] HPI: Misael Moriah Aguilar Jr. is a 58 y.o. male [...] been reviewed- CV Testin08/17/2017 angiogram and PCI ([facility]) Drug-eluting stent to proximal LAD ( [...] and rest, Tylenol as directed, Rx of Maurepas and prednisone as directed, cool mist humidifier, [...] treatment plan. Patient left in stable condition [facility] Other 07-07-2023 Evaluation note* Encounter Date Diagnosis [...] (ICD-10 - Z12.5) Yearly DELL and PSA [facility] Other 06-01-2023 [facility] History general Narrative - Reported* Type Description Date Medical History hypertension Medical History scoliosis Medical History 2 stents Surgical History appendectomy 2008 Surgical History cardiac stent Surgical History EGD w/ dilatation 12/2022 Hospitalization History see above surgical histo ry [facility] Other 06-01-2023 History general Narrative - Reported* Type Description Date Medical History hypertension Medical History scoliosis Medical History 2 stents Surgical History appendectomy 2008 Surgical History PCI/stent LAD 2018 Surgical History EGD w/ dilatation 12/2022 Hospitalization History see above surgical OpenFino ry [facility] Other 04-11-2023 Evaluation note* Encounter Date Diagnosis Assessment Notes Treatment Notes Treatment Clinical Notes Oct, Acute bronchitis due to other specified organisms (ICD-10 - J20.8) Instructed to use Robitussin or Mucinex for cough, saline or Flonase NS for congestion, Tylenol for pain and fever. Oct, Acute cough (ICD-10 - R05.1) [facility] Other 11-09-2022 Evaluation note* Encounter Date Diagnosis [...] no improvement in 2 to 3 days [facility] Other Evaluation + Plan note No data available for this section [facility] noteNo InformationNort Vision Source Other evaluation noteNo assessment information available [facility] Work Phone: evaluation note* Diagnosis Onset Date Resolution Status H/O cardiac catheterization acute Right arm pain acute [facility] Work Phone: evaluation note* Diagnosis Onset Date Resolution Status H/O cardiac catheterization acute Right arm pain acute Arthritis of both hands acut e Bilateral hand pain acute [facility] Work Phone: Evaluation note* Diagnosis Onset Date Resolution Status H/O cardiac catheterization acute Right arm pain acute Arthritis of both hands acut e Bilateral hand pain acute Arthritis of both hands acut e Bilateral hand pain acute [facility] Work Phone: evaluation note* Diagnosis Onset Date Resolution Status H/O cardiac catheterization acute Right arm pain acute Arthritis of both hands acut e Bilateral hand pain acute Arthritis of both hands acut e Bilateral hand pain acute H/O cardiac catheterization acute Internal derangement of right shoulder acute Right shoulder pain acute [facility] Work Phone: evaluation note* Diagnosis Onset Date Resolution Status Arthritis of both hands acut e ASHD (arteriosclerotic heart disease) acute GERD (gastroesophageal reflux disease) acute Hypercholesterolemia acute Hypertension acute Type 2 diabetes mellitus with hyperglycemia acute Screening PSA (prostate specific antigen) noneactive Wellness examination noneact [facility] Work Phone: evaluation note* Diagnosis Onset Date Resolution Status ASHD (arteriosclerotic heart disease) acute GERD (gastroesophageal reflux disease) acute Hypercholesterolemia acute Hypertension acute Type 2 diabetes mellitus with hyperglycemia acute Screening PSA (prostate specific antigen) noneactive Wellness examination noneact [facility] Work Phone: Evaluation note* Diagnosis Acute cough- Primary Acute bronchitis, unspecified organism [facility] Diagnosis Verruca plantaris- Primary Plantar wart Foot pain, right Pain in soft tissues of limb Type 2 diabetes mellitus without complication, unspecified whether half-way insulin use (CMS/HCC) Metatarsal deformity, right Foot pain, left Pain in soft tissues of limb [facility]* Diagnosis Verruca plantaris- Primary Plantar wart Foot pain, right Pain in soft tissues of limb Foot pain, left Pain in soft tissues of limb Type 2 diabetes mellitus without complication, unspecified whether half-way insulin use (CMS/HCC) [facility] encounter [facility]* Diagnosis Verruca plantaris- Primary Plantar wart Foot pain, right Pain in soft tissues of limb Type 2 diabetes mellitus without complication, unspecified whether technician terminal and repeater insulin use (CMS/HCC) Metatarsal deformity, right documented [facility]* Diagnosis Verruca plantaris- Primary Plantar wart Foot pain, right Pain in soft tissues of limb Foot pain, left Pain in soft tissues of limb documented in this encounter [facility] HealthcareHistory and physical note Author Angelina Arrieta [facility] December 17, 2022 1:41pm Note Date/Time December 17, 2022 1:41p [facility] ENTER [address] [place] [address] Gastroenterology H&P Signed Patient: Misael Aguilar Jr MR#: [id number] : 1965 Acct:[id number] Age/Sex: 57 / M Adm Date: 3 Loc: Room: Type: [facility] Attending Dr: Angelina Arrieta MD Copies to: Bhaskar Reddy,DO Angelina Arrieta MD~ Date of Service: 12/17/2022 HISTORY & [...] Arrieta M.D. Documented By: Angelina Arrieta MD 12/17/221339 Signed By: <Electronically signed by Angelina Arrieta MD> 12/17/22 1341 [facility] Work Phone: History and physical note Author Angelina Arrieta [facility] April 14, 2024 8:11am Note Date/Time April 14, 2024 8:11am [facility] ENTER [address] [place] [address] Gastroenterology H&P Signed Patient: Misael Aguilar Jr MR#: [id number] : 1965 Acct:[id number] Age/Sex: 59 / M Adm Date: 4 Loc: Room: Type: [facility] Attending Dr: Angelina Arrieta MD Copies to: DO Angelina Mueller MD~ Date of Service: 04/14/2024 HISTORY & PHYSICAL: Patient's history with special attention to the cardiovascular, pulmonary systems and the current problem was reviewed with the patient immediately prior to the procedure. Present medications and doses reviewed in the EMR. Allergies and pertinent laboratory tests were also reviewedat this time in the EMR. The physical examination, as below, was then performed. Indication, assessment and HPI: 59-year-old man with history of esophageal stricture here for EGD with possible dilation Family history of GI malignancy? No PHYSICAL EXAMINATION General appearance: NAD Skin: No jaundice Head: NC/AT Eyes: Anicteric Neck: Supple Lungs: Normal respiratory effort, no use of accessory muscles Abdomen: nondistended Neuro: Ox3. REVIEW OF SYSTEMS Constitutional: Denies malaise, fevers Cardiovascular: Denies chest pain, palpitations Respiratory: Denies shortness of breath, wheezing Gastrointestinal: As per HPI Genitourinary: Denies dysuria, polyuria Musculoskeletal: Denies joint swelling, joint stiffness Neurological: Denies confusion, numbness, tingling Endocrine: Denies fatigue Written informed consent obtained from the patient. Risks (including but not limited to perforation, infection, bloating, bleeding, need for emergent surgeryand loss of life), benefits and alternatives explained and questions answered. The patient verbalized understanding. Based on history patient is an appropriate candidate for the procedure. Angelina Arrieta M.D. Documented By: Angelina Arrieta MD 04/14/24 0808 Signed By: <Electronically signed by Angelina Arrieta MD> 04/14/24 0811 [facility] Work Phone: History general Narrative - Reported* Type Description Date Medical History hypertension Medical History scoliosis Medical History 2 stents Surgical History appendectomy 2009 Surgical History cardiac stent Hospitalization History see above surgical histo ry [facility] Other Hospital Discharge instructions No data available for this section [facility] Additional Instructions DISCHARGE INSTRUCTIONS FOR [...] problems. -Follow up with PCP. -Office number [phone]. [facility] Work Phone: Progress note No data available for this section [facility] Summary Purpose Family History Relationship Condition Age at Onset Recorded Date/T kajal Not Specified No pertinent family history Unknown Relationship Condition Age at Onset Recorded Date/T kajal father Hypertension Unknown mother Hypertension Unknown Advance Directives Advance Directive Response Recorded Date/ Time Advance Directives No August 13, 2017 1:49pm Advance Directive Response Recorded Date/ Time Advance Directives No February 13 4:09pm Advance Directive Response Recorded Date/ Time Advance Directives No February 13 3:09pm Chief Complaint and Reason for Visit Chief [...] derangement of right shoulder Right shoulder pain Chief Complaint 4 WEEK RECHECK arm pain wellness Reason for Visit Arthritis of both [place] nds ASHD (arteriosclerotic heart disease) GERD (gastroesophageal reflux disease) Hypercholesterolemia Hypertension Type 2 diabetes mellitus with hyperglycemia Screening PSA (prostate specific antigen) Wellness examination Chief Complaint wellness Dysphagia Dysphagia Reason for Visit ASHD (arteriosclerot ic heart disease) GERD (gastroesophageal reflux disease) Hypercholesterolemia Hypertension Type 2 diabetes mellitus with hyperglycemia Screening PSA (prostate specific antigen) Wellness examination Chief Complaint Admit Date Dysphagia April 14, 2024 6:50am Dysphagia April 14, 2024 8:08am white bumps on throat June 02 8:40am Chief Complaint Admit Date white bumps on throat June 02 8:40am Sore throat, ear pain August 11, 2024 3:25pm Reason for Visit Admit Date Acute bronchitis due to other specified organisms June 02, 2024 8:40am Type 2 diabetes mellitus with hyperglyce aiden June 02, 2024 8:40am Sore throat August 11, 2024 3 :25pm Chief Complaint Admit Date white bumps on throat June 02 8:40am Sore throat, ear pain August 11, 2024 3:25pm f/u August 16, 2024 3 :19pm Reason for Visit Admit Date Acute bronchitis due to other specified organisms June 02, 2024 8:40am Type 2 diabetes mellitus with hyperglyce aiden June 02, 2024 8:40am Acute maxillary sinusitis August 11, 2024 3:25pm ASHD (arteriosclerotic heart disease) Ja nuary 2024 3:19pm GERD (gastroesophageal reflux disease) J anuary 2024 3:19pm Hypercholesterolemia August 16, 2024 3:19pm Hypertension August 16, 2024 3 :19pm Type 2 diabetes mellitus with hyperglyce aiden August 16, 2024 3:19pm Sore throat (viral) August 16, 2024 3 :19pm Additional Source Comments (unrecognized sect ion and content) No Status Records FoundNo Status Records FoundNo Status Records FoundNo Status Records FoundNo Status Records FoundNo Status Records FoundNo Status Records FoundNo Status Records FoundNo Status Records FoundNo Status Records Found INFORMATION SOURCE (unrecogn ized section and content) DATE CREATED AUTHOR 02/17/2018 [facility] DATE CREATED AUTHOR AUTHOR'S ORGANIZ ATION 02/17/2018 [facility] ical Center DATE CREATED AUTHOR AUTHOR'S ORGANIZ ATION 05/15/2022 [facility] dical Specialist DATE CREATED AUTHOR AUTHOR'S ORGANIZ ATION 06/08/2022 Filiberto Najera [facility] ical Center DATE CREATED AUTHOR AUTHOR'S ORGANIZ ATION 09/18/2022 [facility] DATE CREATED AUTHOR AUTHOR'S ORGANIZ ATION 08/23/2023 [facility] DATE CREATED AUTHOR AUTHOR'S ORGANIZ ATION 10/03/2023 [facility] edical [place] DATE CREATED AUTHOR AUTHOR'S ORGANIZ ATION [facility]20[facility] DATE CREATED AUTHOR AUTHOR'S ORGANIZ ATION 04/27/2024 [facility] ys[facility] DATE CREATED AUTHOR AUTHOR'S ORGANIZ ATION 07/14/2024 [facility] dical Specialists EPIC REASON FOR VISIT (unrecogniz ed section and content) Reason Comments Plantar Warts Bl lesions Reason Comments Follow-up BL lesion check Reason Comments Lesion Removal F/U lesion Reason Comments Follow-up 2wk lesion check Patient Care team informatio n (unrecognized section and content) Team Status: Active Member Role Status Dates Bhaskar Reddy DO Primary Care Provider Active Team Status: Inactive Member Role Status Dates Bhaskar Reddy DO Primary Care Provider Active Start: April 14, 2024 End: April 14, 2024 Angelina Arrieta MD Attending Provider Active Start: April 14, 2024 End: April 14, 2024 Team Status: Active Member Role Status Dates Bhaskar Reddy DO Primary Care Provider Active Start: April 14, 2024 Angelina Arrieta MD Attending Provider, Other Provider Active Start: April 14, 2024 Team Status: Inactive Member Role Status Dates Bhaskar Reddy DO Primary Care Provide r, Attending Provider Active Start: June 02, 2024 End: June 02, 2024 Team Status: Active Member Role Status Dates Bhaskar Reddy DO Primary Care Provide r, Attending Provider Active Start: February 05, 2024 Team Status: Inactive Member Role Status Dates Bhaskar Reddy DO Primary Care Provide r, Attending Provider Active Start: February 14, 2024 End: February 14, 2024 Team Status: Inactive Member Role Status Dates Bhaskar Reddy DO Primary Care Provide r, Attending Provider Active Start: October 26, 2023 End: October 26, 2023 Team Status: Inactive Member Role Status Dates Bhaskar Reddy DO Primary Care Provider Active Start: November 09, 2023 End: November 09, 2023 Juyd Coleman MD Attending Provider Active Start: November [...] December 10, 2023 End: December 10, 2023 Vice President Sales And Marketing Relationship Specialty Start Date End Date Bhaskar Reddy MD [address] [id number] PCP - General 02/01/24 Vice President Sales And Marketing Relationship Specialty Start Date End Date Bhaskar Reddy MD [address] [place] [address] PCP - General 02/01/24 Vice President Sales And Marketing Relationship Specialty Start Date End Date Bhaskar Reddy MD [address] [place] [address] PCP - General 02/01/24 Vice President Sales And Marketing Relationship Specialty Start Date End Date Bhaskar Reddy MD [address] [place] [phone] PCP - General 02/01/24 Vice President Sales And Marketing Relationship Specialty Start Date End Date Bhaskar Reddy MD [address] [facility] [place] [phone] PCP - General 02/01/24 Vice President Sales And Marketing Relationship Specialty Start Date End Date Bhaskar Reddy MD [address] [facility] [place] [phone] PCP - General 02/01/24 Vice President Sales And Marketing Relationship Specialty Start Date End Date Bhaskar Reddy MD [address] [place] [phone] PCP - General 02/01/24 Vice President Sales And Marketing Relationship Specialty Start Date End Date Bhaskar Reddy MD [address] [facility] [place] [phone] PCP - General 02/01/24 Team Status: Inactive Member Role Status Dates Bhaskar Reddy DO Primary Care Provider Active Start: August 11, 2024 End: August 11, 2024 Uyen Anderson APRN Attending Provider Active Start: August 11, 2024 End: August 11, 2024 Team Status: Inactive Member Role Status Dates Bhaskar Reddy DO Primary Care Provide r, Attending Provider Active Start: August 16, 2024 End: August 16, 2024 Goals (unrecognized section and content) Goals may [...] BE BASED ON THE PRIMARY CLINICAL RECORDS. [facility]. provides no warranty or guarantee of the accuracy or completeness of information in this document.
[2024-09-02 10:11] LABS: Estimated Average Glucose 137 mg/dL; Glycohemoglobin A1C 6.4 % (4.5-6.2)
== END 2024-09-02 09:12 | disposition home or self-care (01) ==
PROVIDERS: Family Provider Internal Medicine; PCP Internal Medicine; Visit Provider Internal Medicine
DX: E11.65 Type 2 diabetes mellitus with hyperglycemia (principal)
CPT/HCPCS: 36415; 83036

== ENCOUNTER 2025-02-26 06:27 | Outpatient (OUT) | payer BC, SELFPAY ==
--- OUTSIDE RECORDS SUMMARY | 2012-05-26 20:00 | XMS_ITS | Continuity of Care Document ---
Author Organization [facility] Address [address] [place] [address] Phone Care Team Providers Care Oracle Identity Management Consultant Name Role Phone Apolonia GARCIAJuan Daniel Unavailable Unavailable Procedures Procedure Date FLU VACCINE, 3 YRS & >, IM Advance Directives Directive Yes / No Effective Date File Name Resuscitation Not Answered N/A N/A Life Support Not Answered N/A N/A Intubation Not Answered N/A N/A Antibiotics Not Answered N/A N/A IV Fluid Support Not Answered N/A N/A Tube Feed Not Answered N/A N/A Other Directive N/A N/A WARNING:The information contained in this section is historical and is provided for information only and does not constitute a legal document or any assurance that the information is still accurate. Please verify the information with the nguyen of the legal document before using it for clinical purposes. Encounters Encounter Description Practice Location Reason(s) For Visit Diagnoses Date Provider Providers Copied on Encounter [facility], [address] [place] [address], [id number], tel:[phone] [facility] [place] Apolonia ZAVALETA Juan Daniel. [address] [place] [address], [id number], [place]. tel:[phone] Family History Family Member Type Diagnosis Age At Onset No Information Immunizations Vaccine Date Status Comments Flu (split) (3 yrs or older) administered Note: Vaccine administered by Sophia Ojeda RN ; Source: New Immunization Record Payers Payer name Insurance type Covered constitution party ID Authoriza tion(s) No Information Social History Type Description Quantity Date Captured Comments Alcohol Use Details Unknown Caffeine Use Details Unknown Tobacco Use Status No Information Smoking Status No Information Sex Male Chief Complaint And Reason For Visit No Information Reason For Referral Reason For Referral No Information History Of Present Illness Encounter Date Complaint History Of Prese nt Illness No Information Functional Status Date Functional Assessmen t No Information Instructions Date Instruction Additional Infor mation No Information Assessments Type Assessment Date No Information Patient Care Teams Name Effective Dates (start - stop) Status Members No Information
--- OUTSIDE RECORDS SUMMARY | 2025-02-26 06:29 | XMS_ITS | Encounter Summary ---
Author Organization [facility] Address [address] [place] [address] Phone Care Team Providers Care Industrial Engineer Name Role Phone Unavailable Primary Care Provider Unavailabl e Encounter Details Date Type Department Care Team (Late st Contact Info) Description 2022 Orders Only [facility] [address] [place] [address] Conversion, Onbase Social History Tobacco Use Types Packs/Day Years Used Date Smoking Tobacco: Never Assessed Sex and Gender Information Value Date Recorded Sex Assigned at Not on file Legal Sex Male 2:28 PM EST Gender Identity Not on file Sexual Orientation Not on file documented as of this encounter Plan of Treatment Scheduled Orders Name Type Priority Associated Diagnoses Orde r Schedule OUTSIDE LAB SCAN Lab Ordered: 2022 documented as of this encounter Visit Diagnoses Not on filedocumented in this encounter
--- OUTSIDE RECORDS SUMMARY | 2025-02-26 06:29 | XMS_ITS | Clinical Summary ---
Author Organization [facility] Address [address] [place] [address] Phone Care Team Providers Care Computed Tomography Technician Name Role Phone Unavailable Primary Care Provider Unavailabl e Social History Tobacco Use Types Packs/Day Years Used Date Smoking Tobacco: Never Assessed Sex and Gender Information Value Date Recorded Sex Assigned at Not on file Legal Sex Male 2:28 PM EST Gender Identity Not on file Sexual Orientation Not on file Plan of Treatment Health Maintenance Due Date Last Done Comments CT Colonography 1967 Colonoscopy 1967 Colorectal Cancer Screening 1967 FIT-DNA (Cologuard) 1967 FIT 1967 HIV Screening 1967 Lipid Panel 1967 Sigmoidoscopy 1967 Yearly Adult Physical 1967 MMR Vaccines (1 of 1 - Standard series) 02/20/1968 Diabetes Screening 1985 Hepatitis C Screening 1985 Hepatitis B Vaccines (1 of 3 - 19+ 3-dose series) 1986 DTaP/Tdap/Td Vaccines (1 - Tdap) 1989 PSA Prostate Cancer Screening 2017 Pneumococcal Vaccine (1 of 1 - PCV) 2017 Zoster Vaccines (1 of 2) 2017 COVID-19 Vaccine (2 - 2023-2 5 season) 2024 09/27/2020 Influenza Vaccine (#1) 2025 0, 04/18/2019, 04/18/2018 HIB Vaccines Aged Out No longer eligi ble based on patient's age to complete this topic HPV Vaccines Aged Out No longer eligi ble based on patient's age to complete this topic Hepatitis A Vaccines Aged Out No long er eligible based on patient's age to complete this topic IPV Vaccines Aged Out No longer eligi ble based on patient's age to complete this topic Meningococcal Vaccine Aged Out No adrianna megha eligible based on patient's age to complete this topic Rotavirus Vaccines Aged Out No longer eligible based on patient's age to complete this topic
--- OUTSIDE RECORDS SUMMARY | 2025-02-26 06:29 | XMS_ITS | Clinical Summary ---
Author Organization [facility] Address [address] [place] [address] Care Team Providers Care Slitting Machine Feeder Name Role Phone Bhaskar Reddy DO Primary Care Provider [phone] Allergies No known active allergies Medications Trulicity 0.75 mg/0.5 mL pen injector INJECT ONE PEN UNDER THE SKIN EVERY WEEK 06/24/2022 Active lisinopril 10 mg tablet Take 10 mg by mouth in the morning. 05/07/2022 Active metFORMIN (Glucophage) 500 mg tablet TAKE 1 TABLET BY MOUTH EVERYDAY WITH FOOD 05/04/2022 Active aspirin 81 mg EC tablet Take 81 mg by mouth in the morning. Active metoprolol succinate XL (Toprol-XL) 50 mg 24 hr tabletIndicatio ns:Hypertension associated with diabetes (CMS/HCC),Coron rafy artery disease involving sioux coronary artery of sioux heart with unstable angina pectoris (CMS/HCC) Take 1 tablet (50 mg) by mouth in the morning. If this makes you tired, can take in evening. Do not crush or chew. 90 tablet 3 07/03/2022 Active sildenafil (Viagra) 100 mg tablet Take 100 mg by mouth if needed each day for erectile dysfunction. Unsure of dose. Has not used yet. 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 07/03/2022 Dyslipidemia associated with type 2 diabetes krishna litus 07/03/2022 Family History Medical History Relation Name Comments No Known Problems Father No Known Problems Mother Relation Name Status Comments Father Alive Mother Alive Social History Tobacco Use Types Packs/Day Years Used Date Smoking Tobacco: Never Smokeless Tobacco: Never Tobacco Cessation:Counseling Given: Not Answered Alcohol Use Standard Drinks/Week Comments Not Currently 0 (1 standard drink = 0.6 oz pur e alcohol) [place] Safety & Environment Answer Date Rec orded Fear of Current or Ex-Partner Not on file Emotionally Abused Not on file 09/09/2023 Physically Abused Not on file 09/09/2023 Sexually Abused Not on file 09/09/2023 Physically or Sexually Abused Not on file Sex and Gender Information Value Date Recorded Sex Assigned at Not on file Legal Sex Male 4:16 PM EST Gender Identity Not on file Sexual Orientation Not on file Last Filed Vital Signs Vital Sign Reading Time Taken Comments Blood Pressure 144/88 07/16/2023 12:10 PM EST Pulse 71 07/16/2023 12:10 PM EST Temperature - - Respiratory Rate - - Oxygen Saturation 96% 07/16/2023 12:10 PM EST Inhaled Oxygen Concentration - - Weight 95.3 kg (210 lb) 07/16/2023 12:10 PM EST Height 172.7 cm (5' 8 ) 07/16/2023 12:10 PM EST Body Mass Index 31.93 07/16/2023 12:10 PM EST Plan of Treatment Health Maintenance Due Date Last Done Comments CT Colonography 1967 Colonoscopy 1967 Colorectal Cancer Screening 1967 Diabetes: Hemoglobin A1C 1967 FIT-DNA 1967 FIT 1967 FOBT 1967 Sigmoidoscopy 1967 Diabetes: Retinopathy Screening 1977 Depression Screening 1979 Diabetes: Urine Protein Screening 1986 Hepatitis B Vaccines (1 of 3 - 19+ 3-dose series) 1986 Pneumococcal Vaccine: Pediatrics (0 to 5 Years) and At-Risk Patients (6 to 64 Years) (1 of 2 - PCV) 1986 Adult Tetanus 1989 COVID-19 Vaccine (2 - season) 2024 09/27/2020 Influenza Vaccine (#1) 2025 , 05/06/2022, 05/07/2021, Additional history exists Zoster Vaccines Completed 08/05/2022, 05/04/2022 HIB Vaccines Aged Out No longer eligi ble based on patient's age to complete this topic HPV Vaccines Aged Out No longer eligi ble based on patient's age to complete this topic IPV Vaccines Aged Out No longer eligi ble based on patient's age to complete this topic Meningococcal B Vaccine Aged Out No l onger eligible based on patient's age to complete this topic Meningococcal Vaccine Aged Out No adrianna megha eligible based on patient's age to complete this topic Rotavirus Vaccines Aged Out No longer eligible based on patient's age to complete this topic Insurance [facility] Care Teams Slitting Machine Feeder Relationship Specialty Start Date End Date Bhaskar Reddy DO [address] [place] [address] PCP - General 06/30/22
--- OUTSIDE RECORDS SUMMARY | 2025-02-26 06:29 | XMS_ITS | Encounter Summary ---
Author Organization [facility] Address [address] [place] [address] Phone Care Team Providers Care Knitter Machine Name Role Phone Unavailable Primary Care Provider Unavailabl e Encounter Details Date Type Department Care Team (Late st Contact Info) Description 04/06/2020 Orders Only [facility] [address] [place] [address] Conversion, Onbase Social History Tobacco Use Types [...] r Schedule OUTSIDE LAB SCAN Lab Ordered: 04/06/2020 documented as of this encounter Visit Diagnoses Not on filedocumented in this encounter
--- OUTSIDE RECORDS SUMMARY | 2025-02-26 06:30 | XMS_ITS | Clinical Summary ---
Author Organization [facility] Address [address], [address] [place] [address] Care Team Providers Care Child Care Attendant Name Role Phone Bhaskar Reddy DO Primary Care Provider [phone] Allergies No known active allergies Medications aspirin 81 MG EC tablet Take 1 tablet by mouth daily Active lisinopril (PRINIVIL;ZESTR IL) 10 MG tablet Take 1 tablet by mouth daily Active metoprolol succinate (TOPROL XL) 50 MG extended release tablet Take 1 tablet by mouth daily Active atorvastatin (LIPITOR) 40 MG tablet Take 1 tablet by mouth at bedtime Active metFORMIN (GLUCOPHAGE) 500 MG tablet Take 1 tablet by mouth 2 times daily (with meals) Active Dulaglutide (TRULICITY) 0.75 MG/0.5ML SOPN Inject 0.75 mg into the skin once a week Active nitroGLYCERIN (NITROSTAT) 0.[address] 1 tablet under the tongue every 5 minutes as needed for Chest pain up to max of 3 total doses. If no relief after 1 dose, call 911. 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 10/05/2023 Abnormal stress test 10/05/2023 HTN (hypertension) 09/16/2023 Type 2 diabetes mellitus with hyperglycemia 08/20 Hypercholesteremia 09/16/2023 Resolved Problems Problem Noted Date Diagnosed Date Resolved Date CAD (coronary artery disease) 09/16/2023 10/01/2023 Family History Medical History Relation Name Comments Hypertension Father Hypertension Mother Relation Name Status Comments Father Alive Mother Alive Social History Tobacco Use Types Packs/Day Years Used Date Smoking Tobacco: Never Smokeless Tobacco: Never Alcohol Use Standard Drinks/Week Comments Yes 0 (1 standard drink = 0.6 oz pur e alcohol) 3-4 DAYS-SOCIAL Interpersonal Safety Domain Source: IP Abuse Scr eening Answer Date Recorded Read-Only, Retired: Physical Abuse Denies 10/11/2023 Read-Only, Retired: Verbal Abuse Denies 10/11/2023 Read-Only, Retired: Emotional abuse Denies 10/11/2023 Read-Only, Retired: Financial Abuse Denies 10/11/2023 Read-Only, Retired: Sexual abuse Denies 10/11/2023 Sex and Gender Information Value Date Recorded Sex Assigned at Not on file Legal Sex Male 11:00 AM EST Gender Identity Not on file Sexual Orientation Not on file Last Filed Vital Signs Vital Sign Reading Time Taken Comments Blood Pressure 125/80 11/02/2023 8:06 AM EDT Pulse 76 11/02/2023 8:06 AM EDT Temperature 36.5 C (97.7 F) 10/11/2023 7:37 AM EDT Respiratory Rate 16 11/02/2023 8:06 AM EDT Oxygen Saturation 99% 11/02/2023 8:06 AM EDT Inhaled Oxygen Concentration - - Weight 96.5 kg (212 lb 12.8 oz) 11/02/2023 8:06 AM EDT Height - - Body Mass Index - - Plan of Treatment Health Maintenance Due Date Last Done Comments A1C test (Diabetic or Prediabetic) 1977 Diabetic foot exam 1977 Lipids 1977 Depression Screen 1979 HIV screen 1982 Diabetic Alb to Cr ratio (uACR) test 1985 Diabetic retinal exam 1985 Hepatitis C screen 1985 Hepatitis B vaccine (1 of 3 - 19+ 3-dose series) 1986 Pneumococcal 50+ years Vaccine (1 of 2 - PCV) 1986 Colonoscopy 02/20/2012 Colorectal Cancer Screen 02/20/2012 FIT/FOBT: Average risk 02/20/2012 Fecal-DNA (Cologuard): Average risk 02/20/2012 Sigmoidoscopy/CT colonography 02/20/2012 DTaP/Tdap/Td vaccine (1 - Tdap) 04/14/2014 04/13/2014, 04/13/2013 COVID-19 Vaccine (3 - 2023- season) 2024 04/06/2022, 09/27/2020 GFR test (Diabetes, CKD 3-4, OR last GFR 15-59) 09/30/2024 10/01/2023 Flu vaccine (#1) 02/16/2025 05/07/2023, , 05/07/2021, Additional history exists Shingles vaccine Completed 08/05/2022, 05/04/2022 Hepatitis A vaccine Aged Out No longe r eligible based on patient's age to complete this topic Hib vaccine Aged Out No longer eligi ble based on patient's age to complete this topic Meningococcal (ACWY) vaccine Aged Out No longer eligible based on patient's age to complete this topic Meningococcal B vaccine Aged Out No l onger eligible based on patient's age to complete this topic Polio vaccine Aged Out No longer elig ible based on patient's age to complete this topic Procedures Procedure Name Priority Date/Time Associated Diagnosis Comments BASIC METABOLIC PANEL Routine 10/01/2023 1:40 PM EDT Primary hypertension Abnormal stress test from Last 3 Months or Most Recently Relevant to Health Maintenance Results * (ABNORMAL) Basic Metabolic Panel (10/01/2023 1:40 PM EDT) Sodium 139 135 - 144 mEq/L 10/01/2023 3:01 PM EDT [facility] Potassium 4.0 3.4 - 4.9 mEq/L 10/01/2023 3:01 PM EDT [facility] Chloride 102 95 - 107 mEq/L 10/01/2023 3:01 PM EDT [facility] CO2 27 20 - 31 mEq/L 10/01/2023 3:01 PM EDT [facility] Anion Gap 10 9 - 15 mEq/L 10/01/2023 3:01 PM EDT [facility] Glucose 149(H) 70 - 99 mg/dL 10/01/2023 3:01 PM EDT [facility] BUN 16 6 - 20 mg/dL 10/01/2023 3:01 PM EDT [facility] Creatinine 0.97 0.70 - 1.20 mg/dL 10/01/2023 3:01 PM EDT [facility] Est, Glom Filt Rate >60.0 >60 10/01/2023 3:01 PM EDT [facility] Comment: Pediatric calculator link https://www.kidney.org/professionals/kdoqi/gfr_calculatorped Effective Apr 20, 2022 [...] following therapy that affects renal tubular secretion. Calcium 8.9 8.5 - 9.9 mg/dL 10/01/2023 3:01 PM EDT [facility] Blood BLOOD SPECIMEN / Unknown 10/01/2023 1:40 PM EDT 10/01/2023 2:47 PM EDT us Jhon J Holiday DO CHEMISTRY ORDERABLES Final Resu lt [facility] [address] [place] [address], [facility] [phone] from Last 3 Months or Most Recently Relevant to Health Maintenance Insurance [address] [place] [address] [facility] OUT OF STATE Advance Directives * Full Code (Latest Code Status on File) Date Activated Date Inactivated Comments 10/11/2023 7:26 AM 10/11/2023 1:13 PM Care Teams Child Care Attendant Relationship Specialty Start Date End Date Bhaskar Reddy DO [address] [place] [address] PCP - General Internal Medicine 09/16/23
--- OUTSIDE RECORDS SUMMARY | 2025-02-26 06:30 | XMS_ITS | Encounter Summary ---
Author Organization [facility] Address [address], [address] [place] [address] Care Team Providers Care Weigher Packing Name Role Phone Bhaskar Reddy DO Primary Care Provider [phone] Encounter Details Date Type Department Care Team (Late st Contact Info) Description 11/02/2023 Orders Only [facility] [address] [place] [address] Provider, MD [place] Social History Tobacco Use Types Packs/Day Years [...] as of this encounter Plan of Treatment Not on file documented as of this encounter Procedures Procedure Name Priority Date/Time Associated Diagnosis Comments US DUP UPPER EXTREMITY RIGHT ARTERIES Routine 10/26/2023 12:32 PM EDT documented in this encounter Results * US DUP UPPER EXTREMITY RIGHT ARTERIES (10/26/2023 12:32 PM EDT) Anatomical Region Laterality Modality Arm, Vascular Other us Historical Provider MD HANSON US ORDERABLES Final R esult documented in this encounter Visit Diagnoses Not on filedocumented in this encounter Care Teams Weigher Packing Relationship Specialty Start Date End Date Bhaskar Reddy DO [address] [place] [phone] PCP - General Internal Medicine 09/16/23 documented as of this encounter
--- OUTSIDE RECORDS SUMMARY | 2025-02-26 06:30 | XMS_ITS | Encounter Summary ---
Author Organization [facility] Address [address] [place] [address] Phone Care Team Providers Care Licensed Reactor Operator Name Role Phone Unavailable Primary Care Provider Unavailabl e Encounter Details Date Type Department Care Team (Late st Contact Info) Description 07/03/2022 Orders Only [facility] [address] [place] [address] Conversion, Onbase Social History Tobacco Use Types [...] r Schedule OUTSIDE LAB SCAN Lab Ordered: 07/03/2022 documented as of this encounter Visit Diagnoses Not on filedocumented in this encounter
--- OUTSIDE RECORDS SUMMARY | 2025-02-26 06:30 | XMS_ITS | Clinical Summary ---
Author Organization [facility] Address [address] [place] [address] Care Team Providers Care Puppet Maker Name Role Phone Bhaskar Reddy DO Primary Care Provider Allergies No known active allergies Medications Trulicity 0.75 MG/0.5ML solution pen-injector INJECT 1 PEN SUBCUTANEOUSLY ONCE A WEEK Active aspirin 81 MG EC tablet Take 1 tablet by mouth Daily Active atorvastatin (Lipitor) 40 MG tablet Take 40 mg by mouth at bedtime Active celecoxib (CeleBREX) 50 MG capsule Take 50 mg by mouth in the morning and 50 mg before bedtime. Active lisinopril 10 MG tablet Take 10 mg by mouth Daily Active metoprolol succinate XL (Toprol-XL) 50 MG 24 hr tablet TAKE 1 TABLET BY MOUTH EVERY DAY FOR 90 DAYS Active sildenafil (Viagra) 100 MG tablet Take 100 mg by mouth Daily as needed Active Active Problems Problem Noted Date Diagnosed Date ASHD (arteriosclerotic heart disease) 05/18/2024 Arthritis of both hands 05/18/2024 Degeneration of lumbar intervertebral disc 05/18 GERD (gastroesophageal reflux disease) Lumbar spondylosis 05/18/2024 Primary localized osteoarthritis of pelvic regio n and thigh 05/18/2024 Hypercholesterolemia 09/16/2023 Type 2 diabetes mellitus with hyperglycemia 08/20 Dyslipidemia associated with type 2 diabetes krishna litus 07/03/2022 Hypertension associated with diabetes 07/03/2022 Benign essential hypertension 04/25/2013 Encounters Date Type Department Care Team Description 02/06/2025 2:10 PM EDT Office Visit [facility] [address] [place] [phone] Babatunde Malcolm DPM Sesamoiditis of right foot (Primary Dx); Verruca plantaris; Foot pain, right; Type 2 diabetes mellitus without complication, unspecified 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 (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); Pain due to onychomycosis of toenails of both feet; Capsulitis of metatarsophalangeal (MTP) joint of right foot 02/06/2025 Bamboo flowsheet [facility] [address] [place] [address] Babatunde Malcolm DPM from Last 3 Months Immunizations Immunization Administration Dates Next Due Influenza, injectable, MDCK, preservative free, quadrivalent 05/07/2023 Family History Relation Name Status Comments Father Alive Mother Alive Social History Tobacco Use Types Packs/Day Years Used Date Smoking Tobacco: Never Passive Smoke Exposure: Never Smokeless Tobacco: Never Tobacco Cessation:Counseling Given: Yes Alcohol Use Standard Drinks/Week Comments Yes 1 (1 standard drink = 0.6 oz pur e alcohol) 2 cups of coffee daily Sex and Gender Information Value Date Recorded Sex Assigned at Not on file Legal Sex Male 6:38 PM EDT Gender Identity Not on file Sexual Orientation Not on file Last Filed Vital Signs Vital Sign Reading Time Taken Comments Blood Pressure 136/88 10/05/2024 1:37 PM EDT Pulse 74 10/05/2024 1:37 PM EDT Temperature 36.6 C (97.8 F) 05/18/2024 3:32 PM EDT Respiratory Rate 16 02/06/2025 2:02 PM EDT Oxygen Saturation 98% 05/18/2024 3:32 PM EDT Inhaled Oxygen Concentration - - Weight 86.2 kg (190 lb) 02/06/2025 2:02 PM EDT Height 172.7 cm (5' 8 ) 02/06/2025 2:02 PM EDT Body Mass Index 28.89 02/06/2025 2:02 PM EDT Plan of Treatment Health Maintenance Due Date Last Done Comments CT Colonography 1967 Colonoscopy 1967 Colorectal Cancer Screening 1967 FIT-DNA 1967 FIT 1967 FOBT 1967 Sigmoidoscopy 1967 Influenza Vaccine (#1) 2025 , 05/07/2023, 05/06/2022, Additional history exists Insurance [facility] Care Teams Puppet Maker Relationship Specialty Start Date End Date Bhaskar Reddy DO [address] [place] [address] PCP - General 02/01/24
--- OUTSIDE RECORDS SUMMARY | 2025-02-26 06:31 | XMS_ITS | CCD ---
Author Organization [facility] CliniSyde Care Team Providers Care Blow Off Worker Name Role Phone PAULYJIGNA SULLIVANDENI Unavailable Unavailable BHASKAR REDDY Unavailable Unavailable Mini [...] Unavailable DO Bhaskar Reddy Primary Care Provider [phone] MD Angelina Arrieta Attending Provider [phone] Jennifer Mccarthy Unavailable JESSICA WEAVER Attending Unavailable NAPOLEON VAZQUEZ Admitting Unavailable HOLIDAY, NAPOLEON Sinclair Attending Unavailable NAPOLEON VAZQUEZ Referring Unavailable BHASKAR REDDY Primary Care Unavailable DO Bhaskar Reddy Primary Care Provider MD Judy Coleman Attending Provider DO Bhaskar Reddy Primary Care Provider MD Angelina Arrieta Attending Provider Angelina Arrieta Admitting Unavailable AsaadAngelina Attending Unavailable Bhaskar Reddy Primary Care Unavailable Bhaskar Reddy Primary Care Unavailable Judy Coleman Admitting Unavailable Judy Coleman Attending Unavailable Miguel Chen Attending Unavailable Bhaskar Reddy Primary Care Unavailable Miguel Chen Admitting Unavailable Bhaskar Reddy MD Primary Care Provider Bhaskar Reddy DO Primary Care Provider Angelina Arrieta MD Attending Provider Bhaskar Reddy DO Primary Care Provider Bhaskar Reddy DO Attending Provider [phone] Bhaskar Reddy DO Primary Care Provider BABATUNDE MALCOLM Attending Unavailable BABATUNDE MALCOLM Attending Unavailable BABATUNDE MALCOLM Attending Unavailable BABATUNDE MALCOLM Attending Unavailable SILVANA FULTON Attending Unavailable BABATUNDE MALCOLM Attending Unavailable SILVANA FULTON Referring Unavailable BABATUNDE [...] MG PO Daily August 17, 2017 1:00am Complies with drug therapy Baby Aspirin Act ti atorvastatin 20 mg oral tablet (20 sources) HMG-CoA Reductase Inhibitor Start: 12-26-2024 take 2 tablets by mouth once daily Atorvastatin 20 mg tablet Active 0 .ROUTE .COMPLEX 180 December 26, 2024 1:01pm TAKE 2 TABLETS BY MOUTH EVERY DAY FOR 90 DAYS Complies with drug therapy Start: 08-16-2024 End: 12-26-2024 take 2 tablets by mouth once daily Atorvastatin 20 mg tablet Discontinued 40 MG PO Daily 180 90 August 16, 2024 4:52pm December 26, 2024 1:01pm Start: 02-11-2019 End: 08-16-2024 take 1 tablet by mouth once daily Atorvastatin 40 mg tablet Discontinued 40 MG PO Daily February 11, 2019 12:00am August 16, 2024 4:53pm Start: 08-18-2017 End: 08-13-2018 take 1 tablet by mouth once daily Atorvastatin (Lipitor) 40 mg tablet Discontinued 40 MG PO Daily August 18, 2017 1:00am August 12, 2018 1:00am August 13, 2018 1:02am take 2 tablets by [facility] once daily in the evening Atorvastatin Calcium [...] a day for 5 day(s) May, Not-Taking/PRN dextromethorphan hydrobromide 1.5 mg/ml / pyrilamine maleate 1.5 mg/ml oral solution (3 sources) Uncompetitive Q-fdipgx-G-aspartate Receptor Antagonist, Sigma-1 Agonist Start: 04-27-2023 take 10 mL by mouth every eight hours [place] DM 7.5-7.5 MG/5ML 10 mL Orally every 8 hours for 5 days Apr, Active 0.5 ml dulaglutide 1.5 mg/ml auto-injector (20 sources) GLP-1 Receptor Agonist Start: 12-25-2024 End: 02-20-2025 Dulaglutide 0.75 mg/0.5 mL pen injector Active 0.75 MG SUBCUT every week 6 February 20, 2025 4:10pm Complies with drug therapy Start: 10-02-2024 End: 12-25-2024 Dulaglutide 1.5 mg/0.5 mL pe n injector Discontinued 1.5 MG SUBCUT every week 2 October 02, 2024 2:57pm December 25, 2024 6:05pm Start: 10-02-2024 End: 10-02-2024 Dulaglutide 1.5 mg/0.5 mL pe n injector Discontinued 3 MG SUBCUT every week 4 October 02, 2024 2:37pm October 02, 2024 2:57pm Start: 09-06-2024 End: 10-02-2024 Dulaglutide 3 mg/0.5 mL pen injector Discontinued 3 MG SUBCUT every week 2 September 06, 2024 6:40pm October 02, 2024 2:37pm Start: 08-16-2024 End: 09-06-2024 Dulaglutide 1.5 mg/0.5 mL pe n injector Discontinued 1.5 MG SUBCUT every week 2 August 16, 2024 4:55pm September 06, 2024 6:42pm Start: 12-23-2021 End: 08-16-2024 Dulaglutide (Trulicity) 0.75 mg/0.5 mL pen injector Discontinued 0.75 MG SUBCUT every week 6.5 February 14, 2024 9:57am August 16, 2024 4:56pm lisinopril 10 mg oral tablet (20 sources) Angiotensin Converting Enzyme Inhibitor Start: 01-03-2025 take 1 tablet by mouth once daily Lisinopril 10 mg tablet Active 0 .ROUTE .COMPLEX January 03, 2025 6:49am TAKE 1 TABLET BY MOUTH EVERY DAY Complies with drug therapy Start: 04-19-2020 End: 01-03-2025 take 1 tablet by mouth once daily Lisinopril 10 mg tablet Discontinued 10 MG PO Daily 90 January 18, 2024 8:40am January 03, 2025 6:49am Lisinopril Activ e 24 hr metoprolol succinate 50 mg extended release oral tablet (20 sources) beta-Adrenergic Ghada Start: 03-03-2024 End: 03-03-2024 take 1 tablet by mouth once daily Metoprolol Succinate 50 mg tablet extended release 24 hr Active 0 .ROUTE .COMPLEX March 03, 2024 2:15pm TAKE 1 TABLET BY MOUTH EVERY DAY FOR 90 DAYS Complies with drug therapy Start: 03-03-2024 End: 03-03-2024 take 1 tablet [...] Hr Discontinued 50 MG PO Daily December 17, 2022 12:00am March 03, 2024 2:15pm Start: 08-17-2017 End: 12-17-2022 take 1 tablet by mouth twice daily Metoprolol Tartrate 25 mg Tablet Discontinued 25 MG PO Twice daily 60 August 18, 2017 11:22am December 17, 2022 1:04pm nitroglycerin 0.4 mg sublingual tablet (13 sources) Nitrate Vasodilator Start: 08-17-2017 Nitroglycerin 0.4 mg Tablet, Sublingual Active 0.4 MG SUBLINGUAL every 5 to 15 minutes as needed for Chest Pain August 17, 2017 1:00am Complies with drug therapy pantoprazole 40 mg delayed release oral tablet (6 sources) Proton Pump Inhibitor Start: 04-14-2024 take 1 tablet by mouth once daily Pantoprazole 40 mg tablet,delayed release (DR/EC) Active 40 MG PO Daily April 14, 2024 12:00am Complies with drug therapy sildenafil 100 mg oral tablet (20 sources) Phosphodiesterase 5 Inhibitor take 1 tablet by mouth every twenty-four hours as needed sildenafil (Viagra) 100 MG tablet Take 100 mg by mouth Daily as needed Active Completed/Discontinued Medications Medication Drug Class(es) Dates Sig (Normalized) Sig (Original) [id number] actuat albuterol 0.09 mg/actuat metered dose [...] Apr, Not-Taking ALPRAZolam 0.25 mg oral tablet (13 sources) Benzodiazepine Start: 08-17-2017 End: 12-22-2017 Alprazolam 0.25 mg Tablet Discontinued 0.25 MG PO 2-3 TIMES PER DAY as needed for Anxiety August 17, 2017 1:00am December 22, 2017 9:38am benzonatate 100 mg oral capsule (11 sources) Non-narcotic Antitussive Start: 05-27-2022 take 1 capsule by mouth three times daily as needed Tessalon Perles 100 MG 1 capsule as needed Orally Three times a day for 10 day(s) prn cough May, Not-Taking/PRN cefdinir 50 mg/ml oral suspension (4 sources) Cephalosporin Antibacterial Start: 06-02-2024 End: 08-11-2024 take 300 mg by mouth every twelve hours Cefdinir 250 mg/5 mL suspension for reconstitution Discontinued 300 MG PO Every 12 hours 60 5 June 02, 2024 1:00am August 11, 2024 4:41pm celecoxib 50 mg oral capsule (20 sources) Nonsteroidal Anti-inflammatory Drug Start: 05-26-2024 End: 02-20-2025 take 1 capsule by mouth twice daily Celecoxib 50 mg capsule Discontinued 0 .ROUTE .COMPLEX 60 January 24, 2025 8:13am February 20, 2025 3:45pm TAKE 1 CAPSULE BY MOUTH TWICE A DAY Start: 11-09-2023 End: 05-26-2024 take 1 capsule by mouth twice daily Celecoxib (Celebrex) 50 mg capsule Discontinued 50 MG PO Twice daily December 08, 2023 3:39pm May 26, 2024 10:34am cetirizine hydrochloride 10 mg oral tablet (11 [...] oral tablet (11 sources) alpha-Adrenergic Agonist, Uncompetitive V-pkirfj-D-asparta te Receptor Antagonist, Sigma-1 Agonist Start: 05-01-2020 Capmist DM 60-15-400 MG 1/2 to 1 tablet Orally every 6-8 hours as needed for 8 days Apr, Not-Taking/PRN doxycycline hyclate 100 mg oral capsule (4 sources) Tetracycline-class Drug Start: 08-11-2024 End: 02-05-2025 take 1 capsule by mouth twice daily Doxycycline Hyclate 100 mg capsule Discontinued 100 MG PO Twice daily 07 05August 11, 2024 1:00am February 05, 2025 12:00pm fluticasone propionate 0.05 mg/actuat metered dose nasal [...] mg / lisinopril 20 mg oral tablet (14 sources) Thiazide Diuretic, Angiotensin Converting Enzyme Inhibitor Start: 03-30-2017 End: 04-19-2020 take 1 tablet by mouth once daily Lisinopril-Hydrochlorothiazide 20-12.5 mg Tablet Discontinued 1 TAB PO Daily August 17, 2017 1:00am April 19, 2020 1:07pm metFORMIN hydrochloride 500 mg oral tablet (20 sources) Biguanide Start: 12-07-2023 End: 02-20-2025 take 1 tablet by mouth once daily at mealtime Metformin 500 mg tablet Discontinued 0 .ROUTE .COMPLEX December 07, 2023 12:59pm February 20, 2025 3:45pm TAKE 1 TABLET BY MOUTH EVERY DAY WITH A MEAL FOR 90 DAYS Start: 12-23-2021 End: 12-07-2023 take 1 tablet by mouth once daily Metformin 500 mg Tablet Discontinued 500 MG PO Daily December 23, 2021 12:00am December 07, 2023 1:01pm methylPREDNISolone 4 mg oral tablet (11 sources) Corticosteroid Start: 05-01-2020 Medrol 4 MG as directed Orally for 6 days Apr, Not-Taking/PRN predniSONE 10 mg oral tablet (19 sources) Start: 02-05-2025 End: 02-20-2025 take 4 tablets by mouth once daily, then take 3 tablets by mouth once daily, then take 2 tablets by mouth once daily, then take 1 tablet by mouth once daily Prednisone 10 mg tablet Discontinued 10 MG PO As Directed February 05, 2025 12:00am February 20, 2025 3:45pm 4 tabs daily w/ food x 3 days, then 3 tabs daily x 3 days, then 2 tabs daily x 3 days then 1 tab daily x 3 days Start: 05-18-2024 End: 05-23-2024 take 1 tablet [...] MG 1 tablet Orally BID for 5 10 Apr, 2023 Active ticagrelor 90 mg oral tablet (13 sources) Start: 08-18-2017 End: 01-13-2019 take 1 tablet by mouth twice daily Ticagrelor (Brilinta) 90 mg Tablet Discontinued 90 MG PO Twice daily 180 90 August 18, 2017 1:00am January 13, 2019 10:16am Problems Active Problems Problem Classification Problem Date Documented Date Episodic/Chronic Abdominal hernia (1 source) Umbilical hernia 03-30-2017 Episodic Acute bronchitis (9 sources) Acute bronchitis due to other specified organisms; Translations: [Acute bronchitis] Episodic Chronic obstructive pulmonary disease and bronchiectasis (1 source) Bronchitis, not specified as acute or chronic Episodic Conditions associated with dizziness or vertigo (2 sources) Benign paroxysmal positional vertigo; Translations: [Benign paroxysmal vertigo, left ear] Episodic Coronary atherosclerosis and other heart disease (20 sources) Coronary arteriosclerosis; Translations: [Atherosclerotic heart disease of [place] coronary artery without angina pectoris] Onset: 8 08-17-2017 Chronic Coronary atherosclerosis and other heart disease (1 source) Presence of coronary angioplasty implant and graft Episodic Diabetes mellitus with complications (20 sources) Type 2 diabetes mellitus with hyperglycemia; Translations: [Type 2 diabetes mellitus] Onset: 2 Chronic Diabetes mellitus without complication (12 sources) Type 2 diabetes mellitus without complication; Translations: [Type 2 diabetes mellitus without complications] 06-07-2024 Chronic Disorders of lipid metabolism (20 sources) Hypercholesterolemia; Translations: [Pure hypercholesterolemia, unspecified] Onset: 8 Chronic Esophageal disorders (20 sources) Stricture of esophagus; Translations: [Benign esophageal stricture] Onset: 4 03-30-2017 Chronic Comment on above: EGD: 03/2024, Essential hypertension (20 sources) Hypertensive disorder; Translations: [Essential (primary) hypertension] Onset: 3 03-30-2017 Chronic Gout and other crystal arthropathies (2 sources) Acute gout; Translations: [Gout, unspecified] 02-05-2025 Chronic Miscellaneous mental health disorders (2 sources) Psychosexual dysfunction associated with inhibited sexual excitement; Translations: [Psychosexual dysfunction with inhibited sexual excitement] Onset: 5 Chronic Mycoses (2 sources) Pain in toe; Translations: [Tinea unguium] 02-06-2025 Episodic Nonspecific chest pain (8 sources) Chest pain, unspecified; Translations: [Chest pain] Onset: 8 Resolved: 2 Episodic Osteoarthritis (20 sources) Localized, primary osteoarthritis of the pelvic region and thigh; Translations: [Unilateral primary osteoarthritis, left hip] Onset: 6 11-09-2023 Chronic Other acquired deformities (4 sources) Contracture of joint of right ankle; Translations: [Contracture, right ankle] 10-05-2024 Chronic Other acquired deformities (4 sources) Deformity of metatarsal; Translations: [Unspecified acquired deformity of right lower leg] 06-07-2024 Episodic Other connective tissue disease (4 sources) Trochanteric bursitis, right hip; Translations: [TROCHANTERIC BURSITIS RIGHT HIP] Onset: 3 Episodic Other connective tissue disease (1 source) Other bursitis of hip, left hip; Translations: [OTHER BURSITIS OF HIP LEFT HIP] Onset: 2 Episodic Other connective tissue disease (2 sources) Trochanteric bursitis of right hip; Translations: [Trochanteric bursitis, right hip] Episodic Other connective tissue disease (12 sources) Pain in right arm; Translations: [Pain in right arm] 10-26-2023 Episodic Other connective tissue disease (5 sources) Pain in right arm; Translations: [Pain in limb] 10-26-2023 Episodic Other connective tissue disease (4 sources) Hand pain; Translations: [Pain in right hand] 11-05-2023 Episodic Other connective tissue disease (14 sources) Pain in right foot; Translations: [Pain in right foot] 06-07-2024 Episodic Other connective tissue disease (6 sources) Pain in left foot; Translations: [Pain in left foot] 06-08-2024 Episodic Other connective tissue disease (2 sources) Calcaneal spur of right foot; Translations: [Calcaneal spur, right foot] 10-05-2024 Episodic Other connective tissue disease (4 sources) Plantar fasciitis; Translations: [Plantar fascial fibromatosis] 10-05-2024 Episodic Other connective tissue disease (2 sources) Capsulitis of metatarsophalangeal joint of right foot; Translations: [Other enthesopathy of right foot and ankle] 02-06-2025 Episodic Other gastrointestinal disorders (17 sources) Dysphagia; [...] Translations: [Right shoulder pain] 12-10-2023 Episodic Other non-traumatic joint disorders (2 sources) Sesamoiditis; Translations: [Other specified joint disorders, right ankle and foot] 02-06-2025 Episodic Other nutritional; endocrine; and metabolic disorders (2 sources) Obesity; Translations: [Obesity, unspecified] Chronic Other screening for suspected conditions (not mental disorders or infectious disease) (8 sources) Encounter for screening for malignant neoplasm of prostate; Translations: [Abnormal result of other cardiovascular function study] Onset: 2 Episodic Other upper respiratory disease (2 sources) Allergic rhinitis; Translations: [Allergic rhinitis, unspecified] Chronic Other upper respiratory infections (9 sources) Acute upper respiratory infection, unspecified; Translations: [Acute sinusitis] Onset: 5 Episodic Pleurisy; pneumothorax; pulmonary collapse (2 sources) [...] Translations: [Degeneration of lumbar intervertebral disc] Onset: 4 05-18-2024 Chronic Sprains and strains (4 sources) Strain of muscle of left hip; Translations: [Strain of muscle, fascia and tendon of left hip, initial encounter] Onset: 6 Episodic Unclassified (2 sources) Chest pain, unspecified / R07.9(ICD-9) Onset: 8 Viral infection (14 sources) Verruca plantaris; Translations: [Plantar wart] 06-07-2024 Episodic Past or Other Problems Problem Classification Problem Date Documented Da te Episodic/Chronic Diseases of mouth; excluding dental (6 sources) Geographic tongue; Translations: [Geographic tongue] Onset: 11-20-2014 Resolved: 09-24-2020 Episodic Other aftercare (1 source) prison (current) use of insulin; 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 Glucose of more than 200 mg/dL in a nonstressed, ambulatory subject supports the diagnosis of Diabetes Mellitus. Result Comment: [place] om Glucose Reference Range is dependent on time and content of last meal. Glucose of more than 200 mg/dL in a nonstressed, ambulatory subject supports the diagnosis of Diabetes Mellitus. Performed By: #### G LULS #### Point of Care testing , Glucose Glucometer (BldC) [M ass/Vol]Ordered By: Angelina Arrieta on 04-14-2024 Glucose [Mass/Vol] Capillary blood glucose measurement by glucometer (mass/volume) [facility] Comment on above: Random Glucose Refer ence Range is dependent on time and content of last meal. Glucose of more than 200 mg/dL in a nonstressed, ambulatory subject supports the diagnosis of Diabetes Mellitus. Glucose Poct Glucometerson 0 04-14-2024 Commemt1 Glu2: Cleaned Meter Normal [facility] Comment on above: Result Comment: PERF ORMED BY: [place] [address] PATHOLOGIST STEEL ERECTOR APPRENTICE LAMONT HORN M.D. Performed By: #### G LULS #### Point of Care testing , No Panel InformationOrdered By: Immanjula Arrieta on 04-14-2024 Miscellaneous Pathology Test See comment [facility] Comment on above: See report. Scanned copy available in EMR. Bedside Glucose Comment Glu2: cleaned meter [facility] Pathology Request for Lab Co rpon 04-14-2024 Pathology Request for Lab Yana Normal [facility] Comment on above: Order Comment: PATHO LOGY GI SPECIMEN Result Comment: See report. Scanned copy available in EMR. PERFORMED BY: [place] [address] PATHOLOGIST STEEL ERECTOR APPRENTICE LAMONT HORN M.D. Performed By: #### P ATH TO [facility] #### [address] Basophils Auto (Bld) [#/Vol] on 02-05-2024 Basophils (Bld) [#/Vol] 0.1 10 3/uL 0.0-0.1 [facility] Basophils/100 WBC Auto (Bld) on 02-05-2024 Basophils/100 WBC (Bld) 1.0 % 0.2-2.0 [facility] Cholesterol in LDL Calc [Mas s/Vol]on 02-05-2024 Cholesterol in LDL [Mass/Vol] 81.0 mg/dL [facility] Comment on above: <100 mg/dl [id number] 0-129 mg/dl NEAR OR ABOVE [id number] mg/dl BORDERLINE [id number] mg/dl HIGH>190 mg/dl VERY HIGH Cholesterol in VLDL Calc [Ma ss/Vol]on 02-05-2024 Cholesterol in VLDL [Mass/Vol] 29.0 mg/dL [facility] Eosinophils/100 WBC Auto (Bl d)on 02-05-2024 Eosinophils/100 WBC (Bld) 13.7 % High 0.9-7.0 [facility] Erythrocyte distribution wid th Auto (RBC) [Ratio]on 02-05-2024 Erythrocyte distribution width (RBC) [Ratio] 13.2 % 11.0-15.0 [facility] Estimated glomerular filtrat ion rate (GFR) non- Americanon 02-05-2024 GFR/1.73 sq M.predicted among non-blacks MDRD (S/P/Bld) [Vol rate/Area] mL/min/{1.73_m2} >=60 [facility] Globulin Calc (S) [Mass/Vol] on 02-05-2024 Globulin (S) [Mass/Vol] 3.0 g/dL [facility] Hematocrit Auto (Bld) [Volum e fraction]on 02-05-2024 Hematocrit (Bld) [Volume fraction] 46.8 % 42.0-54.0 [facility] Hemoglobin [Mass/volume] in Bloodon 02-05-2024 Hemoglobin (Bld) [Mass/Vol] 15.2 g/dL 14.0-18.0 [facility] Laboratory - Chemistry and C hemistry - challengeon 02-05-2024 Albumin [Mass/Vol] 3.6 g/dL 3.4-5.0 [facility] ALP [Catalytic activity/Vol] 80 U/L 46-116 [facility] ALT [Catalytic activity/Vol] 65 U/L High 16-63 [facility] AST [Catalytic activity/Vol] 32 U/L 15-37 [facility] Bilirubin [Mass/Vol] 1.0 mg/dL 0.2-1.0 [facility] Calcium [Mass/Vol] 8.5 mg/dL 8.5-10.1 [facility] Chloride [Moles/Vol] 106 mmol/L 98-107 [facility] Cholesterol [Mass/Vol] 145 mg/dL <=200 [facility] Cholesterol in HDL [Mass/Vol] 35 mg/dL Low 40-60 [facility] Comment on above: > or =60 mg/dl - LOW CARDIOVASCULAR RISK<40 mg/dl - HIGH CARDIOVASCULAR RISK CO2 [Moles/Vol] 30.7 mmol/L 21.0-32.0 [facility] Creatinine [Mass/Vol] 0.98 mg/dL 0.70-1.30 [facility] GFR/1.73 sq M.predicted MDRD (S/P/Bld) [Vol rate/Area] mL/min/{1.73_m2} >=60 [facility] Glucose [Mass/Vol] 115 mg/dL High 74-106 [facility] Potassium [Moles/Vol] 3.9 mmol/L 3.5-5.1 [facility] Protein [Mass/Vol] 6.6 g/dL 6.4-8.2 [facility] Sodium [Moles/Vol] 141 mmol/L 136-145 [facility] Triglyceride [Mass/Vol] 145 mg/dL <=150 [facility] Urea nitrogen [Mass/Vol] 16.0 mg/dL 7.0-18.0 [facility] Urea nitrogen/Creatinine [Mass ratio] 16.3 mg/mg [facility] Laboratory - Hematology and Cell countson 02-05-2024 Immature granulocytes/100 WBC (Bld) 0.2 % 0.0-0.5 [facility] Leukocytes [#/volume] correc kitty for nucleated erythrocytes in Blood by Automated counon 02-05-2024 WBC corrected for nucl RBC Auto (Bld) [#/Vol] 5.9 10 3/uL 4.0-11.0 [facility] Lymphocytes Auto (Bld) [#/Vo l]on 02-05-2024 Lymphocytes (Bld) [#/Vol] 2.0 10 3/uL 1.2-3.8 [facility] Lymphocytes/100 WBC Auto (Bl d)on 02-05-2024 Lymphocytes/100 WBC (Bld) 34.6 % 20.5-60.0 [facility] MCH Auto (RBC) [Entitic mass ]on 02-05-2024 MCH (RBC) [Entitic mass] 29.3 pg 25.9-34.0 [facility] MCHC Auto (RBC) [Mass/Vol]on 02-05-2024 MCHC (RBC) [Mass/Vol] 32.5 g/dL 29.9-35.2 [facility] MCV Auto (RBC) [Entitic vol] on 02-05-2024 MCV (RBC) [Entitic vol] 90.2 fL 80.0-94.0 [facility] Monocytes Auto (Bld) [#/Vol] on 02-05-2024 Monocytes (Bld) [#/Vol] 0.4 10 3/uL 0.3-0.8 [facility] Monocytes/100 WBC Auto (Bld) on 02-05-2024 Monocytes/100 WBC (Bld) 6.8 % 1.7-12.0 [facility] Neutrophils Auto (Bld) [#/Vo l]on 02-05-2024 Neutrophils (Bld) [#/Vol] 2.6 10 3/uL 1.4-6.5 [facility] Neutrophils/100 WBC Auto (Bl d)on 02-05-2024 Neutrophils/100 WBC (Bld) 43.7 % 43.0-75.0 [facility] No Panel Informationon 02-04 Eosinophils # (Auto) 0.8 10 3/uL High 0.0-0.7 [facility] Immature Granulocyte # (Auto) 0.01 10 3/uL 0.00-0.03 [facility] Prostate Specific Antigen Screen 0.69 ng/mL <=4.00 [facility] Platelet mean volume Auto (B ld) [Entitic vol]on 02-05-2024 Platelet mean volume (Bld) [Entitic vol] 11.9 fL 9.5-13.5 [facility] Platelets Auto (Bld) [#/Vol] on 02-05-2024 Platelets (Bld) [#/Vol] 201 10 3/uL 150-450 [facility] RBC Auto (Bld) [#/Vol]on RBC (Bld) [#/Vol] 5.19 10 6/uL 4.70-6.10 [facility] Serum or plasma albumin/glob ulin mass ratioon 02-05-2024 Albumin/Globulin [Mass ratio] 1.2 {ratio} [facility] Serum or plasma anion gap de terminationon 02-05-2024 Anion gap [Moles/Vol] 8.2 mmol/L [facility] Serum or plasma total choles terol/high density lipoprotein (HDL) cholesterol mass amita 02-05-2024 Cholesterol.total/Iona sterol in HDL [Mass ratio] 4.1 {ratio} [facility] Comment on above: 3.3 - 4.4 LOW RISK4. 4 - 7.1 AVERAGE RISK7.1 - 11.0 MODERATE RISK>11.0 HIGH RISK XR hand BI 3Von 11-09-2023 XR hand BI 3V [facility] [address] [place] [address] XRay Report Signed Patient: Misael Aguilar Jr MR#: [id number] : 1965 Acct:[id number] Age/Sex: 58 / M ADM Date: 11/09/23 Loc: [facility] Room: Type: [facility] Attending Dr: Judy Coleman MD Copies to: [...] Magnus Salcedo M.D.11/09/2023 5:24 PM Dictation Location: [place] [address] Transcribed By: [facility] 11/09/23 172 Dictated By: Magnus Salcedo DO 11/09/231722 Signed By: 11/09/23 172 Normal [facility] Basic Metabolic Panelon 09-16 Anion gap [Moles/Vol] 10 mmol/L Normal 9-15 [facility] Comment on above: Performed By: #### B MP #### [facility] [address] [place] [address] Calcium [Mass/Vol] 8.9 mg/dL Normal 8.5-9.9 [facility] Comment on above: Performed By: #### B MP #### [facility] [address] [place] [address] Chloride [Moles/Vol] 102 mmol/L Normal 95-107 [facility] Comment on above: Performed By: #### B MP #### [facility] [address] [place] [address] CO2 [Moles/Vol] 27 mmol/L Normal 20-31 [facility] Comment on above: Performed By: #### B MP #### [facility] [address] [place] [address] Creatinine [Mass/Vol] 0.97 mg/dL Normal 0.70-1.20 [facility] Comment on above: Performed By: #### B MP #### [facility] [address] [place] [address] GFR >60.0 Normal >60 [facility] Comment on above: Result Comment: Pedi atric [...] secretion. Performed By: #### B MP #### [facility] [address] [place] [address] Glucose [Mass/Vol] 149 mg/dL Critically high 70-99 M [facility] Comment on above: Performed By: #### B MP #### [facility] [address] [place] [address] Potassium [Moles/Vol] 4.0 mmol/L Normal 3.4-4.9 [facility] Comment on above: Performed By: #### B MP #### [facility] [address] [place] [address] Sodium [Moles/Vol] 139 mmol/L Normal 135-144 [facility] Comment on above: Performed By: #### B MP #### [facility] [address] [place] [address] Urea nitrogen [Mass/Vol] 16 mg/dL Normal 6-20 [facility] Comment on above: Performed By: #### B MP #### [facility] [address] [place] [address] CBC With Platelet No Differe ntialon 10-01-2023 Erythrocyte distribution width (RBC) [Ratio] 12.8 % Normal 11.5-14.5 [facility] Comment on above: Performed By: #### C BCND #### [facility] [address] [place] [address] Hematocrit (Bld) [Volume fraction] 46.1 % Normal 42.0-52.0 [facility] Comment on above: Performed By: #### C BCND #### [facility] [address] [place] [address] Hemoglobin (Bld) [Mass/Vol] 15.3 g/dL Normal 14.0-18.0 [facility] Comment on above: Performed By: #### C BCND #### [facility] [address] [place] [address] MCH (RBC) [Entitic mass] 28.9 pg Normal 27.0-31.3 [facility] Comment on above: Performed By: #### C BCND #### [facility] [address] [place] [address] MCHC 33.2 % Normal 33.0-37.0 [facility] Comment on above: Performed By: #### C BCND #### [facility] [address] [place] [address] MCV (RBC) [Entitic vol] 87.1 fL Normal 79.0-92.2 M [facility] Comment on above: Performed By: #### C BCND #### [facility] [address] [place] [address] Platelets (Bld) [#/Vol] 239 10*3/uL Normal 130-400 [facility] Comment on above: Performed By: #### C BCND #### [facility] [address] [place] [address] RBC (Bld) [#/Vol] 5.29 10*6/uL Normal 4.70-6.10 [facility] Comment on above: Performed By: #### C BCND #### [facility] [address] [place] [address] WBC (Bld) [#/Vol] 6.3 10*3/uL Normal 4.8-10.8 [facility] Comment on above: Performed By: #### C BCND #### [facility] [address] [place] [address] Prothrombin Timeon 4 INR Coag (PPP) [Relative time] 1.0 {INR} Normal [facility] Comment on above: Performed By: #### P T #### [facility] [address] [place] [address] PT Coag (PPP) [Time] 13.1 s Normal 12.3-14.9 [facility] Comment on above: Performed By: #### P T #### [facility] [address] [place] [address] Office Visiton 07-16-2023 Follow-up visit [id number] Misael Aguilar Jr. 1965 M Date Provider Department Center 07/16/2023 [facility] Kiara Ramos Family History Problem Relation Age of Onset No Known Problems Mother No Known Problems Father Family Status - Relation Status Age at Mother Alive Father Alive Level of Service:[address] [place] OFFICE/OUTPATIENT ESTABLISHED MOD MDM 30 MIN Normal [facility] Glucose Glucometer (BldC) [M ass/Vol]Ordered By: Angelina Arrieta on 12-17-2022 Glucose [Mass/Vol] 101 mg/dL [facility] Comment on above: Random Glucose Refer ence Range is dependent on time and content of last meal. Glucose of more than 200 mg/dL in a nonstressed, ambulatory subject supports the diagnosis of Diabetes Mellitus. CBC AUTO DIFFon 07-03-2022 BASO # 0.1 103/ul Normal 0.0-0.1 [facility] Comment on above: Performed By: #### C BC #### [facility] [address] [address] [address] Sergey Zamorano Basophils/100 WBC (Bld) 0.9 % Normal 0.2-2.0 [facility] Comment on above: Performed By: #### C BC #### [facility] [address] [address] [address] Sergey Zamorano EO # 0.5 103/ul Normal 0.0-0.7 [facility] Comment on above: Performed By: #### C BC #### [facility] [address] [address] [address] Sergey Zamorano Eosinophils/100 WBC (Bld) 7.1 % Critically high 0.9-7.0 [facility] Comment on above: Performed By: #### C BC #### [facility] [address] [address] [address] Sergey Zamorano Erythrocyte distribution width (RBC) [Ratio] 13.4 % Normal 11.0-15.0 [facility] Comment on above: Performed By: #### C BC #### [facility] [address] [place] [address] Dr. Sergey Zamorano Hematocrit (Bld) [Volume fraction] 46.5 % Normal 42.0-54.0 [facility] Comment on above: Performed By: #### C BC #### [facility] [address] [address] [address] Sergey Zamorano Hemoglobin (Bld) [Mass/Vol] 15.3 g/dL Normal 14.0-18.0 [facility] Comment on above: Performed By: #### C BC #### [facility] [address] [place] [address] Dr. Sergey Zamorano IG # 0.03 10e3/ul Normal 0.00-0.03 [facility] Comment on above: Performed By: #### C BC #### [facility] [address] [place] [address] Dr. Sergey Zamorano IG % 0.4 % Normal 0.0-0.5 [facility] Comment on above: Performed By: #### C BC #### [facility] [address] [place] [address] Dr. Sergey Zamorano LYMPH # 2.6 103/ul Normal 1.2-3.8 [facility] Comment on above: Performed By: #### C BC #### [facility] [address] [place] [address] Dr. Sergey Zamorano Lymphocytes/100 WBC (Bld) 33.6 % Normal 20.5-60.0 [facility] Comment on above: Performed By: #### C BC #### [facility] [address] [place] [address] Dr. Sergey Zamorano MANUAL DIFF REQ NO Normal [facility] Comment on above: Performed By: #### C BC #### [facility] [address] [place] [address] Dr. Sergey Zamorano MCH (RBC) [Entitic mass] 28.3 pg Normal 25.9-34.0 [facility] Comment on above: Performed By: #### C BC #### [facility] [address] [place] [address] Dr. Sergey Zamorano MCHC (RBC) [Mass/Vol] 32.9 g/dL Normal 29.9-35.2 [facility] Comment on above: Performed By: #### C BC #### [facility] [address] [place] [address] Dr. Sergey Zamorano MCV (RBC) [Entitic vol] 86.0 fL Normal 80.0-94.0 [facility] Comment on above: Performed By: #### C BC #### [facility] [address] [place] [address] Dr. Sergey Zamorano MONO # 0.6 103/ul Normal 0.3-0.8 [facility] Comment on above: Performed By: #### C BC #### [facility] [address] [place] [address] Dr. Sergey Zamorano Monocytes/100 WBC (Bld) 7.5 % Normal 1.7-12.0 [facility] Comment on above: Performed By: #### C BC #### [facility] [address] [place] [address] Dr. Sergey Zamorano NEUT # 3.9 103/ul Normal 1.4-6.5 [facility] Comment on above: Performed By: #### C BC #### [facility] [address] [place] [address] Dr. Sergey Zamorano Neutrophils/100 WBC (Bld) 50.5 % Normal 43.0-75.0 [facility] Comment on above: Performed By: #### C BC #### [facility] [address] [place] [address] Dr. Sergey Zamorano Platelet mean volume (Bld) [Entitic vol] 10.8 fL Normal 9.5-13.5 [facility] Comment on above: Performed By: #### C BC #### [facility] [address] [place] [address] Dr. Sergey Zamorano PLT 278 103/ul Normal 150-450 [facility] Comment on above: Performed By: #### C BC #### [facility] [address] [place] [address] Dr. Sergey Zamorano RBC 5.41 106/ul Normal 4.70-6.10 [facility] Comment on above: Performed By: #### C BC #### [facility] [address] [place] [address] Dr. Sergey Zamorano WBC 7.6 103/ul Normal 4.0-11.0 [facility] Comment on above: Performed By: #### C BC #### [facility] [address] [place] [address] Dr. Sergey Zamorano GLYCOHEMOGLOBIN A1Con 2021 ADA RECOMMENDATION SEE BELOW Normal [facility] Comment on above: Result Comment: ADA RECOMMENDED LIMIT 4.0 - 6.0 ADA THERAPEUTIC TARGET < 7.0 ACTION SUGGESTED > 7.0 Performed By: #### D ATA1C #### [facility] [address] [place] [address] Dr. Sergey Zamorano Glucose [Mass/Vol] 137 mg/dL Normal [facility] Comment on above: Performed By: #### D ATA1C #### [facility] [address] [place] [address] Dr. Sergey Zamorano HbA1c (Bld) [Mass fraction] 6.4 % Critically high 4.5-6.2 [facility] Comment on above: Performed By: #### D ATA1C #### [facility] [address] [place] [address] Dr. Sergey Zamorano PROF CHEM 8 (BAS METB)on Anion gap [Moles/Vol] 10.6 mmol/L Normal [facility] Comment on above: Performed By: #### B MP #### [facility] [address] [place] [address] Dr. Sergey Zamorano Calcium [Mass/Vol] 8.6 mg/dL Normal 8.5-10.1 [facility] Comment on above: Performed By: #### B MP #### [facility] [address] [place] [address] Dr. Sergey Zamorano Chloride [Moles/Vol] 104 mmol/L Normal 98-107 [facility] Comment on above: Performed By: #### B MP #### [facility] [address] [place] [address] Dr. Sergey Zamorano CO2 [Moles/Vol] 30.5 mmol/L Normal 21.0-32.0 [facility] Comment on above: Performed By: #### B MP #### [facility] [address] [place] [address] Dr. Sergey Zamorano Creatinine [Mass/Vol] 0.94 mg/dL Normal 0.70-1.30 [facility] Comment on above: Performed By: #### B MP #### [facility] [address] [place] [address] Dr. Sergey Zamorano EGFR-AF CYMRAES >60 Normal >=60 [facility] Comment on above: Performed By: #### B MP #### [facility] [address] [address] [address] Sergey Zamorano EGFR-NON AF CYMRAES >60 Normal >=60 [facility] Comment on above: Performed By: #### B MP #### [facility] [address] [address] [address] Sergey Zamorano Glucose [Mass/Vol] 111 mg/dL Critically high 74-106 [facility] Comment on above: Performed By: #### B MP #### [facility] [address] [address] [address] Sergey Zamorano Potassium [Moles/Vol] 4.1 mmol/L Normal 3.5-5.1 [facility] Comment on above: Performed By: #### B MP #### [facility] [address] [address] [address] Sergey Zamorano Sodium [Moles/Vol] 141 mmol/L Normal 136-145 [facility] Comment on above: Performed By: #### B MP #### [facility] [address] [address] [address] Sergey Zamorano Urea nitrogen [Mass/Vol] 12.0 mg/dL Normal 7.0-18.0 [facility] Comment on above: Performed By: #### B MP #### [facility] [address] [address] [address] Sergey Zamorano Urea nitrogen/Creatinine [Mass ratio] 12.8 mg/mg Normal [facility] Comment on above: Performed By: #### B MP #### [facility] [address] [address] [address] Sergey Zamorano Coding Summary.on 06-08-2022 Coding Summary. CD:[id number] LWq4dEo+PGhlYWQ+PE1 WEDLhB59ajJJtvJ5NU6 oPPN9LBUUCKLMDUI0GS K1roIP1JEycE9GfizRi LegkuKAgRG69FAu9JPO 1fKrrIEijeC4exLOeG3 u1PdOpZA73qF80RQjyY JAoAaN3YpRfeukysBDy E0daBiFkuPNhOca+PHR hYmxlIHdpZHRoPScxMD NgWjEueKwcEN4eKo5mJ GVyLWNvbGxhcHNlOiBj e9pkXLHdTVqwAR2eiIr rT5PjiTZ3OWWxw5c4Af 48dHI+IMFbGNF2aLjfW Veyv332XdWrk2qvVRW9 aIUiWTrtOCK8A98tf2U 0ZTYaZJExDRL8yAR3vZ 4faRawptrmA2RhrQLmZ uT2KLL0gINigR2roGwx kqejuB2eJmb+V60RNX8 UBDWHOY3CZod3R3ZfRi wvdHI+KC21SWUdPA27x JYuxDIqc2sruHx7EtJe JQKnXWF3tTgdTJtoq2O wSLRbI43xnXMki2Q2OE GraRinzGOdMnZdwWD0q Z6wDDgpzywng4wokehx Udcfg9rtld11jJ85U10 jQHryNDTpFYC6KBYxKZ OxnTpxzj0trV3bTn0+I Fsws6lyu3rcgAe6WyHx IMCndkJdkFraFOC1q6H zSd91M8GliHpva2UvOz z3lp31hHFgv2Q4bRW2T SbvPEXcfR9dDNihRsN3 PNGqYaLdiD31qFXgODz sGh2rrDwonHemHW3kOQ BpfweuRTEhaR0xZQKof PFscSyfQK4yRZHhezrr e128SiPpEZH4OHSliOM pU7IsgX0jUnRkBWFjJI CkJ1JraFHuRLcrX590H EsnQpV9YDRfxyPyU2Rj ZZPsoLlpKlW5q6Q2Ak4 Go7FzvxfyXSY2ZDdyKY KtJvClUmNsUvD9D7DbT zr3BLAmzWzpKO0sW7Jt GAUcidruyvhqpMX5SLJ tOLXlsF42gMEzQTnsIr 3de5T3j346XURoTHRta C33Xw2peSxuCTOnsHVF qK9noyzmv6bavwpmZeE bMDEyXFx9ZBf2SEJvoN jnMrNrOOL8ZiV8ECU6p TOdbS2keWqafqpvtE7p Oyc+B76rcM5fZSD1LJW 9wzcsUCSmzbDfVC75ZF 61S3FhOzgduDUpdJX+P JImqrTnvZmtEC2dDwYr r7pbe4JiBIejC9VgTIM eAXtrMpj4WVLfEBK3nD X3fJ6yBKTyPXcha9L2w XW7S0AzpgMutm4tu6ok HMJjFMexD18awOKao5V 2KTPvkZL2WBFnsAwfFk FjxI79Zfv+PGNvbGdyb 3RcOwddh8ffy1jdcKh6 IjMwJSIgdmFsaWduPSJ 1b0ThEq41K22eOMdfXZ RoPSIxNSUiIHZhbGlnb p4knB0qOz9+PGNvbCB3 aYJ9mP4uOBJrLyU9CHj rJ581DeYztQXzOpvul7 vog1dtrFs5DrKgLKYfb aUuoRmjCGL4u5NsVf52 Y42jDSywDCEjPRWvUGN oVNWluNwjcb6bxP4nHh 8+QU5eh9xlfa71yA39p HI+ELBmSID2wLheEPip GZIjoK3sMBiiGkB7UYY kVmSghK46xCSsVIsvAw 0zgZspcTaeQS5jBYAak defj913KiZre6wkUXFs sENwQVuxANN8D66rn5M 9KNChDHFzKGV1pKX3oG 1hbGlnbjogbGVmdDsgd nWxePpgKDasYWzzJ969 IHRvcDsnPlBhdGllbnQ sVkAbJMu9O5CqKja0OI FxrBhmXD6seSDqSVnkK d9yiXukyQozSC2gUHIw zehgf700NyUlt6osZCY eyHFpCXqdVBH5D91qq7 P7LLUtTECpHWW5mWT5n H0nlOchizhcyFSwmCvd tdEqzTmkSVjbAAkoV18 6IHRvcDsnPkJpcnRoIE KraUG2UE81EG49qXVoz 5P2hRX6U1BlHNIzbdjr bhgemMU1RRIrJGCmyM0 0Cw7rwIrpUu0rGSZiRY T8UBYilRJpE7SioE4eK cStGJKgSPVcD5TqeSUx OIvjS027CVmvFrR3QVH xpoVqF8ArCBPuwKfpRh W1v9D6Ts6HH2J0CD32U Z94jYHxe1K4pWK5S5Do FAGixhtamdpxmWT8SZK cEEWvkY61Bu0fiUynPt 4pMEMeBQK1NYGaxFHvJ 5TjqG4oMrXlMJXjNXZi H1VptBMcHDhrN160EGy gVtU2SJVpkgUaT9AfBI XvyYkiAeX2l5S7Ee0BN Ed7GR10WW32hTXst9W2 fUH7M1MeZTLczggrjhj neIW1XOQtQRDexN64Ns 3smZtxCs0cPCQxHBZ8S VTafHPoX7BjiE2gUfNm GKBbPTGlP6OhjEAaIPi cP324ZXqqQtC4OTHxre DrS3ToDNIriOqtIuA0m 5M3Dc9JATAbWF60NYA5 xES6JO07UP57L4VnJax vdGFibGU+PHRhYmxlIH dpZHRoPScxMDAlJyBzd VnhOU3nDz0qWIKcZLAk rXwufUAzDtIwu9frOFN gXAlyOR9ydFdqL1MisV Q8NOByj2w9Jk24I08bW 3JvdXA+DDUfvYX9fAH7 vW5fUnFnTzD7DJfxA55 0FpHptSTsOuubd0fow0 myqDl6XbR0CTYftlFbg FtyVFE7s5FyDi77N24w IHdpZHRoPSIxNSUiIHZ mpQluyg1tnD4rTu1+PG QkrPJ6nQP8bC7kBxYsE xY1CWkoC795UwMgkUPv Tndqm6ihs3gbjAw1IeO gOEWdglQbfDwvNZH0v2 ZjNl45Q7PulSvhg0YqW gd4qi23yXXnp0Z4uXA3 T7GoHMTtnfigfZQxlCn rLW4iRJEwjotcPQLdsE 3tVPYwS0z0YhMiOfP8L WuvA5HaqfW1JXHlhACh EEmmJQZ0S85pq1U4SEY rGKLpLGV0gED6iY6phN lnbjogbGVmdDsgdmVyd SqiLJnfWTerH284ZHGy pIyyKTHtkV4xICDyzGQ odEjnKQ5bCNWxjiznIm RJU9YQQAUlKYLURH95P 1MmPtw7OXLrhQhjYV5e nPKfDZwyJy3trKrcoJa qLS0sMEQkxbztKYGdnW 7xEIExxJFilKfxNQ5zS SXhidwyr993QiHqCPF9 OCJbzIHeB2PpqY6dIoX tHIUaAUTjS1HkiHCuEP hvS580AUgqLbF7HVRfy zMhL5GdASRorLkiPtC4 c3V6Uh8vDB5uIG7ePMW 3XW19IA66oJSqc0T6kH G3V3CwRWXgvnxuoyrsq UN0TSMhZXHzyG23jPDg KRnoIc8nt1N2z892LIK fPNQruC31Wm1xqApjHQ UutGZDgO0jfeevw9xhy igmFzHqUDEkAZg8CHe9 XIGcwLnoGfOaFJY8UsD 5CTK1qZBuzM2mpYwdow lpvG3cMmz+NTUgWWVhc tK7T9ZeOoh1XIAimUsq FX9yqUSnYKpsGh9kmYg bhWklTN3sPIEteyijVG RybS4bYMGbjMQdgEzoN K5uRWPzdlszk828PzEp FHP3QKVyiXEaU1RrwK3 mYsBjXBRlLKLiC3AtyL EhFErlS326BMxqFtJ9J MLaeoXoA9GzLKSmxLgk FaZ5n7Z8Ke6YXJhkBZ5 4SB27sNMud3E2eWC0I5 CaLQYrqxzkybvagCP6R TLuBOSstB75wWKcTDqu Py5gc0F2m151ETXvEMM ojB07Gf7nlEhyOCWblE HDaM9vqaaqe8gfdvieW bZkJCXdZYw7YCk2KMIy aSkqWjHpKLH2QvT4JDA 7xSVwsH5nhSygtabdiQ 9wOyc+T9G5mXH1tPPic DwvdGQ+CN22zr51W1Ct TaioUhn7GTKhYLF6nSP 2aU2eGAMuTLdgt5V7xW G4Q9TsqnOakw1rf1mpV NNaLZutY55upJEdh6M0 RWRkiCJ4MEBvsMznLxF meS79Voj+PGNvbGdyb3 ImIywid9vom0jpfGp5D jMwJSIgdmFsaWduPSJ0 p4YtZd37Q51oKLjhQMG oPSIzMCUiIHZhbGlnbj 0opG2fFy0+ZLTruIN0w AB3mV4wRbKiIcU3EFlp C330BxQwyNCeFzipu5j fk8pdxSt2IlPpQBDyth OxnVsrUEN6f4NcVt96J 8DtjYgxf1DqUvx9sb73 kYPel6F3yXY3A4TdWLN dsqqvhLOacXnpVU9tGB PzpcgyLRRmvQ1pPYRjV 1m8ZeUsDvR0CFtpN4Ve gzU4JPHtoEHuHQFbwOK KcI8bpkbom1srnrbzRv WeUBTxSSw3TZx1TDIsu DfdJcYfORP4EbY5MDB6 tNEszK0nfPytgaddhD5 wOyc+JIr0b0gbnILxSP 5paQK4RO42ZD97kDNbl 3P4nFZ9K9LoWJVaoofx vxbxkWU3MSVvIQEmeC7 1Gw3cqTnlGh7fCLZsAZ C7DBZyeVFgH3TroV5tQ xGyIUPrQFRxP7VgcCAc SXjbG101OVoiGzS2VWP daaZtO4PiUFHzhExbPf M7p2H7Pj7QOC84SH72O F77lKGga7L3aHU6W6Lq TDWofvdeaaohkGU5RTP rZYJtkS12Hf3ivZqtFz 8eVSGyIPU4TYJnpKTjP 0UhxI2qSiHyKFIkZLVw P7FheAHeIJbzU146DVu zHsX7TBMudmViW0IpEQ BgkEcwDlA9n5C8Yu9NT z52NE91OO00zBBzi0S1 aIY8P9PfJAAphxxthga gjQV3SUXlIZSwzJ80Vx 0epYwsHm4fCAIpSPV2T IWwnXRzH0LozV1wPgSk GPAyNINgN5BvpSQaNKf rE025HXucBqV2TQLzga DlN7LkVGWieUuyRmT5m 1W1Ig3RGEjdeqd7Q8Jy PjwvdHI+HM90XNEgXV8 1cQIpmBMmy3qucLd0Da EqQBJoWFI7vSirMJgsk 1RhECHjL80dlHRum3D2 IGNv (more content not included)... Normal [facility] Operative Reporton Operative Report SURGERY DATE: 06/03/2022 [...] patient is met in the [facility] Radiology. The patient is placed supine [...] Suite here today. Celia Potter Dictated: 06/03/2022 [id number] Transcribed: 06/03/2022 cc:Bhaskar Reddy D.O. [facility] Comment on above: Result Comment: Elec tronically Signed By: Josleyn Gilman DO\.br\Date and Time Signed: 06/05/22 13:01 EST RAD - Consent to Procedureon 06-03-2022 RAD - Consent to Procedure [id number]:127 [facility] Physician Orderon 05-25-2022 Physician Order [id number]:127 Normal [facility] MRI Hip w/o Righton 05-13-20 MRI Hip [...] by Michael Martino on 05/14/2022 1017 Normal [facility] [employer] Room Operator GLYCOHEMOGLOBIN A1Con 2021 ADA RECOMMENDATION SEE BELOW Normal [facility] Comment on above: Result Comment: ADA RECOMMENDED LIMIT 4.0 - 6.0 ADA THERAPEUTIC TARGET < 7.0 ACTION SUGGESTED > 7.0 Performed By: #### A 1C #### [facility] [address] [place], [place] [address] Dr. Sergey Zamorano Glucose [Mass/Vol] 126 mg/dL Normal [facility] Comment on above: Performed By: #### A 1C #### [facility] [address] [place], [place] [address] Dr. Sergey Zamorano HbA1c (Bld) [Mass fraction] 6.0 % Normal 4.5-6.2 [facility] Comment on above: Performed By: #### A 1C #### [facility] [address] [place] [address] Dr. Sergey Zamorano CBC AUTO DIFFon 10-31-2021 BASO # 0.1 103/ul Normal 0.0-0.1 [facility] Comment on above: Performed By: #### C BC #### [facility] [address] [place] [address] Dr. Sergey Zamorano Basophils/100 WBC (Bld) 0.9 % Normal 0.2-2.0 [facility] Comment on above: Performed By: #### C BC #### [facility] [address] [place] [address] Dr. Sergey Zamorano EO # 0.4 103/ul Normal 0.0-0.7 [facility] Comment on above: Performed By: #### C BC #### [facility] [address] [place] [address] Dr. Sergey Zamorano Eosinophils/100 WBC (Bld) 5.5 % Normal 0.9-7.0 [facility] Comment on above: Performed By: #### C BC #### [facility] [address] [place] [address] Dr. Sergey Zamorano Erythrocyte distribution width (RBC) [Ratio] 12.8 % Normal 11.0-15.0 [facility] Comment on above: Performed By: #### C BC #### [facility] [address] [place] [address] Dr. Sergey Zamorano Hematocrit (Bld) [Volume fraction] 47.9 % Normal 42.0-54.0 [facility] Comment on above: Performed By: #### C BC #### [facility] [address] [place] [address] Dr. Sergey Zamorano Hemoglobin (Bld) [Mass/Vol] 16.0 g/dL Normal 14.0-18.0 [facility] Comment on above: Performed By: #### C BC #### [facility] [address] [place] [address] Dr. Sergey Zamorano IG # 0.02 10e3/ul Normal 0.00-0.03 [facility] Comment on above: Performed By: #### C BC #### [facility] [address] [place] [address] Dr. Sergey Zamorano IG % 0.3 % Normal 0.0-0.5 [facility] Comment on above: Performed By: #### C BC #### [facility] [address] [place] [address] Dr. Sergey Zamorano LYMPH # 2.4 103/ul Normal 1.2-3.8 [facility] Comment on above: Performed By: #### C BC #### [facility] [address] [place] [address] Dr. Sergey Zamorano Lymphocytes/100 WBC (Bld) 36.5 % Normal 20.5-60.0 [facility] Comment on above: Performed By: #### C BC #### [facility] [address] [place] [address] Dr. Sergey Zamorano MANUAL DIFF REQ NO Normal [facility] Comment on above: Performed By: #### C BC #### [facility] [address] [place] [address] Dr. Sergey Zamorano MCH (RBC) [Entitic mass] 29.3 pg Normal 25.9-34.0 [facility] Comment on above: Performed By: #### C BC #### [facility] [address] [place] [address] Dr. Sergey Zamorano MCHC (RBC) [Mass/Vol] 33.4 g/dL Normal 29.9-35.2 [facility] Comment on above: Performed By: #### C BC #### [facility] [address] [place] [address] Dr. Sergey Zamorano MCV (RBC) [Entitic vol] 87.6 fL Normal 80.0-94.0 [facility] Comment on above: Performed By: #### C BC #### [facility] [address] [place] [address] Dr. Sergey Zamorano MONO # 0.5 103/ul Normal 0.3-0.8 [facility] Comment on above: Performed By: #### C BC #### [facility] [address] [address] [address] Sergey Zamorano Monocytes/100 WBC (Bld) 7.0 % Normal 1.7-12.0 [facility] Comment on above: Performed By: #### C BC #### [facility] [address] [address] [address] Sergey Zamorano NEUT # 3.3 103/ul Normal 1.4-6.5 [facility] Comment on above: Performed By: #### C BC #### [facility] [address] [address] [address] Sergey Zamorano Neutrophils/100 WBC (Bld) 49.8 % Normal 43.0-75.0 [facility] Comment on above: Performed By: #### C BC #### [facility] [address] [place] [address] Dr. Sergey Zamorano Platelet mean volume (Bld) [Entitic vol] 11.7 fL Normal 9.5-13.5 [facility] Comment on above: Performed By: #### C BC #### [facility] [address] [place] [address] Dr. Sergey Zamorano PLT 237 103/ul Normal 150-450 [facility] Comment on above: Performed By: #### C BC #### [facility] [address] [place] [address] Dr. Sergey Zamorano RBC 5.47 106/ul Normal 4.70-6.10 [facility] Comment on above: Performed By: #### C BC #### [facility] [address] [place] [address] Dr. Sergey Zamorano WBC 6.7 103/ul Normal 4.0-11.0 [facility] Comment on above: Performed By: #### C BC #### [facility] [address] [place] [address] Dr. Sergey Zamorano GLYCOHEMOGLOBIN A1Con 2021 ADA RECOMMENDATION ADA THERAPEUTIC TARGET 6.0 - 7.0 ACTION SUGGESTED > 7.0 Normal [facility] Comment on above: Performed By: #### A 1C #### [facility] [address] [address] [address] Sergey Zamorano Glucose [Mass/Vol] 255 mg/dL Normal [facility] Comment on above: Performed By: #### A 1C #### [facility] [address] [address] [address] Sergey Zamorano HbA1c (Bld) [Mass fraction] 10.5 % Critically high <=6.0 [facility] Comment on above: Performed By: #### A 1C #### [facility] [address] [address] [address] Sergey Zamorano LIPID PROFILEon 10-31-2021 CHOL-HDL RATIO NORM SEE BELOW Normal [facility] Comment on above: Result Comment: 3.3 - 4.4 LOW RISK 4.4 - 7.1 AVERAGE RISK 7.1 - 11.0 MODERATE RISK >11.0 HIGH RISK Performed By: #### L IPID, CMP #### [facility] [address] [address] [address] Sergey Zamorano Cholesterol [Mass/Vol] 107 mg/dL Normal <=200 Th [facility] Comment on above: Performed By: #### L IPID, CMP #### [facility] [address] [address] [address] Sergey Zamorano Cholesterol in HDL [Mass/Vol] 33 mg/dL Critically low 40-60 [facility] Comment on above: Performed By: #### L IPID, CMP #### [facility] [address] [address] [address] Sergey Zamorano Cholesterol in LDL [Mass/Vol] 51.2 mg/dL Normal [facility] Comment on above: Performed By: #### L IPID, CMP #### [facility] [address] [address] [address] Sergey Zamorano Cholesterol.total/Iona sterol in HDL [Mass ratio] 3.2 {ratio} Normal [facility] Comment on above: Performed By: #### L IPID, CMP #### [facility] [address] [address] [address] Sergey Zamorano HDL NORMAL > or = 60 mg/dl - LOW CARDIOVASCULAR RISK <40 mg/dl - HIGH CARDIOVASCULAR RISK Normal [facility] Comment on above: Performed By: #### L IPID, CMP #### [facility] [address] [address] [address] Sergey Zamorano LDL CALC NORMAL SEE BELOW Normal [facility] Comment on above: Result Comment: <100 mg/dl OPTIMAL 100 - 129 mg/dl NEAR OR ABOVE OPTIMAL 130 - 159 mg/dl BORDERLINE HIGH 160 - 189 mg/dl HIGH >190 mg/dl VERY HIGH Performed By: #### L IPID, CMP #### [facility] [address] [address] [address] Sergey Zamorano Triglyceride [Mass/Vol] 114 mg/dL Normal <=150 T [facility] Comment on above: Performed By: #### L IPID, CMP #### [facility] [address] [address] [address] Sergey Zamorano VLDL CALC 22.8 mg/dL Normal [facility] Comment on above: Performed By: #### L IPID, CMP #### [facility] [address] [address] [address] Sergey Zamorano PROF 14(COMP METB)on 022 Albumin [Mass/Vol] 3.7 g/dL Normal 3.4-5.0 [facility] Comment on above: Performed By: #### L IPID, CMP #### [facility] [address] [place] [address] Dr. Sergey Zamorano Albumin/Globulin [Mass ratio] 1.3 {ratio} Normal [facility] Comment on above: Performed By: #### L IPID, CMP #### [facility] [address] [address] [address] Sergey Zamorano ALP [Catalytic activity/Vol] 85 U/L Normal 46-116 [facility] Comment on above: Performed By: #### L IPID, CMP #### [facility] [address] [address] [address] Sergey Zamorano ALT [Catalytic activity/Vol] 84 U/L Critically high 16-63 [facility] Comment on above: Performed By: #### L IPID, CMP #### [facility] [address] [place] [address] Dr. Sergey Zamorano Anion gap [Moles/Vol] 10.3 mmol/L Normal [facility] Comment on above: Performed By: #### L IPID, CMP #### [facility] [address] [place] [address] Dr. Sergey Zamorano AST [Catalytic activity/Vol] 30 U/L Normal 15-37 [facility] Comment on above: Performed By: #### L IPID, CMP #### [facility] [address] [place] [address] Dr. Sergey Zamorano Bilirubin [Mass/Vol] 0.8 mg/dL Normal 0.2-1.3 [facility] Comment on above: Performed By: #### L IPID, CMP #### [facility] [address] [place] [address] Dr. Sergey Zamorano Calcium [Mass/Vol] 8.4 mg/dL Critically low 8.5-10.1 [facility] Comment on above: Performed By: #### L IPID, CMP #### [facility] [address] [place] [address] Dr. Sergey Zamorano Chloride [Moles/Vol] 103 mmol/L Normal 98-107 [facility] Comment on above: Performed By: #### L IPID, CMP #### [facility] [address] [place] [address] Dr. Sergey Zamorano CO2 [Moles/Vol] 29.7 mmol/L Normal 22.0-30.0 [facility] Comment on above: Performed By: #### L IPID, CMP #### [facility] [address] [place] [address] Dr. Sergey Zamorano Creatinine [Mass/Vol] 0.95 mg/dL Normal 0.66-1.25 [facility] Comment on above: Performed By: #### L IPID, CMP #### [facility] [address] [place] [address] Dr. Sergey Zamorano EGFR-AF CYMRAES >60 Normal >=60 [facility] Comment on above: Performed By: #### L IPID, CMP #### [facility] [address] [place] [address] Dr. Sergey Zamorano EGFR-NON AF CYMRAES >60 Normal >=60 [facility] Comment on above: Performed By: #### L IPID, CMP #### [facility] [address] [place] [address] Dr. Sergey Zamorano Globulin (S) [Mass/Vol] 2.9 g/dL Normal [facility] Comment on above: Performed By: #### L IPID, CMP #### [facility] [address] [place] [address] Dr. Sergey Zamorano Glucose [Mass/Vol] 178 mg/dL Critically high 74-106 [facility] Comment on above: Performed By: #### L IPID, CMP #### [facility] [address] [place] [address] Dr. Sergey Zamorano Potassium [Moles/Vol] 4.0 mmol/L Normal 3.4-5.0 [facility] Comment on above: Performed By: #### L IPID, CMP #### [facility] [address] [place] [address] Dr. Sergey Zamorano Protein [Mass/Vol] 6.6 g/dL Normal 6.1-8.2 [facility] Comment on above: Performed By: #### L IPID, CMP #### [facility] [address] [place] [address] Dr. Sergey Zamorano Sodium [Moles/Vol] 139 mmol/L Normal 137-145 [facility] Comment on above: Performed By: #### L IPID, CMP #### [facility] [address] [place] [address] Dr. Sergey Zamorano Urea nitrogen [Mass/Vol] 14.0 mg/dL Normal 7.0-18.0 [facility] Comment on above: Performed By: #### L IPID, CMP #### [facility] [address] [place] [address] Dr. Sergey Zamorano Urea nitrogen/Creatinine [Mass ratio] 14.7 mg/mg Normal [facility] Comment on above: Performed By: #### L IPID, CMP #### [facility] [address] [address] [address] Sergey Zamorano Vital Signs Date Time Vital Sign Value Performing Clinician Facility 02-20-2025 15:44-0400 Body height 172.72 cm Bhaskar Ball DO Work Phone: [facility] 02-20-2025 15:44-0400 Body mass index (BMI) [Ratio] 30.5 kg/m2 Bhaskar Ball DO Work Phone: [facility] 02-20-2025 15:44-0400 Body weight 91.17 kg Bhaskar Ball DO Work Phone: [facility] 02-20-2025 15:44-0400 Diastolic blood pressure 86 mm[Hg] Bhaskar Ball DO Work Phone: [facility] 02-20-2025 15:44-0400 Heart rate 76 /min Bhaskar Ball DO Work Phone: [facility] 02-20-2025 15:44-0400 Respiratory rate 16 /min Bhaskar Ball DO Work Phone: [facility] 02-20-2025 15:44-0400 SaO2% (BldA) [Mass fraction] 97 % Bhaskar Ball DO Work Phone: [facility] 02-20-2025 15:44-0400 Systolic blood pressure 130 mm[Hg] Bhaskar Ball DO Work Phone: [facility] 02-06-2025 14:02-0400 Body height 172.7 cm Babatunde Malcolm DPM Work Phone: [facility] 02-06-2025 14:02-0400 Body mass index (BMI) [Ratio] 28.89 kg/m2 Babatunde Malcolm DPM Work Phone: [facility] 02-06-2025 14:02-0400 Body weight 86.18 kg Babatunde Malcolm DPM Work Phone: [facility] 02-06-2025 14:02-0400 Respiratory rate 16 /min Babatunde Malcolm DPM Work Phone: [facility] 02-05-2025 14:03-0400 Body height 172.72 cm Bhaskar Ball DO Work Phone: [facility] 02-05-2025 14:03-0400 Body mass index (BMI) [Ratio] 31.4 kg/m2 Bhaskar Ball DO Work Phone: [facility] 02-05-2025 14:03-0400 Body weight 93.55 kg Bhaskar Ball DO Work Phone: [facility] 02-05-2025 14:03-0400 Diastolic blood pressure 91 mm[Hg] Bhaskar Ball DO Work Phone: [facility] 02-05-2025 14:03-0400 Heart rate 67 /min Bhaskar Ball DO Work Phone: [facility] 02-05-2025 14:03-0400 Respiratory rate 12 /min Bhaskar Ball DO Work Phone: [facility] 02-05-2025 14:03-0400 Systolic blood pressure 157 mm[Hg] Bhaskar Ball DO Work Phone: [facility] 10-19-2024 14:06-0400 Body height 172.7 cm Babatunde Malcolm DPM Work Phone: [facility] 10-19-2024 14:06-0400 Body mass index (BMI) [Ratio] 28.89 kg/m2 Babatunde Malcolm DPM Work Phone: [facility] 10-19-2024 14:06-0400 Body weight 86.18 kg Babatunde Malcolm DPM Work Phone: [facility] 10-19-2024 14:06-0400 Respiratory rate 18 /min Babatunde Malcolm DPM Work Phone: [facility] 10-05-2024 13:37-0400 Body height 172.7 cm Babatunde Malcolm DPM Work Phone: [facility] 10-05-2024 13:37-0400 Body mass index (BMI) [Ratio] 28.89 kg/m2 Babatunde Malcolm DPM Work Phone: [facility] 10-05-2024 13:37-0400 Body weight 86.18 kg Babatunde Malcolm DPM Work Phone: [facility] 10-05-2024 13:37-0400 Diastolic blood pressure 88 mm[Hg] Babatunde Malcolm DPM Work Phone: [facility] 10-05-2024 13:37-0400 Heart rate 74 /min Babatunde Malcolm DPM Work Phone: [facility] 10-05-2024 13:37-0400 Systolic blood pressure 136 mm[Hg] Babatunde Malcolm DPM Work Phone: [facility] 08-16-2024 15:32-0500 Body height 172.72 cm [facility] 08-16-2024 15:32-0500 Body mass index (BMI) [Ratio] 39.1 kg/m2 [facility] 08-16-2024 15:32-0500 Body weight 116.68 kg [facility] 08-16-2024 15:32-0500 Diastolic blood pressure 82 mm[Hg] [facility] 08-16-2024 15:32-0500 Heart rate 71 /min [facility] 08-16-2024 15:32-0500 Respiratory rate 12 /min [facility] 08-16-2024 15:32-0500 Systolic blood pressure 144 mm[Hg] [facility] 08-11-2024 15:36-0500 Body height 172.72 cm [facility] 08-11-2024 15:36-0500 Body mass index (BMI) [Ratio] 30.4 kg/m2 [facility] 08-11-2024 15:36-0500 Body temperature 98.2 [degF] [facility] 08-11-2024 15:36-0500 Body weight 90.71 kg [facility] 08-11-2024 15:36-0500 Diastolic blood pressure 76 mm[Hg] [facility] 08-11-2024 15:36-0500 Heart rate 63 /min [facility] 08-11-2024 15:36-0500 Respiratory rate 18 /min [facility] 08-11-2024 15:36-0500 SaO2% (BldA) [Mass fraction] 97 % [facility] 08-11-2024 15:36-0500 Systolic blood pressure 145 mm[Hg] [facility] 07-13-2024 09:54-0500 Body height 172.7 cm Babatunde Brown DPM Work Phone: [facility] 07-13-2024 09:54-0500 Body mass index (BMI) [Ratio] 28.89 kg/m2 Babatunde Brown DPM Work Phone: [facility] 07-13-2024 09:54-0500 Body weight 86.18 kg Babatunde Brown DPM Work Phone: [facility] 07-13-2024 09:54-0500 Respiratory rate 18 /min Babatunde Brown DPM Work Phone: [facility] 06-29-2024 15:05-0500 Body height 172.7 cm Babatunde Brown DPM Work Phone: [facility] 06-29-2024 15:05-0500 Body mass index (BMI) [Ratio] 28.89 kg/m2 Babatunde Brown DPM Work Phone: [facility] 06-29-2024 15:05-0500 Body weight 86.18 kg Babatunde Brown DPM Work Phone: [facility] 06-29-2024 15:05-0500 Respiratory rate 18 /min Babatunde Brown DPM Work Phone: [facility] 06-08-2024 10:38-0500 Body height 172.7 cm Babatunde Brown DPM Work Phone: [facility] 06-08-2024 10:38-0500 Body mass index (BMI) [Ratio] 28.89 kg/m2 Babatunde Malcolm DPM Work Phone: [facility] 06-08-2024 10:38-0500 Body weight 86.18 kg Babatunde Malcolm DPM Work Phone: [facility] 06-08-2024 10:38-0500 Respiratory rate 18 /min Babatunde Malcolm DPM Work Phone: [facility] 06-02-2024 08:42-0500 Body height 172.72 cm Bhaskar Ball DO Work Phone: [facility] 06-02-2024 08:42-0500 Body mass index (BMI) [Ratio] 30.7 kg/m2 Bhaskar Ball DO Work Phone: [facility] 06-02-2024 08:42-0500 Body weight 91.62 kg Bhaskar Ball DO Work Phone: [facility] 06-02-2024 08:42-0500 Diastolic blood pressure 80 mm[Hg] Bhaskar Ball DO Work Phone: [facility] 06-02-2024 08:42-0500 Heart rate 68 /min Bhaskar Ball DO Work Phone: [facility] 06-02-2024 08:42-0500 Respiratory rate 12 /min Bhaskar Ball DO Work Phone: [facility] 06-02-2024 08:42-0500 Systolic blood pressure 140 mm[Hg] Bhaskar Ball DO Work Phone: [facility] 05-18-2024 15:32-0400 Body mass index (BMI) [Ratio] 28.89 kg/m2 Silvana SANCHEZ Work Phone: [facility] 05-18-2024 15:32-0400 Body temperature 97.81 [degF] Silvana SANCHEZ Work Phone: [facility] 05-18-2024 15:32-0400 Body weight 86.18 kg Silvana Hemmer PA Work Phone: [facility] 05-18-2024 15:32-0400 Diastolic blood pressure 92 mm[Hg] Silvana Hemmer PA Work Phone: [facility] 05-18-2024 15:32-0400 Heart rate 69 /min Silvana Hemmer PA Work Phone: [facility] 05-18-2024 15:32-0400 SaO2% (BldA) [Mass fraction] 98 % Silvana Hemmer PA Work Phone: [facility] 05-18-2024 15:32-0400 Systolic blood pressure 138 mm[Hg] Silvana Hemmer PA Work Phone: [facility] 04-14-2024 08:43-0400 Diastolic blood pressure 78 mm[Hg] DO Bhaskar Ball Work Phone: [facility] 04-14-2024 08:43-0400 Heart rate 57 /min DO Bhaskar Ball Work Phone: [facility] 04-14-2024 08:43-0400 Respiratory rate 16 /min DO Bhaskar Ball Work Phone: [facility] 04-14-2024 08:43-0400 SaO2% (BldA) [Mass fraction] 97 % DO Bhaskar Ball Work Phone: [facility] 04-14-2024 08:43-0400 Systolic blood pressure 130 mm[Hg] DO Bhaskar Ball Work Phone: [facility] 04-14-2024 07:07-0400 Body height 172.72 cm DO Bhaskar Ball Work Phone: [facility] 04-14-2024 07:07-0400 Body weight 86.18 kg DO Bhaskar Ball Work Phone: [facility] 03-09-2024 15:33-0400 Body height 172.7 cm Babatunde MACIELM Work Phone: [facility] 03-09-2024 15:33-0400 Body mass index (BMI) [Ratio] 28.89 kg/m2 Babatunde Malcolm DPM Work Phone: [facility] 03-09-2024 15:33-0400 Body weight 86.18 kg Babatunde Malcolm DPM Work Phone: [facility] 03-09-2024 15:33-0400 Diastolic blood pressure 80 mm[Hg] Babatunde Malcolm DPM Work Phone: [facility] 03-09-2024 15:33-0400 Heart rate 89 /min Babatunde Malcolm DPM Work Phone: [facility] 03-09-2024 15:33-0400 Systolic blood pressure 130 mm[Hg] Babatunde Malcolm DPM Work Phone: [facility] 02-14-2024 15:40-0400 Body height 172.72 cm [facility] 02-14-2024 15:40-0400 Body mass index (BMI) [Ratio] 28.9 kg/m2 [facility] 02-14-2024 15:40-0400 Body weight 86.29 kg [facility] 02-14-2024 15:40-0400 Diastolic blood pressure 74 mm[Hg] [facility] 02-14-2024 15:40-0400 Heart rate 57 /min [facility] 02-14-2024 15:40-0400 Respiratory rate 12 /min [facility] 02-14-2024 15:40-0400 Systolic blood pressure 120 mm[Hg] [facility] 12-10-2023 09:02-0400 Body height 172.72 cm DO Bhaskar Ball Work Phone: [facility] 12-10-2023 09:02-0400 Body mass index (BMI) [Ratio] 30.7 kg/m2 DO Bhaskar Ball Work Phone: [facility] 12-10-2023 09:02-0400 Body weight 91.62 kg DO Bhaskar Ball Work Phone: [facility] 12-10-2023 09:02-0400 Diastolic blood pressure 89 mm[Hg] DO Bhaskar Ball Work Phone: [facility] 12-10-2023 09:02-0400 Heart rate 63 /min DO Bhaskar Ball Work Phone: [facility] 12-10-2023 09:02-0400 Respiratory rate 12 /min DO Bhaskar Ball Work Phone: [facility] 12-10-2023 09:02-0400 Systolic blood pressure 144 mm[Hg] DO Bhaskar Ball Work Phone: [facility] 10-26-2023 14:00-0400 Body height 172.72 cm [facility] 10-26-2023 14:00-0400 Body mass index (BMI) [Ratio] 32.2 kg/m2 [facility] 10-26-2023 14:00-0400 Body weight 96.16 kg [facility] 10-26-2023 14:00-0400 Diastolic blood pressure 90 mm[Hg] [facility] 10-26-2023 14:00-0400 Heart rate 77 /min [facility] 10-26-2023 14:00-0400 Respiratory rate 12 /min [facility] 10-26-2023 14:00-0400 Systolic blood pressure 152 mm[Hg] [facility] 08-30-2023 15:00-0500 Body height 172.72 cm Bhaskar Ball Other [facility] [employer] Other 08-30-2023 15:00-0500 Body mass index (BMI) [Ratio] 32.69 kg/m2 Bhaskar Ball Other [employer] [facility] [employer] Other 08-30-2023 15:00-0500 Body weight 97.52 kg Bhaskar Ball Other [facility] [employer] Other 08-30-2023 15:00-0500 Diastolic blood pressure 85 mm[Hg] Bhaskar Ball Other [employer] Other 08-30-2023 15:00-0500 Respiratory rate 16 /min Bhaskar Ball Other [employer] Other 08-30-2023 15:00-0500 Systolic blood pressure 135 mm[Hg] Bhaskar Ball Other [employer] Other 04-27-2023 18:20-0400 Body height 172.72 cm Jennifer Mccarthy Other [employer] Other 04-27-2023 18:20-0400 Body mass index (BMI) [Ratio] 31.14 kg/m2 Jennifer Mccarthy Other [employer] Other 04-27-2023 18:20-0400 Body temperature 98.2 [degF] Jennifer Mccarthy Other [employer] Other 04-27-2023 18:20-0400 Body weight 92.9 kg Jennifer Mccarthy Other [employer] Other 04-27-2023 18:20-0400 Diastolic blood pressure 86 mm[Hg] Jennifer Mccarthy Other [employer] Other 04-27-2023 18:20-0400 Respiratory rate 18 /min Jennifer Mccarthy Other [employer] Other 04-27-2023 18:20-0400 SaO2% (BldA) [Mass fraction] 99 % Jennifer Mccarthy Other [employer] Other 04-27-2023 18:20-0400 Systolic blood pressure 127 mm[Hg] Jennifer Mccarthy Other [employer] Other 01-22-2023 14:00-0400 Body height 172.72 cm Bhaskar Ball Other [employer] Other 01-22-2023 14:00-0400 Body mass index (BMI) [Ratio] 30.16 kg/m2 Bhaskar Ball Other [employer] Other 01-22-2023 14:00-0400 Body weight 89.99 kg Bhaskar Ball Other [employer] Other 01-22-2023 14:00-0400 Diastolic blood pressure 82 mm[Hg] Bhaskar Ball Other [employer] Other 01-22-2023 14:00-0400 Respiratory rate 12 /min Bhaskar Ball Other [employer] Other 01-22-2023 14:00-0400 Systolic blood pressure 133 mm[Hg] Bhaskar Ball Other [employer] Other 12-17-2022 14:36-0400 Diastolic blood pressure 68 mm[Hg] DO Bhaskar Ball Work Phone: [facility] 12-17-2022 14:36-0400 Heart rate 88 /min DO Bhaskar Ball Work Phone: [facility] 12-17-2022 14:36-0400 Respiratory rate 16 /min DO Bhaskar Ball Work Phone: [facility] 12-17-2022 14:36-0400 SaO2% (BldA) [Mass fraction] 95 % DO Bhaskar Ball Work Phone: [facility] 12-17-2022 14:36-0400 Systolic blood pressure 101 mm[Hg] DO Bhaskar Ball Work Phone: [facility] 12-17-2022 12:47-0400 Body height 172.72 cm DO Bhaskar Ball Work Phone: [facility] 12-17-2022 12:47-0400 Body temperature 98.8 [degF] DO Bhaskar Ball Work Phone: [facility] 12-17-2022 12:47-0400 Body weight 88.45 kg DO Bhaskar Ball Work Phone: [facility] 05-27-2022 17:25-0500 Body height 172.72 cm Mini Marquez Other [employer] Other 05-27-2022 17:25-0500 Body mass index (BMI) [Ratio] 29.65 kg/m2 Mini Marquez Other [employer] Other 05-27-2022 17:25-0500 Body temperature 97.7 [degF] Mini Marquez Other [employer] Other 05-27-2022 17:25-0500 Body weight 88.45 kg Mini Alma Other [employer] Other 05-27-2022 17:25-0500 Diastolic blood pressure 84 mm[Hg] Mini Marquez Other [employer] Other 05-27-2022 17:25-0500 Respiratory rate 18 /min Mini Marquez Other [employer] Other 05-27-2022 17:25-0500 SaO2% (BldA) [Mass fraction] 99 % Mini Marquez Other [employer] Other 05-27-2022 17:25-0500 Systolic blood pressure 118 mm[Hg] Mini Marquez Other [employer] Other Encounters Encounter Date Encounter Type Care Provider Facility Start: 02-20-2025 End: 02-20-2025 ambulatory Bhaskar Reddy DO Work Phone: [facility] Work Phone: Start: 02-20-2025 End: 02-20-2025 Patient encounter procedure Bhaskar Reddy DO -[facility] Work Phone: Start: 02-20-2025 End: 02-20-2025 Patient encounter status Bhaskar Reddy DO [facility] Start: 02-06-2025 End: 02-06-2025 Office outpatient visit 15 minutes Babatunde Malcolm DPM Work Phone: [facility] Comment on above: Sesamoiditis of righ t foot (Primary Dx); Verruca plantaris; Foot pain, right; Type 2 diabetes mellitus without complication, unspecified whether longterm insulin use (HCC); Pain due to onychomycosis of toenails of both feet; Capsulitis of metatarsophalangeal (MTP) joint of right foot Start: 02-06-2025 End: 02-06-2025 Bamboo flowsheet Babatunde Malcolm DPM Work Phone: [facility] Start: 02-06-2025 End: 02-06-2025 Bamboo flowsha Malcolm DPM Work Phone: [facility] Start: 02-06-2025 End: 02-06-2025 ambulatory BABATUNDE MALCOLM Not Available Start: 02-05-2025 End: 02-05-2025 ambulatory Bhaskar Reddy DO Work Phone: [facility] Work Phone: Start: 02-05-2025 End: 02-05-2025 Patient encounter procedure Bhaskar Reddy DO -[facility] Work Phone: Start: 10-19-2024 End: 10-19-2024 Bamboo flowsheet Babatunde Malcolm DPM Work Phone: [facility] Start: 10-19-2024 End: 10-19-2024 Bamboo flowsheet Babatunde Malcolm DPM Work Phone: [facility] Start: 10-19-2024 End: 10-19-2024 Office outpatient visit 15 minutes Babatunde Malcolm DPM Work Phone: [facility] Comment on above: Plantar fasciitis (P rimary Dx); Verruca plantaris; Foot pain, right; Contracture of right ankle; Type 2 diabetes mellitus without complication, unspecified whether bingo cashier insulin use Start: 10-19-2024 End: 10-19-2024 ambulatory BABATUNDE MALCOLM Not Available Start: 10-05-2024 End: 10-05-2024 Bamboo flowsheet Babatunde Malcolm DPM Work Phone: [facility] Start: 10-05-2024 End: 10-05-2024 Bamboo flowsheet Babatunde Malcolm DPM Work Phone: [facility] Start: 10-05-2024 End: 10-05-2024 Office outpatient visit 15 minutes Babatunde Malcolm DPM Work Phone: [facility] Comment on above: Heel spur, right (Pr imary Dx); Verruca plantaris; Foot pain, right; Type 2 diabetes mellitus without complication, unspecified whether bingo cashier insulin use ([facility]); Plantar fasciitis; Contracture of right ankle Start: 10-05-2024 End: 10-05-2024 ambulatory BABATUNDE MALCOLM Not Available Start: 08-16-2024 End: 08-16-2024 ambulatory [facility] Work Phone: Start: 08-16-2024 End: 08-16-2024 Patient encounter procedure [facility] Work Phone: Start: 08-11-2024 End: 08-11-2024 ambulatory [facility] Work Phone: Start: 08-11-2024 End: 08-11-2024 Patient encounter procedure [facility] Work Phone: Start: 07-13-2024 End: 07-13-2024 Bamboo flowsheet Babatunde Malcolm DPM Work Phone: [facility] Start: 07-13-2024 End: 07-13-2024 Bamboo flowsheet Babatunde Malcolm DPM Work Phone: [facility] Start: 07-13-2024 End: 07-13-2024 Patient encounter procedure Babatunde Malcolm DPM Work Phone: [facility] Comment on above: Verruca plantaris (P rimary Dx); Foot pain, right; Foot pain, left Start: 07-13-2024 End: 07-13-2024 ambulatory BABATUNDE MALCOLM Not Available Start: 06-29-2024 End: 06-29-2024 Patient encounter procedure Babatunde Malcolm DPM Work Phone: [facility] Comment on above: Verruca plantaris (P rimary Dx); Foot pain, right; Foot pain, left; Type 2 diabetes mellitus without complication, unspecified whether longterm insulin use ([facility]) Start: 06-29-2024 End: 06-29-2024 ambulatory BABATUNDE MALCOLM Not Available Start: 06-29-2024 End: 06-29-2024 Bamboo flowsheet Babatunde Malcolm DPM Work Phone: [facility] Start: 06-29-2024 End: 06-29-2024 Bamboo flowsheet Babtaunde Malcolm DPM Work Phone: [facility] Start: 06-08-2024 End: 06-08-2024 Bamboo flowsheet Babatunde Malcolm DPM Work Phone: [facility] Start: 06-08-2024 End: 06-08-2024 Bamboo flowsheet Babatunde Malcolm DPM Work Phone: [facility] Start: 06-08-2024 End: 06-08-2024 ambulatory BABATUNDE MALCOLM Not Available Start: 06-08-2024 End: 06-08-2024 Patient encounter procedure Babatunde Malcolm DPM Work Phone: [facility] Comment on above: Verruca plantaris (P rimary Dx); Foot pain, right; Type 2 diabetes mellitus without complication, unspecified whether longterm insulin use ([facility]); Metatarsal deformity, right; Foot pain, left Start: 06-02-2024 End: 06-02-2024 ambulatory Bhaskar Reddy DO Work Phone: [facility] Work Phone: Start: 06-02-2024 End: 06-02-2024 Patient encounter procedure Bhaskar Reddy DO Work Phone: [facility] Work Phone: Start: 05-18-2024 End: 05-18-2024 Office outpatient visit 25 minutes Silvana SANCHEZ Work Phone: [facility] Comment on above: Acute cough (Primary Dx); Acute bronchitis, unspecified organism Start: 05-18-2024 End: 05-18-2024 ambulatory SILVANA FULTON Not Available Start: 05-18-2024 End: 05-18-2024 Telephone encounter Silvana SANCHEZ Work Phone: [facility] Start: 04-14-2024 Non-patient / Non-visit DO Tay gus Reddy Work Phone: [facility] Gastroenterology Work Phone: Start: 04-14-2024 End: 04-14-2024 Admission to same day surgery center DO Bhaskar Reddy Work Phone: [facility] Work Phone: Start: 04-14-2024 End: 04-14-2024 ambulatory DO Bhaskar Reddy Work Phone: [facility] Work Phone: Start: 03-09-2024 End: 03-09-2024 Patient encounter procedure Babatunde Malcolm DPM Work Phone: [facility] Comment on above: Verruca plantaris (P rimary Dx); Foot pain, right; Type 2 diabetes mellitus without complication, unspecified whether bingo cashier insulin use ([facility]); Metatarsal deformity, right Start: 03-09-2024 End: 03-09-2024 ambulatory BABATUNDE MALCOLM Not Available Start: 03-09-2024 End: 03-09-2024 Bamboo flowsheet Babatunde Malcolm DPM Work Phone: [facility] Start: 03-09-2024 End: 03-09-2024 Bamboo flowsheet aBbatunde Malcolm DPM Work Phone: [facility] Start: 02-24-2024 End: 02-24-2024 ambulatory BABATUNDE MALCOLM Not Available Start: 02-14-2024 End: 02-14-2024 ambulatory [facility] Work Phone: Start: 02-14-2024 End: 02-14-2024 Encounter for general adult medical examination without abnormal findings [facility] Start: 02-14-2024 End: 02-14-2024 Patient encounter procedure [facility] Work Phone: Start: 02-05-2024 Non-patient / [facility]-visit [facility] Work Phone: Start: 12-10-2023 End: 12-10-2023 ambulatory DO Bhaskar Ball Work Phone: [facility] Work Phone: Start: 12-10-2023 End: 12-10-2023 Patient encounter procedure DO Bhaskar Ball Work Phone: [facility] Work Phone: Start: 12-08-2023 End: 12-08-2023 ambulatory DO Bhaskar Ball Work Phone: [facility] Work Phone: Start: 12-08-2023 End: 12-08-2023 Patient encounter procedure DO Bhaskar Ball Work Phone: [facility] Work Phone: Start: 11-09-2023 End: 11-09-2023 ambulatory DO Bhaskar Ball Work Phone: [facility] Work Phone: Start: 11-09-2023 End: 11-09-2023 Patient encounter procedure DO Bhaskar Ball Work Phone: [facility] Work Phone: Start: 10-26-2023 End: 10-26-2023 ambulatory [facility] Work Phone: Start: 10-26-2023 End: 10-26-2023 Patient encounter procedure [facility] Work Phone: Start: 10-11-2023 End: 10-11-2023 ambulatory [facility] Start: 09-09-2023 Non-patient / Non-visit [facility] Work Phone: Start: 08-30-2023 End: 08-30-2023 ambulatory Bhaskar Reddy Other [employer] Other Start: 08-30-2023 Office outpatient vi sit 25 minutes Bhaskar eRddy [facility] Start: 08-30-2023 Telephone encounter Bhaskar Reddy FP [facility] Start: 07-16-2023 End: 07-16-2023 ambulatory [facility] Start: 07-07-2023 End: 07-07-2023 Emergency department patient visit Miguel Maritza Chen Facility:[facility] Start: 04-27-2023 End: 04-27-2023 ambulatory Jennifer Mccarthy Other [facility] Other Start: 04-27-2023 Office outpatient vi sit 25 minutes Jennifer Mccarthy [facility] Start: 03-31-2023 End: 03-31-2023 ambulatory Bhaskar Reddy Other [employer] Other Start: 03-31-2023 Telephone encounter Bhaskar Reddy FP [facility] Start: 02-22-2023 End: 02-22-2023 ambulatory Bhaskar Reddy Other [employer] Other Start: 02-22-2023 Telephone encounter Bhaskar Reddy FP [facility] Start: 01-22-2023 End: 01-22-2023 ambulatory Bhaskar Reddy Other [employer] Other Start: 01-22-2023 Encounter for genera l adult medical examination without abnormal findings Bhaskar Reddy [facility] Start: 01-22-2023 Periodic preventive med est patient 40-64yrs Bhaskar Reddy [facility] Start: 01-05-2023 End: 01-05-2023 ambulatory Bhaskar Reddy Other [employer] Other Start: 01-05-2023 Telephone encounter Bhaskar Reddy ALEYDA [facility] Start: 12-17-2022 Telephone encounter Mini MAYNARD [facility] Start: 12-17-2022 End: 12-17-2022 Admission to same day surgery center DO Bhaskar Reddy Work Phone: [facility] Work Phone: Start: 12-17-2022 End: 12-17-2022 ambulatory DO Bhaskar Reddy Work Phone: [facility] Work Phone: Start: 10-27-2022 End: 10-27-2022 ambulatory Bhaskar Reddy Other [employer] Other Start: 10-27-2022 Office outpatient vi sit 15 minutes Bhaskar Reddy [facility] Start: 10-27-2022 Telephone encounter Bhaskar Barry ALEYDA [facility] Start: 07-27-2022 End: 08-22-[address] BHASKAR REDDY Facility:[facility] Start: 07-08-2022 Encounter for other preprocedural examination DR JOSELYN GILMAN [facility] Start: 07-03-2022 End: 07-04-[address] BHASKAR REDDY Facility:[facility] Start: 07-03-2022 End: 07-04-2022 Encounter for other preprocedural examination DR BHASKAR REDDY Facility:[facility] Start: 06-03-2022 End: 06-04-2022 ambulatory DO Joselyn Gilman Facility:[facility] Start: 06-03-2022 End: 06-03-2022 Patient encounter procedure Joselyn Gilman [facility] Start: 05-27-2022 End: 05-27-2022 ambulatory Mini Marquez Other [employer] Other Start: 05-27-2022 Office outpatient vi sit 15 minutes Mini Marquez [facility] Start: 2022 End: 02-20-[address] BHASKAR REDDY Facility:[facility] Start: 11-05-2021 Encounter for genera l adult medical examination without abnormal findings DR BHASKAR REDDY [facility] Start: 10-31-2021 End: 11-01-[address] BHASKAR REDDY Facility:[facility] Start: 10-31-2021 End: 11-01-2021 Encounter for general adult medical examination without abnormal findings DR BHASKAR REDDY Facility:[facility] Start: 10-27-2021 Adult health examination Kalyan Reddy Other [employer] Other Start: 02-16-2018 Patient encounter SHILA DILLON Facility:[id number] Start: 02-16-2018 Patient encounter Facil [id number] Procedures Date Procedure Procedure Detail Performing Clinician Start: 08-11-2024 Quick Strep (POC) Start: 04-14-2024 Esophagogastroduodenoscopy DO Bhaskar little Work Phone: Start: 11-09-2023 Plain X-ray of bilateral hands DO Power Reddy Work Phone: Start: 12-17-2022 Esophagogastroduodenoscopy DO Bhaskar Sharp all Work Phone: Start: 10-31-[address] BHASKAR REDDY Comment on above: Performed By: #### PSASC #### [facility] [address] [address] [address] Sergey Zamorano Start: 09-26-2018 General examination [...] Treatment Date Care Activity Detail Author Start: 03-19-2025 Influenza vaccination Influenza Vacc ine (#1) [facility] Start: 02-22-2025 End: 02-22-2025 Patient encounter procedure 02/22/2025 3:40 PM EDT Office Visit [facility] [address] [facility] [address] [place] [address] Babatunde Malcolm DPM [address] [address] [facility] Start: 02-06-2025 End: 02-06-2025 Patient encounter procedure 02/06/2025 2:10 PM EDT Office Visit [facility] [address] [place] [id number] Babatunde Malcolm DPM [address] [address] Arrived [facility] Comment on above: Arrived Start: 10-19-2024 End: 10-19-2024 Patient encounter procedure 10/19/2024 2:00 PM EDT Office Visit [facility] [address] [address] Babatunde Malcolm DPM [address] [facility] [address] [place] [address] Verruca plantaris (Primary Dx); Foot pain, right; Plantar fasciitis; Contracture of right ankle; Type 2 diabetes mellitus without complication, unspecified whether bingo cashier insulin use [facility] Comment on above: Verruca plantaris (P rimary Dx); Foot pain, right; Plantar fasciitis; Contracture of right ankle; Type 2 diabetes mellitus without complication, unspecified whether longterm insulin use Start: 07-13-2024 End: 07-13-2024 Patient encounter procedure [facility] Comment on above: Verruca plantaris (P rimary Dx); Foot pain, right; Foot pain, left Start: 06-29-2024 End: 06-29-2024 Patient encounter procedure 06/29/2024 3:10 PM EST Office Visit [facility] [address] [address] Babatunde Malcolm DPM [address] [address] Verruca plantaris (Primary Dx); Foot pain, right; Foot pain, left; Type 2 diabetes mellitus without complication, unspecified whether bingo cashier insulin use ([facility]) [facility] Comment on above: Verruca plantaris (P rimary Dx); Foot pain, right; Foot pain, left; Type 2 diabetes mellitus without complication, unspecified whether bingo cashier insulin use (CMS/HCC) Start: 05-18-2024 End: 05-18-2025 XR Chest 2 Views [facility] Work Phone: Comment on above: Expected: 05/18/2024 , Expires: 05/18/2025 Start: 04-14-2024 [facility] Start: 03-19-2024 Influenza vaccination Influenza Vacc ine (#1) [facility] Start: 03-09-2024 End: 03-09-2024 Patient encounter procedure 03/09/2024 3:30 PM EDT Office Visit [facility] [address] [facility] [address] [place] [address] Babatunde Malcolm DPM [address] [facility] [address] [place] [address] Verruca plantaris (Primary Dx); Foot pain, right; Type 2 diabetes mellitus without complication, unspecified whether longterm insulin use (CMS/HCC); Metatarsal deformity, right [facility] Comment on above: Verruca plantaris (P rimary Dx); Foot pain, right; Type 2 diabetes mellitus without complication, unspecified whether longterm insulin use (CMS/HCC); Metatarsal deformity, right Start: 11-09-2023 Plain X-ray of bilat eral hands XR hand BI 3V [facility] Start: 11-09-2023 XR Hand - bilateral 3 Views [facility] Start: 12-17-2022 [facility] Start: 1965 Screening for malign ant neoplasm of colon [facility] metabo lic 1999 panel - Serum or Plasma [facility] Comprehensive metabo lic 1999 panel - Serum or Plasma [facility] Patient Education [facility] Work Phone: [place] Upper extremity artery - right [facility] XR Shoulder - right Views [facility] Immunizations Immunization Date Immunization Notes Care Provider Fa cility 05-01-2024 influenza virus vaccine, unspecified formulation Babatunde Malcolm DPMaritza Work Phone: [facility] 05-07-2023 Influenza, injectabl e, Madin Francesca Canine Kidney, preservative free, quadrivalent Babatunde Malcolm DPMaritza Work Phone: [facility] 05-07-2023 influenza virus vaccine, unspecified formulation Babatunde Brown DPM Work Phone: [facility] 04-13-2014 tetanus and diphther ia toxoids, adsorbed, preservative free, for adult use (5 Lf of tetanus toxoid and 2 Lf of diphtheria toxoid) Bhaskar Barry Other [facility] 04-13-2013 tetanus and diphther ia toxoids, adsorbed, preservative free, for adult use (5 Lf of tetanus toxoid and 2 Lf of diphtheria toxoid) Bhaskar Reddy Other [facility] Payers Date Payer Category Payer [facility] Blue [facility] [id number] 2022 Unknown BCBS BCBS [id number] 2022-Present [phone] [address] [place] [address] [id number] 2022 Unknown [id number] 1965 Unknown [id number] 2.16.840.1.521645.3.579.2 .727 1967 Unknown [id number] 2.16.840.1.210635.3.579.2 .593 1967 Unknown [id number] 2.16.840.1.661302.3.579.2 .593 1967 Unknown [id number] 2.16.840.1.376852.3.579.2 .593 1967 Unknown [id number] 2.16.840.1.391845.3.579.2 .593 1967 Unknown [id number] 2.16.840.1.851901.3.579.2 .182 1967 Unknown [id number] 2.16.840.1.246332.3.579.2 .9 1967 Unknown [id number] 2.16.840.1.428905.3.579.2 .1258 1967 Unknown [id number] 2.16840.1.653818.3.579.2 .1258 1967 Unknown [id number] 2.840.1.853855.3.579.2 .1258 1967 Unknown [id number] 2.840.1.499399.3.579.2 .1258 1967 Unknown [id number] 2.840.1.464582.3.579.2 .1258 1967 Unknown [id number] 2.840.1.679308.3.579.2 .1258 1967 Unknown [id number] 2.840.1.969136.3.579.2 .1258 1967 Unknown [id number] 2.840.1.430113.3.579.2 .1258 1967 Unknown [id number] 2.840.1.582564.3.579.2 .9 1957 [email or web address] [id number] 1957 Self-pay Private Health Insurance [id number] Unknown [id number] .593 Unknown [id number] .840.1.902218.3.579.2 .531 Unknown [id number] 2.840.1.341242.3.579.2 .531 Unknown [id number] .840.1.127531.3.579.2 .531 Unknown Ozzie BC/BS [id number] Social History Date Type Detail Facility Unknown if ever smoked [employer] Other Start: 03-09-2024 End: 02-06-2025 Sex Assigned At [facility] Tobacco smoking status No Smoking Status Entered [facility] Start: 12-26-2021 End: 08-11-2024 Tobacco smoking status NHIS Never smoked tobacco (finding) [facility] Start: 1965 Sex Assigned At Male [facility] Start: 02-08-2024 Tobacco use and exposure Smokeless tobacco non-user [facility] Start: 05-18-2024 End: 02-06-2025 Alcoholic beverage intake Current drinker of alcohol (finding) [facility] Start: 05-18-2024 End: 02-06-2025 Alcoholic beverage intake [facility] Start: 02-08-2024 Alcohol Comment 2 cups of coff ee daily [facility] Start: 1965 Sex assigned at Not on file [facility] Start: 06-02-2024 End: 08-16-2024 Sex Male (finding) [facility] NEGATED: Highlighted rowStart: NINF History of tobacco [...] Desired Activity /State Clinical Notes 05-27-2022 to 02-06-2025 Babatunde Malcolm DPM - 02/06/2025 2:10 PM EDT Note Date & Type Note Facility 02-06-2025 History of Presen t illness Narrative Patient: Misael Aguilar : 1965 PCP: Bhaskar Reddy DO SUBJECTIVE Pt presents today for follow up of skin lesion/neoplasm of unknown origin to the right foot Pt states that previous treatment of acid tx with some improvement Pt rates pain the pain on a 1-10 scale an intensity of 3 Pt presents today for followup. He is also type 2 diabetic with currently controlled sugars denies numbness to feet Patient also has history of right 5th metatarsal deformity Pt presents today for suspected gout for referral from primary care provider and started taking prednisone with minimal improvement. States pain mostly on the bottom aspect of his great toe region but denies any redness and states pain up to an 8/10 and has been taking steroids with negative improvement Allergies: No Known Allergies Past Medical History: Past Medical History: Diagnosis Date Diabetes (HCC) Hypertension Medications: Current Outpatient Medications: aspirin 81 MG [...] Partner Violence: Unknown (09/09/2023) Received from [facility] [place] [facility] Fear of Current or Ex-Partner: Not on file Emotionally Abused: Not on file Physically Abused: Not on file Sexually Abused: Not on file Physically or Sexually Abused: Not on file Housing Stability: Not on file ROS: General: denies fever, chills, fatigue, malaise GI: denies abdominal pain or ulcerations with anti-inflammatory medication OBJECTIVE LE EXAM: DERM: Positive hair growth to b/l feet with good skin turgor noted. Negative openings in skin. Nummular lesion measuring at the right sub 5th metatarsal measuring 0.2 cm x 0.2 cm VASC: Palpable pedal pulsed b/l with warm to cool tibia to toes b/l NEURO: 5.07 [facility] monofilament test positive to digits and forefoot bilaterally 125Hz tuning fork positive to 1st MPJ bilaterally ORTHO: +5/5 DF/PF/IN/EV right, +5/5 DF/PF/IN/EV left. 20 degrees inversion and 10 degrees eversion STJ b/l. Ankle ROM less than 10 degrees b/l. Positive pain palpation of right foot lesion Plantar flexed right 5th metatarsal Positive pain on palpation to plantar right 1st MPJ capsule and right sesamoids Ultrasound DIAGNOSTIC ULTRASOUND REPORT: Verbal order for ultrasound today The 1st MPJ capsule of the right foot was examined with a 12MHz linear probe in the transverse and sagital planes on the capsular regions of the MPJ. Images obtained. FINDINGS: Ultrasound exam demonstrates capsulitis/inflammation and a hypoechoic signal at plantar capsule on a series of sagittal and transverse images. The plantar plate examined as well with plantar joint capsule intact. Hypoechoic signal noted next to sesamoid apparatus right plantar foot IMPRESSION: Ultrasound findings indicated capsulitis of the right 1st MPJ with associated sesamoiditis suspected ASSESSMENT 1. Verruca plantaris 2. Foot pain, right 3. Type 2 diabetes mellitus without complication, unspecified whether longterm insulin use (HCC) 4. Pain due to onychomycosis of toenails of both feet 5. Sesamoiditis of right foot 6. Capsulitis of metatarsophalangeal (MTP) joint of right foot PLAN Application of salinocaine acid medication to lesion/lesions located at right foot Informed pt of risks and benefits of procedure including high reoccurence rate, infection, pain and consent given. Application of DSD post procedure. Continue with oral steroids Reviewed ultrasound today with patient Discussed possible orthotics Pt was given steroid injection to the medial and lateral capsular ligaments of the right 1stMPJ under US guidance with visualization of injected fluid into area of concern per imaging. Injection consisted of a 2:1 mixture of xylocaine 2%plain and kenalog 10 for a total of 3ccs. Informed pt of risks and benefits of procedure including infection,damage or rupture to soft tissue structures and steroid flare. Pt understood and consented. This is the patients 1st injection Babatunde Malcolm DPM documented in this encounter [facility] 02-05-2025 Evaluation note Diagnosis Onset Date Resolution Type 2 diabetes mellitus with hyperglycemia acute February 05 1:44pm Acute gout noneactive February 05 1:44pm ASHD (arteriosclerotic heart disease) acute February 20, 2025 3:25pm GERD (gastroesophageal reflux disease) acute February 20, 2025 3:25pm Hypercholesterolemia acute 2024 3:25pm Hypertension acute February 20, 2025 3:25pm Type 2 diabetes mellitus with hyperglycemia acute February 20, 2 025 3:25pm Screening PSA (prostate specific antigen) noneactive February 20 3:25pm Screening for colon cancer noneactiv e February 20, 2025 3:25pm Wellness examination noneactive 2024 3:25pm [facility] Work Phone: [phone]) 826-592804-03-2025 History of Present illness Narrative* Babatunde Malcolm DPM - 10/19/2024 2:00 PM EDT Patient: Misael Aguilar : 1965 PCP: Bhaskar Reddy MD SUBJECTIVE Pt presents today for follow up of skin lesion/neoplasm of unknown origin to the right foot Pt states that previous treatment of acid tx with some improvement Pt rates pain the pain on a 1-10 scale an intensity of 5 Pt presents today for followup. He is also type 2 diabetic with currently controlled sugars denies numbness to feet Patient also has history of right 5th metatarsal deformity Pt presents today for follow up of right HSS. Pt has had previous treatment of 1st steroid injection, nsaids, stretching with positive relief. Pt states current pain on a 1-10 scale is a 1 Pt presents to day for follow up tx. Allergies: No Known Allergies Past Medical History: Past Medical History: Diagnosis Date Diabetes ([facility]) Hypertension ([facility]) Medications: Current Outpatient Medications: aspirin 81 MG [...] Partner Violence: Unknown (09/09/2023) Received from [facility] Safety & Environment Fear of Current or Ex-Partner: Not on file Emotionally Abused: Not on file Physically Abused: Not on file Sexually Abused: Not on file Physically or Sexually Abused: Not on file Housing Stability: Not on file ROS: General: denies fever, chills, fatigue, malaise GI: denies abdominal pain or ulcerations with anti-inflammatory medication OBJECTIVE LE EXAM: DERM: Positive hair growth to b/l feet with good skin turgor noted. Negative openings in skin. Nummular lesion measuring at the right sub 5th metatarsal measuring 0.1 cm x 01 cm VASC: Palpable pedal pulsed b/l with warm to cool tibia to toes b/l NEURO: 5.07 [facility] monofilament test positive to digits and forefoot bilaterally 125Hz tuning fork positive to 1st MPJ bilaterally ORTHO: +5/5 DF/PF/IN/EV right, +5/5 DF/PF/IN/EV left. 20 degrees inversion and 10 degrees eversion STJ b/l. Ankle ROM less than 10 degrees b/l. Positive pain palpation of right foot lesions Plantar flexed right 5th metatarsal Minimal to no pain on palpation to right medial calcaneal tubercle and plantar fascia XRAY: ASSESSMENT 1. Verruca plantaris 2. Foot pain, right 3. Plantar fasciitis 4. Contracture of right ankle 5. Type 2 diabetes mellitus without complication, unspecified whether longterm insulin use ([facility]) PLAN Application of salinocaine acid medication to lesion/lesions located at right foot Informed pt of risks and benefits of procedure including high reoccurence rate, infection, pain andconsent given. Application of DSD post procedure. Patient is to continue with stretching excercizes daily with patient to continue with night stretching splint or manual stretching. Patient to continue with oral anti - inflammatories as needed for pain and recommended OTC medications such as tylenol or Ibuprofen Babatunde Malcolm DPM documented in this encounterWashington County Memorial HospitalBaregqpbws04-11-3716 History of Present illness Narrative* Babatunde Malcolm DPM - 10/05/2024 1:20 PM EDT Patient: Misael Aguilar : 1965 PCP: Bhaskar Reddy MD SUBJECTIVE Misael Aguilar 59 y.o. presents today for follow up of skin lesion/neoplasm of unknown origin to the right foot Pt states that previous treatment of acid tx with improvement Pt rates pain the pain on a 1-10 scale an intensity of 5 Pt presents today for followup. He is also type 2 diabetic with currently controlled sugars denies numbness to feet Patient also has history of right 5th metatarsal deformity Patient also presents today with pain to the heel with 1st steps in the morning rates it up to an 8/10 has tried stretching as he has had in the past and states that it has not been very helpful Allergies: No Known Allergies Past Medical History: Past Medical History: Diagnosis Date Diabetes ([facility]) Hypertension ([facility]) Medications: Current Outpatient Medications: aspirin 81 MG [...] Partner Violence: Unknown (09/09/2023) Received from [facility] Safety & Environment Fear of Current or Ex-Partner: Not on file Emotionally Abused: Not on file Physically Abused: Not on file Sexually Abused: Not on file Physically or Sexually Abused: Not on file Housing Stability: Not on file ROS: General: denies fever, chills, fatigue, malaise GI: denies abdominal pain or ulcerations with anti-inflammatory medication OBJECTIVE LE EXAM: DERM: Positive hair growth to b/l feet with good skin turgor noted. Negative openings in skin. Nummular lesion measuring at the right sub 5th metatarsal measuring 0.2 cm x 0.3 cm VASC: Palpable pedal pulsed b/l with warm to cool tibia to toes b/l NEURO: 5.07 [facility] monofilament test positive to digits and forefoot bilaterally 125Hz tuning fork positive to 1st MPJ bilaterally ORTHO: +5/5 DF/PF/IN/EV right, +5/5 DF/PF/IN/EV left. 20 degrees inversion and 10 degrees eversion STJ b/l. Ankle ROM less than 10 degrees b/l. Positive pain palpation of right foot lesions Plantar flexed right 5th metatarsal Positive pain on palpation to right medial calcaneal tubercle and plantar fascia XRAY: US: DIAGNOSTIC US REPORT - verbal order for ultrasound today The plantar arch and heel of the right foot were scanned today using a 12MHz linear probe in the transverse and sagittal planes, concerning the plantar fascia. Images were obtained. FINDINGS - US exam demonstrates hypo-echoic thickening of plantar fascia with its origin at the medial plantartuberosity of the calcaneus. The area of thickening and inflammation is greater than 4mm (norm = 4 mm). Notable plantar calcaneal enthesophyte IMPRESSION - Right heel plantar fasciitis ASSESSMENT 1. Verruca plantaris 2. Foot pain, right 3. Type 2 diabetes mellitus without complication, unspecified whether longterm insulin use ([facility]) 4. Heel spur, right 5. Plantar fasciitis 6. Contracture of right ankle PLAN Application of salinocaine acid medication to lesion/lesions located at right foot Informed pt of risks and benefits of procedure including high reoccurence rate, infection, pain andconsent given. Application of DSD post procedure. Patient is to continue with stretching excercizes daily with patient to continue with night stretching splint or manual stretching. Pt given steroid injection to right medial calcaneal tubercle under US guidance with visualization of injected fluid into area of concern per imaging. Injection of 1cc kenalog 10 and 2cc xylocaine 2% plain. Informed patient of risks and benefits of injection including non resolution of symptoms,steroid flare, tendon damage or rupture. Pt consents to proceed. This is the patients 1st injection Reviewed ultrasound today with patient Babatunde Malcolm DPM documented in this encounterWashington County Memorial [id number] History of Present illness Narrative* Babatunde Malcolm DPM - 07/13/2024 10:00 AM EST Patient: Misael Aguilar : 1965 PCP: Bhaskar [...] History: Past Medical History: Diagnosis Date Diabetes ([facility]) Hypertension ([facility]) Medications: Current Outpatient Medications: aspirin 81 MG [...] Partner Violence: Unknown (09/09/2023) Received from [facility] [place] Safety & Environment Fear of Current or [...] cool tibia to toes b/l NEURO: 5.07 [facility] monofilament test positive to digits and [...] andconsent given. Application of DSD post procedure. Application of salinocaine acid medication to lesion/lesions located at left foot Informed pt of risks and benefits of procedure including high reoccurence rate, infection, pain andconsent given. Application of DSD post procedure. Babatunde Malcolm DPM documented in this encounterWashington County Memorial [id number] History of Present illness Narrative* Babatunde Malcolm DPM - 06/29/2024 3:10 PM EST Patient: Misael Major Jeff : 1965 PCP: Bhaskar Reddy MD SUBJECTIVE [...] History: Past Medical History: Diagnosis Date Diabetes ([facility]) Hypertension ([facility]) Medications: Current Outpatient Medications: aspirin 81 MG [...] Partner Violence: Unknown (09/09/2023) Received from [facility] [place] Safety & Environment Fear of Current or [...] cool tibia to toes b/l NEURO: 5.07 [facility] monofilament test positive to digits and [...] 2 diabetes mellitus without complication, unspecified whether bingo cashier insulin use (CMS/HCC) PLAN Application of salinocaine acid medication to lesion/lesions located at right foot Informed pt of risks and benefits of procedure including high reoccurence rate, infection, pain andconsent given. Application of DSD post procedure. Babatunde Malcolm DPM documented in this encounterWashington County Memorial [id number] History of Present illness Narrative* Babatunde Malcolm DPM - 06/08/2024 10:30 AM EST Patient: Misael Aguilar : 1965 PCP: Bhaskar Reddy MD SUBJECTIVE Misael Major Jeff 59 y.o. presents today for follow up [...] History: Past Medical History: Diagnosis Date Diabetes ([facility]) Hypertension ([facility]) Medications: Current Outpatient Medications: aspirin 81 MG [...] Partner Violence: Unknown (09/09/2023) Received from [facility] Safety & Environment Fear of Current or [...] cool tibia to toes b/l NEURO: 5.07 [facility] monofilament test positive to digits and [...] 2 diabetes mellitus without complication, unspecified whether bingo cashier insulin use (CMS/[facility]) 4. Metatarsal deformity, right PLAN Application of salinocaine acid medication to lesion/lesions located at right foot Informed pt of risks and benefits of procedure including high reoccurence rate, infection, pain andconsent given. Application of DSD post procedure. Babatunde Malcolm DPM documented in this encounterWashington County Memorial [id number] Evaluation note* Diagnosis Onset Date Resolution Status Admit Date Acute bronchitis due to othe r specified organisms acute May 8:40am Type 2 diabetes mellitus wit h hyperglycemia acute June 02, 024 8:40am Sore throat noneactive August 11, 2024 3:25pm [facility] Work Phone: 1(351) 938-939611-15-2024 Evaluation note* Diagnosis Onset Date Resolution Status Admit Date Acute bronchitis due to othe r specified organisms acute May 8:40am Type 2 diabetes mellitus wit h hyperglycemia acute June 02, 024 8:40am Acute maxillary sinusitis acute August 11, 2024 3:25pm ASHD (arteriosclerotic heart disease) acute August 16 3:19pm GERD (gastroesophageal reflu x disease) acute August 16 3:19pm Hypercholesterolemia acute German rafy 2024 3:19pm Hypertension acute July 3:19pm Type 2 diabetes mellitus wit h hyperglycemia acute August 16 3:19pm Sore throat (viral) noneactive Jan ry 2024 3:19pm [facility] Work Phone: 1(217) 488-588010-31-2024 Telephone encounter Note* Telephone Encounter - DANIEL Hdez - 05/18/2024 5:26 PM EDT Called and left detailed message with XR results. Advised proceed with treatment as planned. Needs to follow up with Dr. Reddy for recheck in 1-2 weeks, consider repeat CXR in 4 weeks or so to assess for resolution. [facility] [id number] Miscellaneous Notes* Telephone Encounter - DANIEL Hdez - 05/18/2024 5:26 PM EDT Called and left detailed message with XR results. Advised proceed with treatment as planned. Needs to follow up with Dr. Reddy for recheck in 1-2 weeks, consider repeat CXR in 4 weeks or so to assess for resolution. documented in this encounterWashington County Memorial [id number] History of Present illness Narrative* DANIEL Hdez [...] the steroid with food. Can continue the Port[place] he has at home prn for cough. Increase water intake, get plenty of rest. Can take Tylenol prn for any discomfort or fever. No other anti-inflammatories while on steroid. Cough into elbow. Wash hands often. Advised patient that cough can linger with bronchitis. Follow up with PCP if no improvement in one week. Silvana CAMEJO, KIERRA documented in this encounterWashington County Memorial HospitalWbvhpeobek78-84-5837 [facility]Av[facility]08-[facility]24 History of Present illness Narrative* Babatunde Malcolm, GERALDINE - 03/09/2024 3:30 PM EDT Patient: Misael Aguilar : 1965 PCP: Bhaskar Reddy MD SUBJECTIVE Misael Major Jeff 59 y.o. presents today for follow up [...] History: Past Medical History: Diagnosis Date Diabetes ([facility]) Hypertension ([facility]) Medications: Current Outpatient Medications: aspirin 81 MG [...] Partner Violence: Unknown (09/09/2023) Received from [facility] Safety & Environment Fear of Current or [...] cool tibia to toes b/l NEURO: 5.07 [facility] monofilament test positive to digits and [...] 2 diabetes mellitus without complication, unspecified whether bingo cashier insulin use ([facility]/HCC) 4. Metatarsal deformity, right PLAN Application of salinocaine acid medication to lesion/lesions located at right foot Informed pt of risks and benefits of procedure including high reoccurence rate, infection, pain andconsent given. Application of DSD post procedure. Babatunde Malcolm DPM documented in this encounterWashington County Memorial [id number] Evaluation note* Encounter Date Diagnosis Assessment Notes [...] s/p PCI/stent LAD Continue secondary prevention measures [employer] Other 12-29-2023 NoteUTP CARDIOLOGY PROGRESS NOTE [facility] HPI: Misael Aguilar Jr. is a 58 [...] been reviewed- CV Testin08/17/2017 angiogram and PCI ([facility]) Drug-eluting stent to proximal LAD [...] precautions were provided. Patien (more content not included)...[facility]12-29-2023 NotePatient here for 1 year follow up CAD, hypertension, and hyperlipidemia. Had routine labs in Feb 2023. Denies chest pain, SOB, and palpitations. Review of Systems Musculoskeletal: Positive for arthritis, back pain and joint pain. All other systems reviewed and are negative.[facility] 04-27-2023 Evaluation note* Encounter Date Diagnosis Assessment Notes Treatment Notes Treatment Clinical Notes Apr, Viral URI with cough (ICD-10 - J06.9) Patient declines/refuses COVID/influenza testing today in office. Advised patient that will treat as viral URI. Supportive care as directed, increase fluids and rest, Tylenol as directed, Rx of Portales and prednisone as directed, cool mist humidifier, [...] treatment plan. Patient left in stable condition [employer] Other 07-07-2023 Evaluation note* Encounter Date Diagnosis [...] (ICD-10 - Z12.5) Yearly DELL and PSA [employer] Other 06-01-2023 Procedure noteAv[facility] System06-01-2023 History general Narrative - Reported* Type Description Date Medical History hypertension Medical History scoliosis Medical History 2 stents Surgical History appendectomy 2008 Surgical History cardiac stent Surgical History EGD w/ dilatation 12/2022 Hospitalization History see above surgical [employer] Other 06-01-2023 History general Narrative - Reported* Type Description Date Medical History hypertension Medical History scoliosis Medical History 2 stents Surgical History appendectomy 2008 Surgical History PCI/stent LAD 2018 Surgical History EGD w/ dilatation 12/2022 Hospitalization History see above surgical histo [employer] Other 04-11-2023 Evaluation note* Encounter Date Diagnosis Assessment Notes Treatment Notes Treatment Clinical Notes Oct, Acute bronchitis due to other specified organisms (ICD-10 - J20.8) Instructed to use Robitussin or Mucinex for cough, saline or Flonase NS for congestion, Tylenol for pain and fever. Oct, Acute cough (ICD-10 - R05.1) [employer] Other 11-09-2022 Evaluation note* Encounter Date Diagnosis [...] no improvement in 2 to 3 days [facility] [employer] Other Evaluation + Plan note No data available for this section [facility] noteNo InformationNortLankenau [facility] [employer] Other Evaluation noteNo assessment information available [facility] Work Phone: Evaluation note* Diagnosis Onset Date Resolution Status H/O cardiac catheterization acute Right arm pain acute [facility] Work Phone: Evaluation note* Diagnosis Onset Date Resolution Status H/O cardiac catheterization acute Right arm pain acute Arthritis of both hands acut e Bilateral hand pain acute [facility] Work Phone: Evaluation note* Diagnosis Onset Date Resolution Status H/O cardiac catheterization acute Right arm pain acute Arthritis of both hands acut e Bilateral hand pain acute Arthritis of both hands acut e Bilateral hand pain acute [facility] Work Phone: Evaluation note* Diagnosis Onset Date Resolution Status H/O cardiac catheterization acute Right arm pain acute Arthritis of both hands acut e Bilateral hand pain acute Arthritis of both hands acut e Bilateral hand pain acute H/O cardiac catheterization acute Internal derangement of right shoulder acute Right shoulder pain acute [facility] Work Phone: Evaluation note* Diagnosis Onset Date Resolution Status Arthritis of both hands acut e ASHD (arteriosclerotic heart disease) acute GERD (gastroesophageal reflux disease) acute Hypercholesterolemia acute Hypertension acute Type 2 diabetes mellitus with hyperglycemia acute Screening PSA (prostate specific antigen) noneactive Wellness examination noneact ti [facility] Work Phone: Evaluation note* Diagnosis Onset Date Resolution Status ASHD (arteriosclerotic heart disease) acute GERD (gastroesophageal reflux disease) acute Hypercholesterolemia acute Hypertension acute Type 2 diabetes mellitus with hyperglycemia acute Screening PSA (prostate specific antigen) noneactive Wellness examination noneact ti [facility] Work Phone: Evaluation note* Diagnosis Acute cough- Primary Acute bronchitis, unspecified organism documented in this encounter [facility] HealthcareEvaluation note* Diagnosis Verruca plantaris- Primary Plantar wart Foot pain, right Pain in soft tissues of limb Type 2 diabetes mellitus without complication, unspecified whether longterm insulin use (CMS/HCC) Metatarsal deformity, right Foot pain, left Pain in soft tissues of limb documented in this encounter [facility] HealthcareEvaluation note* Diagnosis Verruca plantaris- Primary Plantar wart Foot pain, right Pain in soft tissues of limb Foot pain, left Pain in soft tissues of limb Type 2 diabetes mellitus without complication, unspecified whether longterm insulin use (CMS/HCC) [facility] encounter [facility] HealthcareEvaluation note* Diagnosis Verruca plantaris- Primary Plantar wart Foot pain, right Pain in soft tissues of limb Type 2 diabetes mellitus without complication, unspecified whether longterm insulin use (CMS/HCC) Metatarsal deformity, right documented in this encounter [facility]Evaluation [facility]* Diagnosis Verruca plantaris- Primary Plantar wart Foot pain, right Pain in soft tissues of limb Foot pain, left Pain in soft tissues of limb documented in this encounter [facility] HealthcareEvaluation note* Diagnosis Heel spur, right- Primary Verruca plantaris Plantar wart Foot pain, right Pain in soft tissues of limb Type 2 diabetes mellitus without complication, unspecified whether bingo cashier insulin use (CMS/HCC) Plantar fasciitis Plantar fascial fibromatosis Contracture of right ankle documented in this encounter [facility] HealthcareEvaluation note* Diagnosis Plantar fasciitis- Primary Plantar fascial fibromatosis Verruca plantaris Plantar wart Foot pain, right Pain in soft tissues of limb Contracture of right ankle Type 2 diabetes mellitus without complication, unspecified whether longterm insulin use documented in this encounter [facility] HealthcareEvaluation note* Diagnosis Onset Date Resolution Status Admit Date Type 2 diabetes mellitus wit h hyperglycemia acute February 05, 2025 1:44pm Acute gout noneactive February 05 1:44pm [facility] Work Phone: Evaluation note* Diagnosis Sesamoiditis of right foot- Primary Verruca plantaris Plantar wart Foot pain, right Pain in soft tissues of limb Type 2 diabetes mellitus without complication, unspecified whether longterm insulin use (HCC) Pain due to onychomycosis of toenails of both feet Capsulitis of metatarsophalangeal (MTP) joint of right foot documented in this encounter [facility] HealthcareHistory and physical note Author Angleina Arrieta [facility] December 17, 2022 1:41pm Note Date/Time December 17, 2022 1:41p m [facility] [address] [place] [address] Gastroenterology H&P Signed Patient: Misael Aguilar Jr MR#: [id number] : 1965 Acct:[id number] Age/Sex: 57 / M Adm Date: 3 Loc: Room: Type: [facility] Attending Dr: Angelina Arrieta MD Copies to: [...] M.D. Documented By: Angelina Arrieta MD 12/17/22 134 Signed By: <Electronically signed by Angelina Arrieta MD> 12/17/22 1341 [facility] Work Phone: History and physical note Author Angelina Arrieta [facility] April 14, 2024 8:11am Note Date/Time April 14, 2024 8:11am [facility] [address] [place] [address] Gastroenterology H&P Signed Patient: Misael Aguilar Jr MR#: [id number] : 1965 Acct:[id number] Age/Sex: 59 / M Adm Date: 4 Loc: Room: Type: [facility] Attending Dr: Angelina Arrieta MD Copies to: Bhaskar Reddy,DO Angelina Arrieta MD~ Date of Service: 04/14/2024 HISTORY & [...] signed by Angelina Arrieta MD> 04/14/24 0811 [facility] Work Phone: History general Narrative - Reported* Type Description Date Medical History hypertension Medical History scoliosis Medical History 2 stents Surgical History appendectomy 2009 Surgical History cardiac stent Hospitalization History see above [facility] Other Hospital Discharge instructions No data available for this section [facility] Additional Instructions DISCHARGE INSTRUCTIONS FOR [...] problems. -Follow up with PCP. -Office number [phone]. [facility] Work Phone: Progress note No data available for this section [facility] HospitalReason for referral (narrative)No reason for referral information availableLima Memorial Hospital Work Phone: Summary Purpose Family History Relationship Condition Age [...] throat (viral) August 16, 2024 3 :19pm Chief Complaint Admit Date possible gout right foot February 05, 2025 1:44pm Reason for Visit Admit Date Type 2 diabetes mellitus with hyperglyce aiden February 05, 2025 1:44pm Acute gout February 05, 2025 1:44 pm Chief Complaint Admit Date possible gout right foot February 05, 2025 1:44pm Wellness February 20, 2025 3:2 5pm Reason for Visit Admit Date Type 2 diabetes mellitus with hyperglyce aiden February 05, 2025 1:44pm Acute gout February 05, 2025 1:44 pm ASHD (arteriosclerotic heart disease) Au mohsen 2024 3:25pm GERD (gastroesophageal reflux disease) A ugust 2024 3:25pm Hypercholesterolemia February 20, 2025 3: 25pm Hypertension February 20, 2025 3:2 5pm Type 2 diabetes mellitus with hyperglyce aiden February 20, 2025 3:25pm Screening PSA (prostate specific antigen ) February 20, 2025 3:25pm Screening for colon cancer February 20, 2 025 3:25pm Wellness examination February 20, 2025 3: 25pm Additional Source Comments (unrecognized sect ion and content) No Status Records FoundNo Status Records FoundNo Status Records FoundNo Status Records FoundNo Status Records FoundNo Status Records FoundNo Status Records FoundNo Status Records FoundNo Status Records FoundNo Status Records Found INFORMATION SOURCE (unrecogn ized section and content) DATE CREATED AUTHOR 02/17/2018 [facility] DATE CREATED AUTHOR AUTHOR'S ORGANIZ ATION 02/17/2018 [facility] DATE CREATED AUTHOR AUTHOR'S ORGANIZ ATION 05/15/2022 [facility] DATE CREATED AUTHOR AUTHOR'S ORGANIZ ATION 06/08/2022 [facility] DATE CREATED AUTHOR AUTHOR'S ORGANIZ ATION 09/18/[address] [facility] DATE CREATED AUTHOR AUTHOR'S ORGANIZ ATION 08/23/2023 [facility] DATE CREATED AUTHOR AUTHOR'S ORGANIZ ATION [facility]/03/2023 [facility] [place] DATE CREATED AUTHOR AUTHOR'S ORGANIZ ATION [facility]2023 [facility] [place] DATE CREATED AUTHOR AUTHOR'S ORGANIZ ATION 04/27/2024 [facility] DATE CREATED AUTHOR AUTHOR'S ORGANIZ ATION 02/08/2025 [facility] EPIC REASON FOR VISIT (unrecogniz ed section and content) Reason Comments Plantar Warts Bl lesions Reason Comments Follow-up BL lesion check Reason Comments Lesion Removal F/U lesion Reason Comments Follow-up 2wk lesion check Reason Comments Foot Callouses Lesion on RT foot Reason Comments Follow-up Rt pf check Reason Comments Foot Pain Poss gout Patient Care team informatio n (unrecognized section [...] 2024 Team Status: Active Member Role Status Candice Reddy DO Primary Care Provider Active Start: April 14, 2024 Angelina Arrieta MD Attending Provider, Other Provider Active Start: April 14, 2024 Team Status: Inactive Member Role Status Candice Reddy DO Primary Care Provide r, Attending Provider Active Start: June 02, 2024 End: June 02, 2024 Team Status: Active Member Role Status Candice Reddy DO Primary Care Provide r, Attending Provider Active Start: February 05, 2024 Team Status: Inactive Member Role Status Candice Reddy DO Primary Care Provide r, Attending Provider Active Start: February 14, 2024 End: February 14, 2024 Team Status: Inactive Member Role Status Candice Reddy DO Primary Care Provide r, Attending Provider Active Start: October 26, 2023 End: October 26, 2023 Team Status: Inactive Member Role Status Candice Reddy DO Primary Care Provider Active Start: November 09, 2023 End: November 09, 2023 Judy Coleman MD Attending Provider Active Start: November 09, 2023 End: November 09, 2023 Team Status: Inactive Member Role Status Candice Reddy DO Primary Care Provider Active Start: December 08, 2023 End: December 08, 2023 Judy Coleman MD Attending Provider Active Start: December 08, 2023 End: December 08, 2023 Team Status: Active Member Role Status Candice Reddy DO Primary Care Provide r, Attending Provider Active Start: September 09, 2023 Team Status: Inactive Member Role Status Candice Reddy DO Primary Care Provider Active Angelina Arrieta MD Attending Provider Active Team Status: Active Member Role Status Candice Reddy DO Primary Care Provider Active Start: November 09, 2023 Judy Coleman MD Attending Provider Active Start: November 09, 2023 Team Status: Inactive Member Role Status Candice Reddy DO Primary Care Provide r, Attending Provider Active Start: December 10, 2023 End: December 10, 2023 Blow Off Worker Relationship Specialty Start Date End Date Bhaskar Reddy MD [address] [place] [id number] PCP - General 02/01/24 Blow Off Worker Relationship Specialty Start Date End Date Bhaskar Reddy MD [address] [facility] [place] [id number] PCP - General 02/01/24 Blow Off Worker Relationship Specialty Start Date End Date Bhaskar Reddy MD [address] [facility] [place] [phone] PCP - General 02/01/24 Blow Off Worker Relationship Specialty Start Date End Date Bhaskar Reddy MD [address] [facility] [place] [phone] PCP - General 02/01/24 Blow Off Worker Relationship Specialty Start Date End Date Bhaskar Reddy MD [address] [facility] [place] [phone] PCP - General 02/01/24 Blow Off Worker Relationship Specialty Start Date End Date Bhaskar Reddy MD [address] [facility] [place] [phone] PCP - General 02/01/24 Blow Off Worker Relationship Specialty Start Date End Date Bhaskar Reddy MD [address] [facility] [place] [id number] PCP - General 02/01/24 Blow Off Worker Relationship Specialty Start Date End Date Bhaskar Reddy MD [address] [facility] [place] [phone] PCP - General 02/01/24 Team Status: Inactive Member Role Status Dates Bhaskar Ball , DO Primary Care Provider Active Start: August 11, 2024 End: August 11, 2024 Uyen Anderson , MILADY Attending Provider Active Start: August 11, 2024 End: August 11, 2024 Team Status: Inactive Member Role Status Dates Bhaskar Reddy DO Primary Care Provide r, Attending Provider Active Start: August 16, 2024 End: August 16, 2024 Team Status: Inactive Member Role Status Dates Bhaskar Reddy DO Primary Care Provider Active Start: February 05, 2025 End: February 05, 2025 Bhaskar Reddy DO Attending Provider Active Sta rt: February 05, 2025 End: February 05, 2025 Blow Off Worker Relationship Specialty Start Date End Date Bhaskar Reddy DO [address] [place] [phone] PCP - General 02/01/24 Blow Off Worker Relationship Specialty Start Date End Date Bhaskar Reddy DO [address] [place] [phone] PCP - General 02/01/24 Team Status: Inactive Member Role Status Dates Bhaskar Reddy DO Primary Care Provider Active Start: February 20, 2025 End: February 20, 2025 Bhaskar Reddy DO Attending Provider Active Sta rt: February 20, 2025 End: February 20, 2025 Goals (unrecognized section and content) Goals may [...] BE BASED ON THE PRIMARY CLINICAL RECORDS. [facility] [employer] provides no warranty or guarantee of the accuracy or completeness of information in this document.
[2025-02-26 07:18] LABS: Hematocrit 45.9 % (42.0-54.0); Hemoglobin 15.7 g/dL (14.0-18.0); Immature Granulocytes Abs Auto 0.01 10^3/uL (0.00-0.03); Immature Granulocytes Pct Auto 0.2 % (0.0-0.5); Lymphocytes Absolute Auto 2.2 10^3/uL (1.2-3.8); Mean Corpuscular HGB Conc 34.2 g/dL (29.9-35.2); Mean Corpuscular Hemoglobin 29.5 pg (25.9-34.0); Mean Corpuscular Volume 86.1 fL (80.0-94.0); Platelet Count 205 10^3/uL (150-450); Red Blood Count 5.33 10^6/uL (4.70-6.10); White Blood Count 6.3 10^3/uL (4.0-11.0)
[2025-02-26 07:28] LABS: Alanine Aminotransferase 60 U/L (16-63); Albumin Globulin Ratio 1.2; Albumin Level 3.6 g/dL (3.4-5.0); Alkaline Phosphatase 75 U/L (46-116); Anion Gap 11.4; Aspartate Amino Transferase 26 U/L (15-37); Blood Urea Nitrogen 15.0 mg/dL (7.0-18.0); Calcium 8.8 mg/dL (8.5-10.1); Carbon Dioxide 28.5 mmol/L (21.0-32.0); Chloride 106 mmol/L (98-107); Cholesterol 146 mg/dL (<=200); Estimated GFR (African America >60 (>=60 mL/min/1.73m^2); Estimated GFR (Non-African Ame >60 (>=60 mL/min/1.73m^2); Globulin 3.0 g/dL; Glucose 151 mg/dL (74-106); HDL Cholesterol 37 mg/dL (40-60); Potassium 3.9 mmol/L (3.5-5.1); Sodium 142 mmol/L (136-145); Total Protein 6.6 g/dL (6.4-8.2); Triglycerides 150 mg/dL (<=150); VLDL CHOLESTEROL 30.0 mg/dL
== END 2025-02-26 06:28 | disposition home or self-care (01) ==
LOC: LAB 06:28
PROVIDERS: Family Provider Internal Medicine; PCP Internal Medicine; Visit Provider Internal Medicine
DX: Z00.00 Encounter for general adult medical examination without abnormal findings (principal); Z12.5 Encounter for screening for malignant neoplasm of prostate
CPT/HCPCS: 36415; 80053; 80061; 82043; 82570; 83036; 85025; G0103